=== PATIENT | female | born 1975 | race Caucasian/White ===

== ENCOUNTER 2019-02-27 15:12 | Inpatient (IN) ==
[2019-02-27 18:04] LABS: BASO# 0.06 X1000 (0.0-0.2); BASO% 0.9 % (0.0-0.8); EOS# 0.15 X1000 (0.0-0.7); EOS% 2.3 % (0.0-10.0); HEMATOCRIT 33.8 % (37.0-47.0); HEMOGLOBIN 11.1 g/dL (12.0-16.0); LYMPH% 16.7 % (20.5-51.1); MCH 30.3 PG (27-31); MCHC 32.8 g/dL (33-37); MCV 92.3 FL (81-99); MONO# 0.57 X1000 (0.11-0.59); MONO% 8.6 % (1.7-9.3); MPV 10.8 FL (7.4-10.4); NEUT# 4.71 X1000 (1.4-6.5); NEUT% 71.5 % (42.2-75.2); PLT 242 X1000 (130-400); RBC 3.66 XMIL (4.2-5.4); RDW 12.9 % (11.5-14.5); WBC 6.59 X1000 (4.8-10.8)
[2019-02-27 18:17] LABS: AGAP 11; ALB/GLOB RATIO 1.2; ALBUMIN 3.8 g/dL (3.5-5.0); ALKALINE PHOSPHATASE 85 U/L (32-104); BUN 13 mg/dL (8-22); CHLORIDE 100 mmol/L (98-107); COSMO 276; CREATININE 0.7 mg/dL (0.5-0.9); ESTIMATED GFR > 60; GLUCOSE 98 mg/dL (70-104); GOT 15 U/L (10-30); GPT 8 U/L (10-36); POTASSIUM 3.6 mmol/L (3.5-5.1); SODIUM 138 mmol/L (136-145); TCO2 27 mmol/L (25-35); TOTAL BILIRUBIN 0.39 mg/dL (0.20-1.00); TOTAL PROTEIN 6.9 g/dL (6.3-8.3)
[2019-02-27 19:24] LABS: RETIC% 0.72 % (0.8-2.1)
--- NOTE | 2019-02-27 20:16 | HISTORY AND PHYSICAL ---
REASON FOR ADMISSION: Five-month history of progressively worsening chest pain, dyspnea and left- sided neck swelling. HISTORY OF PRESENT ILLNESS: Ms. Elana Grissom is a 43-year-old woman with no significant past medical history. About a year ago she saw her primary care physician for pleuritic chest pain and shortness of breath, and for small neck swellings on the left side of the neck. At that time it was felt that the neck swellings were reactive, probably to sore throat and bronchitis. The patient was given antibiotics and steroids, and her symptoms, i.e., sore throat, chest pain and shortness of breath, improved significantly and resolved. She states, however, that the neck swelling did not recede, and over the last 5 months have continued to increase in size. At the same time, the aforementioned chest pain has occurred, this time on the right side sharply into the shoulder, worse with exertion, and it is pleuritic. No fever, no chills, no night sweats. She has lost about 30 pounds over the last 4 months. She has a protracted dry cough. No hemoptysis. No pruritus. No dysphonia or dysphagia. Went to see her doctor today, who ordered a CT scan, and it showed multiple hilar lymphadenopathy abutting most of the large vessels in the mediastinum. The patient was then instructed to come to the ER to be evaluated. Dr. Lanier, oncologist, was consulted, and he wanted her to be admitted for further workup. REVIEW OF SYSTEMS: The patient denies any GI, or neurological complaints. No polyuria or polydipsia. No blurry vision or neck stiffness. No arthralgia or rash. Twelve systems were done, positive findings per HPI. ALLERGIES: None. MEDICATIONS: None. PAST SURGICAL HISTORY: , and I believe a hysterectomy. The patient has also had stents placed in her ureter on the right side. SOCIAL HISTORY: She smokes one-half to 1 pack a day. No alcohol or recreational drug use. Currently lives with her mother. FAMILY HISTORY: Mother had cancer, but she does not know what type. No other family member or first-degree relative with cancer, diabetes, or heart disease. PAST MEDICAL HISTORY: Other than kidney stones, nothing else. LAB WORK: White count 6000, hemoglobin and hematocrit 11 and 33, platelets 242. There is no significant differential. Potassium 3.6, BUN 13, creatinine 0.9. Troponin negative. ProBNP normal. EKG is pending. Chest film was not done. CT scan was given a verbal report from the ER physician, and the patient had multiple large hilar and mediastinal lymph nodes. PHYSICAL EXAMINATION: GENERAL: Middle-aged woman who is in no acute distress. She is alert and oriented to person, place and time with normal mood and affect. VITAL SIGNS: Blood pressure is 156/107, respiratory rate 87, respirations 24, heart rate 87, temperature 98.1, saturation 99% on room air. HEENT: Head is normocephalic, atraumatic. Eyes PERRL, EOMI. She is anicteric, not pale. ENT: Oropharynx exam is grossly normal. No central cyanosis.. NECK: Supple. There are multiple matted, hard swellings on the lateral left upper aspect of the patient's neck. They are not attached to underlying or overlying structures. They are mobile. They are nontender. No other lymphadenopathy appreciated in the axilla or supraclavicular area or the submental/submandibular areas. CHEST: Clear to auscultation. Good air entry in both lung reyes. CARDIOVASCULAR: First and second heart sounds heard. No gallops, murmurs or rubs. Rhythm is regular. ABDOMEN: Full and soft without tenderness or megaly. Bowel sounds are normal. No masses. RECTAL EXAM: Deferred at this time. EXTREMITIES: No edema, clubbing or cyanosis. Distal pulses are symmetrical and regular with good volume. NEUROLOGIC: No gross focal deficits appreciated. SKIN: Intact with no breakdown, lesions or erythema. MUSCULOSKELETAL: Grossly normal. ASSESSMENT: 1. Generalized lymphadenopathy, probably secondary to lymphoma or metastatic disease of solid tumor. 2. Tobacco use. 3. History of kidney stones. PLAN: The patient will be treated symptomatically, pending evaluation by Dr. Lanier. The patient would benefit from excisional biopsy. I will consult General Surgery to do this if agreeable to Dr. Lanier. Will avoid giving this patient any steroids, as if we are suspecting lymphoma, this could destroy the architecture of the lymph nodes and make diagnosis of the lymphoma subtype hard to discern. Will add an abdominal sonogram to evaluate for further staging if this patient has a Hodgkin-type lymphoma. The patient also has an anemia. Will do anemia workup amongst other things. cc: Gayatri Geller MD
--- NOTE | 2019-02-28 02:00 | PROVIDER DOCUMENTATION ---
This chart was entered by Mary Haywood Scribe, acting as scribe for Taylor Posada MD. HPI-General Adult - General Chief Complaint: General Adult Stated Complaint: DR COSBY REF-LYMPH NODES Time Seen by Provider: 02/27/19 15:27 Source: patient Allergies/Adverse Reactions: Patient Allergies Allergy/AdvReac Type Severity Reaction Status Date / Time No Known Allergies Allergy Verified 02/27/19 19:37 Home Medications: Home Medication List Medication Instructions Recorded Confirmed Last Taken Type NK [No Home Medications] 02/27/19 02/27/19 Unknown History - History of Present Illness -Gen Adult Nature of Presenting Problems: Patient is a 43 year old female who presents to the ED with lymph nodes swelling that have been present for 1 year. Patient had a CT scan of thorax today. report rt side chest pain almost daily for months. Patient reports being sent to ED by PCP due to concern Lymph node pressing on Pulmonary artery. Location of Pain/Injury: reports: none Pain Radiation: reports: no radiation Quality of Pain: reports: none Severity: reports: mild Onset/Duration: reports: other (1 year) Timing: reports: still present Context/Activities at Onset: reports: light activity Modifying Factors: improves with: nothing Associated Symptoms: reports: denies symptoms Similar Symptoms Previously?: Yes Recently seen or treated by another doctor?: Yes Review of Systems - Adult - REVIEW OF SYSTEMS - ADULT Constitutional: reports: no symptoms reported Eyes: reports: no symptoms reported Ears, Nose, Mouth & Throat: reports: no symptoms reported Cardiovascular: reports: chest pain Respiratory: reports: shortness of breath Gastrointestinal: reports: no symptoms reported Genitourinary: reports: no symptoms reported Musculoskeletal: reports: no symptoms reported Integumentary: reports: no symptoms reported Neurological: reports: no symptoms reported Past History - Adult - PAST MEDICAL HISTORY-ADULT Review of Records: reports: Nursing Assessment Review, Medications Reviewed, Social history reviewed & non-contributory. Major Childhood Illnesses: reports: denies history Cardiovascular: reports: denies history Respiratory: reports: denies history Gastrointestinal: reports: denies history Obstetrical/Gynecological: reports: denies history Genitourinary: reports: kidney disease Musculoskeletal: reports: denies history Neurological: reports: denies history Psychiatric: reports: denies history Endocrine/Immune: reports: denies history Other Conditions: reports: denies history - PRIOR SURGERIES/PROCEDURES Surgical/Procedure History: reports: reviewed, not pertinent, hysterectomy - IMMUNIZATION STATUS Childhood Immunizations: See Nurse Assessment Flu Vaccine: See Nurse Assessment - FAMILY HISTORY Family History: reviewed, not pertinent - SOCIAL HISTORY Smoking: cigarettes, less than 1 pack/day Provider spent 3-5 mins advising pt. on dangers of tobacco.: Discussed manners to quit use, and f/u contacts for add'l counseling. Substance Use: denies Physical Exam-General - PHYSICAL EXAM-ADULT Initial Vital Signs Reviewed: Yes - CONSTITUTIONAL General Appearance: alert, no apparent distress. negative: lethargic, slow to respond - HEAD, EARS, NOSE, MOUTH & THROAT HENMT: moist mucous membranes. negative: angioedema, hearing deficit - NECK Neck: lymphadenopathy (swelling to multiple lymph node. non tender (left side)) - RESPIRATORY Respiratory: chest non-tender, lungs clear, normal breath sounds. negative: crackles, rhonchi - CARDIOVASCULAR Cardiovascular: normal peripheral pulses, regular rate, rhythm. negative: tachycardia, systolic murmur - GASTROINTESTINAL (ABDOMEN) Abdominal Exam: normal bowel sounds, non tender, soft. negative: guarding, rebound - SKIN Integumentary: normal color, normal turgor, warm/dry. negative: cyanosis, eryt dinora, jaundice - NEUROLOGIC Neurologic: grossly normal - PSYCHIATRIC Psych/Mental Status: oriented x 3. negative: paranoid, tearful Progress - PLAN OF CARE/RESULTS Progress/Plan/Lab Results: Vital Signs - 8 hr 02/27/19 15:15 Temperature 98.1 F Pulse Rate 97 H Respiratory Rate 16 Blood Pressure 145/91 O2 Sat by Pulse Oximetry 99 CT chest report from PCP reviewed states severe mediastinal lymphadenopathy. mediastinal mass completely surrounds and encases the rt main pulmonary arterywhich only measure [address] Ocampo and discussed the patient case and the CT result. He is not worry urgently about the mass compressing the pulmonary artery. Plan is to admit to hospital and he will f/u [facility]. Result Diagrams: 02/27/19 15:48 02/27/19 15:48 - EKG 1 Time of EKG reading by physician:: 17:42 EKG Read and Signed by:: Taylor Mahajan EKG Interpretation (*Must complete 3 of following elements*): Abnormal Rate: 83 Rhythm: normal sinus rhythm QRS: RBB (incomplete) [place] Interval: normal Comments: borderline ECG - CONSULTS/PCP/HOSPITALIST Notification #1 *Consult/PCP/Hospitalist*: Dr. Geller Time Discussed: 18:48 Consult Disposition: Admit (Hx, PE and patient c) Departure - Departure Date of Disposition Decision: 02/27/19 Time of Disposition Decision: 18:47 DIAGNOSIS: Lymphadenopathy, Mediastinal mass Disposition: ADMITTED INPATIENT 09 Certified Medical Emergency: Emergent Condition: Stable - Critical Care Note This patient required my direct & personal management of CC.: No Attestation - Physician/ NIMISHA Attestation Patient care was provided by Advanced Practice Provider:: No The physician spent face to face time with patient:: Yes Advanced Practice Provider documentation review:: Supervising physician onsite and consulted in the evaluation and care of this patient. The physician did have a face to face encounter with the patient. This chart was documented by the indicated scribe, (Mary Haywood Scribe) and accurately reflects the services I performed and decisions made by me, Taylor Posada MD, as attested by the provider's signature.
[2019-02-28 07:27] LABS: BASO# 0.04 X1000 (0.0-0.2); BASO% 0.6 % (0.0-0.8); EOS# 0.17 X1000 (0.0-0.7); EOS% 2.5 % (0.0-10.0); HEMATOCRIT 37.5 % (37.0-47.0); HEMOGLOBIN 12.3 g/dL (12.0-16.0); LYMPH# 1.01 X1000 (1.2-3.4); MCH 30.2 PG (27-31); MCHC 32.8 g/dL (33-37); MCV 92.1 FL (81-99); MONO# 0.52 X1000 (0.11-0.59); MONO% 7.7 % (1.7-9.3); MPV 10.5 FL (7.4-10.4); NEUT# 5.01 X1000 (1.4-6.5); NEUT% 74.2 % (42.2-75.2); PLT 264 X1000 (130-400); RBC 4.07 XMIL (4.2-5.4); RDW 12.9 % (11.5-14.5); WBC 6.75 X1000 (4.8-10.8)
[2019-02-28 07:44] LABS: AGAP 10; ALBUMIN 3.7 g/dL (3.5-5.0); ALKALINE PHOSPHATASE 84 U/L (32-104); BUN 12 mg/dL (8-22); CALCIUM 9.1 mg/dL (8.8-10.2); CHLORIDE 103 mmol/L (98-107); COSMO 276; CREATININE 0.6 mg/dL (0.5-0.9); ESTIMATED GFR > 60; GLUCOSE 101 mg/dL (70-104); GOT 14 U/L (10-30); GPT 8 U/L (10-36); MAGNESIUM 2.1 mg/dL (1.5-2.7); POTASSIUM 3.3 mmol/L (3.5-5.1); SODIUM 138 mmol/L (136-145); TCO2 25 mmol/L (25-35); TOTAL BILIRUBIN 0.47 mg/dL (0.20-1.00); TOTAL PROTEIN 7.3 g/dL (6.3-8.3)
--- NOTE | 2019-02-28 09:31 | EKG Report ---
Test Performed on : 02/27/2019 5:42:30 PM Test Reason : CP Blood Pressure : / mmHG Vent. Rate : 083 BPM Atrial Rate : 083 BPM P-R Int : 140 ms QRS Dur : 092 ms QT Int : 380 ms P-R-T Axes : 052 065 057 degrees QTc Int : 446 ms Normal sinus rhythm. Incomplete right bundle branch block Borderline ECG No previous ECGs available Unconfirmed Result
[2019-02-28] MEDS: POTASSIUM CHLORIDE 20 MEQ/SWI 20 MEQ/100 ML IVPB IV SCH ×2 (09:55→16:53)
--- NOTE | 2019-02-28 11:22 | Diag Imaging Result Doc PS360 ---
EXAM: CHEST-2 VIEWS HISTORY: hilar adenopathy TECHNIQUE: Chest two views COMPARISON: 01/03/2014 FINDINGS: The lungs are hyperexpanded with increased AP diameter to the chest. There are multifocal infiltrates most pronounced in the right lung. Interval development of right apical pleural thickening. The upper mediastinum is prominent on the current study. Likely trace pleural fluid. IMPRESSION: Infiltrates with superior mediastinal adenopathy. Electronically signed by Jaswinder Bryant 02/28/2019 11:20 AM
[2019-02-28] MEDS ORDERED: NS 250 ML ONE (13:32)
--- NOTE | 2019-02-28 15:14 | PROGRESS NOTE ---
DATE: 02/28/2019 INTERVAL HISTORY: The patient remains largely asymptomatic aside from occasional minimal pleuritic pain. Pain well controlled. No new complaints. No acute events overnight. Patient with continued minimal dry cough. REVIEW OF SYSTEMS: Twelve point review of systems review of systems negative except as per Interval History. LABS: WBC 6.5, hemoglobin 12.3, hematocrit 37.5, platelets 264,000. Sodium 138, potassium 3.3, BUN 12, creatinine 0.6, total bilirubin 0.47. IMAGING: Chest x-ray with multifocal infiltrates in the right lung and superior mediastinal adenopathy. VITAL SIGNS: T-max 99.1, pulse 87, respirations 16, blood pressure 135/89. O2 sat 100% on room air. PHYSICAL EXAMINATION: General: No acute distress. Vitals: As above. HEENT: Normocephalic, atraumatic. Moist mucous membranes. Neck: No JVD. Cardiac: Regular rate and rhythm. No murmurs, rubs or gallops. Pulmonary: Clear to auscultation bilaterally. No wheezing, rales or rhonchi. Abdomen: Soft, nontender, nondistended. Bowel sounds positive. Extremities: Peripheral pulses intact. No clubbing, cyanosis or edema. Neurologic: Cranial nerves grossly intact. No focal deficits identified. Psychiatric: Normal mood and affect. Awake, alert, oriented x 3. Skin: No new rashes or lesions identified. ASSESSMENT AND PLAN: 1. Generalized lymphadenopathy, suspected lymphoma versus likely metastatic disease. Oncology consulted and further recommendations pending. Suspect patient will need biopsy, followed by outpatient followup. 2. Infiltrate on chest x-ray. Patient with little to no cough. No dyspnea. Saturating well on room air without fever, tachycardia or leukocytosis. Suspicion for pneumonia is low. Will obtain CT chest to clarify. Suspect infiltrates noted on chest x-ray are due to malignancy as above. 3. Tobacco use. Patient counseled on cessation. Offered a nicotine patch. 4. Hypokalemia. Will replete and monitor. 5. Anemia mild and improved on recheck. No need for further workup at this time.
--- NOTE | 2019-02-28 22:15 | PULMONOLOGY CONSULTATION ---
DATE: 02/28/2019 REQUESTING PHYSICIAN: Marco A Fulton MD REASON FOR CONSULTATION: Possible metastatic lung cancer. HISTORY OF PRESENT ILLNESS: Ms. Amaya is a 43-year-old white female who reports the onset of nodules in her left neck several months ago. She was told they might be reactive, but she would need followup. The patient did not return for followup per her on admission. The patient was evaluated by the [facility] physician at [facility] ([place]) due to ongoing weight loss. He referred the patient for a CT scan of the thorax and to Dr. Timoteo Veloz. CT scan of the thorax was performed at the imaging center and has been pulled to our system. The patient has bulky adenopathy in the anterior mediastinum surrounding the trachea, subcarinal region. Tumor appears to obstruct the entrance to the right upper lobe and markedly narrows the bronchus intermedius. There is a patchy nonspecific infiltrate in the right middle lobe. Images are slightly difficult to interpret due to the format. The patient's lymph node was biopsied with a fine-needle aspirate. The left-sided lymph nodes in her neck were aspirated by Dr. Fulton' phone conversation, and these cells were so poorly differentiated it was difficult to identify the source. Pulmonary consultation was requested. PAST MEDICAL HISTORY/PROBLEM LIST: 1. History of cervical cancer in 2007 with subsequent hysterectomy. 2. Nephrolithiasis with stent placement. 3. Status post section. SOCIAL HISTORY: Ongoing tobacco use. No alcohol use listed. REVIEW OF SYSTEMS: Notable for nodules in the left side of her neck, which have increased in size, cough which is dry and nonproductive, and 15-pound weight loss over the last year. OBJECTIVE: General: The patient is a thin white female who is slightly anxious but in no distress. Vital signs: BP 135/89, heart rate 87, respiratory rate 16, oxygen saturation 100% on room air. HEENT: Pupils are equal and reactive. Oropharynx appears clear. Neck: Reveals multiple firm nodules in the posterior cervical chain, which are not freely mobile. Chest: Reveals decreased breath sounds right apex. Cardiac Exam: S1, S2. Abdomen: Soft without hepatosplenomegaly. Extremities: Without edema. LABORATORIES: CT scan as per HPI. White blood count 6.8, hemoglobin 12.3, platelet count 264,000 sodium 138, potassium 3.3, chloride 103 bicarbonate 25, BUN 12, creatinine 0.6. IMPRESSION: A 43-year-old with tobacco history, remote history of cervical cancer presents with extensive mediastinal disease worrisome for advanced bronchogenic carcinoma. The airway to the right upper lobe appears to be obstructed. RECOMMENDATIONS: 1. Check a CEA level. 2. N.p.o. after midnight with bronchoscopy scheduled for tomorrow morning. cc: Keo Baird MD
[2019-03-01] MEDS ORDERED: FENTANYL ONE (06:26)
[2019-03-01] MEDS ORDERED: DIPRIVAN 1% ONE (06:26)
[2019-03-01] MEDS ORDERED: VERSED ONE (06:29)
[2019-03-01] MEDS ORDERED: XYLOCAINE 2% ONE (07:04)
[2019-03-01] MEDS ORDERED: XYLOCAINE 2% VISCOUS ONE (07:04)
[2019-03-01] MEDS ORDERED: SODIUM CHLORIDE 0.9% 20 ML ONE (07:04)
[2019-03-01] MEDS ORDERED: EPINEPHRINE ONE (07:04)
--- NOTE | 2019-03-01 08:55 | OPERATIVE NOTE ---
PROCEDURE DATE: 03/01/2019 PROCEDURE PERFORMED: Bronchoscopy with endobronchial biopsies. CLINICAL INDICATIONS: A 43-year-old with cervical adenopathy with diffuse mediastinal adenopathy/mass. PROCEDURE: After informed consent was obtained and the risks were discussed, the patient was brought to the endoscopy suite this morning. Topical anesthesia was achieved with inhaled lidocaine along with viscous lidocaine to the right nostril with 2% lidocaine instilled above and below the vocal cords during the procedure. Monitored anesthesia care was provided by the anesthesia group. Prior to the procedure, a time-out was performed. All agreed with the patient identifiers and indications for the procedure. After a time-out was performed, topical anesthesia and sedation were achieved. Bronchoscope was advanced through the right nostril to the level of the vocal cords. The vocal cords were smooth and without lesions. Both vocal cords had normal movement. The bronchoscope was advanced through the vocal cords into the trachea. Trachea was smooth and without lesions. At the distal trachea, the sonia was significantly splayed consistent with the radiographic findings of tumor. The bronchoscope was directed to the right side. There was apparent tumor seen narrowing the airways to the right upper lobe and the bronchus intermedius. There was significant tumor identified in the airflow divider between the right upper lobe and the bronchus intermedius. Video image was obtained. Airways were narrowed to the middle lobe but did reopen in the lower lobe. The bronchoscope was directed to the left side. Tumor could be seen on the medial wall of the left mainstem bronchus in 2 ridge-like fashions, just passed the sonia. Video image was obtained. Airways to the left upper lobe, lingula, and left lower lobe were patent without lesions. A washing was performed from the proximal tracheobronchial tree and sent for cultures and cytology. The bronchoscope was directed back to the airflow divider between the right upper lobe and the bronchus intermedius. Multiple endobronchial biopsies were taken from this lesion. Epinephrine was instilled before and following the biopsies to maintain hemostasis. The bronchoscope was then directed to the left mainstem. Multiple biopsies were taken from the tumor identified in the left mainstem. At the completion of the procedure, there was no significant active bleeding identified. Hemostasis appeared adequate. The bronchoscope was retracted. The patient was awake and conversant after the completion of the procedure. cc: Keo MD Gutierrez Johnson MD Sammy Becdach, MD Hugh C. Nabers, MD
--- NOTE | 2019-03-01 16:30 | HEMO/ONC CONSULTATION ---
DATE: 03/01/2019 ADMITTING PHYSICIAN: Gayatri Geller MD REQUESTING PHYSICIAN: Gayatri Geller MD. We appreciate this consult. CHIEF COMPLAINT: Generalized lymphadenopathy. HISTORY OF PRESENT ILLNESS: Ms. Amaya is a pleasant 43-year-old female with no significant mass medical history. The patient reports that she began to have swelling in her left neck approximately 1 year ago. She states that she was seen by her primary care physician and placed on antibiotics and steroids at that time. The patient states that the neck swelling did not recede; however, she was not seen in follow-up for continued swelling of lymph nodes. The patient reports that she began to experience chest pain and right shoulder pain that was worse with exertion. She denied any fever, chills, or night sweats. The patient does report that she has had a 30-pound weight loss over the last 4 months with an ongoing dry cough. The patient presented to her primary care physician ultimately and underwent CT of the chest, which revealed multiple hilar lymphadenopathy abutting most of the large vessels in the mediastinum. She was instructed to come to the emergency department for consult with Oncology and complete workup. We are consulted for generalized lymphadenopathy. PAST MEDICAL HISTORY: None. PAST SURGICAL HISTORY: 1. section. 2. Placement of stent in ureter on right side. FAMILY HISTORY: Significant for cancer in the patient's mother of unknown type. MEDICATIONS ON ADMISSION: None. ALLERGIES: None known. REVIEW OF SYSTEMS: A 14 point review of systems was obtained and is negative except as mentioned in HPI. PHYSICAL EXAMINATION: General: Ms. Amaya is a pleasant 43-year-old female, lying supine in bed in no immediate distress. Vital Signs: Temperature 97.8 degrees, blood pressure 135/89, heart rate 87, respirations are 16, O2 saturation is 100% on room air. HEENT: Normocephalic, atraumatic. Mucous membranes are pale and moist. Sclerae anicteric. Extraocular movements intact. Neck: Supple. Lungs: Clear to auscultation bilaterally. Chest expansion equal bilaterally. Cardiovascular: S1, S2 is heard without murmur, rub, or gallop. Abdomen: Nondistended. Extremities: No clubbing. She does have trace bilateral lower extremity edema. Dermatologic: No rashes, bruises, or lesions. Neurologic: The patient is awake, alert, and oriented x3. She has no focal deficit. Lymphadenopathy: The patient does have multiple enlarged lymph nodes in the left precervical region. DIAGNOSTIC STUDIES: Hemoglobin 12.3, hematocrit 37.5, white blood cell count 6.75, platelets 264,000. Sodium 138, potassium 3.3, chloride 103, CO2 is 25, BUN 12, creatinine 0.6, and glucose is 101, calcium 9.1, magnesium 2.1. LDH is 362. LFTs are within normal limits. CT of the chest reveals multi-hilar lymphadenopathy abutting most large vessels in the mediastinum. ASSESSMENT AND PLAN: 1. Generalized lymphadenopathy with a 30-pound weight loss in last 4 months, probably related to lymphoma versus metastasis from solid tumor. We will obtain bone marrow biopsy and aspiration. Additionally, the patient will be scheduled for lymph node resection and evaluation. Additionally we will obtain a CT of the abdomen and pelvis to rule out primary. We will continue to follow along and make treatment plan pending results. 2. Tobacco abuse. Cessation was encouraged. We will follow along with you and make further recommendations pending outcomes. The above reflects the history, exam, assessment, and plan of Dr. Lanier. Dictated by TYRONE Hill for Sridhar Lanier MD cc: TYRONE Hill MD
--- NOTE | 2019-03-01 16:49 | PROGRESS NOTE ---
DATE: 03/01/2019 INTERVAL HISTORY: The patient is status post bronchoscopy with biopsy of likely malignancy. Some discomfort postprocedure, but doing okay. Denies dyspnea, fever, or chills. No other new complaints. No acute events overnight. ROS: 12 point review of systems negative except as per interval history. VITALS: T-max 99.7, pulse 94, respirations 18, and blood pressure 122/71. PHYSICAL EXAMINATION: General: No acute distress. Vital signs above. HEENT: Normocephalic and atraumatic. Moist mucous membranes. Cardiovascular: Regular rate and rhythm. No murmur, gallop or rub. Pulmonary: Largely clear to auscultation bilaterally. Abdomen: Soft, nontender, nondistended. Bowel sounds positive. Extremities: Peripheral pulses intact. No clubbing, cyanosis or edema. Neurologic: Cranial nerves grossly intact. No focal deficits identified. Psychiatric: Normal mood and affect. Awake, alert and oriented times 3. Skin: No new rashes or lesions identified. ASSESSMENT AND PLAN: 1. Generalized lymphadenopathy, likely lymphoma versus metastatic disease. Status post bronchoscopy earlier with biopsy earlier this morning. Endobronchial lesion was identified during bronchoscopy making malignancy extremely likely. Oncology consulted. Further recommendations pending. 2. Infiltrate on chest x-ray. Patient with little to no cough. No dyspnea. Saturating well on room air without fever, tachycardia, or leukocytosis. Suspicion for pneumonia is quite low. Outpatient CT just prior to admission reviewed and appeared to have some obstructive atelectasis, but no definite pneumonia. If further findings suggestive of infection develops, then we will consider. 3. Tobacco use. Patient counseled on cessation and offered nicotine patch. 4. Hypokalemia, repleted. Recheck labs pending. 5. Anemia, mild and improved on recheck. No need for further workup at this time. 6. Disposition: Oncology recommendations pending. [facility]
[2019-03-02] MEDS: TYLENOL PO PRN (03:09)
--- NOTE | 2019-03-02 12:06 | Diag Imaging Result Doc PS360 ---
EXAM: CT ABD/PELVIS W/PO AND IV CON 03/02/2019 HISTORY: R/o primary lesion TECHNIQUE: This exam was performed using automated exposure control, adjustment of mA or kV according to patient size, and/or use of iterative reconstruction technique. COMMENT: There are interstitial opacities present in the right middle lobe and to a lesser extent in the lower lobe. There is a fairly large right pleural effusion with compressive atelectasis in the right lower lobe. None of these findings were present on 08/16/2015. There are two renal arteries bilaterally. The mesenteric arteries are patent. There is some atherosclerotic calcification and noncalcified plaque in the infrarenal abdominal aorta. There is no evidence of aneurysm. There are no apparent gallstones. There is hydronephrosis on the right with a staghorn calculus in the renal pelvis and calyces measuring at least 3.2 cm in dimension. This is much larger than on the previous examination. Several smaller stones are present on both sides with the largest present on the left side in the upper pole measuring less than 5 mm. There is diminished contrast opacification in portions of the right kidney most notably seen on image 49 of the portal venous phase. The possibility of xanthogranulomatous pyelonephritis should be considered. There are multiple small lucencies present in the liver including one adjacent to the gallbladder. These are cystic in appearance and were also present at the time the previous study. There is no evidence of bowel obstruction or significant adenopathy. Pelvis: There is a moderate amount of stool present in the rectum. There is no evidence of free fluid or significant adenopathy. There has been hysterectomy. The urinary bladder is unremarkable. There is no evidence of appendicitis. There is a bone island in the left femoral neck which was also present at the time the previous examination. Otherwise the regional skeleton is stable in appearance. IMPRESSION: 1. Right middle lobe pneumonia, right lower lobe atelectasis and right pleural effusion not present on 08/16/2015. 2. 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 Electronically signed by Ignacio Archibald 03/02/2019 12:03 PM
--- NOTE | 2019-03-02 15:38 | PROGRESS NOTE ---
DATE: 03/02/2019 INTERVAL HISTORY: Patient remains largely asymptomatic aside from some slight nonproductive cough and some slight pleuritic discomfort on the right since her bronchoscopy and biopsy yesterday. Denies dyspnea, fever, chills. No new complaints. No acute events overnight. REVIEW OF SYSTEMS: Twelve point review of systems negative, except as per interval history. VITALS: T-max 99.7 degrees, pulse 92, respirations 16, blood pressure 126/109, O2 saturation 100% on room air. PHYSICAL EXAMINATION: General: No acute distress. Vitals: As above. HEENT: Normocephalic, atraumatic. Moist mucous membranes. Cardiovascular: Regular rate and rhythm. No murmurs, rubs, or gallops. Pulmonary: Markedly clear to auscultation bilaterally. No wheezes, rales noted. Abdomen: Soft, nontender, nondistended. Bowel sounds positive. Extremities: Peripheral pulses intact. No clubbing, cyanosis, or edema. Neurologic: Cranial nerves grossly intact. No focal deficits identified. Psychiatric: Normal mood and affect. Awake, alert, oriented x3. Skin: No new rashes or lesions identified. ASSESSMENT AND PLAN: 1. Likely lymphoma versus metastatic disease. Generalized lymphadenopathy. Status post bronchoscopy 03/01 with biopsy of endobronchial lesion. Hematology/Oncology on board. Possible lymph node excision and bone marrow biopsy tomorrow noted. 2. Infiltrate on chest x-ray. Patient with no cough, no dyspnea, saturating well on room air without fever, tachycardia or leukocytosis. Does have a slight dry cough since her bronchoscopy, but relatively low suspicion for pneumonia. Outpatient CT showed obstructive atelectasis, but no definite pneumonia. Repeat CT here pending. If the CT here or clinical picture begins to become more suggestive of pneumonia, then will consider starting Levaquin. 3. Tobacco use. Patient counseled on cessation. Offered a nicotine patch. 4. Hypokalemia, repleted and repeat labs pending. 5. Anemia, mild, improved on recheck. No need for further workup at this time.
[2019-03-02] MEDS: LEVAQUIN PO SCH (16:55)
[2019-03-02] MEDS ORDERED: TESSALON PO PRN (18:49)
[2019-03-03 07:35] LABS: BASO# 0.04 X1000 (0.0-0.2); BASO% 0.6 % (0.0-0.8); EOS# 0.12 X1000 (0.0-0.7); EOS% 1.7 % (0.0-10.0); HEMATOCRIT 37.6 % (37.0-47.0); HEMOGLOBIN 12.5 g/dL (12.0-16.0); LYMPH% 17.3 % (20.5-51.1); MCH 30.5 PG (27-31); MCHC 33.2 g/dL (33-37); MCV 91.7 FL (81-99); MONO% 8.6 % (1.7-9.3); MPV 10.5 FL (7.4-10.4); NEUT# 4.99 X1000 (1.4-6.5); NEUT% 71.8 % (42.2-75.2); PLT 307 X1000 (130-400); RDW 12.3 % (11.5-14.5); WBC 6.95 X1000 (4.8-10.8)
--- NOTE | 2019-03-03 07:36 | Diag Imaging Result Doc PS360 ---
EXAM: CHEST-1 VIEW 03/03/2019 HISTORY: SOB TECHNIQUE: AP portable at 0637 COMMENT: There is apical pleural thickening bilaterally particularly on the right. There is extensive interstitial opacity throughout the right lung particularly in the perihilar regions. There is what appears to be a nodule in the right apex measuring 15 mm in diameter. This was not present on 01/03/2014. The left lung is essentially clear and unchanged since 02/28/2019. The ill-defined opacity in the right lower lobe is somewhat less conspicuous. There is enlargement of the right hilum which was also present previously. There is widening of the superior mediastinum. Compared to 01/03/2014 and none of these findings were present previously. IMPRESSION: Mediastinal and right hilar mass/adenopathy with lymphangitic spread of carcinoma particularly in the right upper lobe. The possibility of postobstructive pneumonia in the right upper and right lower lobes cannot be excluded. Electronically signed by Ignacio Archibald 03/03/2019 7:33 AM
[2019-03-03 07:49] LABS: AGAP 14; BUN 11 mg/dL (8-22); CALCIUM 8.6 mg/dL (8.8-10.2); CHLORIDE 99 mmol/L (98-107); COSMO 276; CREATININE 0.6 mg/dL (0.5-0.9); ESTIMATED GFR > 60; GLUCOSE 118 mg/dL (70-104); POTASSIUM 3.4 mmol/L (3.5-5.1); SODIUM 138 mmol/L (136-145); TCO2 25 mmol/L (25-35)
[2019-03-03] MEDS: LEVAQUIN PO SCH (09:01)
[2019-03-03] MEDS ORDERED: KLOR-CON POWDER PACKET PO ONE (13:04)
--- NOTE | 2019-03-03 14:17 | PROGRESS NOTE ---
DATE: 03/03/2019 INTERVAL HISTORY: The patient remains largely asymptomatic aside from persistent mild nonproductive cough and some slight pleuritic discomfort on the right since her bronchoscopy. Denies fever, chills. No new complaints. No acute events overnight. REVIEW OF SYSTEMS: Twelve point review of systems negative, except as per interval history. LABS: WBC 6.9, hemoglobin 12.5, hematocrit 37.6, platelets 307. Sodium 138, potassium 3.4, glucose 108, creatinine 0.6. VITALS: T-max 98.5 degrees, pulse 96, blood pressure 120/70, respirations 17, O2 saturation 100% on room air PHYSICAL EXAMINATION: General: No acute distress. Vitals: As above. HEENT: Normocephalic, atraumatic. Moist mucous membranes. Cardiovascular: Regular rate and rhythm. No murmur noted. Pulmonary: Clear to auscultation bilaterally with no wheezing, rales or rhonchi noted. Abdomen: Soft, nontender, nondistended. Bowel sounds positive. Extremities: Peripheral pulses intact. No clubbing, cyanosis or edema. Neurologic: Cranial nerves grossly intact. No focal deficits identified. Psychiatric: Normal mood and affect. Awake, alert and oriented x3. Skin: No new rashes or lesions identified. ASSESSMENT AND PLAN: 1. Likely lymphoma versus metastatic disease. Generalized lymphadenopathy. Status post bronchoscopy 03/01 with biopsy of endobronchial lesion. Hematology/Oncology on board. Possible lymph node excision and bone marrow biopsy in the near future. 2. Possible pneumonia. The patient with minimal cough. No dyspnea and saturating well on room air without fever, tachycardia or leukocytosis. However, does have infiltrate on CT showing possible postobstructive pneumonia. Started on Levaquin. Continue to monitor. 3. Staghorn calculus of right kidney. 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 Antibiotics started as above. Urology consulted for further recommendations. 4. Tobacco abuse. Patient counseled on cessation. Offered a nicotine patch. 5. Hypokalemia, somewhat improved, but will continue to replete and monitor. 6. Anemia, mild. Blood counts essentially stable.
[2019-03-04 07:33] LABS: BASO# 0.03 X1000 (0.0-0.2); BASO% 0.4 % (0.0-0.8); EOS# 0.14 X1000 (0.0-0.7); EOS% 1.8 % (0.0-10.0); HEMATOCRIT 37.5 % (37.0-47.0); HEMOGLOBIN 12.4 g/dL (12.0-16.0); LYMPH% 14.2 % (20.5-51.1); MCH 30.2 PG (27-31); MCHC 33.1 g/dL (33-37); MCV 91.5 FL (81-99); MONO# 0.81 X1000 (0.11-0.59); MONO% 10.5 % (1.7-9.3); MPV 10.6 FL (7.4-10.4); NEUT# 5.67 X1000 (1.4-6.5); NEUT% 73.1 % (42.2-75.2); PLT 315 X1000 (130-400); RDW 12.4 % (11.5-14.5); WBC 7.75 X1000 (4.8-10.8)
[2019-03-04 08:03] LABS: AGAP 12; BUN 12 mg/dL (8-22); CALCIUM 9.4 mg/dL (8.8-10.2); CHLORIDE 104 mmol/L (98-107); COSMO 278; CREATININE 0.5 mg/dL (0.5-0.9); ESTIMATED GFR > 60; GLUCOSE 103 mg/dL (70-104); SODIUM 139 mmol/L (136-145); TCO2 23 mmol/L (25-35)
--- NOTE | 2019-03-04 09:02 | PROGRESS NOTE ---
DATE: 03/04/2019 SUBJECTIVE: Patient has no new complaints. PHYSICAL EXAMINATION: Vital Signs: Reviewed. Temperature 97 degrees, pulse 95, respiratory rate 18, BP 124/72, saturating 99% on room air. General: Patient is awake, very pleasant to talk with. She is in no current distress. HEENT: Normocephalic. Neck: Supple. Cardiovascular: Regular rate. Chest: Clear. Abdomen: Soft and nondistended. Extremities: Moves all extremities. ASSESSMENT: 1. Lymphoma versus metastatic disease. Recent chest x-ray demonstrated mediastinal and right hilar mass with lymphatic spread and probable postobstructive pneumonia. 2. Postobstructive pneumonia. 3. Chronic tobacco abuse. 4. Hypokalemia, resolved. PLAN: We will continue patient in the hospital. Continue supportive care. Hematology/oncology is on board. cc: Stephan Boyce MD
[2019-03-04] MEDS: LEVAQUIN PO SCH (10:14)
--- NOTE | 2019-03-04 12:05 | CONSULTATION ---
DATE OF CONSULTATION: 03/04/2019 ATTENDING PHYSICIAN: Sofia. REFERRING PHYSICIAN: Dr. Fulton. HISTORY OF PRESENT ILLNESS: This 43-year-old female was admitted with chest pains, shortness of breath, and significant weight loss. Evaluation revealed cervical lymphadenopathy and mediastinal lymphadenopathy and mass. She underwent bronchoscopy and biopsies of intraluminal masses. The patient has a history of renal lithiasis. Her evaluation for the lymphadenopathy and mediastinal mass included a CT of the abdomen and pelvis. This revealed a large partial staghorn calculus. Also noted were changes of lobar nephronia (focal pyelonephritis). The patient is currently on Levaquin 750 mg a day. Urine cultures are pending. The patient has a history of stones and states she usually passes them. She states that several years ago, she had to have a cystoscopic exam with right ureteroscopy and placement of a double-J stent. The patient had spontaneously passed that stone but also was noted to have a large stone in the right lower pole kidney. The patient states the stent was removed but she never had anything done about the right lower pole stone. She denies problems with urinary tract infections. She states she does have some right flank area tenderness. PAST MEDICAL HISTORY: Renal lithiasis, otherwise negative. PAST SURGICAL HISTORY: section and as noted in the HPI. SOCIAL HISTORY: Cigarettes, half to one pack a day for 20+ years. She states she has quit at this time. ETOH use is negative. She lives with her mother. ALLERGIES: No known drug allergies. REVIEW OF SYSTEMS: She states she is usually in good health. She denies any problems with heart disease, diabetes, hypertension, strokes, seizures, or recent bowel problems. PHYSICAL EXAMINATION: General: A normally-built, well-nourished, age apparent, white female, oriented in all ways and cooperative. HEENT: Normal for age. Lungs: Clear. Cardiovascular: Regular rate and rhythm. Abdomen: Flat, soft, nontender. No hepatosplenomegaly or masses. Normal bowel sounds. Back: Right CVA tenderness but no guarding or rebound noted. Genitourinary: Examination deferred until surgery. Extremities: No clubbing, cyanosis, or edema. Neurologic: No focal deficits. LABORATORY EVALUATION: Has a white count of 7.75, a hemoglobin of 12.4, a hematocrit of 37.5, and platelets are 315,000. Serum electrolytes are normal. BUN 12, creatinine 0.5. A urinalysis has not been obtained. Her urine culture resulted today has no growth. Urine output, she is voiding and the amount is not being measured. CT scan is as noted in the HPI. IMPRESSION: Right staghorn calculus with lobar nephronia (focal pyelonephritis). Currently on Levaquin 750 mg a day which should be continued even though a culture has no growth. RECOMMENDATIONS: Discussed with the patient that she will need to have further evaluation of her right kidney after the chest mass and lymphadenopathy have been treated. Recommend continuing Levaquin 750 mg a day. Thank you for this consultation. cc: Joshua Mathew MD
[2019-03-05 07:32] LABS: BASO# 0.04 X1000 (0.0-0.2); BASO% 0.5 % (0.0-0.8); EOS# 0.05 X1000 (0.0-0.7); EOS% 0.6 % (0.0-10.0); HEMATOCRIT 35.9 % (37.0-47.0); HEMOGLOBIN 11.8 g/dL (12.0-16.0); LYMPH# 1.12 X1000 (1.2-3.4); LYMPH% 13.9 % (20.5-51.1); MCHC 32.9 g/dL (33-37); MCV 91.3 FL (81-99); MONO# 0.88 X1000 (0.11-0.59); MONO% 10.9 % (1.7-9.3); MPV 10.6 FL (7.4-10.4); NEUT# 5.99 X1000 (1.4-6.5); NEUT% 74.1 % (42.2-75.2); PLT 337 X1000 (130-400); RBC 3.93 XMIL (4.2-5.4); RDW 12.3 % (11.5-14.5); WBC 8.08 X1000 (4.8-10.8)
[2019-03-05 08:00] LABS: AGAP 11; BUN 10 mg/dL (8-22); CHLORIDE 99 mmol/L (98-107); COSMO 272; CREATININE 0.6 mg/dL (0.5-0.9); ESTIMATED GFR > 60; GLUCOSE 110 mg/dL (70-104); POTASSIUM 3.8 mmol/L (3.5-5.1); SODIUM 136 mmol/L (136-145); TCO2 26 mmol/L (25-35)
[2019-03-05] MEDS: LEVAQUIN PO SCH (09:07)
[2019-03-05] MEDS: ZOFRAN IV PRN (09:07)
--- NOTE | 2019-03-05 16:14 | Diag Imaging Result Doc PS360 ---
MRI BRAIN W/WO CONTRAST - 03/05/2019 INDICATION: Stage IV lung cancer COMPARISON: None FINDINGS: There is no area of restricted diffusion. The ventricles and sulci are normal in size and contour. No intracranial mass or hemorrhage. No area of abnormal contrast enhancement. Midline structures including the optic chiasm and pituitary are normal. IMPRESSION: Negative exam. Electronically signed by Chidi Lee 03/05/2019 4:11 PM
--- NOTE | 2019-03-05 17:04 | PROGRESS NOTE ---
DATE: 03/05/2019 SUBJECTIVE: Patient reports mild cough. Not complaining of any pain at this time. OBJECTIVE: Vital Signs: Temperature 99.3 degrees, heart rate 95, respiratory blood 14, blood pressure 135/71. O2 saturation 100% on room air. General: This is a 43-year-old female lying in bed, in no acute distress. HEENT: Head is normocephalic, atraumatic. Neck: No JVD noted. No carotid bruits. No lymphadenopathy. No thyromegaly. Cardiovascular: S1, S2 heard. No murmurs, gallops, or rubs. Regular rate and rhythm. Respiratory: Clear bilaterally to auscultation. No work of breathing or using accessory muscles. Abdomen: Soft, nontender to palpation. Bowel sounds present. No organomegaly. Extremities: No clubbing, cyanosis, or edema. Peripheral pulses present in both legs. Neurological: Patient alert x3. Moves 4 extremities. LABORATORY DATA: Reviewed. ASSESSMENT AND PLAN: 1. Lymphoma versus metastatic disease. Hematology/oncology is following this patient. We will follow recommendations. 2. Community-acquired pneumonia. We will continue with Levaquin. White cell count is back to normal. She is breathing better. 3. Staghorn calculus of the right kidney. Patient has been evaluated by Dr. Mathew. No procedure recommended at this time. The patient will require further evaluation after her chest mass and lymphadenopathy has been treated. 4. Tobacco abuse. Patient advised to stop smoking. 5. Anemia of chronic disease. Aware. 6. Disposition. I think at this point if no more procedures are going to be done by subspecialists the patient can be discharged safely tomorrow. cc: Miki Linares MD
--- NOTE | 2019-03-05 20:36 | PULMONOLOGY PROGRESS NOTE ---
DATE: 03/05/2019 SUBJECTIVE: The patient is awake, alert, and conversant. She is without specific complaints. OBJECTIVE: Vital Signs: The patient has been afebrile for the last 24 hours. Blood pressure 124/77, heart rate 95, respiratory rate 18, oxygen saturation 100% on room air. HEENT: Pupils are equal and reactive. Oropharynx is clear. Neck: Is supple with lymph nodes noted in the posterior cervical chain. Chest: Is clear with slight decreased breath sounds right base. Cardiac: S1-S2. Abdomen: Is soft without hepatosplenomegaly. Extremities: Without edema. LABORATORIES: MRI of the brain is negative for metastatic disease. Bronchial wash cultures revealed Haemophilus influenzae, sensitive to Levaquin, phone report from Dr. Brooks. Biopsy specimens were adequate. Shows a poorly differentiated malignancy. Special stains should be available Tuesday. IMPRESSION: 43-year-old with history of tobacco use who has 1. Cancer identified in the tracheobronchial tree, most likely lung cancer. 2. Marked elevation in her carcinoembryonic antigen at 2583. 3. Haemophilus influenzae on bronchial cultures. 4. Staghorn calculus in her right kidney. 5. Small effusion. 6. Possible pneumonia versus lung cancer in the right middle lobe. RECOMMENDATIONS: 1. Await final biopsy report from the lung. 2. Continue Levaquin. 3. Anticipate Port-A-Cath placement as per patient discussion. cc: Keo Baird MD
--- NOTE | 2019-03-06 11:24 | Diag Imaging Result Doc PS360 ---
CHEST-PORTABLE - 03/06/2019 INDICATION: CVL placement COMPARISON: 03/03/2019 FINDINGS: There is a right central line in good position with the catheter tip at the cavoatrial junction. No pneumothorax or pleural effusion. Stable apical pleural thickening on the right side. Stable right hilar enlargement with perihilar infiltrate. Heart size remains normal. IMPRESSION: Good central line placement. Electronically signed by Chidi Lee 03/06/2019 11:22 AM
[2019-03-06] MEDS ORDERED: LR 500 ML IV ONE (11:41)
[2019-03-06] MEDS ORDERED: D10W 1,000 ML IV SCH (12:00)
--- NOTE | 2019-03-06 12:06 | Diag Imaging Result Doc PS360 ---
EFFECTIVE RENAL PLASMA FLOW - 03/06/2019 INDICATION: determine amount of right renal function TECHNIQUE: 2.9 mCi of MAG3 was administered COMPARISON: CT from 03/02/2019 FINDINGS: There is approximately symmetric perfusion of the kidneys. There is prompt bilateral renal uptake. There is normal clearance of the left kidney. On the right side there is an increasing activity curve. This indicates obstruction. There is no significant The split renal functioning is 44% on the right and 56% on the left. MAG3 clearance is 275 mL/m. Expected is two 25 mL/m. Plasma clearance is 466 mL/m. Expected is 381 mL/m. IMPRESSION: 1. There is significant residual functioning of the right kidney. Split renal functioning is 44% on the right and 56% on the left. 2. There is increasing activity curve of the right kidney, consistent with obstruction. Electronically signed by Chidi Lee 03/06/2019 12:03 PM
[2019-03-06] MEDS: D5 1/2 NS + KCL 20 MEQ 1,000 ML IV SCH (12:29)
[2019-03-06] MEDS: LEVAQUIN PO SCH (12:30)
--- NOTE | 2019-03-06 14:25 | PROGRESS NOTE ---
DATE: 03/06/2019 SUBJECTIVE: Patient reports feeling fine. No complaints at this time. OBJECTIVE: Vital Signs: Temperature 97.9, heart rate 67, respiratory rate 19, blood pressure 118/73. O2 sat 97% on room air. PHYSICAL EXAMINATION: General: This is a 43-year-old female lying in bed in no acute distress. Cardiovascular: S1, S2 heard. No murmurs, gallops or rubs. Regular rate and rhythm. Respiratory: Clear bilaterally to auscultation. No work of breathing or use of accessory muscles. Abdomen: Soft, nontender. Bowel sounds present. No organomegaly. Extremities: No clubbing, cyanosis or edema. Peripheral pulses present in both legs. Neurologic: Patient alert and oriented x 3. Moves 4 extremities. LABORATORY DATA: Reviewed. ASSESSMENT AND PLAN: 1. Non small cell lung cancer. That is the diagnosis that we obtained today. In that regard, oncology has decided to start chemotherapy, but patient prefers to have staghorn calculi do first and then will start with chemotherapy most likely as an outpatient. 2. Community-acquired pneumonia. We will continue with Levaquin. 3. Staghorn calculus of the right kidney. The patient has been evaluated by Dr. Mathew and will be taken to the OR tomorrow. We will follow recommendations. 4. Tobacco abuse. Aware. 5. Anemia of chronic disease. Aware. 6. Disposition: At this point, we are following the lead from Urology. We will check on patient after procedure. cc: Miki Linares MD
[2019-03-06] MEDS: LIPOSYN 20% 500 ML IV SCH (14:43)
[2019-03-06] MEDS: 1: D50W 500 ML, AMINOSYN 10% 500 ML with TPN ELECTROLYTES 20 ML, CALCIUM GLUCONATE 5 MEQ IV SCH ×11 (14:52)
[2019-03-06] MEDS: TYLENOL PO PRN (15:23)
[2019-03-06] MEDS: MORPHINE IV PRN (17:45)
[2019-03-06 17:46] LABS: AGAP 12; BUN 12 mg/dL (8-22); CHLORIDE 101 mmol/L (98-107); CHOLESTEROL 123 mg/dL (0-200); COSMO 276; CREATININE 0.6 mg/dL (0.5-0.9); ESTIMATED GFR > 60; GLUCOSE 171 mg/dL (70-104); GOT 25 U/L (10-30); MAGNESIUM 2.1 mg/dL (1.5-2.7); PHOSPHORUS 3.4 mg/dL (2.7-4.5); POTASSIUM 3.6 mmol/L (3.5-5.1); PREALBUMIN 6.3 mg/dL (20-40); SODIUM 136 mmol/L (136-145); TCO2 23 mmol/L (25-35); TRIGLYCERIDES 80 mg/dL (35-135)
[2019-03-07] MEDS: D5 1/2 NS + KCL 20 MEQ 1,000 ML IV SCH (06:37)
[2019-03-07] MEDS ORDERED: KEFZOL 1 GM/D5W 1 GM/50 ML IVPB ONE (08:15)
[2019-03-07] MEDS ORDERED: MARCAINE 0.25% PF/EPI 1:200,000 ONE (08:15)
[2019-03-07] MEDS ORDERED: LR 1,000 ML ONE (08:15)
[2019-03-07] MEDS ORDERED: DIPRIVAN 1% ONE (08:23)
[2019-03-07] MEDS ORDERED: QUELICIN (DOSE) ONE (08:23)
[2019-03-07] MEDS ORDERED: XYLOCAINE-MPF 2% ONE (08:23)
[2019-03-07] MEDS ORDERED: ZEMURON ONE ×2 (08:37→09:16)
[2019-03-07] MEDS ORDERED: NEO-SYNEPHRINE ONE (08:45)
[2019-03-07] MEDS ORDERED: OFIRMEV 1000 MG/ISOTONIC SOLN 1,000 MG/100 ML BOTTLE ONE (09:09)
[2019-03-07] MEDS ORDERED: FENTANYL ONE (10:04)
--- NOTE | 2019-03-07 10:27 | PROGRESS NOTE ---
DATE: 03/07/2019 SUBJECTIVE: Patient reports feeling fine. No complaints at this time. OBJECTIVE: Vital Signs: Temperature 97.5 degrees, heart rate 92, respiratory rate 15, blood pressure 139/91, O2 saturation 100% on room air. General Examination: This is a chronically ill appearing, 43-year-old female, lying in bed in no acute distress. Cardiovascular exam: S1, S2 heard. No murmurs, gallops, or rubs. Regular rate and rhythm. Respiratory exam: Clear bilaterally to auscultation. No work of breathing or using accessory muscles. Abdomen: Soft, nontender to palpation. Bowel sounds present. No organomegaly. Extremities: No clubbing, cyanosis, or edema. Peripheral pulses present in both legs. Neurological exam: Patient is alert and oriented x3. Moves 4 extremities. LABORATORY DATA: Reviewed. ASSESSMENT AND PLAN: 1. Non-small cell lung cancer. The patient has been evaluated by Oncology. Plan is to start chemotherapy after Urology clears this patient from staghorn calculus. 2. Community-acquired pneumonia. We will continue with Levaquin. As an outpatient, we need to continue and complete at least 10 days of antibiotics. 3. Staghorn calculus of the right kidney Dr. Mathew from Urology will take care of this today. We will keep her in the hospital for the time that he considers necessary. 4. Tobacco abuse. Aware. 5. Anemia of chronic disease. Aware. DISPOSITION: I think after she is cleared from a Urology standpoint, patient can be discharged home. Then, Oncology will start chemotherapy for lung cancer when it is convenient. cc: Miki Linares MD
[2019-03-07] MEDS ORDERED: ROBINUL ONE (10:49)
[2019-03-07] MEDS ORDERED: NEOSTIGMINE ONE (10:51)
[2019-03-07] MEDS: LEVAQUIN PO SCH (11:07)
[2019-03-07] MEDS ORDERED: ZOFRAN ONE (11:20)
[2019-03-07] MEDS ORDERED: DECADRON ONE (11:20)
[2019-03-07] MEDS: MORPHINE ONE ×2 (12:22→12:55)
[2019-03-07] MEDS: 1: D50W 500 ML, AMINOSYN 10% 500 ML with TPN ELECTROLYTES 20 ML, CALCIUM GLUCONATE 5 MEQ IV SCH ×22 (12:33→17:22)
--- NOTE | 2019-03-07 13:06 | OPERATIVE NOTE ---
PROCEDURE DATE: 03/07/2019 PREOPERATIVE DIAGNOSIS: POSTOPERATIVE DIAGNOSIS: SURGEON FOR THE PYELOLITHOTOMY: Joshua Mathew MD SURGEON FOR THE EXPLORATORY LAPAROSCOPY AND LYSIS OF EXTENSIVE ABDOMINAL ADHESIONS: Franklin Mcbride MD PROCEDURE PERFORMED: 1. Laparoscopic robot-assisted exploration of the abdomen with extensive lysis of adhesions. 2. Right pyelolithotomy. ANESTHESIA: General endotracheal. FINDINGS: Dr. Mcbride will dictate his part of the operative note. After the renal pelvis was incised, a large staghorn calculus was removed from the renal pelvis. INDICATION FOR PROCEDURE: This 43-year-old female with metastatic squamous cell cancer of the lung was noted to have a large right staghorn calculus with focal pyelonephritis on her evaluation. Before chemotherapy can be started, the stone needs to be removed. DESCRIPTION OF PROCEDURE: After informed consent was obtained from the patient and her receiving IV antibiotics, she was taken to the main OR and placed in the supine position. General anesthesia via endotracheal tube was achieved. A Merchant catheter was placed. She was then placed with her right side bumped up about 30 degrees. She was then prepped and draped in the usual sterile fashion for abdominal and right flank surgery. Dr. Mcbride achieved the pneumoperitoneum with the Veress needle. The laparoscopic robotic trocars were placed in the standard position for a right kidney surgery. He then did an exploration and extensive adhesiolysis and takedown of the right colon to expose the right kidney and renal pelvis. The patient was then turned over to tn for the right pyelolithotomy. The renal pelvis was exposed. There were significant inflammatory changes around the renal pelvis, but it was able to be completely freed on the anterior, medial, and lateral sides. The incision was made on the anterior surface of the pelvis and the large stone was visualized. It was removed with the ProGrasp. After much manipulation, the stone appeared to come out intact. There was some debris that was removed with the grasping forceps as well. The renal pelvis was copiously irrigated. The renal pelvis was inflamed and the tissue was very friable. The renal pelvis was reapproximated with a 3-0 Vicryl. Both interrupted and running sutures were placed. Prior to complete closure, a 0.035 Sensor wire was fed down the ureter. A 6- Cypriot, 22 cm double- J stent was passed over the ZIPwire and down into the bladder. After it was placed, the wire was removed and the renal end coiled in the renal pelvis. The renal pelvis was then completely closed. Evicel was placed over the renal pelvis to try to seal the pelvis completely. The perirenal fat was placed over this and Evicel was placed over this. The #4 robot trocar was removed and a 19-Cypriot Sharif drain was passed through the trocar site and into the abdomen. The ended the drain was placed in the right paracolic gutter next to the kidney. The drain was sutured to the skin with 0 nylon. The robot trocar sites were inspected, and no bleeding was seen. The robot trocars were removed. After the robot trocars were removed, the patient was turned to the supine position. The stone was removed from the medical assistant float port with minimal extension of the incision. A portion was sent to Pathology for analysis. The robot trocar sites were reapproximated with 4-0 PDS. The wounds were sealed with [place]. [place] dressings were placed. The bladder was drained and the Merchant catheter was removed. She tolerated the procedure well. Estimated blood loss was less than 10 mL. She was taken to the recovery room, extubated in good condition. cc: Joshua Mathew MD [facility]
[2019-03-07] MEDS: LIPOSYN 20% 500 ML IV SCH (13:13)
[2019-03-07] MEDS: MORPHINE IV PRN ×2 (14:04→20:37)
[2019-03-07] MEDS: OFIRMEV 1000 MG/ISOTONIC SOLN 1,000 MG/100 ML BOTTLE IV SCH ×3 (14:27→20:40)
[2019-03-07 15:00] LABS: BASO# 0.01 X1000 (0.0-0.2); BASO% 0.1 % (0.0-0.8); EOS# 0.01 X1000 (0.0-0.7); EOS% 0.1 % (0.0-10.0); HEMATOCRIT 32.1 % (37.0-47.0); HEMOGLOBIN 10.5 g/dL (12.0-16.0); IMM GRAN# 0.02 X1000 (0.0-0.04); IMM GRAN% 0.2 % (0.0-0.5); LYMPH# 0.29 X1000 (1.2-3.4); LYMPH% 3.4 % (20.5-51.1); MCH 30.3 PG (27-31); MCHC 32.7 g/dL (33-37); MCV 92.8 FL (81-99); MONO# 0.29 X1000 (0.11-0.59); MONO% 3.4 % (1.7-9.3); MPV 10.3 FL (7.4-10.4); NEUT# 7.87 X1000 (1.4-6.5); NEUT% 92.8 % (42.2-75.2); PLT 257 X1000 (130-400); RBC 3.46 XMIL (4.2-5.4); RDW 12.3 % (11.5-14.5); WBC 8.49 X1000 (4.8-10.8)
[2019-03-07 15:20] LABS: LYMPHS 4 % (21-51); MONO 4 % (1-9); SEGS 92 % (42-75)
[2019-03-07 15:44] LABS: AGAP 11; ALKALINE PHOSPHATASE 70 U/L (32-104); BUN 12 mg/dL (8-22); CALCIUM 8.5 mg/dL (8.8-10.2); CHLORIDE 100 mmol/L (98-107); COSMO 277; CREATININE 0.7 mg/dL (0.5-0.9); ESTIMATED GFR > 60; GLUCOSE 223 mg/dL (70-104); GOT 61 U/L (10-30); GPT 41 U/L (10-36); MAGNESIUM 1.7 mg/dL (1.5-2.7); PHOSPHORUS 2.7 mg/dL (2.7-4.5); POTASSIUM 4.3 mmol/L (3.5-5.1); SODIUM 135 mmol/L (136-145); TCO2 24 mmol/L (25-35); TOTAL BILIRUBIN < 0.15 mg/dL (0.20-1.00)
[2019-03-07] MEDS: ZOFRAN IV PRN (20:40)
[2019-03-08] MEDS: OFIRMEV 1000 MG/ISOTONIC SOLN 1,000 MG/100 ML BOTTLE IV SCH ×4 (02:48→21:36)
[2019-03-08] MEDS: D5 1/2 NS + KCL 20 MEQ 1,000 ML IV SCH ×2 (02:48→22:43)
[2019-03-08] MEDS: MORPHINE IV PRN ×3 (02:56→08:13)
[2019-03-08] MEDS: 1: D50W 500 ML, AMINOSYN 10% 500 ML with TPN ELECTROLYTES 20 ML, CALCIUM GLUCONATE 5 MEQ IV SCH ×22 (05:29→12:43)
[2019-03-08 06:49] LABS: CREATININE BODY FLUID 22.7 mg/dL
[2019-03-08 07:59] LABS: BASO# 0.02 X1000 (0.0-0.2); BASO% 0.2 % (0.0-0.8); EOS# 0.06 X1000 (0.0-0.7); EOS% 0.5 % (0.0-10.0); HEMATOCRIT 37.4 % (37.0-47.0); IMM GRAN# 0.03 X1000 (0.0-0.04); IMM GRAN% 0.3 % (0.0-0.5); LYMPH# 0.71 X1000 (1.2-3.4); MCH 30.1 PG (27-31); MCHC 32.1 g/dL (33-37); MCV 93.7 FL (81-99); MONO# 0.86 X1000 (0.11-0.59); MONO% 7.3 % (1.7-9.3); MPV 10.6 FL (7.4-10.4); NEUT# 10.07 X1000 (1.4-6.5); NEUT% 85.7 % (42.2-75.2); PLT 322 X1000 (130-400); RBC 3.99 XMIL (4.2-5.4); RDW 12.5 % (11.5-14.5); WBC 11.75 X1000 (4.8-10.8)
[2019-03-08 08:08] LABS: CALCIUM 8.7 mg/dL (8.8-10.2); CREATININE 1.1 mg/dL (0.5-0.9); PHOSPHORUS 2.7 mg/dL (2.7-4.5); POTASSIUM 4.3 mmol/L (3.5-5.1)
[2019-03-08 08:15] LABS: LYMPHS 9 % (21-51); MONO 9 % (1-9); SEGS 82 % (42-75)
[2019-03-08] MEDS: LEVAQUIN PO SCH (08:26)
[2019-03-08] MEDS: DILAUDID IV PRN ×5 (11:17→23:21)
[2019-03-08] MEDS: LIPOSYN 20% 500 ML IV SCH (12:43)
--- NOTE | 2019-03-08 18:21 | PROGRESS NOTE ---
DATE: 03/08/2019 INTERVAL HISTORY: No acute events. The patient underwent laparoscopy and right-sided pyelolithotomy by Urology yesterday, which she tolerated well, for right-sided staghorn calculus. SUBJECTIVE: The patient denies any new complaints. She has not been eating. We discussed about the importance of nutrition and I answered all of her questions. OBJECTIVE: Vital signs evaluation suggest the patient is afebrile. She does have tachycardia with heart rate of 110 per minute, for which EKG has been ordered. Temperature of 97.4 degrees, pulse is 140/80, saturating 94% on room air. General: The patient does not appear in any acute distress. She has significantly dry mouth. S1, S2 normal. Tachycardic. No murmur, rub, or gallop. Air entry bilaterally equal. No wheeze, rhonchi or crackles. Abdomen is soft. There is generalized tenderness, especially right lower quadrant. She also has an intra- abdominal drain and a urine catheter. LABORATORY DATA: Labs suggestive of mild leukocytosis, white blood count of 11,000. Normal hemoglobin, hematocrit and platelet count. Normal kidney function except acute kidney injury. Blood sugar is in acceptable range. Microbiology previously bronchial washing was growing Haemophilus influenzae. ASSESSMENT AND PLAN: 1. Sepsis due to community-acquired Haemophilus influenzae pneumonia. Continue Levaquin for a total of 10 days. 2. New diagnosis of [id number] lung cancer with pathology showing poorly differentiated adenocarcinoma. Oncology on board. The patient has a right-sided central line. Plan is to start chemotherapy after her urologic issues resolve. 3. History of staghorn calculus of right kidney, status post laparoscopic right pyelolithotomy on 03/08/2019 with intra-abdominal drain. Urology on board. Continue Levaquin. The patient would likely get removal of intraabdominal drain later during the week. I will appreciate Urology recommendation. Continue hydromorphone as needed for intra-abdominal pain. 4. TWAN: Likely due to poor po intake. Continue TPN. I will follow up with [facility] tomorrow. 4. Protein-calorie malnutrition. Continue total parenteral nutrition and encourage p.o. intake. 5. Disposition: The patient remains inside the hospital as we monitor her postoperative course. If she continues to do better, my plan would be to discharge her home eventually, which I would anticipate early next week. I also have Physical Therapy evaluation of the patient. Plan of care discussed with her. All of her questions have been answered. cc: Eugenio Ackerman MD MTDD
[2019-03-08] MEDS: ZOFRAN IV PRN (20:22)
[2019-03-08] MEDS ORDERED: ATIVAN IV ONE (23:28)
[2019-03-09] MEDS: DILAUDID IV PRN ×4 (02:28→14:39)
[2019-03-09] MEDS: OFIRMEV 1000 MG/ISOTONIC SOLN 1,000 MG/100 ML BOTTLE IV SCH ×4 (02:29→21:50)
[2019-03-09] MEDS: 1: D50W 500 ML, AMINOSYN 10% 500 ML with TPN ELECTROLYTES 20 ML, CALCIUM GLUCONATE 5 MEQ IV SCH ×11 (02:46)
[2019-03-09 05:34] LABS: CREATININE BODY FLUID 0.9 mg/dL
[2019-03-09] MEDS: ZOFRAN IV PRN (05:46)
[2019-03-09] MEDS: D5 1/2 NS + KCL 20 MEQ 1,000 ML IV SCH (05:46)
--- NOTE | 2019-03-09 08:11 | EKG Report ---
Test Performed on : 03/09/2019 07:44:43 AM Test Reason : Tachycardia Blood Pressure : / mmHG Vent. Rate : 127 BPM Atrial Rate : 127 BPM P-R Int : 116 ms QRS Dur : 072 ms QT Int : 276 ms P-R-T Axes : 027 096 057 degrees QTc Int : 401 ms Sinus tachycardia. Rightward axis Borderline ECG When compared with ECG of 27-FEB-2019 17:42, (Unconfirmed) Vent. rate has increased BY 44 BPM Incomplete right bundle branch block is no longer present Confirmed by Elida PAEZ, Master ([id number]) on 03/09/2019 11:45:48 AM
[2019-03-09 08:35] LABS: AGAP 9; BUN 16 mg/dL (8-22); CALCIUM 9.1 mg/dL (8.8-10.2); CHLORIDE 94 mmol/L (98-107); COSMO 262; CREATININE 0.8 mg/dL (0.5-0.9); ESTIMATED GFR > 60; GLUCOSE 131 mg/dL (70-104); PHOSPHORUS 3.2 mg/dL (2.7-4.5); POTASSIUM 4.8 mmol/L (3.5-5.1); SODIUM 129 mmol/L (136-145); TCO2 26 mmol/L (25-35)
--- NOTE | 2019-03-09 08:45 | Diag Imaging Result Doc PS360 ---
CHEST-PORTABLE - 03/09/2019 INDICATION: dyspnea COMPARISON: 03/06/2019 FINDINGS: There is a stable right central line in good position. There has been worsening in diffuse bilateral primarily interstitial infiltrates. Stable right hilar enlargement and right apical opacification. No pneumothorax or large pleural effusion. IMPRESSION: New diffuse bilateral interstitial infiltrates concerning for pulmonary edema or atypical pneumonia. Electronically signed by Chidi Lee 03/09/2019 8:43 AM
[2019-03-09] MEDS: LOVENOX SUBQ SCH (09:25)
[2019-03-09] MEDS: LEVAQUIN PO SCH (09:25)
[2019-03-09 09:27] LABS: BASO# 0.04 X1000 (0.0-0.2); BASO% 0.3 % (0.0-0.8); EOS# 0.05 X1000 (0.0-0.7); EOS% 0.3 % (0.0-10.0); HEMOGLOBIN 12.3 g/dL (12.0-16.0); IMM GRAN# 0.05 X1000 (0.0-0.04); IMM GRAN% 0.3 % (0.0-0.5); LYMPH# 0.53 X1000 (1.2-3.4); LYMPH% 3.5 % (20.5-51.1); MCH 30.3 PG (27-31); MCHC 32.4 g/dL (33-37); MCV 93.6 FL (81-99); MONO% 6.5 % (1.7-9.3); MPV 10.5 FL (7.4-10.4); NEUT# 13.64 X1000 (1.4-6.5); NEUT% 89.1 % (42.2-75.2); PLT 310 X1000 (130-400); RBC 4.06 XMIL (4.2-5.4); RDW 12.8 % (11.5-14.5); WBC 15.31 X1000 (4.8-10.8)
[2019-03-09 09:49] LABS: BANDS 6 % (0-1); EOS 2 % (1-10); LYMPHS 2 % (21-51); MONO 2 % (1-9); SEGS 88 % (42-75)
[2019-03-09 09:54] LABS: AGAP 9; BUN 15 mg/dL (8-22); CALCIUM 9.2 mg/dL (8.8-10.2); CHLORIDE 94 mmol/L (98-107); COSMO 262; CREATININE 0.7 mg/dL (0.5-0.9); ESTIMATED GFR > 60; GLUCOSE 140 mg/dL (70-104); MAGNESIUM 1.9 mg/dL (1.5-2.7); SODIUM 129 mmol/L (136-145); TCO2 26 mmol/L (25-35)
--- NOTE | 2019-03-09 11:34 | PROGRESS NOTE ---
DATE: 03/09/2019 INTERVAL HISTORY: She has been progressively becoming tachycardic. In the morning time, I was also informed by the nursing team that the patient was hypoxic and required oxygenation through a Ventimask. I had not initiated DVT prophylaxis until yesterday since patient had underwent urological procedure and I was unclear if she had any further urological procedure planned. Looks like her drain was removed and I will resume her DVT prophylaxis. SUBJECTIVE: At the time of my evaluation, patient is complaining of shortness of breath. She is denying any chest pain, nausea, vomiting, or abdominal pain. PHYSICAL EXAMINATION: Vital signs: Her temperature is 97.9 degrees, pulse 128, respiratory 17, blood pressure 150/98, saturating 92% on her Venturi mask. General: She appears in mild distress because of shortness of breath. EKG had sinus tachycardia. HEENT: She has a dry mouth. Cardiovascular: S1, S2 normal. Tachycardic. Lungs: Air entry bilaterally equal in supramammary region. She has decreased air entry in right inframammary region. No wheeze or rhonchi. Mild crackles bilaterally. Abdomen: Soft. Generalized tenderness, especially right lower quadrant. Her drain intra-abdominal has been removed. She does have some tenderness and dressing over that. MICROBIOLOGY: Previous bronchial washings were growing Haemophilus influenzae. LABORATORY DATA: Suggestive of worsening leukocytosis. Normal hemoglobin, hematocrit, platelet count. Elevated D-dimer. Hyponatremia, hypochloremia. ASSESSMENT AND PLAN: 1. Sepsis due to community-acquired Haemophilus influenzae pneumonia. Continue on Levaquin for a total of 10 days. 2. Acute hypoxic respiratory failure. This could be in the setting of worsening pneumonia as evidenced on chest x-ray. Considering she has a D-dimer elevated, I will get CT scan to rule out pulmonary embolism. 3. New diagnosis of non-small cell lung cancer with pathology showing poorly differentiated adenocarcinoma. The patient has a right-sided central line. Plan is to start chemotherapy in the future. 4. History of staghorn calculus of right kidney, status post laparoscopic pyelolithotomy on March 08 with intra-abdominal drain. Urology on board and she is status post drain removal on March 09. Continue hydromorphone as needed for intra-abdominal pain. 5. Acute kidney injury due to poor p.o. intake. Continue TPN. Today her TWAN appears to be better. 6. Protein calorie malnutrition. Continue TPN and encourage p.o. intake. 7. Disposition. The patient currently remains inside the hospital for need for further workup of her hypoxia. I would also give her a small dose of Lasix after CT scan and we will transfer patient to [facility]. Plan of care is discussed with her. All of her questions have been answered. cc: Eugenio Ackerman MD MTDD
[2019-03-09] MEDS ORDERED: LASIX IV ONE ×2 (11:57→15:37)
--- NOTE | 2019-03-09 11:57 | Diag Imaging Result Doc PS360 ---
EXAM: CT ANGIOGRM PULMONARY ARTERIES HISTORY: Rule out pulmonary embolism TECHNIQUE: CT chest with intravenous contrast. Pulmonary arterial protocol with MIP images. COMPARISON: CT abdomen and pelvis from 03/02/2019 FINDINGS: There is a moderate sized right pleural effusion measuring 5.1 cm posteriorly and inferiorly with a smaller left pleural effusion measuring 3.6 cm. There is a small pericardial effusion measuring approximately 9 mm. The heart is not enlarged. The vasculature is distended. No thoracic aortic aneurysm or dissection. Normal opacification of the pulmonary arteries and their major branches. There are markedly enlarged mediastinal nodes with circumferential compression and narrowing of the right main pulmonary artery. Apparent complete compression with no flow in the right upper lobe pulmonary artery. There are multifocal bilateral infiltrates as well as lower lobe atelectasis. There is subcutaneous air in the lower right lateral chest and a small amount of free air about the liver. IMPRESSION: 1.No pulmonary emboli although there is significant narrowing of the right main pulmonary artery and no flow in the right upper lobe pulmonary artery 2.Moderate-sized bilateral pleural effusions with lower lobe atelectasis with pulmonary edema. Findings are more pronounced than on the prior study. 3.Multifocal bilateral infiltrates. These are more pronounced than on the prior study. 4.Free air beneath the diaphragm. This was not present on the prior study. This report was discussed with Fanta the patient's nurse on 03/09/2019 at 11:55 AM and was readback. This exam was performed using automated exposure control, adjustment of mA or kV according to patient size, and/or use of iterative reconstruction technique. Electronically signed by Jaswinder Bryant 03/09/2019 11:55 AM
[2019-03-09 12:24] LABS: ALLEN TEST YES; BE 0.8 mmoll (-3.0-3.0); BLOOD TYPE ARTERIAL; HCO3-(ACT) 25.4 mmoll (20.0-26.0); METHB 1.2 % (0.0-1.5); MODALITY NRB; O2(CT) 17.1 mL/dL (15.0-23.0); O2HB 92.4 % (95.0-99.0); PCO2(98.6) 34 mmHg (35-45); PO2(98.6) 59 mmHg (60-100); SAMPLE BLOOD; SAO2 94.8 % (95.0-100.0); THB 13.2 g/dL (11.5-17.4); pH(98.6) 7.46 (7.35-7.45)
[2019-03-09] MEDS ORDERED: VANCOMYCIN IV PER PHARMACY MISC SCH (12:42)
--- NOTE | 2019-03-09 13:14 | PROGRESS NOTE ---
DATE: 03/09/2019 ADDENDUM TO PREVIOUS PROGRESS NOTE: The patient was still significantly short of breath and her saturations were dropping on Venti mask and she was requiring non-rebreather mask. Considering her elevated D-dimer, I have ordered CT scan to rule out pulmonary embolism, which did not detect any pulmonary embolism, though she did have worsening pulmonary edema and infiltrate. She also had free air under the diaphragm. Currently, she is tachycardic with heart rate of 130. She is saturating 90% on 100% non-rebreather mask and I have ordered. On examination, she is significantly has crackles bilateral lower infra mammary region. She also has significant tenderness in generalized abdomen, especially right side with guarding. I am going to order intravenous Lasix. Get an ABG. Nursing team has been informed about letting urology team know about the free gas which could be just in the setting of the intra abdominal drain that she had. Start her on vancomycin and Zosyn and transfer her to ICU. Plan of care is discussed with the patient's family including mother who is a surrogate decision maker. All of their questions have been answered. Urology team was informed about the free air under diaphragm and it is thought to be related to her recent laparoscopic procedure and intrabdominal drain which was removed today. >30 minutes were spent in taking care of this patient. cc: MD FRED Blancas
[2019-03-09] MEDS ORDERED: OXY IR PO ONE (14:31)
[2019-03-09] MEDS ORDERED: DILAUDID IV ONE (14:33)
[2019-03-09] MEDS: ZOSYN 3.375 GM in NS 50 ML IV SCH ×3 (14:38→23:58)
[2019-03-09 15:56] LABS: URINE SOURCE CATH
[2019-03-09] MEDS ORDERED: VANCOMYCIN 1,500 MG in NS 250 ML IV ONE (16:00)
[2019-03-09 16:01] LABS: BILIRUBIN URINE NEGATIVE (NEGATIVE); BLOOD URINE LARGE (NEGATIVE); COLOR YELLOW; GLUCOSE URINE TRACE mg/dL (NEGATIVE); KETONE URINE NEGATIVE (NEGATIVE); LEUKOCYTES URINE MODERATE (NEGATIVE); NITRITE URINE NEGATIVE (NEGATIVE); PROTEIN URINE 30 mg/dL (NEGATIVE); SP GRAVITY URINE 1.015; TURBIDITY URINE CLEAR (CLEAR); UROBILINOGEN URINE NORMAL (NORMAL)
[2019-03-09 16:03] LABS: UR EPITHELIAL CELLS <10 /HPF (<10); URINE BACTERIA NEGATIVE /HPF; URINE RBC TNTC /HPF (<10)
[2019-03-09] MEDS ORDERED: VANCOMYCIN 1.5 GM in NS 250 ML IV ONE (16:30)
[2019-03-09] MEDS: LASIX IV SCH (18:24)
--- NOTE | 2019-03-09 20:56 | PULMONOLOGY PROGRESS NOTE ---
DATE: 03/09/2019 INTERIM HISTORY: Patient developed increased shortness of breath this morning. She has been transferred to the Intensive Care Unit. She has oxygen saturation of 88% on non-rebreather. OBJECTIVE: Vital Signs: BP 125/72, heart rate 82, respiratory rate 16, oxygen saturation 92% on BiPAP. She has been afebrile for the last 24 hours. HEENT: Pupils are equal and reactive. Oropharynx appears clear. Neck: Is supple. Chest: Reveals prolonged expiratory phase with decreased breath sounds in both lung bases. Surgical sites are noted on the abdomen which appear to be closed and without drainage. Extremities: Reveal 1+ peripheral edema. LABORATORIES: Sodium 129, potassium 5.0, chloride 94, bicarbonate 26, BUN 15, creatinine 0.7, magnesium 1.9. White blood count 15.3, hemoglobin 12.3, platelet count 310,000. Arterial blood gas on non-rebreather 7.46, pCO2 of 34, pO2 of 59. 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 IMPRESSION: 1. 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 Film needs to be reviewed with Radiology. 2. Bilateral pleural effusions likely related to fluid requirements associated with surgery and total parenteral nutrition. 3. Acute hypoxemic respiratory failure. 4. Overall prognosis guarded. PLAN: 1. Transfer to the ICU. 2. Initiate BiPAP for respiratory failure. 3. Diuresis as tolerated. 4. Review the scans with Radiology. She may need a stent in the superior vena cava. TIME SPENT CRITICAL CARE: 30+ minutes. cc: Keo Baird MD
[2019-03-10] MEDS: OFIRMEV 1000 MG/ISOTONIC SOLN 1,000 MG/100 ML BOTTLE IV SCH ×6 (03:32→21:45)
[2019-03-10 05:15] LABS: AGAP 13; BUN 25 mg/dL (8-22); CALCIUM 8.6 mg/dL (8.8-10.2); CHLORIDE 98 mmol/L (98-107); COSMO 277; CREATININE 0.9 mg/dL (0.5-0.9); ESTIMATED GFR > 60; GLUCOSE 142 mg/dL (70-104); MAGNESIUM 1.7 mg/dL (1.5-2.7); PHOSPHORUS 5.1 mg/dL (2.7-4.5); POTASSIUM 4.3 mmol/L (3.5-5.1); SODIUM 135 mmol/L (136-145); TCO2 24 mmol/L (25-35)
[2019-03-10 05:16] LABS: BASO# 0.02 X1000 (0.0-0.2); BASO% 0.1 % (0.0-0.8); EOS# 0.03 X1000 (0.0-0.7); EOS% 0.2 % (0.0-10.0); HEMATOCRIT 34.9 % (37.0-47.0); HEMOGLOBIN 11.2 g/dL (12.0-16.0); IMM GRAN# 0.04 X1000 (0.0-0.04); IMM GRAN% 0.3 % (0.0-0.5); LYMPH# 0.69 X1000 (1.2-3.4); MCH 29.4 PG (27-31); MCHC 32.1 g/dL (33-37); MCV 91.6 FL (81-99); MONO# 0.88 X1000 (0.11-0.59); MONO% 6.4 % (1.7-9.3); NEUT# 12.09 X1000 (1.4-6.5); PLT 318 X1000 (130-400); RBC 3.81 XMIL (4.2-5.4); WBC 13.75 X1000 (4.8-10.8)
[2019-03-10 05:32] LABS: ALLEN TEST YES; BE 0.7 mmoll (-3.0-3.0); BLOOD TYPE ARTERIAL; HCO3-(ACT) 25.5 mmoll (20.0-26.0); METHB 0.8 % (0.0-1.5); O2(CT) 21.3 mL/dL (15.0-23.0); O2HB 97.2 % (95.0-99.0); PCO2(98.6) 40 mmHg (35-45); PO2(98.6) 115 mmHg (60-100); SAMPLE BLOOD; SAO2 98.9 % (95.0-100.0); THB 15.5 g/dL (11.5-17.4); pH(98.6) 7.41 (7.35-7.45)
[2019-03-10 05:33] LABS: MODALITY BI PAP
[2019-03-10] MEDS: LASIX IV SCH ×5 (05:46→21:45)
[2019-03-10] MEDS: ZOSYN 3.375 GM in NS 50 ML IV SCH ×4 (05:46→23:41)
[2019-03-10] MEDS: LOVENOX SUBQ SCH (08:02)
--- NOTE | 2019-03-10 08:31 | Diag Imaging Result Doc PS360 ---
CHEST-PORTABLE - 03/10/2019 INDICATION: abnormal exam COMPARISON: 03/09/2019 FINDINGS: Stable right central line. Stable diffuse hazy infiltrates worse in the upper lobes and left lung base. Stable right hilar enlargement and right apical pleural thickening. Heart size remains normal. No pneumothorax or significant pleural effusion. IMPRESSION: No change from prior. Electronically signed by Chidi Lee 03/10/2019 8:29 AM
--- NOTE | 2019-03-10 08:43 | Diag Imaging Result Doc PS360 ---
ABDOMEN FLAT/UPRIGHT - 03/10/2019 INDICATION: pain COMPARISON: CT abdomen pelvis 03/02/2019 FINDINGS: There is a right nephroureteral stent in good position. There are a couple of large calcifications projecting over the right renal shadow. The bowels are somewhat hyperinflated but the appearance is nonspecific. No significant constipation. No definite free air. IMPRESSION: No definite peritoneal free air. Nonspecific hyperinflation of the bowels that may suggest ileus. Electronically signed by Chidi Lee 03/10/2019 8:40 AM
[2019-03-10] MEDS ORDERED: VANCOMYCIN 1,200 MG in NS 250 ML IV SCH (10:00)
--- NOTE | 2019-03-10 10:37 | PROGRESS NOTE ---
DATE: 03/10/2019 INTERVAL HISTORY: Yesterday patient had developed sudden onset shortness of breath and was transferred to ICU. CT scan did not detect any pulmonary embolism. However, it did detect worsening bilateral infiltrate as well as some pleural effusions with pulmonary edema. She was also detected to have some free air intra-abdominally, which was thought to be secondary to her previous robotic laparoscopic procedure for nephrolithiasis. She was started on intravenous Lasix and was transferred to ICU. No other acute overnight events. SUBJECTIVE: She is feeling significantly better than yesterday. Overnight, she was on BiPAP, in the morning time she was on nonrebreather mask. She denies any nausea, vomiting. Her abdominal pain is better. She denies any chest pain. Her shortness of breath is also better. We discussed about the findings of the CT scan, her need for nutritional support and antibiotics, and answered all of her questions. OBJECTIVE: Vital Signs: Temperature of 97.8 degrees, pulse 118, respiratory rate 30, blood pressure 131/98, saturating 96% on nonrebreather mask. General: She does not appear in a lot of distress. Skin: She does have plethora affecting the face as well as bilateral upper extremities. HEENT: No pallor. No cyanosis, clubbing, or icterus. She has a significantly dry mouth. Lungs: Decreased air entry bilateral inframammary region with inspiratory crackles. No wheeze or rhonchi. Cardiovascular: S1, S2. Tachycardic. No murmur, rub, or gallop. Abdomen: Soft. Generalized tenderness. She has scars of previous laparoscopy as well as dressing of previous intra-abdominal drain which has been removed on the right lower quadrant. Extremities: No lower extremity edema. Genitourinary: She has urine catheter in place. MICROBIOLOGY: Urine culture and blood cultures are in lab. IMAGING: Chest x-ray performed today suggests stable right-sided central line, stable diffuse hazy infiltrate on the upper lobes and left lung base. Abdominal x-ray did not suggest any free air. ASSESSMENT AND PLAN: 1. Sepsis and acute hypoxic respiratory failure due to community-acquired Haemophilus influenzae pneumonia with superimposed suspected hospital-acquired pneumonia, bilateral pulmonary edema and pleural effusion. Continue patient on intravenous vancomycin and Zosyn until further culture data becomes available. Continue oxygenation and cycle BiPAP and nonrebreather mask as tolerated. CT scan did not detect any evidence of pulmonary embolism. I will consider an additional Lasix dose to today depending on her response. 2. Recently diagnosed non-small cell lung cancer with poorly differentiated adenocarcinoma. The patient has a right-sided central line. After discussion with Hematology Oncology, I have been informed that there might be near future plans of giving her Keytruda as tolerated. I will also discuss with Radiology about the CT scan read, which was performed outside, to assess for superior vena cava compression. 3. Staghorn calculus of the right kidney, status post laparoscopic pyelolithotomy on March 08 with intra-abdominal drain for 24 hours, status post removal of the drain March 09. Continue hydromorphone as needed for intra-abdominal pain. 4. Acute kidney injury due to poor p.o. intake, currently stable. Continue Merchant catheter for close input and output monitoring. I am holding her TPN considering her pulmonary edema and I encouraged her to have p.o. intake for protein calorie malnutrition. 5. Disposition: The patient's condition remains critical due to tenuous respiratory status. I will continue to observe her in the critical care unit. TIME SPENT: More than 30 minutes of time was spent in taking care of this critically ill patient. cc: Eugenio Ackerman MD
[2019-03-10] MEDS: VANCOMYCIN 1,200 MG in NS 250 ML IV SCH (10:44)
--- NOTE | 2019-03-10 14:59 | PULMONOLOGY PROGRESS NOTE ---
DATE: 03/10/2019 SUBJECTIVE: The patient is awake, alert, and conversant. She reports that her shortness of breath has markedly diminished. OBJECTIVE: Vital Signs: BP 128/96, heart rate 115, respiratory rate 30, and oxygen saturation 98%. HEENT: Pupils are equal and reactive. Oropharynx is clear. Neck: Supple. Respiratory: Chest reveals diminished breath sounds in both lung bases. Cardiac: S1 and S2, increased rate. Gastrointestinal: The abdomen is softer with positive bowel sounds. Extremities: The extremities are without edema. LABORATORY DATA: Abdominal film reveals a nonspecific bowel gas pattern with nephroureteral stent in good position. Chest x-ray reveals bibasilar effusions with mediastinal prominence and nonspecific basilar infiltrates. White blood count is 13.8, hemoglobin 11.2, and platelet count 318,000. Sodium is 135, potassium 4.3, chloride 98, bicarbonate 24, BUN 25, and creatinine 0.9. Arterial blood gas reveals a pH of 7.41, pCO2 of 40, and pO2 of 115. IMPRESSION: A 43-year-old with: 1. Stage IV lung cancer. 2. Status post removal of staghorn calculus. 3. Narrowing of the superior vena cava. 4. Bilateral pleural effusions. 5. Acute hypoxemic respiratory failure. RECOMMENDATIONS: 1. Continue to diurese if tolerated. 2. Continue BiPAP. 3. Continue management per Urology. 4. Overall, prognosis is guarded. The patient cannot start chemotherapy due to recent surgical procedure. cc: Keo Baird MD
[2019-03-11] MEDS: OFIRMEV 1000 MG/ISOTONIC SOLN 1,000 MG/100 ML BOTTLE IV SCH ×4 (03:14→21:43)
[2019-03-11] MEDS: LASIX IV SCH ×3 (03:14→18:02)
[2019-03-11] MEDS: VANCOMYCIN 1,200 MG in NS 250 ML IV SCH ×2 (03:32→22:02)
[2019-03-11] MEDS: ZOSYN 3.375 GM in NS 50 ML IV SCH ×3 (06:09→18:02)
[2019-03-11 06:10] LABS: AGAP 13; BUN 22 mg/dL (8-22); CHLORIDE 92 mmol/L (98-107); COSMO 279; CREATININE 0.7 mg/dL (0.5-0.9); ESTIMATED GFR > 60; GLUCOSE 92 mg/dL (70-104); PHOSPHORUS 3.1 mg/dL (2.7-4.5); POTASSIUM 2.8 mmol/L (3.5-5.1); SODIUM 138 mmol/L (136-145); TCO2 33 mmol/L (25-35)
[2019-03-11] MEDS: KLOR-CON PO SCH ×2 (08:55→11:46)
[2019-03-11] MEDS: LOVENOX SUBQ SCH (08:55)
[2019-03-11] MEDS: POTASSIUM CHLORIDE 20 MEQ/SWI 20 MEQ/100 ML IVPB IV SCH ×2 (09:27→11:45)
--- NOTE | 2019-03-11 12:31 | PULMONOLOGY PROGRESS NOTE ---
DATE: 03/11/2019 SUBJECTIVE: The patient is awake, alert, and conversant. She reports she feels significantly better. OUTPUT: She has diuresed 2050 mL since yesterday. OBJECTIVE: Vitals: Her oxygen saturation is 99% on 40% FiO2. HEENT: Pupils are equal and reactive. Oropharynx is clear. Neck: Reveals chronic lymphadenopathy in the left neck. Chest: Reveals good air entry bilaterally with decreased breath sounds in the bases. Cardiac: S1-S2. ABDOMEN: Soft without hepatosplenomegaly. Extremities: Reveal trace peripheral edema. LABORATORIES: Sodium 138, potassium 2.8, chloride 92, bicarbonate 33, BUN 22, creatinine 0.7. IMPRESSION: 43-year-old with: 1. Stage IV lung cancer. 2. Status post removal of staghorn calculus. 3. Significant narrowing of the superior vena cava. 4. Pleural effusions with fluid overload. 5. Acute hypoxemic respiratory failure. DISCUSSION: This is a 43-year-old with problems as outlined above. She continues to improve with diuresis. RECOMMENDATION: 1. Continue diuresis as directed by Dr. Ackerman. 2. Continue to wean oxygen as tolerated. 3. Replace potassium. 4. The patient is a candidate for transfer to the floor from a Pulmonary standpoint. cc: Keo Baird MD
--- NOTE | 2019-03-11 12:45 | PROGRESS NOTE ---
DATE: 03/11/2019 INTERVAL HISTORY: No acute event overnight. She tolerated the Lasix dose well yesterday and had good urine output. SUBJECTIVE: She is denying any chest pain. She states that her breathing has become significantly better than it was yesterday. She has been able to eat a little bit. Denies new complaints. We discussed about the bad cancer that she has. Plan of care discussed with the patient and her family at bedside. VITALS: Currently, she has been afebrile, temperature of 97.8 degrees, pulse of 103, respiratory rate 18, blood pressure 127/96, saturating 100% on 3 L nasal cannula. PHYSICAL EXAMINATION: General: She does not appear in any acute distress. She does have facial and upper extremity plethora. No pallor, cyanosis, clubbing, or icterus. She has significantly dry mouth. Lungs: Decreased air entry with inspiratory crackles in bilateral inframammary region. No wheeze or rhonchi. S1, S2 normal. Tachycardic. No murmur, rub, or gallop. Abdomen: Soft. Generalized tenderness at the sites of previous laparoscopy incision, as well as a dressing on the right lower quadrant. No lower extremity edema. She has a urine catheter in place. Input and output suggests -2 L yesterday. LABS: No CBC today. BMP suggestive of hypokalemia which is being repleted. MICROBIOLOGY: No new microbiological data. IMAGING: No imaging today. ASSESSMENT AND PLAN: 1. Sepsis and acute hypoxic respiratory failure due to community-acquired Haemophilus influenzae and pneumonia with superimposed suspected hospital-acquired pneumonia and acute bilateral pulmonary edema with pleural effusion. Continue intravenous vancomycin and intravenous Zosyn until final culture results come back. Continue oxygenation through nasal cannula and eventually mask as tolerated. Continue intravenous Lasix. Follow up final culture data. 2. Non-small cell lung cancer affecting right lung, perihilar region, with poorly differentiated adenocarcinoma, stage IV. The patient has a right-sided central line. Hematology/oncology on board for future chemotherapy plan. On review of the CAT scan image, she does have minor compression of superior vena cava. 3. Staghorn calculus of the right kidney, status post laparoscopic pyelolithotomy on March 08 with intra-abdominal drain for 24 hours, status post removal of the drain on March 09. Continue hydromorphone as needed for intra-abdominal pain. 4. Nutrition. The patient was encouraged to take by mouth as tolerated. Her hypokalemia is being repleted. 5. Others. Her acute kidney injury has stabilized. I will continue to hold total parenteral nutrition and encourage by mouth intake. Continue Merchant catheter for close input and output monitoring. 6. Disposition. I will continue to monitor the patient in the intensive care unit for her tenuous respiratory status. Plan of care was discussed with her. All of her questions have been answered satisfactorily. cc: Eugenio Ackerman MD
[2019-03-11] MEDS: 1: D50W 500 ML, AMINOSYN 10% 500 ML with TPN ELECTROLYTES 20 ML, CALCIUM GLUCONATE 5 MEQ IV SCH ×11 (20:30)
[2019-03-12] MEDS: ZOSYN 3.375 GM in NS 50 ML IV SCH ×4 (00:28→21:47)
[2019-03-12] MEDS: LASIX IV SCH (03:00)
[2019-03-12] MEDS: OFIRMEV 1000 MG/ISOTONIC SOLN 1,000 MG/100 ML BOTTLE IV SCH ×2 (03:00→08:39)
[2019-03-12 04:45] LABS: BASO# 0.05 X1000 (0.0-0.2); BASO% 0.9 % (0.0-0.8); EOS# 0.25 X1000 (0.0-0.7); EOS% 4.7 % (0.0-10.0); HEMOGLOBIN 10.4 g/dL (12.0-16.0); IMM GRAN# 0.04 X1000 (0.0-0.04); IMM GRAN% 0.8 % (0.0-0.5); LYMPH# 0.99 X1000 (1.2-3.4); LYMPH% 18.6 % (20.5-51.1); MCHC 32.5 g/dL (33-37); MCV 92.2 FL (81-99); MONO# 0.48 X1000 (0.11-0.59); MPV 10.1 FL (7.4-10.4); NEUT# 3.51 X1000 (1.4-6.5); PLT 401 X1000 (130-400); RBC 3.47 XMIL (4.2-5.4); RDW 12.9 % (11.5-14.5); WBC 5.32 X1000 (4.8-10.8)
[2019-03-12 05:06] LABS: AGAP 12; BUN 19 mg/dL (8-22); CALCIUM 8.6 mg/dL (8.8-10.2); CHLORIDE 93 mmol/L (98-107); COSMO 275; CREATININE 0.5 mg/dL (0.5-0.9); ESTIMATED GFR > 60; GLUCOSE 88 mg/dL (70-104); MAGNESIUM 2.1 mg/dL (1.5-2.7); PHOSPHORUS 2.6 mg/dL (2.7-4.5); SODIUM 137 mmol/L (136-145); TCO2 32 mmol/L (25-35)
[2019-03-12] MEDS ORDERED: VERSED ONE (05:55)
[2019-03-12] MEDS ORDERED: DIPRIVAN 1% ONE (05:56)
[2019-03-12] MEDS ORDERED: KLOR-CON PO SCH (07:45)
--- NOTE | 2019-03-12 07:52 | Diag Imaging Result Doc PS360 ---
EXAM: CHEST-PORTABLE INDICATION: abnormal exam TECHNIQUE: One view COMPARISON: 03/10/2019 FINDINGS: Right central line is in stable position. Bilateral diffuse patchy infiltrates are essentially stable. Right apical pleural thickening and/or loculated effusion is unchanged. No new consolidation is identified. Cardiac silhouette is stable. IMPRESSION: Essentially stable chest. Electronically signed by Bo Moody 03/12/2019 7:50 AM
[2019-03-12] MEDS: POTASSIUM CHLORIDE 20% LIQUID PO SCH ×3 (08:38→16:11)
[2019-03-12] MEDS: LOVENOX SUBQ SCH (08:38)
[2019-03-12] MEDS ORDERED: OXY IR PO PRN (09:52)
[2019-03-12] MEDS ORDERED: TYLENOL PO PRN (09:52)
--- NOTE | 2019-03-12 10:03 | EKG Report ---
Test Performed on : 03/09/2019 4:20:46 PM Test Reason : TACHYCARDIA Blood Pressure : / mmHG Vent. Rate : 113 BPM Atrial Rate : 113 BPM P-R Int : 124 ms QRS Dur : 088 ms QT Int : 306 ms P-R-T Axes : 041 103 056 degrees QTc Int : 419 ms Sinus tachycardia. with premature atrial complexes. with aberrant conduction. Rightward axis Borderline ECG When compared with ECG of 09-MAR-2019 07:44, aberrant conduction. is now present ST no longer depressed in Anterior leads Confirmed by Elida PAEZ, Master ([id number]) on 03/13/2019 8:57:16 AM
--- NOTE | 2019-03-12 10:16 | PROGRESS NOTE ---
DATE: 03/12/2019 INTERVAL HISTORY: No acute event overnight. She responded well to Lasix and has been net negative. Today, she is denying any chest pain. Her shortness of breath is also significantly better. She is able to come out of bed, and walk and sit in the bedside chair without any trouble. She has been saturating well on nasal cannula. Her potassium is low and my plan is to replete that. We discussed about transferring out of ICU to floor. I answered all of her questions. VITALS: Currently, temperature 97.9 degrees, pulse 94, respiratory rate 28, blood pressure 120/84, saturating 97% on 2 L nasal cannula. PHYSICAL EXAMINATION: General: Does not appear in any acute distress. Oral cavity is moist. Lungs: Air entry bilaterally equal. No wheeze, rhonchi, or crackles. Cardiovascular: S1, S2 normal. No murmur, rub, or gallop. Abdomen: Soft, nontender. She has an incision scar of previous laparoscopy ports as well as intra-abdominal drain which has been removed. No lower extremity edema. She has a urine catheter in place. LABS: Leukocytosis has resolved. Normocytic anemia. Platelet count is coming down. Hypokalemia which is being repleted. Normal kidney function. MICROBIOLOGY: No positive data. IMAGING: Chest x-ray performed today suggests essentially stable chest. ASSESSMENT AND PLAN: 1. Sepsis and acute hypoxic respiratory failure due to Haemophilus influenzae, pneumonia with suspected superimposed hospital-acquired pneumonia, bilateral pulmonary edema with pleural effusion, right-sided small cell lung cancer. Continue oxygenation to maintain saturation more than 94%, continue intravenous vancomycin and Zosyn. I will transition patient to oral Lasix today. 2. Recently diagnosed non-small cell lung cancer with poorly differentiated adenocarcinoma. Patient has had a right-sided central line. Hematology/oncology on board and they might consider giving her Keytruda dose. She did have mild compression of superior vena cava which was minimal on my review of images. 3. Staghorn calculus of the right kidney, status post laparoscopic pyelolithotomy on March 08 with intra-abdominal drain for 24 hours, status post removal on March 09. Continue hydromorphone as needed for intra-abdominal pain. 4. Acute kidney injury due to poor oral intake, currently stable and resolved. I will continue Merchant catheter 1 day and we will plan removing it tomorrow. The patient has been able to eat by mouth so I am holding total parenteral nutrition which had contributed to acute pulmonary edema and acute hypoxic respiratory failure. 5. Disposition. I will transfer patient to routine medical floor. If she continues to do better and is able to eat and ambulate well, my plan will be to discharge her home tomorrow. Plan of care discussed with her. All of her questions have been answered. cc: Eugneio Ackerman MD
[2019-03-12] MEDS: LASIX PO SCH (10:39)
[2019-03-12] MEDS ORDERED: LOVENOX SUBQ SCH (15:52)
--- NOTE | 2019-03-12 16:38 | PULMONOLOGY PROGRESS NOTE ---
DATE: 03/12/2019 SUBJECTIVE: The patient is awake, alert, and conversant. She denies shortness of breath at this time. She has been able to get out of bed without dyspnea. OBJECTIVE: Vital Signs: The patient has been afebrile for the last 24 hours. Blood pressure 119/88, heart rate 100, respiration rate 23, oxygen saturation 99% on 2 L per nasal cannula. HEENT: Pupils are equal and reactive. Oropharynx appears clear. Neck is supple. Abdomen reveals good bowel sounds in all 4 quadrants. Extremities are without edema. DIAGNOSTIC STUDIES: Chest x-ray reveals right apical thickening with mild infiltrates present bilaterally. Sodium 137, potassium 3.0, chloride 93, bicarbonate 32, BUN 19, creatinine 0.5, calcium 8.6, phosphorus 2.6. IMPRESSION: A 43-year-old with: 1. Stage IV lung cancer. 2. Status post removal of a staghorn calculus. 3. Pleural effusions with fluid overload. 4. Acute hypoxemic respiratory failure. DISCUSSION: A 43-year-old with problems as outlined above. She continues to improve with diuresis. She is now on 2 L per nasal cannula and denies shortness of breath. RECOMMENDATION: 1. Agree with transfer to the floor. 2. Continue to follow intakes and outputs. 3. Anticipate the need for chemotherapy in the near future. cc: Keo Baird MD
[2019-03-12] MEDS: VANCOMYCIN 1,200 MG in NS 250 ML IV SCH (17:25)
[2019-03-13] MEDS: ZOSYN 3.375 GM in NS 50 ML IV SCH ×3 (02:30→13:51)
[2019-03-13] MEDS: VANCOMYCIN 1,200 MG in NS 250 ML IV SCH (05:39)
[2019-03-13] MEDS ORDERED: DIPRIVAN 1% ONE ×2 (07:23→08:21)
[2019-03-13] MEDS ORDERED: XYLOCAINE-MPF 2% ONE (07:23)
[2019-03-13] MEDS ORDERED: FENTANYL ONE (07:25)
[2019-03-13 07:40] LABS: AGAP 8; BUN 16 mg/dL (8-22); CALCIUM 8.6 mg/dL (8.8-10.2); CHLORIDE 100 mmol/L (98-107); COSMO 277; CREATININE 0.6 mg/dL (0.5-0.9); ESTIMATED GFR > 60; GLUCOSE 104 mg/dL (70-104); PHOSPHORUS 2.6 mg/dL (2.7-4.5); POTASSIUM 4.1 mmol/L (3.5-5.1); SODIUM 138 mmol/L (136-145); TCO2 30 mmol/L (25-35)
[2019-03-13] MEDS ORDERED: XYLOCAINE-MPF 1%/EPI 1:200,000 ONE (08:06)
[2019-03-13] MEDS ORDERED: NS 250 ML ONE (08:06)
[2019-03-13] MEDS ORDERED: XYLOCAINE 1%/EPI 1:100,000 ONE (08:09)
--- NOTE | 2019-03-13 09:14 | Diag Imaging Result Doc PS360 ---
EXAM: CHEST-PORTABLE 03/13/2019 HISTORY: port placement TECHNIQUE: AP portable at 0903 COMMENT: There is a Port-A-Cath on the right with its tip in the right atrium. There is bilateral apical pleural thickening worse on the right than the left and ill-defined opacity in both apices. There is some platelike opacity in both lung bases which has worsened since 03/12/2019. Hazy interstitial opacity present over the lung bases has actually improved slightly on the right. IMPRESSION: No evidence of pneumothorax or pleural fluid collection. Slightly improved pulmonary edema. Worsened bibasilar atelectasis. Electronically signed by Ignacio Archibald 03/13/2019 9:12 AM
--- NOTE | 2019-03-13 09:55 | OPERATIVE NOTE ---
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 PROCEDURE: Exchange right subclavian line for right power port. The patient is brought to the operating room after satisfactory induction of IV and MAC anesthesia. The dressing from her central line was removed. The area was prepped and draped in the appropriate manner. It was infiltrated with Xylocaine and Marcaine with epinephrine. The straight end of the catheter was cut. The guidewire was introduced down into the right atrial area of the heart. A central line was backed out. A transverse incision was made around the wire. There was a fair amount of back bleeding in the vasculature and the subcutaneous veins in the incision site were dilated and bled excessively as well, indicative of probable developing superior vena caval syndrome. The subcutaneous pocket was developed inferiorly to the incision. The dilator was used and the system was threaded down the superior vena cava right atrial junction. It was flushed with heparinized saline. The reservoir was placed in the pocket and anchored with 3-0 silk. The subcutaneous was closed with interrupted 3-0 Vicryl and the skin itself with 4-0 Vicryl subcuticular. Steri-Strips, Telfa, and OpSites were applied. She was awakened in the operating room and transferred to recovery. ESTIMATED BLOOD LOSS: About 30 mL. cc: Marco A Fulton MD
[2019-03-13] MEDS: LASIX PO SCH (10:04)
[2019-03-13] MEDS ORDERED: KEYTRUDA 200 MG in NS 100 ML IV ONE (12:00)
[2019-03-13 12:17] VITALS: BP 119/73
[2019-03-13] MEDS ORDERED: LEVAQUIN PO SCH (16:30)
--- NOTE | 2019-03-13 19:40 | DISCHARGE SUMMARY ---
ADMISSION DATE: 02/27/2019 DISCHARGE DATE: 03/13/2019 DISCHARGE DISPOSITION: Home with family. DISCHARGE DIAGNOSES: 1. Sepsis due to due to Haemophilus influenzae. 2. Acute hypoxic respiratory failure due to pneumonia affecting right middle and lower lobe and due to acute volume overload due to total parenteral nutrition. 3. Generalized lymphadenopathy and new diagnosis of [id number] lung cancer with poorly differentiated adenocarcinoma. 4. Staghorn calculus of right kidney, status post laparoscopic pyelolithotomy. 5. Acute kidney injury due to poor oral intake. 6. Tobacco abuse. 7. Past medical history of nephrolithiasis. 8. Past medical history of tobacco abuse. 9. Past medical history of section. CONSULTATION DURING HOSPITALIZATION: 1. Residency Director, Dr. Keo Baird. 2. Plant Engineer/Oncologist, Dr. Sridhar Lanier. 3. General Surgery, Dr. Marco A Fulton. 4. Urology, Dr. Joshua Mathew. PROCEDURES DURING HOSPITAL ADMISSION: 1. On March 01, the patient underwent bronchoscopy with endobronchial biopsy of mediastinal adenopathy. 2. On March 07, the patient underwent laparoscopic robot-assisted exploration of the abdomen with extensive lysis of adhesions and right pyelolithotomy. 3. On March 13, the patient underwent exchange of right subclavian line for right PowerPort. DISCHARGE MEDICATIONS: Furosemide 20 mg daily, 10 tablets. Levofloxacin 750 mg daily, 5 tablets. Nicotine patch 14 mg daily, 10 patches. Oxycodone immediate release 5 mg as needed every 6 hours for pain more than 7/10. Acetaminophen 650 mg every 6 hours as needed for pain less than 7/10, 20 tablets. Ondansetron 4 mg every 6 hours as needed for nausea and vomiting; 15 tablets have been prescribed. PHYSICAL EXAMINATION: Vital signs at time of discharge: Temperature 97.6 degrees, pulse 100, respiratory rate 20, blood pressure 120/73, saturating 100% on room air. General: The patient does not appear in any acute distress. HEENT: Oral cavity is moist. Lungs: Air entry bilaterally equal. No wheeze or rhonchi. She does have mild bilateral basilar crackles. Cardiovascular: S1, S2 normal. Regular. No murmur, rub, or gallop. Abdomen: Soft, mildly tender. She has incisions of previous laparoscopic surgery which are well healed. Active bowel sounds. Extremities: No lower extremity edema. Neurologic: She is alert and oriented x3. LABORATORIES AT TIME OF DISCHARGE: WBC 5.3, hemoglobin 10.4, platelet 401,000. Normal electrolytes. BUN of 16, creatinine of 0.6. MICROBIOLOGY DURING HOSPITAL ADMISSION: Bronchial washing was growing Haemophilus influenzae sensitive to levofloxacin. 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 Renal scan nuclear medicine on March 06 had suggested significant residual functioning of right kidney. There was increased activity of the right kidney consistent with obstruction. Brain MRI on March 05 performed for lung cancer staging did not detect any brain metastasis. Pulmonary arteriogram on March 09 had suggested no pulmonary emboli. However, there was significant narrowing of the right main pulmonary artery and no flow in the right upper lobe pulmonary artery. There were moderate-sized bilateral pleural effusions, lower lobe atelectasis with pulmonary edema. There were multifocal bilateral infiltrates. There was slight free air beneath the diaphragm after laparoscopic surgery. Chest x- ray on March 13 had suggested no evidence of pneumothorax or pleural fluid collection. There was improved pulmonary edema mildly, and there was worsened atelectasis. HOSPITAL COURSE SUMMARY: Ms. Youngblood is a 43-year-old lady who presented with a 5-month history of progressively worsening chest pain, dyspnea, and left-sided neck swelling. She had seen a primary care doctor for pleuritic chest pain and shortness of breath and neck swelling, and at that time, it was thought that her neck swelling was reactive due to sore throat or bronchitis. She was given antibiotics and steroids, and her symptoms had significantly improved and resolved. However, the neck swelling did not recede, and over the last 5 months, it kept on increasing in size. She has also lost about 30 pounds over 4 months and has had a protracted dry cough. With these symptoms, she saw a doctor outpatient who had ordered a CT scan, and it showed multiple hilar lymphadenopathy abutting most of the large vessels in the mediastinum, and so she was instructed to come to the emergency room. In the hospital, she underwent bronchoscopy and diagnostic biopsy of the mediastinal lymph nodes which detected [id number] lung cancer. She also already had metastasis to involve cervical lymphadenopathy. While inside the hospital, she also underwent laparoscopic robotic surgery of a right-sided staghorn calculus which had significant hydronephrosis, which she tolerated well. Postoperatively she had poor appetite, and she was started on total parenteral nutrition which later on she developed volume overload. She was treated with intravenous diuretics and oxygenation through a Ventimask. The bronchial washings had initially detected Haemophilus influenzae, and she received intravenous antibiotics. Later part in the hospital course, she responded appropriately with antibiotics and Lasix and was breathing well on room air. She was now hemodynamically stable. She was off the total parenteral nutrition and was eating well. She was able to ambulate without any discomfort. She was given a dose of Keytruda by oncologist, and then she was deemed appropriate for discharge. At the time of discharge, she was given prescriptions for pain medication, antibiotics, and Lasix and was advised to follow up with her lung doctor as well as Oncology as an outpatient. TIME SPENT: More than 30 minutes was spent in discharging this patient. cc: MD FRED Blancas
--- NOTE | 2019-03-14 10:55 | OPERATIVE NOTE ---
PROCEDURE DATE: 03/06/2019 PROCEDURE: Right central line subclavian type. DESCRIPTION OF PROCEDURE: The patient was brought to the recovery room from the floor, and placed in supine position in Trendelenburg. Her right chest and neck were prepped and draped in the appropriate manner. The subclavian area was infiltrated with Xylocaine with epinephrine. Subclavian vein was cannulated. A guidewire was introduced. With the Seldinger technique, the vein entry was dilated and a triple-lumen catheter was threaded down the superior vena cava right atrial junction. Chest x-ray revealed good position. Preop is stage IV lung cancer. She had a sterile dressing applied, and was returned to her room for initiation of TPN. cc: Marco A Fulton MD
== END 2019-03-13 18:11 | disposition home health service (06) | DRG 981 ==
LOC: ED 15:12 → 4N 15:13 → SUATTDRO 15:13 → 3N 20:13 → ICU 03-09 15:24 → 3N 03-12 13:21
PROVIDERS: ATTEND Internal Medicine
CPT/HCPCS: 70553; 71010; 71020; 71045; 71046; 71275; 74019; 74020; 74177; 77001; 78707; 80048; 80053; 80202; 81001; 82360; 82378; 82465; 82570; 82607; 82728; 82746; 82805; 82948; 83540; 83615; 83735; 83880; 84100; 84134; 84450; 84478; 84484; 85025; 85045; 85379; 86850; 86900; 86901; 87015; 87040; 87070; 87077; 87088; 87102; 87116; 87147; 87184; 87205; 87206; 88112; 88300; 88305; 93005; 93010; 94761; 97162; 97530; 99285; A9270; A9562; A9579; C1788; J0131; J0171; J0330; J0610; J0690; J1100; J1170; J1650; J1940; J2250; J2270; J2370; J2405; J2543; J3010; J3370; J3475; J3480; J7050; J7120; J9271; Q9967; S2900; XXXXX

== ENCOUNTER 2019-04-06 12:25 | Inpatient (IN) ==
--- NOTE | 2019-04-06 12:57 | Diag Imaging Result Doc PS360 ---
EXAM: CHEST-1 VIEW 04/06/2019 HISTORY: PET scan today: pericard effusion/pl effusion TECHNIQUE: AP portable at 1249 COMMENT: There are bilateral pleural effusions. The effusions appears somewhat larger than on the previous study of 03/26/2019 and the left effusion is worse than right. There is compressive atelectasis in the lung bases particularly on the left. There is apical pleural thickening particularly on the right. IMPRESSION: Worsened pleural effusions. Electronically signed by Ignacio Archibald 04/06/2019 12:55 PM
[2019-04-06 13:31] LABS: INR 1.15; PROTIME 15.6 Seconds (11.0-16.0)
[2019-04-06 13:32] LABS: PTT 30.3 Seconds (22.3-41.8)
[2019-04-06 13:40] LABS: BASO# 0.05 X1000 (0.0-0.2); BASO% 0.5 % (0.0-0.8); EOS# 0.02 X1000 (0.0-0.7); EOS% 0.2 % (0.0-10.0); HEMOGLOBIN 11.9 g/dL (12.0-16.0); IMM GRAN# 0.03 X1000 (0.0-0.04); IMM GRAN% 0.3 % (0.0-0.5); LYMPH# 0.54 X1000 (1.2-3.4); LYMPH% 5.5 % (20.5-51.1); MCH 29.8 PG (27-31); MCHC 32.2 g/dL (33-37); MCV 92.7 FL (81-99); MONO# 0.67 X1000 (0.11-0.59); MONO% 6.9 % (1.7-9.3); MPV 10.1 FL (7.4-10.4); NEUT# 8.46 X1000 (1.4-6.5); NEUT% 86.6 % (42.2-75.2); PLT 347 X1000 (130-400); RBC 3.99 XMIL (4.2-5.4); RDW 15.1 % (11.5-14.5); WBC 9.77 X1000 (4.8-10.8)
[2019-04-06 13:52] LABS: LYMPHS 6 % (21-51); MONO 7 % (1-9); SEGS 87 % (42-75)
[2019-04-06 13:53] LABS: LARGE PLATELETS 1+
[2019-04-06] MEDS ORDERED: NS 1,000 ML IV ONE ×3 (13:58→18:31)
[2019-04-06 14:10] LABS: AGAP 14; ALB/GLOB RATIO 0.9; ALBUMIN 3.5 g/dL (3.5-5.0); ALKALINE PHOSPHATASE 84 U/L (32-104); BUN 26 mg/dL (8-22); CALCIUM 9.2 mg/dL (8.8-10.2); CHLORIDE 87 mmol/L (98-107); COSMO 268; CREATININE 0.8 mg/dL (0.5-0.9); ESTIMATED GFR > 60; GLUCOSE 139 mg/dL (70-104); GOT 47 U/L (10-30); GPT 51 U/L (10-36); POTASSIUM 4.6 mmol/L (3.5-5.1); SODIUM 130 mmol/L (136-145); TCO2 29 mmol/L (25-35); TOTAL BILIRUBIN 0.42 mg/dL (0.20-1.00); TOTAL PROTEIN 7.2 g/dL (6.3-8.3)
--- NOTE | 2019-04-06 15:21 | PROVIDER DOCUMENTATION ---
This chart was entered by Kate Fragoso Scribe, acting as scribe for Hao Steve MD. HPI-Respiratory General - General Chief Complaint: Abnormal Lab[s] Stated Complaint: DR HAMMER Time Seen by Provider: 04/06/19 12:38 Source: patient, other (Dr. Lanier) Allergies/Adverse Reactions: Patient Allergies Allergy/AdvReac Type Severity Reaction Status Date / Time No Known Allergies Allergy Verified 02/27/19 19:37 Home Medications: Home Medication List Medication Instructions Recorded Confirmed Last Taken Type Acetaminophen [Tylenol] 650 mg PO Q6H PRN PRN #20 tab 03/13/19 Unknown Rx Furosemide [Lasix] 20 mg PO DAILY #10 tab 03/13/19 Unknown Rx Levofloxacin [Levaquin] 750 mg PO DAILY #5 tab 03/13/19 Unknown Rx Nicotine Patch [Nicoderm Patch] 14 mg TD DAILY PRN #10 patch 03/13/19 Unknown Rx Ondansetron HCl [Zofran] 4 mg PO Q6H PRN #15 tab 03/13/19 Unknown Rx Oxycodone I.r. [Oxy Ir] 5 mg PO Q6H PRN PRN #15 tab 03/13/19 Unknown Rx Alprazolam [Xanax] 0.5 mg PO TID PRN #10 tab 03/26/19 Unknown Rx - History of Present Illness-Resp Nature of Presenting Problem: 43 y/o female presents to ED with SOB, pain between shoulder blades, nausea, and hemoptysis. Pt was sent to ED from Dr. Lanier after PET scan today that showed pericardial and pleural effusion. Pt reports breathing exacerbates her symptoms. Pt is alert and oriented. Quality of Pain: reports: sharp Severity in ED: reports: moderate Onset/Duration: reports: unsure Timing: reports: still present Context: reports: other Exposure: reports: unknown cause Cough Quality/Degree: reports: blood streaked sputum Episode Frequency: no prior episodes Current Respiratory Medication Therapy: Initiated see nurses note Modifying Factors: worse with: deep breath Associated Symptoms: reports: cough, hurts to breathe, shortness of breath, short of breath, other (pain between shoulder blades; nausea; hemoptysis) Similar Symptoms Previously?: No Recently seen or treated by another doctor?: Yes (Dr. Lanier this morning) Review of Systems - Adult - REVIEW OF SYSTEMS - ADULT Constitutional: denies: chills, fever Eyes: reports: no symptoms reported Ears, Nose, Mouth & Throat: reports: no symptoms reported Cardiovascular: denies: chest pain, palpitations Respiratory: reports: cough, hemoptysis, shortness of breath Gastrointestinal: reports: nausea. denies: abdominal pain, diarrhea, vomiting Genitourinary: reports: no symptoms reported Musculoskeletal: reports: back pain (between shoulder blades). denies: joint pain Integumentary: reports: no symptoms reported Neurological: denies: dizziness/vertigo, seizure Psychiatric: reports: no symptoms reported Endocrine: reports: no symptoms reported Hematologic/Lymphatic: reports: no symptoms reported Allergic/Immunologic: reports: no symptoms reported All Other Systems: Reviewed and Negative Past History - Adult - PAST MEDICAL HISTORY-ADULT Review of Records: reports: Old Records Reviewed, Nursing Assessment Review, Medications Reviewed Major Childhood Illnesses: reports: denies history Respiratory: reports: cancer Obstetrical/Gynecological: reports: other (cervical cancer) Genitourinary: reports: kidney stones - PRIOR SURGERIES/PROCEDURES Surgical/Procedure History: reports: hysterectomy, other (lithrotripsy; renal stents) - IMMUNIZATION STATUS Childhood Immunizations: See Nurse Assessment Flu Vaccine: See Nurse Assessment - FAMILY HISTORY Family History: reviewed, not pertinent - SOCIAL HISTORY Smoking: quit less than 1 year Substance Use: none/never Alcohol Use Frequency: never Living Situation: family Physical Exam-General - PHYSICAL EXAM-ADULT Initial Vital Signs Reviewed: Yes - CONSTITUTIONAL General Appearance: appears well, alert, no apparent distress - EYES Eyes: PERRL/EOMI, pink conjunctivae - HEAD, EARS, NOSE, MOUTH & THROAT HENMT: normocephalic/atraumatic, moist mucous membranes, normal ENT inspection - NECK Neck: non-tender, full range of motion - RESPIRATORY Respiratory: chest non-tender, lungs clear, normal breath sounds, other (port to R upper anterior chest) - CARDIOVASCULAR Cardiovascular: normal peripheral pulses, regular rate, rhythm - GASTROINTESTINAL (ABDOMEN) Abdominal Exam: normal bowel sounds, non tender, soft - LYMPHATIC Lymphatic: other (chain of lymphadenopathy L lateral neck) - MUSCULOSKELETAL Back Exam: normal inspection, no CVA tenderness Extremity: normal range of motion, non-tender, normal gait - SKIN Integumentary: normal color, warm/dry, other (port to R upper anterior chest) - NEUROLOGIC Neurologic: grossly normal - PSYCHIATRIC Psych/Mental Status: normal mood/affect, normal thought content, normal thought process - HEART Score HEART Score: History: Slightly Suspicious HEART Score: Age: < or = 45 Years HEART Score: Risk Factors for Atherosclerotic Disease: No Risk Factors Known Progress - PLAN OF CARE/RESULTS Result Diagrams: 04/06/19 13:10 04/06/19 13:10 - EKG 1 Time of EKG reading by physician:: 13:33 EKG Read and Signed by:: Hao Steve EKG Interpretation (*Must complete 3 of following elements*): Abnormal Rate: 113 Rhythm: Sinus tach [place]: normal QRS: other (low voltage QRS; cannot rule out anterior infarct) [place] Interval: normal ST Wave: normal - XRAY 1 XRAY Study: Chest Impression: Abnormal (COMMENT: There are bilateral pleural effusions. The effusions appears somewhat larger than on the previous study of 03/26/2019 and the left effusion is worse than right. There is compressive atelectasis in the lung bases particularly on the left. There is apical pleural thickening particularly on the right. IMPRESSION: Worsened pleural effusions. Electronically signed by Ignacio Archibald 04/06/2019 12:55 PM) - CONSULTS/PCP/HOSPITALIST Notification #1 *Consult/PCP/Hospitalist*: Dr. Naylor Time Discussed: 13:07 Reason/Comments: pericardial window Consult Disposition: other (Dr. Lanier states Dr. Naylor will place pericardial window. Dr. Naylor unaware of this. He states if this is urgent, Dr. Melendez is food and nutrition supervisor and will do the procedure.) #2 Consult: TYRONE Byers for Dr. Bolton Time Discussed: 13:22 Reason/Comments: Pericardial effusion; pleural effusion Consult Disposition: Admit Departure - Departure Date of Disposition Decision: 04/06/19 Time of Disposition Decision: 16:00 DIAGNOSIS: Pericardial tamponade, Pleural effusion, Lung cancer, primary, with metastasis from lung to other site Disposition: ADMITTED INPATIENT 09 Certified Medical Emergency: Emergent Condition: Critical - Critical Care Note This patient required my direct & personal management of CC.: Yes Total Time (mins): 40 Critical Care Statement: This patient required my direct personal management to treat or rule out processes, the absence of which, could potentiallly result in sudden, clinically significant life or limb threatening deterioration. Attestation - Physician/ NIMISHA Attestation Patient care was provided by Advanced Practice Provider:: No The physician spent face to face time with patient:: Yes Advanced Practice Provider documentation review:: Supervising physician onsite and consulted in the evaluation and care of this patient. The physician did have a face to face encounter with the patient. This chart was documented by the indicated scribe, (Kate Fragoso, Meredith) and accurately reflects the services I performed and decisions made by me, Hao Steve MD, as attested by the provider's signature.
--- NOTE | 2019-04-06 15:25 | EKG Report ---
Test Performed on : 04/06/2019 1:33:38 PM Test Reason : ER Blood Pressure : / mmHG Vent. Rate : 113 BPM Atrial Rate : 113 BPM P-R Int : 128 ms QRS Dur : 058 ms QT Int : 300 ms P-R-T Axes : 030 042 025 degrees QTc Int : 411 ms Sinus tachycardia. Low voltage QRS Cannot rule out Anterior infarct , age undetermined Abnormal ECG When compared with ECG of 26-MAR-2019 12:42, (Unconfirmed) No significant change was found Unconfirmed Result
[2019-04-06] MEDS ORDERED: TYLENOL PO PRN (15:30)
[2019-04-06] MEDS ORDERED: XOPENEX NEB INH PRN (15:30)
[2019-04-06 16:01] LABS: URINE SOURCE CLEAN CATCH
[2019-04-06 16:05] LABS: BILIRUBIN URINE NEGATIVE (NEGATIVE); BLOOD URINE TRACE (NEGATIVE); COLOR YELLOW; GLUCOSE URINE TRACE mg/dL (NEGATIVE); KETONE URINE NEGATIVE (NEGATIVE); LEUKOCYTES URINE LARGE (NEGATIVE); NITRITE URINE NEGATIVE (NEGATIVE); PH URINE 5.5; PROTEIN URINE 50 mg/dL (NEGATIVE); TURBIDITY URINE HAZY (CLEAR); UROBILINOGEN URINE NORMAL (NORMAL)
[2019-04-06] MEDS: MAXIPIME 1 GM in NS 50 ML IV SCH (16:07)
[2019-04-06 16:09] LABS: UR EPITHELIAL CELLS <10 /HPF (<10); URINE BACTERIA NEGATIVE /HPF; URINE RBC <10 /HPF (<10); URINE WBC TNTC /HPF (<10)
[2019-04-06 16:30] LABS: UR CREAT RANDOM 179.2 mg/dL (11-20); UR SODIUM < 10 mmoll
[2019-04-06 16:32] LABS: URINE CASTS NONE SEEN; URINE CRYSTALS NONE SEEN; URINE SMALL ROUND CELLS RENAL PRESENT; URINE YEAST NONE SEEN
[2019-04-06] MEDS: XOPENEX NEB INH SCH ×3 (16:46→23:10)
[2019-04-06] MEDS ORDERED: VERSED ONE ×2 (16:50→17:16)
[2019-04-06] MEDS ORDERED: KETAMINE ONE (16:50)
--- NOTE | 2019-04-06 16:55 | HISTORY AND PHYSICAL ---
ONCOLOGIST: Dr. Sridhar Lanier. CHIEF COMPLAINT: Dyspnea. HISTORY OF PRESENT ILLNESS: Ms. Youngblood is an unfortunate 43-year-old female with a history of recently diagnosed adenocarcinoma of the lung. She also has a history of staghorn calculi, status post right pyelolithotomy and extensive laparoscopic robot- assisted exploration of the abdomen with extensive lysis of adhesions by Dr. Mathew. She was discharged from our service on 03/13/2019 and had a PET scan done yesterday and went to Dr. Lanier's office today for follow up. In the office her PET scan was reviewed, and it showed she had bilateral pleural effusions and possible large pericardial effusion. Coupled with her subjective symptoms of progressive dyspnea, they felt she should come to the hospital for evaluation. In the hospital ER here she had a chest x-ray done which did show worsening bilateral pleural effusions with compressive atelectasis particularly on the left. With concern for the pericardial effusion on PET scan, a stat limited echo has been ordered as well as a CT scan of the chest. She is hemodynamically stable. Her laboratory data do not show much in the way of anything acute. She does have some mild hyponatremia. Other than the shortness of breath, she is not complaining of chest pain, lower extremity edema, abdominal pain, nausea or vomiting. She is hemodynamically stable and will be admitted for further treatment and evaluation. PAST MEDICAL HISTORY: 1. Recent diagnosis of adenocarcinoma of the lung followed by Dr. Lanier. 2. History of staghorn calculi, status post pyelolithotomy by Dr. Mathew. 3. History of cervical cancer. 4. H. flu sepsis confirmed with bronchiole washing/bronchoscopy on 03/01/2019. SURGICAL HISTORY: She has had the recent pyelolithotomy. She has had section, lung biopsy, right subclavian central line. SOCIAL HISTORY: She quit smoking after her last admission. She denies alcohol or drug use. FAMILY HISTORY: Significant for malignancy. REVIEW OF SYSTEMS: A 14-point review of systems was obtained and found to be negative with the exception of that in the HPI. HOME MEDICATIONS: Have not yet been compiled by the nursing staff. Once those are placed in the chart, we will reconcile appropriately. PHYSICAL EXAMINATION: VITAL SIGNS: Blood pressure 130/88; heart rate 114; respiratory rate 22; 02 sat 98% on 3 liters; temperature 97.8. GENERAL: This is a frail 43-year-old female lying in the hospital bed in mild respiratory distress. NEUROLOGICAL: She is awake, alert, and oriented. Follows commands without focal deficits. HEENT: Head is atraumatic and normocephalic. Her pupils are equal, round and reactive to light. Oral mucosa is slightly dry. NECK: Trachea is midline. There is no JVD. CHEST: Diminished at both bases but otherwise clear to auscultation. CARDIOVASCULAR: Slightly tachycardic without any murmurs, gallops, clicks or rubs. GASTROINTESTINAL: Soft, nontender and nondistended. Bowel sounds positive. EXTREMITIES: No clubbing, cyanosis or edema. Pulses positive bilaterally. DIAGNOSTIC DATA: Chest x-ray shows bilateral pleural effusions, worse than prior. WBC 9.7, hemoglobin 11.9, hematocrit 37, platelet count 347,000, INR 1.15, sodium 130, potassium 4.6, chloride 87, C02 29, anion gap 14, BUN 26, creatinine 0.8, glucose 139, AST 47, ALT 51, alkaline phosphate 84, albumin 3.5. ASSESSMENT AND PLAN: 1. Respiratory distress: Likely secondary to bilateral pleural effusions but would not rule out etiology as pericardial effusion or more likely a combination of both. CT scan of the chest has been ordered as well as an echocardiogram. We have consulted pulmonary and oncology. If her echocardiogram shows tamponade physiology, we will consult surgery and cardiology. Will continue breathing treatments, pulmonary toilet, daily chest x-rays. We will go ahead and add a gram of Cefepime as well. 2. Stage 4 lung cancer: Dr. Lanier has been consulted. We appreciate any recommendations. 3. Hyponatremia: Likely SIADH due to adenocarcinoma of the lung but would not rule out chf due to possible cardiac tamponade. We will check urine studies to corroborate, however, she has been on lasix recently, so her urine studies will likely be skewed. Will monitor closely. 4. History of staghorn calculi of right kidney: Aware. No CVA tenderness or back pain. 5. DVT prophylaxis: SCDs/TEDs. Further recommendations to follow. Dictated by TYRONE Toth for Apollo Bolton MD cc: TYRONE Toth. [place], MD [facility]
[2019-04-06 17:00] LABS: ALLEN TEST YES; BE 4.7 mmoll (-3.0-3.0); BLOOD TYPE ARTERIAL; HCO3-(ACT) 28.5 mmoll (20.0-26.0); METHB 0.9 % (0.0-1.5); O2(CT) 15.4 mL/dL (15.0-23.0); O2HB 91.6 % (95.0-99.0); PCO2(98.6) 49 mmHg (35-45); PO2(98.6) 64 mmHg (60-100); SAMPLE BLOOD; SAO2 94.2 % (95.0-100.0); THB 11.9 g/dL (11.5-17.4)
[2019-04-06 17:01] LABS: MODALITY CANNULA
[2019-04-06] MEDS ORDERED: SENSORCAINE 0.5%-EPI 1:200,000 ONE (17:01)
[2019-04-06] MEDS ORDERED: XYLOCAINE-MPF 1% ONE (17:44)
[2019-04-06] MEDS ORDERED: ZOFRAN ONE (17:44)
[2019-04-06] MEDS ORDERED: DECADRON ONE ×2 (17:44→17:47)
[2019-04-06] MEDS ORDERED: SODIUM CHLORIDE 0.9% 10 ML ONE (17:47)
[2019-04-06] MEDS ORDERED: ZANTAC IV SCH (18:45)
[2019-04-06] MEDS ORDERED: DIPRIVAN 1% 1,000 MG/100 ML BOTTLE IV SCH (18:45)
--- NOTE | 2019-04-06 18:50 | Diag Imaging Result Doc PS360 ---
EXAM: CHEST-PORTABLE 04/06/2019 HISTORY: et placement, pericardial effusion TECHNIQUE: AP portable at 1839 COMMENT: There is a chest tube on the left. There is an endotracheal tube with its tip at the thoracic inlet. There is a Port-A-Cath on the right with its tip in the right atrium. There are bilateral pleural fluid collections more so on the right than the left. There is atelectasis versus pneumonia bilaterally but particularly in the left lower lobe. IMPRESSION: Bilateral pleural effusions. Bilateral atelectasis and/or pneumonia. Electronically signed by Ignacio Archibald 04/06/2019 6:48 PM
[2019-04-06] MEDS: D5 NS 1,000 ML IV SCH ×2 (18:51→20:05)
[2019-04-06] MEDS: ZANTAC IV SCH (20:02)
[2019-04-06] MEDS: NS IV SCH (20:02)
[2019-04-06 20:26] LABS: URINE SOURCE CATH
[2019-04-06 20:31] LABS: BILIRUBIN URINE NEGATIVE (NEGATIVE); BLOOD URINE SMALL (NEGATIVE); COLOR YELLOW; GLUCOSE URINE NEGATIVE (NEGATIVE); KETONE URINE NEGATIVE (NEGATIVE); LEUKOCYTES URINE LARGE (NEGATIVE); NITRITE URINE NEGATIVE (NEGATIVE); PH URINE 5.5; PROTEIN URINE 70 mg/dL (NEGATIVE); SP GRAVITY URINE 1.023; TURBIDITY URINE HAZY (CLEAR); UROBILINOGEN URINE NORMAL (NORMAL)
[2019-04-06 20:32] LABS: UR EPITHELIAL CELLS >10 /HPF (<10); URINE BACTERIA NEGATIVE /HPF; URINE RBC <10 /HPF (<10); URINE WBC TNTC /HPF (<10)
[2019-04-06] MEDS: MORPHINE IV PRN (20:47)
[2019-04-06 20:49] LABS: URINE CRYSTALS NONE SEEN; URINE YEAST NONE SEEN
[2019-04-06 20:51] LABS: URINE CASTS WHITE CELL PRESENT; URINE SMALL ROUND CELLS RENAL PRESENT
--- NOTE | 2019-04-06 20:52 | CONSULTATION ---
DATE OF CONSULTATION: 04/06/2019 IMPRESSION: 1. Large pericardial effusion with emerging evidence of impending tamponade physiology. Suspect malignant pericardial effusion. 2. Non-small cell lung cancer with poorly differentiated adenocarcinoma. 3. Previous chronic tobacco abuse. 4. Staghorn calculus the right kidney. Patient is status post laparoscopic pyelolithotomy last month. RECOMMENDATIONS: Surgery consultation for pericardial window. HISTORY: This 43-year-old white female with past history of fairly recently diagnosed non-small cell lung cancer was referred to the emergency room from Oncology Clinic after PET study suggested large pericardial effusion. She was initially diagnosed with non-small cell lung cancer about 6 weeks ago. She presented with left neck adenopathy which had been present for several months and failed to improve. She also had about a 30-pound weight loss. Chest CT scan showed multiple hilar lymphadenopathy abutting most of the large vessels in the mediastinum. Bronchoscopy with diagnostic biopsy confirmed non-small cell lung cancer with poorly differentiated adenocarcinoma. Though she was felt to have metastatic non-small cell lung cancer. She had laparoscopic robotic surgery of right-sided staghorn calculus which had significant hydronephrosis. Postoperatively she had difficulty with Haemophilus influenzae pneumonia. She was treated with parental antibiotics. She was discharged on 03/13/2019. She has been treated in Oncology Clinic and had followup PET study yesterday. She returned today for iron infusion and given that PET study suggested pericardial effusion she was referred to the emergency room. She relates that she has had some tendency for lower extremity swelling over the past 3 weeks. She was given some Lasix to take on as-needed basis. For the past week she has had some tendency for shortness of breath when she would lie back recumbent. She has also developed exertional shortness of breath with some exertional lightheadedness. PAST MEDICAL HISTORY: 1. Metastatic non-small cell lung cancer with poorly differentiated adenocarcinoma. 2. Staghorn calculus right kidney, status post laparoscopic pyelolithotomy. 3. Recent pneumonia and sepsis related Haemophilus influenzae. 4. Status post previous section. ALLERGIES: She has no known drug allergies. MEDICATIONS PRIOR TO ADMISSION: As listed. SOCIAL HISTORY: She has history of previous cigarette use at a rate of 1/2 to 1 pack of cigarettes per day. She lives with her mother. FAMILY HISTORY: Negative for premature coronary disease. REVIEW OF SYSTEMS: Pulmonary: Noteworthy for exertional dyspnea as well as shortness of breath when lying recumbent. Gastrointestinal: Noteworthy for anorexia. Constitutional: Noteworthy for weight loss. Remainder of review of systems negative/noncontributory with 14 total systems reviewed. PHYSICAL EXAMINATION: This is a thin, adult female in no distress.Vital signs: Blood pressure 130/88, heart rate 114, oxygen saturation 98% on nasal cannula oxygen. HEENT: Extraocular movements appear intact. Mucous membranes are moist. Neck: Supple. Jugular distention is evident consistent with elevated central venous pressure. Chest: Auscultation of the chest reveals diminished breath sounds in the left base posteriorly. Cardiac Exam: Reveals mildly diminished heart sounds. A regular tachycardia is demonstrated without appreciable murmur, rub or gallop. Abdomen: Soft. Bowel sounds are normal. Extremities: Demonstrate trace edema bilaterally. Neurologic: Reveals her to be alert and fully oriented. Speech is fluent. She moves all 4 extremities equally well. LABORATORY DATA: Includes a white blood cell count 9.77, hematocrit 37.0, hemoglobin 11.9, platelet count 347,000. Sodium 130, potassium 4.6, chloride 87, carbon dioxide 29, BUN 26, creatinine 0.8, glucose 139. AST 47, ALT 51. Pro time 15.6, INR 1.15, PTT 30.6. ECG shows sinus tachycardia and low voltage QRS. Echocardiography preliminary demonstrates large circumferential pericardial effusion. There appears to be some late diastolic right ventricular free wall buckling. Inferior vena cava is markedly dilated consistent with elevated central venous pressure. Left pleural effusion is also noted. Left ventricular systolic function appears to be normal. cc: Joshua Perez MD
--- NOTE | 2019-04-06 22:13 | HISTORY AND PHYSICAL ---
HISTORY OF PRESENT ILLNESS: Ms. Youngblood was seen in the ER today. The mother was at the bedside at the time of the encounter. Ms. Youngblood is a 43-year-old, female who was diagnosed with stage IV adenocarcinoma of the lungs since February this year. Has not been able to do any adjuvant therapy due to other complications. Has only been on Keytruda after her report. Ms. Youngblood went to her oncologist yesterday for a PET scan and she was called in this morning to come to the emergency department because of concerning findings on the PET scan. Ms. Youngblood also refers that for the past 2 weeks, she has been having difficulty sleeping because of shortness of breath. She is positive for orthopnea. She has been sleeping almost in a sitting position. As soon as she came to the emergency department, a limited echocardiogram has been done and I have discussed the report with Dr. Perez, who has informed me that the echocardiogram shows a large pericardial effusion with manifestation of possible tamponade. Surgery has been consulted. Dr. Alonso has told me personally that he has discussed the case with Dr. Melendez. PHYSICAL EXAMINATION: RESPIRATORY: Patient's physical exam has also been reviewed. More specifically, she looked malnourished and chronically sick. She was sitting up in a tripod position. Her chest exam air entry was bilaterally reduced, more so to the right posterior lung field. There is decreased vocal fremitus into the posterior lung reyes bilaterally and there is dullness to percussion in both lower lung bases posteriorly, more so to the right posterior lung field. There are crackles in both lungs. CARDIOVASCULAR: There is regular rate and rhythm. However, the heart rate sounds quite distant. I did not appreciate any JVD. ABDOMEN: Soft. EXTREMITIES: Did not show any edema. CHEST: There was a port on the right anterior chest wall. LAB WORK: Has also been reviewed. CBC is unremarkable. Chemistry: Shows sodium of 130 and chloride of 87. AST and ALT are also minimally elevated. Coagulation panel is normal. Chest x-ray shows worsening pleural effusions. ASSESSMENT: 1. Acute hypoxemic respiratory failure secondary to pulmonary edema. 2. Large pericardial effusion with features concerning for tamponade as per Cardiology report. Surgery has been notified for pericardial window. 3. Bilateral pleural effusions. I think the right is more than the left at least on physical exams. We will do a CT scan when possible and probably drain this if needed. 4. Metastatic adenocarcinoma of the lungs. The patient is currently on Keytruda and follows up with Dr. Lanier. We will notify them accordingly. PLAN: So, in general, I think Ms. Youngblood is critically sick. She is going to be admitted to the ICU. I have already notified the storage facility housekeeper. Surgery has also been notified for pericardial window evaluation. I have discontinued the IV fluids since patient is already fluid overloaded. We will get a CT scan of the chest whenever possible and make further recommendations. I have discussed my plan with the patient and the mother who was at the bedside at the time of the encounter. CRITICAL TIME SPENT: Was 45 minutes. Please refer to the details of the H and P in the chart which has been dictated by the nurse practitioner. cc: Apollo Bolton MD
--- NOTE | 2019-04-06 23:14 | ECHO REPORT ---
ORDER DATE: 04/06/2019 SUMMARY: 1. Fair quality study. 2. The aortic valve is without evidence of structural abnormality and opens normally on 2- dimensional images. Peak gradient across the aortic valve is less than 10 mmHg. Mitral and tricuspid valves are without evidence of structural abnormality while pulmonic valve is not demonstrated. There is trace tricuspid regurgitation. The aortic root is normal size. 3. Normal left ventricular dimensions demonstrated. Estimated left ejection fraction appears to be at least 70%. No regional wall motion abnormalities are evident. The left atrium, right atrium, and right ventricle are normal in size with grossly preserved right ventricular systolic function. 4. A large circumferential pericardial effusion is demonstrated. There appears to be some late diastolic RV free wall buckling/collapse. The inferior vena cava is markedly dilated. The findings suggest impending tamponade physiology. 5. Large left pleural effusion. 6. Inferior vena cava is markedly dilated, suggesting markedly elevated central venous pressure. cc: MD Hao Sarah MD
--- NOTE | 2019-04-07 02:30 | GENERAL SURGERY CONSULTATION ---
DATE: 04/06/2019 HISTORY OF PRESENT ILLNESS: This is a 43-year-old female with metastatic small cell carcinoma of the lung has been diagnosed. 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 She has bulky left neck adenopathy, compression of her pulmonary vasculature. She presents now with worsening shortness of breath, orthopnea for the last 2 weeks, now to the point she can only sit straight up. She is very tachypneic, hypoxic. Echocardiogram obtained in the emergency department showed changes consistent with cardiac tamponade related to large pericardial effusions. On x-ray she has bilateral pleural effusions, left greater than right. Discussed with Dr. Perez, Cardiology, as well as her nurse. Dr. Lanier apparently had a PET scan that confirmed these findings as well, although she is unable to lay flat for a CT scan now. REVIEW OF SYSTEMS: Ten point negative. MEDICAL HISTORY: Metastatic lung cancer. SURGICAL HISTORY: She has had a recent cholecystectomy it appears, as well as right-sided port placement 2 to 3 weeks ago. She has had bronchoscopy with biopsy, she had robotic lysis of adhesions with a right pyelolithotomy 02/27/2019, right-sided central line and right-sided port. SOCIAL HISTORY: History of smoking. Denies current tobacco, alcohol or drugs. FAMILY HISTORY: Reviewed, noncontributory. PHYSICAL EXAMINATION: Vital signs: On exam, she was tachycardic, she is hypoxic with saturations in the 80s, heart rates in the one-teens to 120s, occasionally as high as 150. She is afebrile. She is on 10 L nasal cannula. She is 106 pounds, 5 foot 4 inches. General: She is in obvious respiratory distress. There is a large bulky left cervical node with a right-sided port. Cardiovascular: Tachycardia. Pulmonary: Profound dyspnea with increased work of breathing. Abdomen: Soft. There is well healed trocar incisions. Integument: Warm, dry without jaundice. Psychiatric: She is anxious, understandably. Neurologic: No focal deficits. Peripheral vascular: Extremities are somewhat mottled. LABORATORY DATA: White count is 9, hematocrit 37, platelets 347,000. INR is 1.15 Creatinine is 0.8. Glucose 139, bilirubin is normal, albumin is 3.7. Urinalysis is positive for leukocytes. I reviewed her chest x-ray. I have also reviewed her echocardiogram findings with technologist as well as Dr. Perez. ASSESSMENT/PLAN: A 43-year-old female with cardiac tamponade and likely symptomatic left effusion if not bilateral effusion. I have had a long discussion regarding risks of bleeding, infection, cardiac injury, , prolonged intubation, and other perioperative complications. She understands and consents to open pericardial window, drainage of pericardial effusion to relieve her tamponade, and we will place a left-sided chest tube, as this is the larger of the 2 effusions and possibly some degree of symptoms related to this. Overall, grim prognosis for this young female. We will go to the operating room emergently. cc: Sunil Melendez MD
[2019-04-07] MEDS: XOPENEX NEB INH SCH ×6 (03:10→23:50)
[2019-04-07] MEDS: MORPHINE IV PRN ×5 (03:44→20:05)
[2019-04-07] MEDS: MAXIPIME 1 GM in NS 50 ML IV SCH ×2 (03:53→17:07)
[2019-04-07] MEDS: ZANTAC IV SCH ×3 (03:54→19:46)
[2019-04-07] MEDS: NS IV SCH ×3 (03:54→19:46)
[2019-04-07 05:10] LABS: BASO% 0.1 % (0.0-0.8); HEMOGLOBIN 11.8 g/dL (12.0-16.0); IMM GRAN% 0.2 % (0.0-0.5); LYMPH# 0.44 X1000 (1.2-3.4); LYMPH% 5.2 % (20.5-51.1); MCH 31.9 PG (27-31); MCHC 34.7 g/dL (33-37); MCV 91.9 FL (81-99); MONO# 0.48 X1000 (0.11-0.59); MONO% 5.7 % (1.7-9.3); MPV 10.9 FL (7.4-10.4); NEUT# 7.49 X1000 (1.4-6.5); NEUT% 88.8 % (42.2-75.2); PLT 265 X1000 (130-400); RDW 15.7 % (11.5-14.5); WBC 8.44 X1000 (4.8-10.8)
[2019-04-07 05:11] LABS: BASO# 0.01 X1000 (0.0-0.2); IMM GRAN# 0.02 X1000 (0.0-0.04)
[2019-04-07 05:25] LABS: ALLEN TEST YES; BE 4.2 mmoll (-3.0-3.0); BLOOD TYPE ARTERIAL; HCO3-(ACT) 28.2 mmoll (20.0-26.0); O2(CT) 15.7 mL/dL (15.0-23.0); O2HB 97.4 % (95.0-99.0); PCO2(98.6) 32 mmHg (35-45); PO2(98.6) 181 mmHg (60-100); SAMPLE BLOOD; SAO2 99.7 % (95.0-100.0); SRATE 16 BPM; THB 11.2 g/dL (11.5-17.4); TVOL 500 mL; pH(98.6) 7.53 (7.35-7.45)
[2019-04-07 05:26] LABS: MODALITY VENTILATOR
[2019-04-07 06:31] LABS: AGAP 9; ALB/GLOB RATIO 0.9; ALBUMIN 2.6 g/dL (3.5-5.0); ALKALINE PHOSPHATASE 68 U/L (32-104); BUN 21 mg/dL (8-22); CALCIUM 8.4 mg/dL (8.8-10.2); CHLORIDE 96 mmol/L (98-107); COSMO 271; CREATININE 0.6 mg/dL (0.5-0.9); ESTIMATED GFR > 60; GLUCOSE 130 mg/dL (70-104); GOT 45 U/L (10-30); GPT 53 U/L (10-36); MAGNESIUM 2.1 mg/dL (1.5-2.7); PHOSPHORUS 2.3 mg/dL (2.7-4.5); POTASSIUM 4.4 mmol/L (3.5-5.1); SODIUM 133 mmol/L (136-145); TCO2 28 mmol/L (25-35); TOTAL BILIRUBIN 0.36 mg/dL (0.20-1.00); TOTAL PROTEIN 5.5 g/dL (6.3-8.3)
--- NOTE | 2019-04-07 07:09 | Diag Imaging Result Doc PS360 ---
EXAM: CHEST-PORTABLE 04/07/2019 HISTORY: Dyspnea TECHNIQUE: AP portable at 0536 COMMENT: There is an endotracheal tube with its tip slightly below the thoracic inlet. There is a chest tube on the left. There is no evidence of pneumothorax. There are bilateral pleural effusions more so on the right than the left. The right lung is better expanded than on the previous study of 04/06/2019 and the pleural fluid collection has diminished in volume. There is also some improvement in the atelectasis versus pneumonia in the left lower lobe which was present previously. IMPRESSION: Improved right pleural effusion and left basilar opacity. Electronically signed by Ignacio Archibald 04/07/2019 7:07 AM
--- NOTE | 2019-04-07 08:39 | PULMONOLOGY CONSULTATION ---
DATE: 04/06/2019 REASON FOR CONSULTATION: Lung cancer with pericardial effusion with respiratory failure following a surgical pericardial window placement. HISTORY OF PRESENT ILLNESS: Ms. Youngblood is a 43-year-old white female, who was evaluated by this practitioner 02/28/[address] scan revealed bulky adenopathy throughout the mediastinum with tumor surrounding the trachea and extending into the mediastinum. Bronchoscopy was performed which revealed tumor involving the sonia and the right upper lobe and bronchus intermedius. Biopsies were performed which revealed poorly differentiated adenocarcinoma. PDL-1 was expressed at 10% with a 2+ intensity. The patient underwent a PET scan by Dr. Lanier, which revealed a pericardial and pleural effusion. The patient was having some hemoptysis and pain between her shoulder blades. She underwent an echocardiogram which revealed a pericardial effusion with tamponade features. The patient was taken to the operating room by Dr. Melendez, and a pericardial window was placed. She had improvement in hemodynamics and has been transferred back to the Intensive Care Unit. PAST MEDICAL HISTORY: 1. Stage IV lung cancer. 2. History of staghorn calculus status post surgical removal by Dr. Mathew. 3. History of cervical cancer. SOCIAL HISTORY: Prior tobacco use, but stopped the last admission. No alcohol use. FAMILY HISTORY: Noncontributory to current presentation. REVIEW OF SYSTEMS: Cannot be obtained. PHYSICAL EXAMINATION: General: Reveals a chronically ill-appearing female, who appears older than her stated age. Vital Signs: Heart rate 114, respiratory rate 22, blood pressure 130/88, oxygen saturation 98%. HEENT: Pupils are equal. Oropharynx appears clear. Neck: Supple with firm lymph nodes noted in the left posterior cervical chain. Chest: Reveals coarse rhonchi bilaterally. There is a drain present. Abdomen: Soft. Extremities: Without edema. LABORATORIES: White blood count 9.77, hemoglobin 11.9, platelet count 347,000. Arterial blood gas preoperative pH 7.40, pCO2 of 49, pO2 of 64 on 2 L per nasal cannula. X-RAYS: Chest x-ray is pending. IMPRESSION: A 43-year-old with: 1. Metastatic lung cancer originating in the right upper lobe. 2. Hemoptysis. 3. Acute hypoxemic respiratory failure. 4. Pleural effusion. 5. Pericardial effusion status post window placement. 6. Acute hypoxemic respiratory failure. PLAN: 1. Continue ventilatory support through the evening until her hemodynamics have stabilized, and she can be evaluated for extubation. 2. Routine gastric acid suppression. 3. Propofol for sedation. 4. Check sputum for C and S. 5. Overall prognosis is guarded to poor. Critical Care Time: 60 minutes cc: Keo Baird MD MTDD
--- NOTE | 2019-04-07 08:52 | OPERATIVE NOTE ---
PROCEDURE DATE: 04/07/2019 POSTOPERATIVE DIAGNOSES: 1. Metastatic lung cancer. 2. Cardiac tamponade related to a pericardial effusion. 3. Left pleural effusion. POSTOPERATIVE DIAGNOSES: PROCEDURE PERFORMED: 1. Open pericardial window with biopsy of the pericardium. 2. Left chest tube placement. ANESTHESIA: General. ESTIMATED BLOOD LOSS: 20 mL, but 400 mL of pericardial fluid and 1300 mL of left pleural fluid. SPECIMEN: 1. Pericardial biopsy. 2. Left pleural fluid for culture. INDICATION: This is a 43-year-old female who has metastatic lung cancer who came in with hemodynamic and respiratory distress. Echocardiogram showed findings consistent with tamponade, and she had bilateral effusions, left greater than right, noted on a chest x-ray. OPERATIVE FINDINGS: 1. There was a large pressurized pericardial effusion that was sanguinous in nature, approximately 400 mL. 2. There was 1300 mL of cloudy yellowish fluid in the left chest OPERATIVE NOTE: Risks, benefits, and alternatives were discussed with the patient, and she consented to the procedure. She was taken to the operating room emergently, and her chest, neck, and abdomen were prepped with Betadine widely while awake. At this point, anesthesia was induced. She tolerated this reasonably well. She was tachycardic and hypotensive during this. We draped her widely. We made a subxiphoid incision and carried this up posterior to the xiphoid in the sternum, identifying the pericardium. We cleared this off with a cotton pusher. We had good exposure here. Using #15 blade, we made a cynthia in the pericardium. There was sanguinous fluid noted. We opened the window using our my finger and evacuated using a pull tip suction of the pericardial effusion. She had dramatic improvement in her hemodynamic status after this. We ensured there were no loculations and no clots within the pericardium. A Sharif drain was placed through a stab incision into the pericardium and the fascia was reapproximated with a #1 PDS suture in an interrupted fashion. Skin was closed with surgical clips. At this point, her hemodynamic status was much improved. Given the large effusion on the left, we elected to drain this as well, as we felt this was contributing. We made an incision at the level of the inframammary fold and carried this down to the rib. Dissecting above the rib, we entered the chest in a controlled fashion. Purulent cloudy fluid was noted. We suctioned this until clear. Approximately 1300 mL were expressed and a 32-Chilean chest tube was placed posterior and apically and secured with a 0 silk suture. We placed a Pleur-Evac. Dressing was applied. She tolerated all of this well and was transferred intubated back to the ICU. I spoke with the family. cc: Sunil Melendez MD
[2019-04-07] MEDS: D5 NS 1,000 ML IV SCH ×2 (09:10→23:13)
--- NOTE | 2019-04-07 16:04 | PROGRESS NOTE ---
DATE: 04/07/2019 SUBJECTIVE: This morning Ms. Ernandez is seen in the ICU. She is currently intubated. Last night she underwent a pericardial window and left chest tube placement by Surgery. OBJECTIVE: Current Vital signs: Blood pressure is 112/88, pulse of 68, respirations 16, temperature is 96.9 degrees. General: Ms. Youngblood is a 43-year-old female. She is in bed, currently intubated. HEENT: Mucosa is pink and moist. Anicteric. Acyanotic. Neck: Supple. Chest: Air entry is bilaterally reduced, more so to the right posterior lung reyes. There is a chest tube in the left hemithorax. Cardiovascular: Regular rate and rhythm. No murmurs. There is a pericardial window with a drain in place. Abdomen: Soft. Extremities: No pedal edema. Central nervous system: Patient is currently sedated and intubated but will nod to certain questions and will move all extremities. LABORATORY DATA: WBC is 8.44, hemoglobin is 11.8, platelet count of 265,000. ABGs reviewed. PO2 is 181 on the ventilator. Chemistry is reviewed. Sodium is 133, potassium is 4.4, chloride 96. Renal function is normal. IMAGING: A chest x-ray this morning was still pending official report. There are supportive lines in place including the EG tube, the left chest tube, and there is also a port on the right side. The right lung is a lot more aerated than the right. There is some loss of volume on the left side consistent of possible atelectasis. There is pleural effusion on the right. Still pending the official report on this. ASSESSMENT: 1. Acute hypoxemic respiratory failure secondary to pleural effusion and pulmonary edema. The patient is currently intubated after the surgery. Pulmonary Medicine has been consulted. 2. Large pericardial effusion with tamponade. The patient is status post pericardial window yesterday. 3. Bilateral pleural effusions suspicious all to be malignant. Patient is status post left chest tube placement by Surgery. 4. Metastatic adenocarcinoma of the lungs. The patient was on Keytruda, followed up by Dr. Lanier. PLAN: So this morning, Ms. Youngblood seems to be fairly stable, is currently intubated. We are pending Pulmonary Medicine evaluation today. The patient is on IV antibiotics and will continue with the current management pending further recommendations from the other subspecialties involved with her care. cc: Apollo Bolton MD
--- NOTE | 2019-04-07 23:20 | PULMONOLOGY PROGRESS NOTE ---
DATE: 04/07/2019 SUBJECTIVE: The patient is arousable, alert despite sedation. She appears to be comfortable on mechanical ventilation. OBJECTIVE: The patient has been afebrile for the last 24 hours. BP 132/88, heart rate 97, respiratory rate 16, oxygen saturation 100%. HEENT: Pupils are equal. Oropharynx appears clear. Neck is supple. Chest reveals chest tube in the left hemithorax. No air leak identified. Decreased breath sounds, right base. Cardiac: S1, S2. Abdomen is soft. Extremities are without significant edema. DIAGNOSTIC DATA: Chest x-ray reveals endotracheal tube in good position; left-sided chest tube placement; bilateral pleural effusions with near-complete evacuation on the left. LABORATORY DATA: White blood count 8.44, hemoglobin 11.8, platelet count 265,000. Chemistry: Sodium 133, potassium 4.4, chloride 96, bicarbonate 28, BUN 21, creatinine 0.6. Arterial blood gas pH 7.53, pCO2 of 32, pO2 of 181. IMPRESSION: A 43-year-old with: 1. Metastatic lung cancer. 2. Pericardial effusion, status post window placement. 3. Bilateral pleural effusions, status post left chest tube placement. 4. Acute hypoxemic respiratory failure. PLAN: 1. Send sputum for culture and sensitivity. This was ordered but not yet collected. 2. Discontinue sedation, initiate a spontaneous breathing trial. 3. Anticipate extubation this morning. Time spent in critical care management 30-plus minutes. cc: Keo Baird MD
[2019-04-08] MEDS: MORPHINE IV PRN ×4 (02:11→14:57)
[2019-04-08] MEDS: XOPENEX NEB INH SCH ×6 (03:30→23:45)
[2019-04-08] MEDS: NS IV SCH ×2 (04:22→11:02)
[2019-04-08] MEDS: ZANTAC IV SCH ×2 (04:22→11:02)
[2019-04-08] MEDS: MAXIPIME 1 GM in NS 50 ML IV SCH ×2 (04:22→17:36)
[2019-04-08 05:46] LABS: BASO# 0.01 X1000 (0.0-0.2); BASO% 0.1 % (0.0-0.8); EOS# 0.02 X1000 (0.0-0.7); EOS% 0.2 % (0.0-10.0); HEMATOCRIT 37.5 % (37.0-47.0); HEMOGLOBIN 11.9 g/dL (12.0-16.0); IMM GRAN# 0.02 X1000 (0.0-0.04); IMM GRAN% 0.2 % (0.0-0.5); LYMPH# 0.42 X1000 (1.2-3.4); LYMPH% 3.9 % (20.5-51.1); MCH 30.1 PG (27-31); MCHC 31.7 g/dL (33-37); MCV 94.9 FL (81-99); MONO# 1.01 X1000 (0.11-0.59); MONO% 9.3 % (1.7-9.3); MPV 10.3 FL (7.4-10.4); NEUT# 9.42 X1000 (1.4-6.5); NEUT% 86.3 % (42.2-75.2); PLT 267 X1000 (130-400); RBC 3.95 XMIL (4.2-5.4); RDW 16.7 % (11.5-14.5)
[2019-04-08 06:07] LABS: AGAP 10; BUN 15 mg/dL (8-22); CALCIUM 8.4 mg/dL (8.8-10.2); CHLORIDE 100 mmol/L (98-107); COSMO 274; CREATININE 0.6 mg/dL (0.5-0.9); ESTIMATED GFR > 60; GLUCOSE 119 mg/dL (70-104); POTASSIUM 4.2 mmol/L (3.5-5.1); SODIUM 136 mmol/L (136-145); TCO2 26 mmol/L (25-35)
--- NOTE | 2019-04-08 06:10 | GENERAL SURGERY PROGRESS NOTE ---
DATE: 04/07/2019 SUBJECTIVE: Hemodynamically stable overnight. Weaning ventilator settings. OBJECTIVE: Intermittent tachycardia, but for the most part has been rate-controlled. Blood pressure is in the 110s. No fevers. Her drain has decreased output, serosanguineous. Left chest tube has become more serous, with no air leak. It is to suction. LABORATORY DATA: White count is 8, hematocrit is 34. ABG is reviewed. It shows adequate gas exchange. Creatinine 0.6. DIAGNOSTIC DATA: I reviewed her x-rays, both postoperative and this morning. ASSESSMENT AND PLAN: This is a 43-year-old female with metastatic carcinoma. She had a cardiac tamponade related to a pericardial effusion and a left effusion. We will plan for possible extubation today per the Pulmonology service. Otherwise, we will keep her drains as they are. cc: Sunil Melendez MD
--- NOTE | 2019-04-08 07:07 | Diag Imaging Result Doc PS360 ---
EXAM: CHEST-PORTABLE 04/08/2019 HISTORY: Dyspnea TECHNIQUE: AP portable at 0549 COMMENT: There are two chest tubes in There is still some ill-defined opacity in the left lower lobe but this has improved slightly since 04/07/2019. There has been a marked increase in the amount of pleural fluid on the right. There is increasing compressive atelectasis in the right lung. The endotracheal tube has been removed. On the left. IMPRESSION: Improving atelectasis or pneumonia left lower lobe, worsening right pleural effusion. Electronically signed by Ignacio Archibald 04/08/2019 7:05 AM
[2019-04-08] MEDS: D5 NS 1,000 ML IV SCH (11:03)
[2019-04-08] MEDS ORDERED: BLISTEX MEDICATED BERRY LIP BALM TOP ONE (11:10)
[2019-04-08] MEDS ORDERED: SALINE LOCK IV FLUID XX ONE (12:03)
[2019-04-08] MEDS ORDERED: LASIX IV ONE (12:04)
--- NOTE | 2019-04-08 12:42 | PROGRESS NOTE ---
DATE: 04/08/2019 SUBJECTIVE: This morning, Ms. Youngblood is in the ICU. An aunt was at the bedside at the time of the encounter. She refers to be doing a lot better. She was successfully extubated yesterday. OBJECTIVELY: Vitals: Her current vitals, blood pressure is 118/69, pulse of 93, respirations 21, temperature 97.1 degrees, the patient is saturating 98% on 3 L. General: Ms. Youngblood, a 43-year- old female. She is in bed. She is not in distress. HEENT: Mucosa is pink and slightly dry. Anicteric and acyanotic. Neck: Supple. Chest: Air entry is reduced to the right lung field. There is some dullness to percussion and crackles. Cardiovascular: Regular rate and rhythm. There is a pericardial window with a drain in place. Abdomen: Soft. Extremities: No pedal edema. 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 Musculoskeletal: There is a chest tube on the left hemithorax. LABORATORY DATA: WBC is 10.90, hemoglobin is 11.9, platelet count of 267,000. Chemistry is also reviewed and is completely unremarkable. RADIOGRAPH: Review of operative report did showed that 400 mL of pericardial fluid was removed and 130 of pleural fluid was removed. The pleural fluid was cloudy, yellowish fluid, whereas the pericardial fluid was described as sanguinous in nature. A chest x-ray this morning shows improving atelectasis or pneumonia in the left lower lobe. However, there is worsening of the right pleural effusion. CURRENT MEDICATIONS: Have also been reviewed. She is on cefepime as antimicrobial. So far, the pleural fluid is negative. ASSESSMENT: 1. Acute hypoxemic respiratory failure on presentation, improved. 2. Large pericardial effusion with tamponade. The patient is status post pericardial window. 400 mL of sanguinous pericardial fluid was removed during surgery. Patient currently has a tube in place. 3. Bilateral pleural effusion. The patient is status post left chest tube placement. 130 mL of cloudy yellowish fluid was drained in surgery. 4. Another 570 has been drained since the tube has been placed. Patient x-ray this morning shows worsening of the right pleural effusion. I think at some point that will also need to be drained with chest tube. We will wait for surgery further recommendations on that. 5. Metastatic adenocarcinoma of the lungs. Patient follows up with Dr. Lanier. She was recently on Keytruda. PLAN: So in general, I think Ms. Youngblood seems to be doing a lot better. She is on antimicrobials. Her chest x-ray this morning shows remarkable improvement on the left side. She is still draining a lot. The patient is being seen by Surgery and Pulmonary Medicine. We will follow with further recommendations from them. We will start Ms. Youngblood this morning with a regular diet. cc: Apollo Bolton MD
--- NOTE | 2019-04-08 15:57 | PULMONOLOGY PROGRESS NOTE ---
DATE: 04/08/2019 SUBJECTIVE: The patient is awake and alert. She has a slightly wet sounding cough. She is without specific complaints. OBJECTIVE: Vital Signs: The patient has been afebrile for the last 24 hours. Blood pressure 118/69, heart rate 95, respiratory rate 21, oxygen saturation 98% on 3 L per nasal cannula. HEENT: Pupils are equal and reactive. Oropharynx is clear. Neck: Supple. Chest: Reveals good air entry on the left. No air leak noted in chest tube. Decreased breath sounds in the right lung laterally. Abdomen: Soft. Extremities: Without edema. LABORATORIES: White blood count 10.9, hemoglobin 11.9, platelet count 267,000. Sodium 136, potassium 4.2, chloride 100, bicarbonate 26, BUN 15, creatinine 0.6. Chest x-ray reveals decreasing atelectasis and pneumonia on the left, but increasing pleural effusion on the right. IMPRESSION: 43-year-old with 1. Acute hypoxemic respiratory failure. 2. Metastatic lung cancer. 3. Pericardial effusion, status post window placement for impending tamponade. 4. Bilateral pleural effusions with increased effusion on the right and decreased on the left following chest tube placement. RECOMMENDATIONS: 1. Continue current antibiotic regimen. Sputum cultures are negative to date. 2. Advance diet as tolerated. 3. Consider right-sided thoracentesis if she develops progressive respiratory distress. cc: Keo Baird MD
[2019-04-08] MEDS: OXY IR PO PRN (20:06)
--- NOTE | 2019-04-08 21:36 | GENERAL SURGERY PROGRESS NOTE ---
DATE: 04/08/2019 SUBJECTIVE: She is doing very well. Hemodynamically stable. OBJECTIVE: She is down on her O2 requirements. No fevers. Pulse has been in the low 100s. Pericardial drain is serosanguineous. Left chest tube drainage has become more serous. No air leak. It is to suction and will water seal today. White count is up to 10, hematocrit 37. Creatinine 0.6. ASSESSMENT AND PLAN: This is a 43-year-old female status post drainage of pericardial effusion through a pericardial window and a left chest tube. Chest x-ray shows persistent effusion on the right but resolution of the effusion on the left. We will continue pulmonary toileting, out of bed, and observation in the ICU today. cc: Sunil Melendez MD
[2019-04-09] MEDS: XOPENEX NEB INH SCH ×7 (03:30→23:27)
[2019-04-09] MEDS: MAXIPIME 1 GM in NS 50 ML IV SCH ×2 (03:51→17:15)
[2019-04-09] MEDS: OXY IR PO PRN ×2 (03:52→10:04)
[2019-04-09] MEDS: PROTONIX PO SCH (06:06)
[2019-04-09 06:20] LABS: BASO# 0.02 X1000 (0.0-0.2); BASO% 0.2 % (0.0-0.8); EOS# 0.09 X1000 (0.0-0.7); EOS% 0.7 % (0.0-10.0); HEMATOCRIT 38.8 % (37.0-47.0); IMM GRAN# 0.02 X1000 (0.0-0.04); IMM GRAN% 0.2 % (0.0-0.5); LYMPH# 0.33 X1000 (1.2-3.4); LYMPH% 2.5 % (20.5-51.1); MCH 29.6 PG (27-31); MCHC 30.9 g/dL (33-37); MCV 95.8 FL (81-99); MONO# 0.89 X1000 (0.11-0.59); MONO% 6.8 % (1.7-9.3); MPV 10.5 FL (7.4-10.4); NEUT# 11.73 X1000 (1.4-6.5); NEUT% 89.6 % (42.2-75.2); PLT 253 X1000 (130-400); RBC 4.05 XMIL (4.2-5.4); RDW 16.7 % (11.5-14.5); WBC 13.08 X1000 (4.8-10.8)
[2019-04-09 06:37] LABS: AGAP 7; BUN 14 mg/dL (8-22); CALCIUM 8.2 mg/dL (8.8-10.2); CHLORIDE 97 mmol/L (98-107); COSMO 271; CREATININE 0.5 mg/dL (0.5-0.9); ESTIMATED GFR > 60; GLUCOSE 137 mg/dL (70-104); MAGNESIUM 1.9 mg/dL (1.5-2.7); POTASSIUM 3.9 mmol/L (3.5-5.1); SODIUM 134 mmol/L (136-145); TCO2 30 mmol/L (25-35)
--- NOTE | 2019-04-09 07:03 | Diag Imaging Result Doc PS360 ---
EXAM: CHEST-PORTABLE HISTORY: Dyspnea TECHNIQUE: Portable chest single view COMPARISON: 04/08/2019 FINDINGS: No change in the left-sided chest tube on the right portacatheter. No definite pneumothorax. The infiltrates and atelectasis are less pronounced than they were in the right lung. Infiltrates in the lower left lung are similar to the prior exam. No cardiomegaly. IMPRESSION: Mild interval improvement. Electronically signed by Jaswinder Bryant 04/09/2019 7:01 AM
[2019-04-09 07:11] LABS: MONO 4 % (1-9); SEGS 96 % (42-75)
--- NOTE | 2019-04-09 09:52 | PROGRESS NOTE ---
DATE: 04/09/2019 SUBJECTIVE: This morning Ms. Youngblood refers to be doing a whole lot better. She is breathing better. She denies any chest pain, and she has been tolerating well her diet. OBJECTIVE: Vital signs: Blood pressure is 107/67, pulse of 103, respiration is about 20, temperature 97.3 degrees. Patient was saturating 96% on non-rebreather. General: Ms. Youngblood is a 43-year-old female. She is in bed. She does not seems to be in any distress state. HEENT: Mucosa is pink and moist. Anicteric. Acyanotic. Neck: Supple. Chest: Air entry is bilaterally reduced, more so to the right posterior lung field. There is some dullness to percussion and crackles. Cardiovascular: Regular rate and rhythm. There is a pericardial window with a YARI drain in place Abdomen: Soft, nontender. 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 Musculoskeletal: There is a chest tube on the left hemithorax. DATA: I's and O's: Urine output 1840. Chest tube drainage was 550 in 24 hours. The per pericardial drain has been documented to be only 20. LABORATORY DATA: Has been reviewed. WBC is 13.08, hemoglobin is 12.0 platelet count of 253,000. Chemistry is also reviewed, is unremarkable. CURRENT MEDICATIONS: Have also been reviewed. She is on cefepime at 1 gram every 12 as an antimicrobial. Today is dates 3 on antibiotics. ASSESSMENT: 1. Acute hypoxemic respiratory failure on presentation secondary to pleural effusions, improved. 2. Large pericardial effusion with tamponade on presentation. Patient is status post pericardial window. 400 mL of sanguineous pericardial fluid was initially removed during surgery. She is currently has a Chay-Madison drain in place. Only 20 mL were documented from last night. We will follow up with further recommendations from surgery as to when this could be removed. 3. Bilateral pleural effusion. Patient is status post left chest tube placement. 1300 was removed during surgery and subsequently over 500 is being drained on daily basis. Chest x-ray this morning seems to suggest some improvement including even the right side. 4. History of metastatic adenocarcinoma of the lungs. Patient follows up with Dr. Lanier. She is Keytruda. In general Ms. Youngblood is fairly stable. Today is day 3 of hospitalization, presented to the hospital on 04/10/2019 mainly because of shortness of breath. During the investigation an echocardiogram revealed a large pericardial effusion with tamponade features. A chest x-ray also suggested bilateral pleural effusions. Ms. Youngblood was sent to OR on the same day. A pericardial window was done and a left chest tube was placed in by Dr. Melendez. Ms Youngblood seems to be progressively getting better. She is going to be transferred from the ICU to the regular floor. We will continue with the current antimicrobial coverage as well as management of her other comorbidities and will follow up with further recommendations from surgery and Pulmonary Medicine. DISPOSITION: Ms. Youngblood's disposition is going to depend on the rest of the hospital course and other further recommendations from the other subspecialties. cc: Apollo Bolton MD
--- NOTE | 2019-04-09 16:12 | GENERAL SURGERY PROGRESS NOTE ---
DATE: 04/09/2019 SUBJECTIVE: She feels very well. Low-grade tachycardia. No fevers. OBJECTIVE: Blood pressure been 111/68. General: She is alert. Pericardial drain serosanguineous. Chest tube has been placed back to suction with 550 drainage. We will keep that for now but water seal today. IMAGING: Her x-ray is shows good expansion of the lung with stable right effusion. ASSESSMENT AND PLAN: A 40-year-old female with cardiac tamponade status post pericardial window and a left effusion has been draining with a chest tube. We will water seal her tube. Encourage her to be out of bed ambulating. Appreciate the hospitalist and pulmonary services help. She does have metastatic cancer. cc: Sunil Melendez MD
--- NOTE | 2019-04-09 21:04 | PULMONOLOGY PROGRESS NOTE ---
DATE: 04/09/2019 SUBJECTIVE: The patient is awake and alert. She has a slightly productive cough. She denies shortness of breath at rest. OBJECTIVE: Vital Signs: The patient has been afebrile for the last 24 hours. Blood pressure 98/77, heart rate 105, respiratory rate 31, oxygen saturation 92% on non-rebreather. HEENT: Pupils are equal and reactive. Oropharynx appears clear. Neck: Supple. Chest: Chest tube in the left hemithorax with pericardial drain in position. Decreased breath sounds on the right. Cardiac: S1, S2. Abdomen: Soft. Extremities: Without edema. LABORATORIES: Good drainage of pleural fluid on the left with slight decrease in left mid lung infiltrates. Continued effusion on the right. IMPRESSION: A 43-year-old with: 1. Metastatic lung cancer. 2. Acute hypoxemic respiratory failure. 3. Bilateral pleural effusions, status post chest tube placement on the left. 4. Pericardial effusion with tamponade features, status post pericardial window. PLAN: 1. Anticipate transfer to the floor today. 2. Advance diet as tolerated. 3. Consider right-sided thoracentesis if she develops increasing respiratory difficulty. cc: Keo Baird MD
[2019-04-09] MEDS: MORPHINE IV PRN (23:39)
[2019-04-10 01:21] LABS: ALLEN TEST YES; BLOOD TYPE ARTERIAL; HCO3-(ACT) 26.8 mmoll (20.0-26.0); METHB 0.8 % (0.0-1.5); O2(CT) 14.4 mL/dL (15.0-23.0); PCO2(98.6) 46 mmHg (35-45); SAMPLE BLOOD; SAO2 80.4 % (95.0-100.0); THB 13.2 g/dL (11.5-17.4)
[2019-04-10 01:22] LABS: MODALITY NRB
[2019-04-10 01:23] LABS: PO2(98.6) 40 mmHg (60-100)
[2019-04-10] MEDS: OXY IR PO PRN (02:22)
[2019-04-10] MEDS: XOPENEX NEB INH SCH ×6 (03:25→23:25)
[2019-04-10] MEDS ORDERED: NS 0 ML ONE (03:43)
[2019-04-10] MEDS: MAXIPIME 1 GM in NS 50 ML IV SCH ×2 (04:07→16:17)
[2019-04-10 04:11] LABS: BASO# 0.01 X1000 (0.0-0.2); BASO% 0.1 % (0.0-0.8); EOS# 0.01 X1000 (0.0-0.7); EOS% 0.1 % (0.0-10.0); HEMATOCRIT 39.4 % (37.0-47.0); HEMOGLOBIN 12.5 g/dL (12.0-16.0); IMM GRAN# 0.05 X1000 (0.0-0.04); IMM GRAN% 0.3 % (0.0-0.5); LYMPH# 0.39 X1000 (1.2-3.4); LYMPH% 2.1 % (20.5-51.1); MCHC 31.7 g/dL (33-37); MCV 94.5 FL (81-99); MONO% 3.8 % (1.7-9.3); MPV 10.5 FL (7.4-10.4); NEUT# 17.44 X1000 (1.4-6.5); NEUT% 93.6 % (42.2-75.2); PLT 259 X1000 (130-400); RBC 4.17 XMIL (4.2-5.4); RDW 16.5 % (11.5-14.5)
[2019-04-10 04:25] LABS: AGAP 10; BUN 16 mg/dL (8-22); CALCIUM 8.2 mg/dL (8.8-10.2); CHLORIDE 94 mmol/L (98-107); COSMO 270; CREATININE 0.5 mg/dL (0.5-0.9); ESTIMATED GFR > 60; GLUCOSE 134 mg/dL (70-104); POTASSIUM 4.2 mmol/L (3.5-5.1); SODIUM 133 mmol/L (136-145); TCO2 29 mmol/L (25-35)
[2019-04-10 04:43] LABS: MONO 5 % (1-9); SEGS 95 % (42-75)
[2019-04-10 05:40] LABS: ALLEN TEST YES; BE 3.6 mmoll (-3.0-3.0); BLOOD TYPE ARTERIAL; HCO3-(ACT) 27.8 mmoll (20.0-26.0); PO2(98.6) 118 mmHg (60-100); SAMPLE BLOOD
[2019-04-10 05:42] LABS: MODALITY PRB; PCO2(98.6) 19 mmHg (35-45); pH(98.6) 7.67 (7.35-7.45)
[2019-04-10] MEDS: PROTONIX PO SCH (06:16)
--- NOTE | 2019-04-10 06:35 | Diag Imaging Result Doc PS360 ---
CHEST-PORTABLE - 04/10/2019 INDICATION: RESP DISTRESS COMPARISON: 04/09/2019 FINDINGS: Stable double left chest tubes. There is a moderate pneumothorax on the left about 33%. Stable moderate right pleural effusion. Stable right chest port. There is worsening diffuse bilateral interstitial infiltrate. Heart size remains top normal. IMPRESSION: 1. Moderate left pneumothorax, about 33%. 2. Worsening bilateral diffuse infiltrates. Electronically signed by Chidi Lee 04/10/2019 6:33 AM
--- NOTE | 2019-04-10 06:53 | Diag Imaging Result Doc PS360 ---
CHEST-PORTABLE - 04/10/2019 INDICATION: Dyspnea COMPARISON: 1:25 AM FINDINGS: Stable double left chest tubes. There has been significant improvement in the left pneumothorax. This is now trace, about 10%. There has been improvement in the diffuse bilateral infiltrates as well. Stable moderate right pleural effusion. IMPRESSION: Significant improvement in the left pneumothorax. Improvement in the diffuse bilateral infiltrates. Electronically signed by Chidi Lee 04/10/2019 6:51 AM
[2019-04-10] MEDS: MORPHINE IV PRN ×2 (07:17→16:30)
--- NOTE | 2019-04-10 09:08 | PROGRESS NOTE ---
DATE: 04/10/2019 SUBJECTIVE: Ms. Youngblood says she feels a little bit better. Seems to be moving air a little better. She was sleeping when I walked in. Easy to arouse. PHYSICAL EXAMINATION: She is awake, alert, and oriented x3. Temperature 97.5 degrees, pulse 107, respirations 27, blood pressure 119/73. Pupils are equal and round. Lungs are clear anterolateral. Cardiovascular Examination: Regular rhythm and rate without murmur or S3. Abdomen is soft. No pedal edema. Urine output 1800 mL. Chest tube in place on the left. ASSESSMENT AND PLAN: 1. Metastatic lung cancer. 2. Acute hypoxemic respiratory failure. 3. Bilateral pleural effusions, status post chest tube placement on the left. 4. Pericardial effusion with tamponade features, status post pericardial window. She may get to transfer to the floor. Considering right-sided thoracentesis if further difficulty with breathing. 5. She has a history of metastatic adenocarcinoma of the lungs, followed by Dr. Lanier, large pericardial effusion with tamponade on presentation, status post pericardial window. There were 400 mL of sanguinous pericardial fluid initially removed. Currently has a Chay-Madison drain in place. She presented with acute hypoxemic respiratory failure which is improved. cc: Oneil Griffith MD
[2019-04-10 10:05] LABS: O2HB 77.9 % (95.0-99.0)
[2019-04-10] MEDS: HEPARIN 25,000 UNITS/D5W 25,000 UNIT/250 ML IV.SOLN IV SCH (16:17)
[2019-04-10 16:41] LABS: INR 1.2; PROTIME 16.1 Seconds (11.0-16.0)
[2019-04-10 16:43] LABS: PTT 32.9 Seconds (22.3-41.8)
--- NOTE | 2019-04-10 18:33 | GENERAL SURGERY PROGRESS NOTE ---
DATE: 04/10/2019 SUBJECTIVE: She was transferred back to the ICU yesterday for worsening pulmonary status. LABORATORY DATA: White count is up to 18, hematocrit is 29. ABG shows pH is 7.67, O2 of 118. Creatinine 0.5. DIAGNOSTIC DATA: I reviewed her x-ray. It showed last night increased pneumothorax on the left; however, when the tube was placed back to suction this morning there is improvement and near- complete resolution. There is persistent right-sided effusion. ASSESSMENT AND PLAN: A 43-year-old female with metastatic lung cancer. She had pericardial tamponade related to effusion, as well as a left effusion that was drained with chest tube. She does have an air leak noted while on suction. I suspect that this is low, as it is not evident when the tube was off of suction, but it reaccumulated overnight. We will keep her tube to suction today, plan on removing her pericardial drain tomorrow. I worry that she may be developing a pneumonia that is contributing. She is on cefepime. We may need to broaden this out. We will see how she does. cc: Sunil Melendez MD
[2019-04-10] MEDS: HEPARIN IV PRN (23:36)
[2019-04-11] MEDS: MORPHINE IV PRN ×5 (00:20→20:10)
--- NOTE | 2019-04-11 02:00 | PULMONOLOGY PROGRESS NOTE ---
DATE: 04/10/2019 SUBJECTIVE/INTERIM HISTORY: Patient was transferred to the floor but then transferred back to the ICU with respiratory distress. The patient's chest x-ray reveals small to moderate pneumothorax, which resolved when a chest tube was placed back to suction. Clinically, she has significantly improved. OBJECTIVE: Vital Signs: Blood pressure 102/61, heart rate 102, respiratory rate 31, oxygen saturation 99% on non-rebreather. HEENT: Pupils are equal and reactive. Oropharynx is clear. Neck: Supple. Chest: Reveals decreased breath sounds on the right with pleural rub on the left. Cardiac: Regular rate. Normal S1, normal S2 with possible friction rub noted. Abdomen: Soft and without hepatosplenomegaly. Extremities: Without edema. LABORATORIES: Arterial blood gas this morning revealed a pH 7.67, pCO2 of 19, PO2 of 118, with a lactate of 4.3. IMPRESSION: A 43-year-old with 1. Metastatic lung cancer. 2. Pericardial effusion status post pericardial window. 3. Bilateral pleural effusion, status post chest tube on the left. She now has a small air leak. 4. Acute hypoxemic respiratory failure. RECOMMENDATIONS: 1. Continue chest tube to low intermittent suction until air leak completely resolves. 2. Diet as tolerated. 3. Consider thoracentesis in the right hemithorax if her dyspnea worsens. cc: Keo Baird MD
[2019-04-11] MEDS: XOPENEX NEB INH SCH ×6 (03:15→23:15)
[2019-04-11] MEDS: MAXIPIME 1 GM in NS 50 ML IV SCH ×2 (03:48→15:33)
[2019-04-11] MEDS: PROTONIX PO SCH (06:06)
[2019-04-11 06:11] LABS: BASO# 0.02 X1000 (0.0-0.2); BASO% 0.2 % (0.0-0.8); EOS# 0.14 X1000 (0.0-0.7); EOS% 1.2 % (0.0-10.0); HEMATOCRIT 36.6 % (37.0-47.0); HEMOGLOBIN 11.6 g/dL (12.0-16.0); IMM GRAN# 0.02 X1000 (0.0-0.04); IMM GRAN% 0.2 % (0.0-0.5); LYMPH# 0.39 X1000 (1.2-3.4); LYMPH% 3.3 % (20.5-51.1); MCH 30.4 PG (27-31); MCHC 31.7 g/dL (33-37); MCV 96.1 FL (81-99); MONO# 0.85 X1000 (0.11-0.59); MONO% 7.3 % (1.7-9.3); MPV 10.7 FL (7.4-10.4); NEUT# 10.27 X1000 (1.4-6.5); NEUT% 87.8 % (42.2-75.2); PLT 251 X1000 (130-400); RBC 3.81 XMIL (4.2-5.4); RDW 16.9 % (11.5-14.5); WBC 11.69 X1000 (4.8-10.8)
[2019-04-11 06:45] LABS: SEGS 94 % (42-75)
--- NOTE | 2019-04-11 07:46 | Diag Imaging Result Doc PS360 ---
EXAM: CHEST-PORTABLE INDICATION: Dyspnea TECHNIQUE: One view COMPARISON: 04/10/2019 FINDINGS: The right chest port and the dual left chest tubes are in stable positions. The small pneumothorax at the left lung base and left lung apex is approximately stable. The right pleural effusion is stable. Bilateral diffuse infiltrates are essentially stable. No new consolidation is identified. Cardiac silhouette is stable. IMPRESSION: Grossly stable chest. Electronically signed by Bo Moody 04/11/2019 7:44 AM
[2019-04-11 09:00] LABS: AGAP 8; BUN 15 mg/dL (8-22); CHLORIDE 93 mmol/L (98-107); COSMO 268; CREATININE 0.4 mg/dL (0.5-0.9); ESTIMATED GFR > 60; GLUCOSE 108 mg/dL (70-104); POTASSIUM 4.1 mmol/L (3.5-5.1); SODIUM 133 mmol/L (136-145); TCO2 32 mmol/L (25-35)
--- NOTE | 2019-04-11 09:14 | PROGRESS NOTE ---
DATE: 04/11/2019 SUBJECTIVE: Ms. Youngblood feels much better today. Chest tube is still in place. She is able to eat a little bit, not much breakfast this morning, but she did eat a little better yesterday. OBJECTIVE: Vital Signs: She remains afebrile, temp 98.0, pulse 102, respirations 30, blood pressure 87/60. Urine output is 1700 mL. HEENT: Pupils are equal and round. Lungs: Clear in all lung reyes. Cardiovascular: Regular rhythm and rate without murmur or S3. Abdomen: Soft. Skin: Warm and dry. IMAGING: Chest x-ray: Stable right chest port and dual left chest tubes are in stable positions. Small pneumothorax in the left lung base and left lung apex proximally, stable. Right pleural effusion, stable. Bilateral diffuse infiltrates, essentially stable. No new consolidation. ASSESSMENT AND PLAN: 1. Metastatic lung cancer. 2. Pericardial effusion, status post pericardial window. 3. Bilateral pleural effusions, status post chest tube on the left. Apparently has a small air leak. 4. Acute hypoxemic respiratory failure, which is improved. Will probably keep her in the unit today. She may be able to go to the floor, depending on what Surgery wants to do tomorrow. May have to consider thoracentesis for the right. I think, from a surgery standpoint, she had pericardial tamponade related to effusion, as well as a left effusion, which is drained with chest. She does have an air leak noted while on suction. Continue cefepime, treating her for possible postobstructive pneumonia. REVIEW OF ORDERS: I do not see any change. She is on Xanax 0.5 mg t.i.d., cefepime 1 gram IV every 12 hours, oxycodone IR she gets 5 mg every 6 hours p.r.n. pain, Protonix 40 mg daily. cc: Oneil Griffith MD
[2019-04-11] MEDS: HEPARIN IV PRN (09:18)
[2019-04-11] MEDS: HEPARIN 25,000 UNITS/D5W 25,000 UNIT/250 ML IV.SOLN IV SCH (15:33)
--- NOTE | 2019-04-11 15:52 | Extremity Venous Study ---
PROCEDURE NAME: Venous U/S Bilateral Arms - 04/10/2019 PROCEDURE: Bilateral upper extremity venous ultrasound. DATE OF STUDY: 04/10/2019. FUDGE CANDY MAKER: Prashant. INDICATION: Swelling. FINDINGS: The deep and superficial veins of bilateral upper extremities and neck were visualized in the right, and there is acute deep venous thrombus noted in subclavian, right axillary and right basilic vein. There is also deep venous thrombosis noted in the left internal jugular vein and the left subclavian vein. SUMMARY: Both deep and superficial venous thrombus seen in the bilateral upper extremities and neck. There was diminished flow. cc: MD Stefania Cai CRNP
[2019-04-11] MEDS: NS 1,000 ML IV SCH (17:33)
[2019-04-11] MEDS: ALBUMIN 25% IV SCH (17:33)
[2019-04-11 18:03] LABS: URINE SOURCE CATH
[2019-04-11 18:12] LABS: BILIRUBIN URINE NEGATIVE (NEGATIVE); BLOOD URINE MODERATE (NEGATIVE); COLOR YELLOW; GLUCOSE URINE TRACE mg/dL (NEGATIVE); KETONE URINE NEGATIVE (NEGATIVE); LEUKOCYTES URINE LARGE (NEGATIVE); NITRITE URINE NEGATIVE (NEGATIVE); PROTEIN URINE 50 mg/dL (NEGATIVE); SP GRAVITY URINE 1.021; TURBIDITY URINE CLEAR (CLEAR); UROBILINOGEN URINE NORMAL (NORMAL)
[2019-04-11 18:14] LABS: UR EPITHELIAL CELLS <10 /HPF (<10); URINE BACTERIA NEGATIVE /HPF; URINE RBC TNTC /HPF (<10); URINE WBC 20-40 /HPF (<10)
[2019-04-11 18:37] LABS: UR CREAT RANDOM 121.2 mg/dL (11-20); UR SODIUM < 10 mmoll
--- NOTE | 2019-04-11 21:50 | GENERAL SURGERY PROGRESS NOTE ---
DATE: 04/11/2019 SUBJECTIVE: Still on Ventimask. Not feeling as well today as she was yesterday. No fevers. OBJECTIVE: Pulse has been in the low 100s, blood pressure systolics 130s. Pericardial drain with minimal output, serosanguineous. Her left chest tube has no noted air leak today, but did have an air leak yesterday. Her midline incision is intact. She has had a venous ultrasound that showed extensive DVT of her upper extremity. She has been started on heparin drip for this, and her x- ray is overall stable. ASSESSMENT AND PLAN: A 43-year-old female with cardiac tamponade and left effusion that was drained concurrently with her pericardial window. Plan is for ultrasound-guided paracenteses of her right chest as well. She is on heparin drip for deep venous thrombosis. All related to superior vena compression from a lung cancer. We will continue to follow. I removed the pericardial drain. Will keep her left chest tube to suction. Dr. Naylor is going to follow my patient while I am out of town for the next couple of days. cc: Sunil Melendez MD
--- NOTE | 2019-04-11 22:03 | NEPHROLOGY CONSULTATION ---
DATE: 04/11/2019 REASON FOR CONSULTATION: Oliguria. HISTORY OF PRESENT ILLNESS: Ms. Youngblood is a 43-year-old white female with an unfortunate history. She has a history of lung cancer and has metastases. She is receiving chemotherapy and radiation. She was admitted to the hospital because of pericardial and pleural effusions and underwent pericardial window, and she has a left chest tube. She is not hypotensive. She is eating but today her urine volume has been very low. In this context a blood gas was collected, which had a pH of 7.67, so we were consulted regarding her alkalosis and her low urine volume. Currently she is sitting up in the bed, eating her dinner. She denies any new complaints today. She denies shortness of breath or pain. PAST MEDICAL HISTORY: As above. MEDICATIONS: Current medications include acetaminophen, alprazolam, heparin, levalbuterol, ceftazidime, morphine, ondansetron, oxycodone, pantoprazole, heparin. ALLERGIES: None. SOCIAL HISTORY: Noncontributory. FAMILY HISTORY: Noncontributory. REVIEW OF SYSTEMS: Noncontributory. PHYSICAL EXAMINATION: Blood pressure 136/84, heart rate 100, respirations 26. Afebrile. Generally no acute distress. Chronically ill, thin. Marked muscle wasting. Skin is somewhat hyperpigmented but dry. Conjunctivae are pink. Pupils are equal. Oropharynx is clear. Neck veins are not distended. She has rock-hard fixed nodes in the left neck. Trachea is midline. Heart is regular. No gallops. Lungs are equal. Decreased breath sounds on the right lower one- half. No crackles. Abdomen is soft, nontender. Bowel sounds present. Extremities: Edema only in dependent areas such as the elbows and hips. IMPRESSION AND PLAN: 1. Oliguria. Likely prerenal azotemia. I will add albumin and normal saline, and re-evaluate in the morning. 2. Alkalosis. She has a contraction alkalosis with serum bicarbonate of 28, and overlying respiratory alkalosis this morning on her blood gas. No treatment required. cc: Carson Crowley MD
--- NOTE | 2019-04-12 02:30 | PULMONOLOGY PROGRESS NOTE ---
DATE: 04/11/2019 SUBJECTIVE: The patient is awake, alert, and conversant. She is without specific complaint. OBJECTIVE: Vital Signs: The patient has been afebrile for the last 24 hours. Blood pressure 126/59, heart rate 103, respiratory rate 34, oxygen saturation 95%. HEENT: Pupils are equal and reactive. Oropharynx is clear. Neck: Supple. Chest: Reveals diminished breath sounds on the right. She has a small air leak noted with cough effort. Abdomen: Soft. Extremities: Without edema. LABORATORIES: Sodium 133, potassium 4.1, chloride 93, bicarbonate 32, BUN 15, creatinine 0.4. White blood count 11.6, hemoglobin 11.6, platelet count 251,000. Chest x-ray reveals a small pneumothorax at the left base and apex, and small to moderate right- sided pleural effusion. IMPRESSION: A 43-year-old with 1. Acute hypoxemic respiratory failure. 2. Metastatic lung cancer. 3. Pericardial effusion status post pericardial window. 4. Bilateral pleural effusions, status post left chest tube placement. She continues to have a small air leak. RECOMMENDATION: 1. Continue chest tube until air leak resolves. 2. Continue diet as tolerated. 3. Right-sided thoracentesis if she develops significant dyspnea. cc: Keo Baird MD
[2019-04-12] MEDS: MORPHINE IV PRN ×3 (02:53→21:33)
[2019-04-12] MEDS: XOPENEX NEB INH SCH ×6 (03:10→23:10)
[2019-04-12] MEDS: NS 1,000 ML IV SCH (04:37)
[2019-04-12] MEDS: MAXIPIME 1 GM in NS 50 ML IV SCH ×2 (04:57→15:07)
[2019-04-12 05:04] LABS: BASO# 0.02 X1000 (0.0-0.2); BASO% 0.3 % (0.0-0.8); EOS# 0.11 X1000 (0.0-0.7); EOS% 1.6 % (0.0-10.0); HEMATOCRIT 32.3 % (37.0-47.0); HEMOGLOBIN 9.9 g/dL (12.0-16.0); LYMPH% 4.4 % (20.5-51.1); MCH 29.5 PG (27-31); MCHC 30.7 g/dL (33-37); MCV 96.1 FL (81-99); MONO# 0.63 X1000 (0.11-0.59); MONO% 9.3 % (1.7-9.3); MPV 9.9 FL (7.4-10.4); NEUT# 5.75 X1000 (1.4-6.5); NEUT% 84.4 % (42.2-75.2); PLT 262 X1000 (130-400); RBC 3.36 XMIL (4.2-5.4); RDW 16.6 % (11.5-14.5); WBC 6.81 X1000 (4.8-10.8)
[2019-04-12 05:12] LABS: INR 1.09
[2019-04-12 05:13] LABS: PTT 59.9 Seconds (22.3-41.8)
[2019-04-12] MEDS: OXY IR PO PRN (05:25)
[2019-04-12 05:33] LABS: PTT HEPARIN PROTOCOL 59.6 Seconds
[2019-04-12] MEDS ORDERED: HEPARIN 25,000 UNITS/D5W 25,000 UNIT/250 ML IV.SOLN IV SCH (05:51)
[2019-04-12] MEDS: PROTONIX PO SCH (06:28)
--- NOTE | 2019-04-12 06:45 | Diag Imaging Result Doc PS360 ---
CHEST-PORTABLE - 04/12/2019 INDICATION: Dyspnea COMPARISON: 04/11/2019 FINDINGS: Stable left chest tube in good position. There is a worsening moderate right pleural effusion. Worsening infiltrate or atelectasis at the right lung base. Stable moderate infiltrate at the left lung base as well. No pneumothorax. Stable right chest port. IMPRESSION: Slightly increasing size of the moderate right pleural effusion. Otherwise no change. Electronically signed by Chidi Lee 04/12/2019 6:43 AM
[2019-04-12] MEDS: ALBUMIN 25% IV SCH (08:13)
--- NOTE | 2019-04-12 09:51 | PROGRESS NOTE ---
DATE: 04/12/2019 SUBJECTIVE: Ms. Youngblood feels much better. She had a good night. She is breathing comfortably. Chest tube in place on the left. OBJECTIVE: Vital signs: Remains afebrile. Temperature 97.2 degrees, pulse 99, respirations 27, blood pressure 138/79. HEENT: Pupils are equal and round. Lungs: Clear in all lung reyes. Cardiovascular: Regular rhythm and rate without murmur or S3. Abdomen: Soft. Skin is warm and dry. Genitourinary: Urine output 2700 mL. IMAGING: Chest x-ray from this morning, slight increased size in moderate right pleural effusion. Otherwise no change. ASSESSMENT: Acute hypoxemic respiratory failure. She has underlying metastatic lung cancer, pericardial effusion status post pericardial window, bilateral pleural effusion status post chest tube. Continues to have a small air leak but overall, clinically seems to be making progress. She has some oliguria, likely prerenal azotemia, and she has some volume contraction alkalosis with serum bicarbonate 28 and overlying respiratory alkalosis. PLAN: Continue present treatment. REVIEW OF ORDERS: I do not see any change in orders. She is on cefepime 1 g q.12, gets Xanax 0.5 mg t.i.d. p.r.n., gets albumin 25% 50 g IV daily. She has bilateral deep venous thrombosis in both arms and she is on heparin drip. cc: Oneil Griffith MD
--- NOTE | 2019-04-12 12:53 | Diag Imaging Result Doc PS360 ---
CHEST-2 VIEWS - 04/12/2019 INDICATION: POST THORACENTESIS INSPIR/EXPIR COMPARISON: 5:18 AM FINDINGS: There has been good drainage of the right pleural effusion. No pneumothorax. Stable left chest tube in good position with no significant pleural effusion here. There is significant decrease in the infiltrate/atelectasis throughout the right lung and left upper lobe. There is some persistent infiltrate/pneumonia in the left lung base. IMPRESSION: Good drainage of the right pleural effusion with no constipation. Improved aeration of the lungs bilaterally. Electronically signed by Chidi Lee 04/12/2019 12:51 PM
[2019-04-12] MEDS: HEPARIN 25,000 UNITS/D5W 25,000 UNIT/250 ML IV.SOLN IV SCH (12:55)
--- NOTE | 2019-04-12 13:13 | Diag Imaging Result Doc PS360 ---
US THORACENTESIS W/IMAGE GUIDE - 04/12/2019 INDICATION: right pleural effusion TECHNIQUE: The risks and benefits of the procedure were discussed with the patient. All questions were answered. Written and verbal informed consent was obtained. Overlying skin was prepped and draped in sterile fashion. Anesthesia was achieved with injection of 10 cc of 1% lidocaine. COMPARISON: None FINDINGS: Ultrasound scanning demonstrated a relatively large right pleural effusion. 1.3 L was drained without difficulty. The patient reported no symptoms from the procedure. Post procedural chest x-rays demonstrated no complication. IMPRESSION: Successful and uncomplicated ultrasound-guided right thoracentesis. Electronically signed by Chidi Lee 04/12/2019 1:11 PM
[2019-04-12] MEDS ORDERED: HEPARIN IV ONE (16:55)
[2019-04-12] MEDS: HEPARIN IV PRN (17:00)
--- NOTE | 2019-04-12 20:57 | NEPHROLOGY PROGRESS NOTE ---
DATE: 04/12/2019 SUBJECTIVE: She is wearing a closed face mask today. She is still having intermittent shortness of breath, but states this is unchanged. OBJECTIVE: Vital Signs: Blood pressure 138/69, heart rate 99, respirations 24, afebrile. Intake 2.4 L. Output 1 L. General: No acute distress. Skin: Warm and dry. Neck: Neck veins are not appreciated. Heart: Regular. Lungs: Decreased breath sounds on the right. Abdomen: Benign. Extremities: 2+ edema. No clubbing or cyanosis. IMPRESSION: Oliguria, resolved. Normal renal function. She is in positive fluid balance and certainly has more edema today. I will stop her intravenous fluids, but continue her series of albumin infusions for a total of 150 g, to be completed on tomorrow. I will sign off, but if I can be of further assistance, please do not hesitate to call. cc: Carson Crowley MD
--- NOTE | 2019-04-12 21:45 | PROGRESS NOTE ---
DATE: 04/12/2019 SUBJECTIVE: Patient continues to feel clinically improved. She denies shortness of breath on supplemental oxygen. She has chest tube in place on the left. She had right thoracentesis performed. Pericardial drain has been removed. 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 OBJECTIVE: Vital Signs: Blood pressure 114/66, heart rate 103 and regular. Oxygen saturation 98- 99% on supplemental oxygen. Neck: There is no significant jugular venous distention. Chest: Clear to auscultation. Cardiac Exam: Reveals a regular rate and rhythm without appreciable murmur or gallop. There is no evidence of edema. LABORATORY DATA: Includes a white blood cell count 6.81, hematocrit 32.3, hemoglobin 9.9. Preliminary report of pericardial biopsy indicates reactive process, but no malignant cells. Review of telemetry overnight shows an episode of heart block. It is noteworthy that this occurred while patient was asleep early this morning and there was VA prolongation prior to episode. Patient demonstrated several non-conducted P waves in a row and then continued on in sinus rhythm. IMPRESSION: 1. Acute hypoxemic respiratory failure with pericardial effusions and pleural effusions. 2. Large pericardial effusion with impending tamponade. Patient is status post pericardial window. Preliminary report of pathology indicates no malignancy evident in pericardial specimen. 3. Metastatic non-small cell lung cancer. 4. Transient heart block overnight. This appears to be vagally mediated. RECOMMENDATIONS: 1. Repeat limited echocardiography. 2. Continue to monitor cardiac rhythm. No intervention appears to be needed given suspected vagal etiology. cc: Joshua Perez MD
[2019-04-13] MEDS: XOPENEX NEB INH SCH ×6 (00:15→19:39)
[2019-04-13] MEDS: MORPHINE IV PRN ×4 (04:42→22:52)
[2019-04-13] MEDS: MAXIPIME 1 GM in NS 50 ML IV SCH ×2 (04:42→16:00)
[2019-04-13 05:25] LABS: HEMATOCRIT 34.5 % (37.0-47.0); HEMOGLOBIN 10.7 g/dL (12.0-16.0); MCH 29.9 PG (27-31); MCV 96.4 FL (81-99); PLT 275 X1000 (130-400); RBC 3.58 XMIL (4.2-5.4); RDW 16.7 % (11.5-14.5); WBC 6.65 X1000 (4.8-10.8)
[2019-04-13 05:26] LABS: BASO# 0.01 X1000 (0.0-0.2); BASO% 0.2 % (0.0-0.8); EOS# 0.18 X1000 (0.0-0.7); EOS% 2.7 % (0.0-10.0); LYMPH# 0.29 X1000 (1.2-3.4); LYMPH% 4.4 % (20.5-51.1); MONO# 0.58 X1000 (0.11-0.59); MONO% 8.7 % (1.7-9.3); MPV 10.6 FL (7.4-10.4); NEUT# 5.59 X1000 (1.4-6.5)
[2019-04-13] MEDS: PROTONIX PO SCH (06:03)
--- NOTE | 2019-04-13 08:00 | PULMONOLOGY PROGRESS NOTE ---
DATE: 04/12/2019 SUBJECTIVE: The patient is awake, alert, and conversant. She underwent a right-sided thoracentesis earlier today. She reports her breathing has significantly improved. OBJECTIVE: Vital Signs: Blood pressure 157/92, heart rate 104, respiratory rate 29, oxygen saturation 97% HEENT: Pupils are equal and reactive. Oropharynx is clear. Neck: Supple. Chest: Reveals good air entry bilaterally. Cardiac exam: S1, S2. Abdomen: Soft. Extremities: Without edema. X-RAYS: Chest x-ray reveals chest tube in the left hemithorax without significant effusion. Pleural effusion on the right has markedly diminished with blunting noted at the right base. No pneumothorax. IMPRESSION: A 43-year-old with: 1. Metastatic lung cancer. 2. Pericardial effusion with tamponade. 3. Bilateral pleural effusions, status post drainage. 4. Acute hypoxemic respiratory failure. RECOMMENDATIONS: 1. Continue to wean oxygen as tolerated. 2. Continue diet as tolerated. 3. Remove left-sided chest tube when air leak resolves. cc: Keo Baird MD
[2019-04-13] MEDS: ALBUMIN 25% IV SCH (09:11)
--- NOTE | 2019-04-13 09:39 | PROGRESS NOTE ---
DATE: 04/13/2019 SUBJECTIVE: Ms. Youngblood is feeling good, had a pretty good night. She has a left-sided pain, but breathing comfortably. OBJECTIVE: Vital Signs: Remains afebrile, temperature 97.0, pulse 100, respirations 22, blood pressure 142/81. HEENT: Pupils are equal and round. Lungs: Clear in all lung reyes. Cardiovascular: Regular rhythm and rate without murmur or S3. Abdomen: Soft. Skin: Warm and dry. ASSESSMENT AND PLAN: Metastatic lung cancer, pericardial effusion with tamponade. She has bilateral pleural effusions, status post drainage and acute hypoxemic respiratory failure. Continue to try and wean down oxygen. Remove left-sided chest tube when the air leak resolves. She is eating. I think we could move her to a floor, private room. REVIEW OF ORDERS: I do not see any change. She is on cefepime 1 g IV q.12 h. and getting OxyContin IR p.r.n. pain. Cardiology is following. Pulmonary is following. Nephrology following as well. Oliguria has resolved. cc: Oneil Griffith MD
--- NOTE | 2019-04-13 14:52 | GENERAL SURGERY PROGRESS NOTE ---
DATE: 04/13/2019 SUBJECTIVE: Ms. Youngblood is resting comfortably. She had 1.3 L draw from the right pleural space yesterday by Radiology. She still has some serous drainage from her left chest tube. She has a small air leak still. We will continue with the suction on her left chest tube and removed it whenever the air leak stops. cc: Glen Naylor MD
--- NOTE | 2019-04-13 15:38 | ECHO REPORT ---
ORDER DATE: 04/13/2019 This is a limited echocardiogram to follow pericardial effusion. FINDINGS: 1. There does appear to be on some views a very small posterior pericardial effusion predominantly around the left atrium. This is difficult to visualize in all views. They are in addition does appear to be some evidence of pleural effusions. 2. Normal LV size with a dimension of 3.7 cm. The posterior and interventricular septal wall thickness of 0.8 and 0.7 cm respectively. Normal LV systolic function. Estimated EF is 65 to 70 percent. 3. The right ventricle appears somewhat dilated with mild reduction in RV systolic function. 4. There is no mitral valve prolapse. Limited Doppler evaluation of the valve structures. cc: MD Joshua Aguilera MD
[2019-04-13] MEDS: LOVENOX SUBQ SCH (17:00)
[2019-04-13] MEDS: HEPARIN 25,000 UNITS/D5W 25,000 UNIT/250 ML IV.SOLN IV SCH (18:11)
[2019-04-13] MEDS: VANCOCIN PO SCH (19:53)
[2019-04-14] MEDS: MORPHINE IV PRN ×5 (02:39→22:28)
[2019-04-14] MEDS: VANCOCIN PO SCH ×4 (02:39→20:35)
[2019-04-14] MEDS: XOPENEX NEB INH SCH ×6 (03:54→23:26)
[2019-04-14] MEDS: PROTONIX PO SCH (06:45)
[2019-04-14 07:47] LABS: BASO# 0.05 X1000 (0.0-0.2); BASO% 0.7 % (0.0-0.8); EOS% 2.7 % (0.0-10.0); HEMATOCRIT 34.2 % (37.0-47.0); HEMOGLOBIN 10.6 g/dL (12.0-16.0); LYMPH# 0.43 X1000 (1.2-3.4); LYMPH% 5.9 % (20.5-51.1); MCH 29.9 PG (27-31); MCV 96.6 FL (81-99); MONO# 0.69 X1000 (0.11-0.59); MONO% 9.4 % (1.7-9.3); MPV 10.2 FL (7.4-10.4); NEUT# 5.95 X1000 (1.4-6.5); NEUT% 81.3 % (42.2-75.2); PLT 282 X1000 (130-400); RBC 3.54 XMIL (4.2-5.4); RDW 16.8 % (11.5-14.5); WBC 7.32 X1000 (4.8-10.8)
[2019-04-14 07:59] LABS: AGAP 9; ALB/GLOB RATIO 1.9; ALBUMIN 3.7 g/dL (3.5-5.0); ALKALINE PHOSPHATASE 57 U/L (32-104); BUN 8 mg/dL (8-22); CALCIUM 8.4 mg/dL (8.8-10.2); CHLORIDE 97 mmol/L (98-107); COSMO 272; CREATININE 0.3 mg/dL (0.5-0.9); ESTIMATED GFR > 60; GLUCOSE 96 mg/dL (70-104); GOT 18 U/L (10-30); GPT 15 U/L (10-36); POTASSIUM 3.2 mmol/L (3.5-5.1); SODIUM 137 mmol/L (136-145); TCO2 31 mmol/L (25-35); TOTAL BILIRUBIN 0.55 mg/dL (0.20-1.00); TOTAL PROTEIN 5.6 g/dL (6.3-8.3)
[2019-04-14] MEDS: LOVENOX SUBQ SCH ×2 (08:25→20:34)
[2019-04-14] MEDS: MAXIPIME 1 GM in NS 50 ML IV SCH ×2 (08:26→20:34)
--- NOTE | 2019-04-14 09:34 | Diag Imaging Result Doc PS360 ---
EXAM: CHEST-1 VIEW HISTORY: SOB TECHNIQUE: Portable chest single view COMPARISON: 04/12/2015 FINDINGS: No change in the left-sided chest tube are in the right portacatheter. No pneumothorax identified. There is apical pleural thickening. Right hemidiaphragm is elevated. There are small basilar infiltrates. These are more prominent in the right lung base than they were on the prior study. Tiny pleural effusions. IMPRESSION: Worsening infiltrates in the right base Electronically signed by Jaswinder Bryant 04/14/2019 9:32 AM
--- NOTE | 2019-04-14 10:19 | PROGRESS NOTE ---
DATE: 04/14/2019 SUBJECTIVE: Ms. Youngblood had a pretty good night, breathing comfortably. Her pain is about the same. OBJECTIVE: Vital Signs: Temperature 97.7 degrees, pulse 99, respirations 19, blood pressure 139/71. Eyes: Pupils are equal and round. Lungs: Lungs are clear in all lung reyes. Cardiovascular exam: Regular rhythm and rate without murmur or S3. Abdomen: Soft. Skin: Warm and dry. X-RAYS: Chest x-ray: Worsening infiltrates in the right base. Echocardiogram: Done yesterday. There was some posterior pericardial effusion predominant around the left atrium, difficult to visualize in all views. Normal left ventricular size and dimension. Ejection fraction 65%. Right ventricle seems somewhat dilated. Mild reduction in RV systolic function. There is no mitral valve prolapse. ASSESSMENT AND PLAN: Metastatic lung cancer, pericardial effusion with tamponade, bilateral pleural effusions, status post drainage, acute hypoxemic respiratory failure. Continue to wean as we can oxygen, and then plan on staying here deciding on treatment plan. cc: Oneil Griffith MD
[2019-04-14] MEDS: HEPARIN 25,000 UNITS/D5W 25,000 UNIT/250 ML IV.SOLN IV SCH (11:58)
[2019-04-14] MEDS ORDERED: DECADRON IV ONE (15:00)
[2019-04-14] MEDS ORDERED: ALOXI IV ONE (15:00)
[2019-04-14] MEDS ORDERED: [UNRECOGNIZED DRUG - OTHER] IV ONE (15:00)
[2019-04-14] MEDS ORDERED: CYANOCOBALAMIN IM ONE (15:02)
[2019-04-14] MEDS ORDERED: KEYTRUDA 200 MG in NS 100 ML IV ONE (15:15)
[2019-04-14] MEDS: FOLIC ACID PO SCH (15:17)
[2019-04-14] MEDS ORDERED: ALIMTA IV ONE (15:45)
[2019-04-14] MEDS ORDERED: NS IV ONE ×2 (15:45→16:00)
[2019-04-14] MEDS ORDERED: PARAPLATIN IV ONE (16:00)
[2019-04-15] MEDS: VANCOCIN PO SCH ×4 (02:19→22:03)
[2019-04-15] MEDS: MORPHINE IV PRN ×5 (02:19→22:02)
[2019-04-15] MEDS: XOPENEX NEB INH SCH ×5 (03:33→19:54)
--- NOTE | 2019-04-15 04:38 | GENERAL SURGERY PROGRESS NOTE ---
DATE: 04/14/2019 SUBJECTIVE: The patient is doing okay today. No new complaints or events overnight. OBJECTIVE: Vital signs: She is afebrile. Vital signs are stable. General: She is awake, alert, oriented x4. No acute distress. Chest: Her left chest tube has yellow drainage. No air leak is appreciated. However, the amount yesterday was 550 mL. IMAGING: Chest x-ray today shows no pneumothorax, but she has worsening infiltrates of the right base. ASSESSMENT AND PLAN: A 43-year-old female with metastatic lung cancer, pericardial effusion, and bilateral pleural effusions. She is status post pericardial window and left chest tube placement. The air leak appears to have resolved. However, the output is still too high to warrant removal of the chest tube, so we will keep it to suction for now. cc: Joel Boyle MD
[2019-04-15] MEDS: PROTONIX PO SCH (06:32)
[2019-04-15 07:09] LABS: EOS# 0.01 X1000 (0.0-0.7); EOS% 0.2 % (0.0-10.0); HEMOGLOBIN 10.4 g/dL (12.0-16.0); LYMPH# 0.19 X1000 (1.2-3.4); LYMPH% 3.5 % (20.5-51.1); MCH 29.6 PG (27-31); MCHC 30.6 g/dL (33-37); MCV 96.9 FL (81-99); MONO# 0.08 X1000 (0.11-0.59); MONO% 1.5 % (1.7-9.3); MPV 10.5 FL (7.4-10.4); NEUT# 5.08 X1000 (1.4-6.5); NEUT% 94.8 % (42.2-75.2); PLT 311 X1000 (130-400); RBC 3.51 XMIL (4.2-5.4); RDW 16.9 % (11.5-14.5); WBC 5.36 X1000 (4.8-10.8)
[2019-04-15 07:31] LABS: AGAP 8; BUN 13 mg/dL (8-22); CHLORIDE 99 mmol/L (98-107); COSMO 276; CREATININE 0.3 mg/dL (0.5-0.9); ESTIMATED GFR > 60; GLUCOSE 141 mg/dL (70-104); POTASSIUM 4.3 mmol/L (3.5-5.1); SODIUM 137 mmol/L (136-145); TCO2 30 mmol/L (25-35)
[2019-04-15 07:32] LABS: ALB/GLOB RATIO 1.6; ALBUMIN 3.5 g/dL (3.5-5.0); ALKALINE PHOSPHATASE 55 U/L (32-104); CALCIUM 8.5 mg/dL (8.8-10.2); GOT 25 U/L (10-30); GPT 26 U/L (10-36); TOTAL BILIRUBIN 0.26 mg/dL (0.20-1.00); TOTAL PROTEIN 5.7 g/dL (6.3-8.3)
[2019-04-15] MEDS: MAXIPIME 1 GM in NS 50 ML IV SCH ×2 (07:59→22:02)
[2019-04-15] MEDS: LOVENOX SUBQ SCH ×2 (08:00→22:02)
[2019-04-15] MEDS: FOLIC ACID PO SCH (08:00)
--- NOTE | 2019-04-15 09:20 | PROGRESS NOTE ---
DATE: 04/15/2019 SUBJECTIVE: The patient is seen this morning following initial chemotherapy with Alimta, carboplatin and Keytruda, which she received yesterday. She has a chest tube which is in place. She is awake and alert, afebrile. She denies any significant pain. She had no nausea or vomiting following her treatment. The patient received antiemetics with Zofran and Decadron as premedication. She also received B12 and folic acid prior to her initial treatment. OBJECTIVE: She is awake, alert, afebrile. Vital signs are stable. HEENT: Unremarkable. Chest: Bilateral breath sounds which are clear. There is a chest tube draining serous fluid. Heart: Regular rate and rhythm. No murmur or gallop appreciated. The abdomen is flat and scaphoid. Extremities: No cyanosis, clubbing or edema. Neurologic: Nonfocal. DIAGNOSTIC DATA: Her chemistry profile was satisfactory. Serum creatinine was normal. CBC showed a white count of 5.3, hemoglobin 10, hematocrit 34, platelets 311,000. IMPRESSION: Stage IV non-small cell lung cancer with pleural and pericardial effusions. The patient has had prior pericardial window and has a chest tube draining at present. She received her first cycle of Alimta and carboplatin yesterday, and I discussed plan for q.3 weeks dosing. She had previously received immunotherapy with Keytruda and will continue q.3 week dosing with that agent. She will begin GCSF 300 mcg daily while in the hospital to minimize her risk for neutropenic fever. Folic acid daily and B12 monthly are also recommended to minimize risk for febrile neutropenia with patients receiving Alimta therapy. cc: Perry Del Valle MD
[2019-04-15 11:07] LABS: BANDS 6 % (0-1); LYMPHS 2 % (21-51); SEGS 92 % (42-75)
[2019-04-15 11:08] LABS: HYPOCHROM 1+
[2019-04-15] MEDS: HEPARIN 25,000 UNITS/D5W 25,000 UNIT/250 ML IV.SOLN IV SCH (14:23)
--- NOTE | 2019-04-15 14:24 | GENERAL SURGERY PROGRESS NOTE ---
DATE: 04/15/2019 SUBJECTIVE: She has had no acute problems overnight. OBJECTIVE: Vital signs: She is afebrile. Vital signs are stable. General: She is awake, alert, oriented x3. No acute distress. Chest Exam: The left chest tube has no evidence of air leak. The output recorded yesterday is only 20 mL which is a significant change from the previous few days. ASSESSMENT AND PLAN: This is a 43-year-old female with malignant pleural effusion. She is status post left chest tube placement. The output has been high. We will keep it in another 24 hours and monitor before pulling it. There was no evidence of air leak at this time. cc: Joel Boyle MD
[2019-04-15] MEDS: GRANIX SUBQ SCH (14:27)
--- NOTE | 2019-04-15 14:28 | PROGRESS NOTE ---
DATE: 04/15/2019 Ms. Youngblood is feeling pretty good today afebrile. Started her chemo yesterday. Temperature 96.8 degrees, pulse 97, respirations 16, blood pressure 112/66. Pupils are equal and round. Lungs are clear in all lung reyes. Cardiovascular. Regular rhythm, rate without murmur or S3. Abdomen soft. Skin is warm and dry. Urine output is 2200 mL. ASSESSMENT AND PLAN: 1. Stage IV non-small cell lung cancer with pleural and pericardial effusions. The patient has had a prior pericardial window, has chest tube which is draining. Received 1st cycle Alimta and carboplatin yesterday. Discuss plan for every 3 week dosing. She had previously received immunotherapy with Keytruda and will continue every 3 week dosing. She will begin G- CSF 300 mcg daily in the hospital to minimize risk for neutropenia, neutropenic fever. Continue folic acid and B12 monthly. 2. Chest tube in place. Bilateral pleural effusions. Output is still too high to warrant removal of chest tube. 3. Nutrition. Her p.o. intake is improved. Review of orders I do not see any change. cc: Oneil Griffith MD
[2019-04-16] MEDS: XOPENEX NEB INH SCH ×7 (00:08→23:10)
[2019-04-16] MEDS: VANCOCIN PO SCH ×4 (02:01→22:21)
[2019-04-16] MEDS: MORPHINE IV PRN ×5 (02:01→19:37)
[2019-04-16] MEDS: PROTONIX PO SCH (06:09)
[2019-04-16 07:00] LABS: AGAP 8; ALB/GLOB RATIO 1.5; ALBUMIN 3.2 g/dL (3.5-5.0); ALKALINE PHOSPHATASE 59 U/L (32-104); BUN 18 mg/dL (8-22); CALCIUM 8.5 mg/dL (8.8-10.2); CHLORIDE 103 mmol/L (98-107); COSMO 279; CREATININE 0.3 mg/dL (0.5-0.9); ESTIMATED GFR > 60; GLUCOSE 94 mg/dL (70-104); GOT 61 U/L (10-30); GPT 48 U/L (10-36); SODIUM 139 mmol/L (136-145); TCO2 28 mmol/L (25-35); TOTAL BILIRUBIN 0.28 mg/dL (0.20-1.00); TOTAL PROTEIN 5.3 g/dL (6.3-8.3)
[2019-04-16 07:10] LABS: BASO# 0.02 X1000 (0.0-0.2); BASO% 0.1 % (0.0-0.8); EOS# 0.01 X1000 (0.0-0.7); HEMATOCRIT 32.9 % (37.0-47.0); IMM GRAN# 0.29 X1000 (0.0-0.04); IMM GRAN% 0.8 % (0.0-0.5); LYMPH# 0.48 X1000 (1.2-3.4); LYMPH% 1.3 % (20.5-51.1); MCH 29.9 PG (27-31); MCHC 30.4 g/dL (33-37); MCV 98.5 FL (81-99); MONO# 0.88 X1000 (0.11-0.59); MONO% 2.5 % (1.7-9.3); MPV 10.4 FL (7.4-10.4); NEUT% 95.3 % (42.2-75.2); PLT 368 X1000 (130-400); RBC 3.34 XMIL (4.2-5.4); RDW 17.6 % (11.5-14.5); WBC 35.58 X1000 (4.8-10.8)
[2019-04-16 07:14] LABS: BANDS 8 % (0-1); LYMPHS 2 % (21-51); MONO 2 % (1-9); SEGS 88 % (42-75)
[2019-04-16 07:15] LABS: HYPOCHROM 1+
--- NOTE | 2019-04-16 07:26 | Diag Imaging Result Doc PS360 ---
EXAM: CHEST-1 VIEW HISTORY: SOB TECHNIQUE: Portable chest single view COMPARISON: 04/14/2019 FINDINGS: No change in the left-sided chest tube. No pneumothorax. No change in the right portacatheter. There are infiltrates in the lungs in the right hemidiaphragm is elevated. There are small pleural effusions. IMPRESSION: No interval improvement. Electronically signed by Jaswinder Bryant 04/16/2019 7:24 AM
[2019-04-16] MEDS: FOLIC ACID PO SCH (08:07)
[2019-04-16] MEDS: MAXIPIME 1 GM in NS 50 ML IV SCH ×2 (08:07→20:00)
[2019-04-16] MEDS: LOVENOX SUBQ SCH ×2 (08:08→20:20)
[2019-04-16] MEDS: GRANIX SUBQ SCH (10:51)
--- NOTE | 2019-04-16 11:35 | GENERAL SURGERY PROGRESS NOTE ---
DATE: 04/16/2019 From a pulmonary standpoint, she is doing much better. No fevers. No tachycardia. Blood pressure 134/75. Left chest tube, may be a small forced expiratory air leak. Continues to have milky yellow drainage, several hundred mL per 24 hour period. C. difficile was positive. Her abdomen is soft. I reviewed her medications. She is on p.o. vancomycin. ASSESSMENT AND PLAN: This is a 43-year-old female with persistent drainage from her left chest tube, metastatic carcinoma. I worry if this is chyle leaking in her tube. It is possible she may need a total PleurX catheter. In the meantime, we are treating her for Clostridium difficile. We will continue to follow along. cc: Sunli Melendez MD
[2019-04-16] MEDS: HEPARIN 25,000 UNITS/D5W 25,000 UNIT/250 ML IV.SOLN IV SCH (12:18)
--- NOTE | 2019-04-16 14:09 | PROGRESS NOTE ---
DATE: 04/16/2019 SUBJECTIVE: Ms. Youngblood feels good, had a good night. No complaints. She had family at the bedside and remains afebrile. OBJECTIVE: Temperature 98.6 degrees, pulse 100, respirations 16, blood pressure 130/70. Pupils are equal and round. Lungs are clear in all lung reyes. Cardiovascular: Regular rhythm and rate without murmur or S3. Abdomen is soft. Skin is warm and dry. ASSESSMENT AND PLAN: 1. Stage IV non-small cell lung cancer with pleural and pericardial effusion. The patient has had prior pericardial window, doing well. Received her first cycle of Alimta carboplatin and she will get [id number] dosing, previously received immunotherapy with Keytruda, and she is on the G-CSF 300 mcg daily. White count is elevated secondary to that and continue to supplement folic acid and B12 monthly. 2. Chest tube in place, pleural effusions. Output still high to warrant removal chest tube. 3. Nutrition is good. REVIEW OF HER ORDERS: She is on vancomycin 250 mg p.o. q.6 h. for Clostridium difficile-positive stool, and on cefepime 1 g q.12 h., getting heparin IV drip, she had bilateral upper extremity deep venous thrombosis. She is on Xanax 0.5 mg t.i.d. p.r.n. cc: Oneil Griffith MD
[2019-04-17] MEDS: VANCOCIN PO SCH ×4 (01:40→20:40)
[2019-04-17] MEDS: XOPENEX NEB INH SCH ×6 (03:55→23:29)
[2019-04-17] MEDS: MORPHINE IV PRN ×5 (04:37→22:13)
[2019-04-17] MEDS: PROTONIX PO SCH (06:41)
[2019-04-17 07:47] LABS: BASO# 0.04 X1000 (0.0-0.2); BASO% 0.1 % (0.0-0.8); EOS# 0.09 X1000 (0.0-0.7); EOS% 0.3 % (0.0-10.0); HEMOGLOBIN 10.1 g/dL (12.0-16.0); IMM GRAN# 0.18 X1000 (0.0-0.04); IMM GRAN% 0.6 % (0.0-0.5); LYMPH# 0.45 X1000 (1.2-3.4); LYMPH% 1.5 % (20.5-51.1); MCH 30.2 PG (27-31); MCHC 30.6 g/dL (33-37); MCV 98.8 FL (81-99); MONO# 0.12 X1000 (0.11-0.59); MONO% 0.4 % (1.7-9.3); MPV 10.2 FL (7.4-10.4); NEUT# 30.01 X1000 (1.4-6.5); NEUT% 97.1 % (42.2-75.2); PLT 355 X1000 (130-400); RBC 3.34 XMIL (4.2-5.4); RDW 17.5 % (11.5-14.5); WBC 30.89 X1000 (4.8-10.8)
[2019-04-17 08:15] LABS: BANDS 3 % (0-1); LYMPHS 2 % (21-51); MONO 1 % (1-9); SEGS 94 % (42-75)
[2019-04-17 08:16] LABS: ANISOCYTOSIS 1+
[2019-04-17 08:17] LABS: CHLORIDE 100 mmol/L (98-107); SODIUM 136 mmol/L (136-145)
[2019-04-17 08:18] LABS: AGAP 7; ALB/GLOB RATIO 1.5; ALBUMIN 3.1 g/dL (3.5-5.0); ALKALINE PHOSPHATASE 85 U/L (32-104); BUN 17 mg/dL (8-22); CALCIUM 7.6 mg/dL (8.8-10.2); COSMO 273; CREATININE 0.3 mg/dL (0.5-0.9); ESTIMATED GFR > 60; GLUCOSE 87 mg/dL (70-104); GOT 76 U/L (10-30); GPT 83 U/L (10-36); TCO2 29 mmol/L (25-35); TOTAL BILIRUBIN 0.31 mg/dL (0.20-1.00); TOTAL PROTEIN 5.1 g/dL (6.3-8.3)
[2019-04-17] MEDS: LOVENOX SUBQ SCH ×2 (09:12→20:40)
[2019-04-17] MEDS: MAXIPIME 1 GM in NS 50 ML IV SCH (09:12)
[2019-04-17] MEDS: FOLIC ACID PO SCH (09:13)
[2019-04-17] MEDS: GRANIX SUBQ SCH (13:13)
--- NOTE | 2019-04-17 14:33 | GENERAL SURGERY PROGRESS NOTE ---
DATE: 04/17/2019 SUBJECTIVE: She feels okay. No respiratory symptoms. No fevers. No tachycardia. OBJECTIVE: Abdomen: Soft. Diarrhea is improving. Chest: Her left chest tube is in place. No air leak. It is to water seal. There is milky drainage from the tube, several 100 mL. LABORATORY: White count is down to 30, hematocrit 33. Creatinine 0.3. I reviewed her x-ray from yesterday. She does not have 1 from today. ASSESSMENT AND PLAN: This is a 43-year-old female with cardiac tamponade. She has a persistent left effusion. I worry that this is chylous in nature. We will check it for triglycerides. Otherwise, we will keep her tube for now. She may ultimately need a PleurX catheter, but she is being treated for Clostridium difficile. We will continue this, aggressive pulmonary toileting, and antibiotics. cc: Sunil Melendez MD
--- NOTE | 2019-04-17 17:41 | PROGRESS NOTE ---
DATE: 04/17/2019 SUBJECTIVE: Ms. Youngblood is feeling good. Breathing comfortably. No complaints. Appetite is good. Bowels are moving. OBJECTIVE: Temperature 97.8 degrees, pulse 101, respirations 20, blood pressure 128/63. Pupils are equal and round. Lungs are clear in all lung reyes. Cardiovascular: Regular rhythm and rate without murmur or S3. Abdomen is soft. Skin is warm and dry. URINE OUTPUT: 1400 mL. ASSESSMENT AND PLAN: 1. The patient with cardiac tamponade and persistent left effusion. Going to check for triglycerides. Ultimately needs PleurX catheter to go home with. 2. Treating for Clostridium difficile. I think that has been treated and improving. 3. She has stage IV non-small cell lung cancer with pleural and pericardial effusions. 4. Nutrition. Her p.o. intake is improved. I think the plan is to try and get a smaller chest tube in and see if we can set her up to go home. She is still on cefepime 1 g IV q.12 h. Her cultures, no growth of the pleural fluid, and I think we can probably stop the cefepime. cc: Oneil Griffith MD
--- NOTE | 2019-04-17 22:43 | PULMONOLOGY PROGRESS NOTE ---
DATE: 04/17/2019 SUBJECTIVE: The patient is awake and alert. She is without new complaints. Over the weekend, a Clostridium difficile toxin and antigen antibody have come back positive. The patient's chest tube drainage has also become milky white. OBJECTIVE: Vital signs: The patient has been afebrile for the last 24 hours. Blood pressure 117/72, heart rate 98, respiratory rate 16 and unlabored, oxygen saturation 100% on nasal cannula. HEENT: Pupils are equal and reactive. Oropharynx appears clear. Neck: Supple. Chest: Reveals decreased breath sounds right base. Chest tube is in the left chest draining milky fluid. Abdomen: Soft. Extremities: Without edema. LABORATORIES: Chest x-ray yesterday reveals chest tube in good position with small to moderate right-sided pleural effusion. White blood count 30,000, hemoglobin 10.1, platelet count 355,000. IMPRESSION: A 43-year-old with: 1. Stage IV lung cancer. 2. Pericardial effusion with tamponade. 3. Bilateral pleural effusions, status post drainage of both hemithorax with reaccumulation in the right hemithorax. 4. Acute hypoxemic respiratory failure. 5. Clostridium difficile colitis. 6. Markedly leukocytosis. 7. Change in chest tube drainage from serosanguineous to milky white. DISCUSSION: A 43-year-old with problems outlined above. She continues to have additional complications associated with her malignancy. 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 She has marked leukocytosis, making an empyema a concern, but this is likely related to her Clostridium difficile colitis. RECOMMENDATIONS: 1. Agree with obtaining pleural fluid for triglycerides as outlined by Dr. Melendez. 2. Continue treatment for Clostridium difficile colitis. 3. Overall prognosis is poor. cc: Keo Baird MD
[2019-04-18] MEDS: VANCOCIN PO SCH ×4 (01:47→19:49)
[2019-04-18] MEDS: MORPHINE IV PRN ×5 (01:47→19:48)
[2019-04-18] MEDS: XOPENEX NEB INH SCH ×6 (03:39→23:06)
[2019-04-18] MEDS: PROTONIX PO SCH (06:37)
[2019-04-18] MEDS: FOLIC ACID PO SCH (08:04)
[2019-04-18] MEDS: LOVENOX SUBQ SCH ×2 (08:04→19:49)
[2019-04-18 08:08] LABS: BASO# 0.03 X1000 (0.0-0.2); BASO% 0.2 % (0.0-0.8); EOS# 0.29 X1000 (0.0-0.7); EOS% 1.8 % (0.0-10.0); HEMATOCRIT 34.7 % (37.0-47.0); HEMOGLOBIN 10.6 g/dL (12.0-16.0); IMM GRAN# 0.87 X1000 (0.0-0.04); IMM GRAN% 5.5 % (0.0-0.5); LYMPH# 0.43 X1000 (1.2-3.4); LYMPH% 2.7 % (20.5-51.1); MCH 30.3 PG (27-31); MCHC 30.5 g/dL (33-37); MCV 99.1 FL (81-99); MONO# 0.09 X1000 (0.11-0.59); MONO% 0.6 % (1.7-9.3); MPV 10.2 FL (7.4-10.4); NEUT# 13.99 X1000 (1.4-6.5); NEUT% 89.2 % (42.2-75.2); PLT 343 X1000 (130-400); RDW 17.3 % (11.5-14.5)
[2019-04-18 08:23] LABS: AGAP 7; ALB/GLOB RATIO 1.3; ALBUMIN 3.2 g/dL (3.5-5.0); ALKALINE PHOSPHATASE 154 U/L (32-104); BUN 14 mg/dL (8-22); CALCIUM 8.1 mg/dL (8.8-10.2); CHLORIDE 98 mmol/L (98-107); COSMO 272; CREATININE 0.3 mg/dL (0.5-0.9); ESTIMATED GFR > 60; GLUCOSE 87 mg/dL (70-104); GOT 45 U/L (10-30); GPT 75 U/L (10-36); SODIUM 136 mmol/L (136-145); TCO2 31 mmol/L (25-35); TOTAL BILIRUBIN 0.32 mg/dL (0.20-1.00); TOTAL PROTEIN 5.6 g/dL (6.3-8.3)
[2019-04-18 10:14] LABS: ANISOCYTOSIS 1+; EOS 2 % (1-10); LARGE PLATELETS 1+; LYMPHS 5 % (21-51); MONO 1 % (1-9); SEGS 92 % (42-75)
--- NOTE | 2019-04-18 13:55 | PROGRESS NOTE ---
DATE: 04/18/2019 SUBJECTIVE: Ms. Youngblood feels good and breathing comfortably, and eating well. Bowels are moving. Remains afebrile, temperature 98, pulse 100, respirations 16, blood pressure 122/78. Pupils are equal and round. Lungs are clear in all lung reyes. Anterolateral. Cardiovascular regular rhythm and rate without murmur or S3. Abdomen is soft. Skin is warm and dry. Urine output 3000 mL. ASSESSMENT AND PLAN: 1. The patient with cardiac tamponade and persistent left effusion. Plan is to put a PleurX catheter in, and set her up to go home. 2. Treated for Clostridium difficile. 3. Stage IV non-small cell lung cancer with pleural and pericardial effusions. 4. Nutrition. Good p.o. intake. Review of her orders, I do not see any change. She is on Lovenox. 5. She has had bilateral upper extremity DVT's so she is on Lovenox and is getting 50 mg subcu q.12. We may need to change this to p.o. depending on what Oncology wants to do. cc: Oneil Griffith MD
[2019-04-18] MEDS: OXY IR PO PRN (17:35)
[2019-04-19] MEDS: MORPHINE IV PRN ×5 (02:05→22:08)
[2019-04-19] MEDS: VANCOCIN PO SCH ×4 (02:05→20:07)
[2019-04-19] MEDS: XOPENEX NEB INH SCH ×6 (03:15→23:40)
[2019-04-19] MEDS: PROTONIX PO SCH (06:09)
[2019-04-19] MEDS: ZOFRAN IV PRN ×4 (06:11→22:11)
[2019-04-19 07:51] LABS: BASO# 0.02 X1000 (0.0-0.2); BASO% 0.5 % (0.0-0.8); EOS# 0.12 X1000 (0.0-0.7); EOS% 2.8 % (0.0-10.0); HEMATOCRIT 35.9 % (37.0-47.0); HEMOGLOBIN 10.9 g/dL (12.0-16.0); IMM GRAN# 0.04 X1000 (0.0-0.04); IMM GRAN% 0.9 % (0.0-0.5); MCH 29.8 PG (27-31); MCHC 30.4 g/dL (33-37); MCV 98.1 FL (81-99); MONO% 2.3 % (1.7-9.3); MPV 10.2 FL (7.4-10.4); NEUT# 3.68 X1000 (1.4-6.5); NEUT% 86.5 % (42.2-75.2); PLT 332 X1000 (130-400); RBC 3.66 XMIL (4.2-5.4); RDW 17.1 % (11.5-14.5); WBC 4.26 X1000 (4.8-10.8)
[2019-04-19 07:58] LABS: AGAP 8; ALB/GLOB RATIO 1.2; ALBUMIN 3.1 g/dL (3.5-5.0); ALKALINE PHOSPHATASE 92 U/L (32-104); BUN 12 mg/dL (8-22); CALCIUM 8.5 mg/dL (8.8-10.2); CHLORIDE 98 mmol/L (98-107); COSMO 273; CREATININE 0.2 mg/dL (0.5-0.9); ESTIMATED GFR > 60; GLUCOSE 91 mg/dL (70-104); GOT 38 U/L (10-30); GPT 68 U/L (10-36); POTASSIUM 3.8 mmol/L (3.5-5.1); SODIUM 137 mmol/L (136-145); TCO2 31 mmol/L (25-35); TOTAL PROTEIN 5.7 g/dL (6.3-8.3)
[2019-04-19] MEDS: FOLIC ACID PO SCH (08:26)
[2019-04-19] MEDS: LOVENOX SUBQ SCH (08:26)
--- NOTE | 2019-04-19 13:02 | PROGRESS NOTE ---
DATE: 04/19/2019 SUBJECTIVE: The patient is feeling better, requesting to be sent home. OBJECTIVE: Vital Signs: Temperature is 98.2 degrees, heart rate 106, respirations 16, blood pressure 120/70, O2 is 100% on room air. General: Ms. Youngblood is a pleasant 43-year-old female who is sitting up on the bed then, in no acute distress. HEENT: Atraumatic, normocephalic. PERRL. Neck: Supple. Trachea midline. Cardiovascular: S1, S2 appreciated. No murmurs, gallops or rubs noted. Respiratory: Lung sounds clear. Decreased on the right. There is a chest tube in place draining a milky substance. Abdomen: Soft, nontender, nondistended. Diarrhea has subsided. Extremities: No clubbing, no cyanosis. Bilateral pedal pulses are bounding. DIAGNOSTIC DATA: None. LABORATORY DATA: White count 4, hemoglobin and hematocrit 10 and 35, platelet count 332,000. Chemistry: Sodium 137, potassium 3.8, BUN 12, creatinine 0.2, blood glucose 91. Pending triglyceride from chest tube fluid. ASSESSMENT AND PLAN: 1. 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 There is concern for a Chyle leak. Again, triglycerides have been sent off. Spoke with Dr. Loc Melendez if it is a confirmed Chyle leak then the patient may require TPN. Plan for now is to keep the patient through the weekend and reassess and ultimately have a PleurX catheter placed. 2. Treatment for Clostridium difficile colitis, on p.o. Vancocin. Her diarrhea has stopped. 3. Bilateral upper extremity deep venous thromboses. The patient initially was on a heparin drip and she is now on b.i.d. Lovenox. 4. Further recommendations to follow physician evaluation, laboratory and diagnostic data. Dictated by TYRONE Douglas for Amado Dunbar MD cc: Amado Dunbar MD [facility]
[2019-04-19] MEDS ORDERED: MBX SOLUTION MT PRN (14:21)
[2019-04-19] MEDS: XARELTO PO SCH (14:41)
[2019-04-20] MEDS: VANCOCIN PO SCH ×4 (02:04→20:40)
[2019-04-20] MEDS: ZOFRAN IV PRN ×3 (02:30→20:45)
[2019-04-20] MEDS: MORPHINE IV PRN ×5 (02:30→20:39)
--- NOTE | 2019-04-20 04:43 | PULMONOLOGY PROGRESS NOTE ---
DATE: 04/19/2019 SUBJECTIVE: The patient is awake, alert, and conversant. She denies pain or shortness of breath. OBJECTIVE: Vital Signs: The patient has been afebrile for the last 24 hours. Blood pressure 105/55, heart rate 103, respiratory rate 16, oxygen saturation 96% on room air. HEENT: Pupils are equal and reactive. Oropharynx appears clear. Neck: Supple. Chest: Reveals decreased breath sounds right base. Cardiac: Regular rate. Normal S1, normal S2. Abdomen: Soft. Extremities: Without edema. LABORATORIES: White blood count 4.26, hemoglobin 10.9, platelet count 332,000. Sodium 137, potassium 3.8, chloride 98, bicarbonate 31, BUN 12, creatinine 0.2. No recent chest x-ray. IMPRESSION: A 43-year-old with 1. Stage IV lung cancer, status post recent chemotherapy. 2. Pericardial effusion with tamponade status post pericardial window. 3. Bilateral pleural effusions, status post chest tube drainage of the left hemithorax and thoracentesis from the right hemithorax. 4. Hypoxemic respiratory failure. 5. 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 6. Clostridium difficile colitis. RECOMMENDATIONS: 1. Continue chest tube drainage. PleurX catheter being considered. 2. Continue treatment for Clostridium difficile colitis. 3. Follow up chest x-ray tomorrow. 4. Overall prognosis is poor. cc: Keo Baird MD
[2019-04-20] MEDS: XOPENEX NEB INH SCH ×6 (05:02→23:40)
[2019-04-20] MEDS: PROTONIX PO SCH (06:08)
[2019-04-20 07:01] LABS: BASO% 0.8 % (0.0-0.8); EOS# 0.27 X1000 (0.0-0.7); EOS% 11.1 % (0.0-10.0); HEMATOCRIT 35.3 % (37.0-47.0); IMM GRAN% 0.8 % (0.0-0.5); LYMPH# 0.23 X1000 (1.2-3.4); LYMPH% 9.4 % (20.5-51.1); MCH 30.1 PG (27-31); MCHC 31.2 g/dL (33-37); MCV 96.7 FL (81-99); MONO# 0.13 X1000 (0.11-0.59); MONO% 5.3 % (1.7-9.3); MPV 9.5 FL (7.4-10.4); NEUT# 1.77 X1000 (1.4-6.5); NEUT% 72.6 % (42.2-75.2); PLT 296 X1000 (130-400); RBC 3.65 XMIL (4.2-5.4); RDW 16.7 % (11.5-14.5); WBC 2.44 X1000 (4.8-10.8)
[2019-04-20 07:02] LABS: BASO# 0.02 X1000 (0.0-0.2); IMM GRAN# 0.02 X1000 (0.0-0.04)
--- NOTE | 2019-04-20 07:17 | Diag Imaging Result Doc PS360 ---
EXAM: CHEST-PORTABLE 04/20/2019 HISTORY: abnormal exam TECHNIQUE: AP portable at 0540 COMMENT: There are bilateral pleural fluid collections with possible loculated fluid or pleural thickening in the apices particularly on the right. There is a chest tube on the left. There is increased interstitial markings particularly in the right lung and left lower lobe. There is some platelike opacity in the right upper lobe. Compared to 04/16/2019 there has been no appreciable change. IMPRESSION: Bilateral pleural effusions and/or pleural thickening. Pulmonary edema plus minus pneumonia. Subsegmental atelectasis particularly in the right upper lobe. Electronically signed by Ignacio Archibald 04/20/2019 7:15 AM
[2019-04-20 07:41] LABS: AGAP 8; ALB/GLOB RATIO 1.1; ALKALINE PHOSPHATASE 99 U/L (32-104); BUN 11 mg/dL (8-22); CALCIUM 8.2 mg/dL (8.8-10.2); CHLORIDE 98 mmol/L (98-107); COSMO 273; CREATININE 0.3 mg/dL (0.5-0.9); ESTIMATED GFR > 60; GLUCOSE 90 mg/dL (70-104); GOT 54 U/L (10-30); GPT 80 U/L (10-36); POTASSIUM 4.1 mmol/L (3.5-5.1); SODIUM 137 mmol/L (136-145); TCO2 31 mmol/L (25-35); TOTAL BILIRUBIN 0.27 mg/dL (0.20-1.00); TOTAL PROTEIN 5.8 g/dL (6.3-8.3)
[2019-04-20] MEDS: XANAX PO PRN ×2 (09:04→16:11)
[2019-04-20] MEDS: FOLIC ACID PO SCH (09:04)
[2019-04-20] MEDS: OXY IR PO PRN ×2 (09:04→16:11)
[2019-04-20] MEDS: XARELTO PO SCH ×2 (09:04→20:40)
--- NOTE | 2019-04-20 11:52 | PROGRESS NOTE ---
DATE: 04/20/2019 SUBJECTIVE: The patient is feeling better. She is still having some drainage through the chest tube, concerning for Chyle leak, Surgery Department on board. We will continue to monitor. X-ray showed a bilateral pleural effusion and/or pleural thickening, pulmonary edema plus minus pneumonia, subsegmental atelectasis particularly in the right upper lobe. OBJECTIVE: Vital Signs: Temperature 98 degrees, pulse 97, respiratory rate 15, blood pressure 134/66, and oxygen saturation 98 on room air. HEENT: Head normocephalic. No trauma. PERRLA. Neck: Supple. No JVD. No masses. Central trachea. Chest: Decreased breath sounds mostly at the level of the right base with some crepitus. Chest tube in place and draining a milky substance. Abdomen: Soft, nontender, nondistended. No hepatosplenomegaly. Extremities: No clubbing. No cyanosis. Bilateral pedal edema. Neurological: This patient is sleepy, but arousable. Oriented x3. She is following commands. She is feeling better. LABORATORY: WBC 2.4, hemoglobin 11, hematocrit 35.3, and platelets 296,000. Sodium 137, potassium 4.1, chloride 98, bicarbonate 31, BUN 11, creatinine 0.3, glucose 90, and calcium 8.2. AST 54, ALT 80, alkaline phosphatase 99, and albumin 3. ASSESSMENT AND PLAN: 1. 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 There is a concern of Chyle leak, likely this patient will spend the weekend here. Surgery Department on board as well as Pulmonary Department. We will monitor. 2. C. Difficile colitis, no more diarrhea. Continue with vancomycin p.o. 3. Bilateral upper extremity DVT. Continue with anticoagulation. cc: Amado Dunbar MD
--- NOTE | 2019-04-20 15:03 | HEMO/ONC PROGRESS NOTE ---
DATE: 04/19/2019 SUBJECTIVE: No new complaints. OBJECTIVE: Vital signs: Temperature 98.2 degrees, blood pressure 120/70, heart rate 106, respirations 16, O2 saturation 100% on room air. HEENT: Normocephalic, atraumatic. Mucous membranes are slightly pale and moist. Sclerae is anicteric. Extraocular movements intact. Neck: Supple. Lungs: With decreased breath sounds in the right lower lobe. Cardiovascular: S1-S2 is heard. The patient is tachycardic. Abdomen: Soft, nondistended, nontender. Bowel sounds positive all quadrants. No rebound or guarding noted. Extremities: No clubbing, cyanosis, or edema. Dermatologic: No rashes, bruises or lesions. Neurologic: The patient is awake, alert, and oriented x3 and has no focal deficit. LABORATORY DATA: Hemoglobin 10.9, hematocrit 35.9, white blood cell count is 4.26, platelets 332,000. Sodium 137, potassium 3.8, chloride 98, CO2 is 31, BUN 12, creatinine 0.2 and glucose is 91. ASSESSMENT AND PLAN: 1. Stage IV non-small cell lung cancer, status post 1 dose of carboplatin, Alimta and Keytruda on 04/15/2019. 2. Pleural effusions bilaterally. 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 Pulmonology is currently following. 3. Pericardial effusion with tamponade, status post pericardial window placement. 4. Clostridium difficile colitis. The patient currently is on vancomycin by mouth. 5. Bilateral upper extremity deep venous thrombosis, currently on therapeutic Lovenox. We will discontinue Lovenox at this time and place the patient on Xarelto 15 mg p.o. b.i.d. x2 weeks, after which time we will decrease dosage to 20 mg daily. 6. Leukocytosis secondary to Neulasta effect. White blood cell count is now within normal limits at 4.26. 7. We will continue to follow and make further recommendations pending outcomes. [place], Nurse Practitioner, dictating a progress note on Elana Youngblood for Dr. Eden Jones. The above reflects the history, exam, assessment and plan of Dr. Eden Jones. Dictated by TYRONE Hill for Eden Jones MD cc: TYRONE Hill MD
--- NOTE | 2019-04-20 18:36 | Diag Imaging Result Doc PS360 ---
CHEST-1 VIEW - 04/20/2019 6:04 PM INDICATION: sepsis protocol COMPARISON: 5:40 AM FINDINGS: Stable left chest tube in good position. Stable right chest port. There is been decrease in the right basilar pleural effusion. There is a stable trace left pleural effusion. No pneumothorax. There is been significant decrease in the right-sided ill-defined infiltrates/pulmonary edema. IMPRESSION: Improvement from prior. Electronically signed by Chidi Lee 04/20/2019 6:34 PM
[2019-04-20 21:01] LABS: INR 1.14; PROTIME 15.5 Seconds (11.0-16.0)
[2019-04-20 21:02] LABS: PTT 31.9 Seconds (22.3-41.8)
[2019-04-20 21:03] LABS: BASO# 0.01 X1000 (0.0-0.2); BASO% 0.5 % (0.0-0.8); EOS# 0.26 X1000 (0.0-0.7); EOS% 13.9 % (0.0-10.0); HEMATOCRIT 33.9 % (37.0-47.0); HEMOGLOBIN 10.5 g/dL (12.0-16.0); LYMPH# 0.29 X1000 (1.2-3.4); LYMPH% 15.5 % (20.5-51.1); MCV 96.9 FL (81-99); MONO# 0.14 X1000 (0.11-0.59); MONO% 7.5 % (1.7-9.3); MPV 9.8 FL (7.4-10.4); NEUT# 1.17 X1000 (1.4-6.5); NEUT% 62.6 % (42.2-75.2); PLT 253 X1000 (130-400); RDW 16.7 % (11.5-14.5); WBC 1.87 X1000 (4.8-10.8)
[2019-04-20 21:38] LABS: AGAP 9; ALB/GLOB RATIO 1.4; ALKALINE PHOSPHATASE 88 U/L (32-104); BUN 13 mg/dL (8-22); CALCIUM 8.2 mg/dL (8.8-10.2); CHLORIDE 99 mmol/L (98-107); CK PROFILE 28 U/L (24-173); COSMO 276; CREATININE 0.3 mg/dL (0.5-0.9); ESTIMATED GFR > 60; GLUCOSE 108 mg/dL (70-104); GOT 63 U/L (10-30); GPT 90 U/L (10-36); POTASSIUM 3.9 mmol/L (3.5-5.1); SODIUM 138 mmol/L (136-145); TCO2 30 mmol/L (25-35); TOTAL BILIRUBIN < 0.15 mg/dL (0.20-1.00); TOTAL PROTEIN 5.2 g/dL (6.3-8.3)
[2019-04-21] MEDS: ZOFRAN IV PRN ×6 (01:11→22:33)
[2019-04-21] MEDS: MORPHINE IV PRN ×6 (01:11→22:33)
[2019-04-21] MEDS: VANCOCIN PO SCH ×4 (01:11→20:28)
[2019-04-21] MEDS: XOPENEX NEB INH SCH ×6 (03:35→23:40)
[2019-04-21] MEDS: PROTONIX PO SCH (06:06)
[2019-04-21 06:41] LABS: URINE SOURCE CATH
[2019-04-21 06:43] LABS: BILIRUBIN URINE NEGATIVE (NEGATIVE); BLOOD URINE MODERATE (NEGATIVE); COLOR ORANGE; GLUCOSE URINE NEGATIVE (NEGATIVE); KETONE URINE NEGATIVE (NEGATIVE); LEUKOCYTES URINE LARGE (NEGATIVE); NITRITE URINE NEGATIVE (NEGATIVE); PROTEIN URINE 100 mg/dL (NEGATIVE); SP GRAVITY URINE 1.014; TURBIDITY URINE TURBID (CLEAR); UROBILINOGEN URINE NORMAL (NORMAL)
[2019-04-21 06:46] LABS: UR EPITHELIAL CELLS <10 /HPF (<10); URINE BACTERIA NEGATIVE /HPF; URINE RBC TNTC /HPF (<10); URINE WBC TNTC /HPF (<10)
[2019-04-21 07:23] LABS: URINE CASTS NONE SEEN; URINE CRYSTALS NONE SEEN; URINE SMALL ROUND CELLS NONE SEEN; URINE YEAST PRESENT
[2019-04-21] MEDS: XARELTO PO SCH ×2 (08:30→20:28)
[2019-04-21] MEDS: FOLIC ACID PO SCH (08:30)
--- NOTE | 2019-04-21 15:53 | PROGRESS NOTE ---
DATE: 04/21/2019 SUBJECTIVE: Patient is feeling better. X-ray looks better compared with yesterday. I will remove the Merchant catheter. Continue with same management. OBJECTIVE: Vital Signs: Temperature 97.8 degrees, pulse 104, respiratory rate 16, blood pressure 146/79 and oxygen saturation 100% on 3 L of nasal cannula. HEENT: Head normocephalic. No trauma. PERRLA. Neck: Supple. No JVD. No masses. Central trachea. Chest: Decreased breath sounds mostly at the level of the left base. Chest tube in place and draining a milky substance. Abdomen: Soft, nontender, and nondistended. No hepatosplenomegaly. Extremities: No clubbing, edema, or cyanosis. Neurological: The patient is alert and oriented x3. No focal deficits. LABORATORY: No lab work done today. Lactate level 2.1. ASSESSMENT AND PLAN: 1. 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 There is a concern of Chyle leak. Likely, this patient will spend the whole weekend here. Surgery Department on board as well as Pulmonary Department. She still has a chest tube. 2. C difficile colitis. No more diarrhea. Continue with vancomycin p.o. 3. Bilateral upper extremity DVT. Continue with anticoagulation. cc: Amado Dunbar MD
[2019-04-21] MEDS ORDERED: CARAFATE PO SCH (16:00)
[2019-04-21] MEDS: OXY IR PO PRN (20:32)
[2019-04-21] MEDS ORDERED: PROTONIX PO SCH (21:00)
[2019-04-22] MEDS: VANCOCIN PO SCH ×4 (02:34→20:20)
[2019-04-22] MEDS: MORPHINE IV PRN ×6 (02:35→22:58)
[2019-04-22] MEDS: ZOFRAN IV PRN ×4 (02:35→18:45)
[2019-04-22] MEDS: XOPENEX NEB INH SCH ×6 (03:13→23:25)
[2019-04-22 07:24] LABS: BASO# 0.02 X1000 (0.0-0.2); EOS# 0.14 X1000 (0.0-0.7); EOS% 6.7 % (0.0-10.0); HEMATOCRIT 31.8 % (37.0-47.0); HEMOGLOBIN 9.9 g/dL (12.0-16.0); IMM GRAN# 0.02 X1000 (0.0-0.04); LYMPH# 0.26 X1000 (1.2-3.4); LYMPH% 12.4 % (20.5-51.1); MCH 29.6 PG (27-31); MCHC 31.1 g/dL (33-37); MCV 95.2 FL (81-99); MONO# 0.19 X1000 (0.11-0.59); MONO% 9.1 % (1.7-9.3); MPV 9.8 FL (7.4-10.4); NEUT# 1.46 X1000 (1.4-6.5); NEUT% 69.8 % (42.2-75.2); PLT 217 X1000 (130-400); RBC 3.34 XMIL (4.2-5.4); RDW 16.3 % (11.5-14.5); WBC 2.09 X1000 (4.8-10.8)
[2019-04-22 07:35] LABS: AGAP 7; ALB/GLOB RATIO 1.2; ALBUMIN 3.1 g/dL (3.5-5.0); ALKALINE PHOSPHATASE 87 U/L (32-104); BUN 10 mg/dL (8-22); CALCIUM 8.6 mg/dL (8.8-10.2); CHLORIDE 97 mmol/L (98-107); COSMO 271; CREATININE 0.4 mg/dL (0.5-0.9); ESTIMATED GFR > 60; GLUCOSE 100 mg/dL (70-104); GOT 50 U/L (10-30); GPT 86 U/L (10-36); POTASSIUM 4.4 mmol/L (3.5-5.1); SODIUM 136 mmol/L (136-145); TCO2 32 mmol/L (25-35); TOTAL PROTEIN 5.6 g/dL (6.3-8.3)
[2019-04-22] MEDS: XARELTO PO SCH ×2 (09:08→20:20)
[2019-04-22] MEDS: FOLIC ACID PO SCH (09:08)
[2019-04-22] MEDS: PROTONIX PO SCH (09:08)
--- NOTE | 2019-04-22 09:47 | PROGRESS NOTE ---
DATE: 04/22/2019 SUBJECTIVE: The patient is feeling better. She is still having a milky drainage coming out from the tube. We do have a triglyceride level from that area and it is elevated at 496, so these may represent a chyle leak. Surgery department on board. We will continue to monitor. OBJECTIVE: Vital Signs: Temperature 97.3 degrees, pulse 98 respiratory rate 18, blood pressure 138/85, oxygen saturation 92 on room air. HEENT: Head normocephalic, no trauma. PERRLA. Neck: Supple. No JVD. No masses. Central trachea. Chest: Decreased breath sounds mostly at the level of the left base with some crepitus. Chest tube in place and draining a milky substance. Abdomen: Soft, nontender, nondistended. No hepatosplenomegaly. Extremities: No edema, no clubbing, no cyanosis. Neurological: The patient is alert and oriented x3. No focal deficits. LABORATORY: WBC 2, hemoglobin 9.9, hematocrit 31.8, platelets 217,000 sodium 136, potassium 4.4, chloride 97, bicarbonate 32, BUN 10, creatinine 0.4, glucose 100, calcium 8.6, AST 50, ALT 86, alkaline phosphatase 87, albumin 3.1. ASSESSMENT AND PLAN: 1. 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 She has likely a chyle leak. We sent out a triglyceride level from that substance and is elevated. Surgery department on board as well as Pulmonary Department, she still has the chest tube. 2. Clostridium difficile colitis, no more diarrhea. Continue with vancomycin p.o. She is tolerating p.o. as well. 3. Bilateral upper extremity deep venous thrombosis. Continue with anticoagulation. Hematology oncology on board. cc: Amado Dunbar MD
--- NOTE | 2019-04-22 17:27 | PULMONOLOGY PROGRESS NOTE ---
DATE: 04/22/2019 SUBJECTIVE: The patient is awake, alert, and conversant. She is without specific complaints. OBJECTIVE: Vital Signs: The patient is afebrile. Blood pressure is 137/69, heart rate 98, respiratory rate 16, oxygen saturation 97%. HEENT: Pupils are equal and reactive. Oropharynx appears clear. Neck: Supple. Chest: Reveals decreased breath sounds right base. Chest tube is in the left hemithorax draining milky fluid. Abdomen: Soft. Extremities: Without edema. LABORATORIES: Triglyceride level from pleural fluid is elevated at 496. White blood count 2.09, hemoglobin 9.9, platelet count 217,000. IMPRESSION: A 43-year-old with: 1. Stage IV lung cancer, status post chemotherapy. 2. Pericardial effusion with tamponade requiring pericardial window placement. 3. Bilateral pleural effusions status post bilateral drainage. 4. Chylothorax with ongoing drainage. 5. Hypoxemic respiratory failure. 6. C difficile colitis. PLAN: 1. Continue chest tube drainage. Anticipate need for PleurX catheter. 2. Continue antibiotic regimen. 3. Followup chest x-ray tomorrow. 4. Overall prognosis is poor. cc: Keo Baird MD
[2019-04-23] MEDS: XOPENEX NEB INH SCH ×6 (03:30→23:13)
[2019-04-23] MEDS: VANCOCIN PO SCH ×4 (03:47→21:36)
--- NOTE | 2019-04-23 06:59 | Diag Imaging Result Doc PS360 ---
CHEST-PORTABLE - 04/23/2019 INDICATION: abnormal exam COMPARISON: 04/20/2019 FINDINGS: Stable left chest tube. Stable right chest port. There is decrease in the trace left pleural effusion. No pneumothorax. Stable small right pleural effusion. Stable pulmonary vascular congestion. IMPRESSION: Decrease in the trace left pleural effusion. No new abnormality. Electronically signed by Chidi Lee 04/23/2019 6:57 AM
[2019-04-23] MEDS: PROTONIX PO SCH (08:27)
[2019-04-23] MEDS: XARELTO PO SCH ×2 (08:27→21:36)
[2019-04-23] MEDS: FOLIC ACID PO SCH (08:27)
[2019-04-23] MEDS: MORPHINE IV PRN ×4 (08:28→23:56)
[2019-04-23] MEDS: ZOFRAN IV PRN ×3 (13:06→23:56)
--- NOTE | 2019-04-23 13:39 | PROGRESS NOTE ---
DATE: 04/23/2019 SUBJECTIVE: The patient is feeling better. She is still having drainage coming out from her chest tube. Likely, this is a chyle leak since the triglyceride level is high. Surgery Department on board. X-ray looks a little bit better. OBJECTIVE: Vital Signs: Temperature 97.5 degrees, pulse 94, respiratory rate 18, blood pressure 128/76 and oxygen saturation 98 percent on room air. HEENT: Head normocephalic. No trauma. PERRLA. Neck: Supple. No JVD. No masses. Central trachea. Chest: Decreased breath sounds mostly at the level of the left base with some crepitus. Chest tube in place. Abdomen: Soft, nontender, and nondistended. No hepatosplenomegaly. Extremities: No edema. No clubbing. No cyanosis. Neurological: The patient is alert and oriented x3. No focal deficits. LABORATORY: WBC 2, hemoglobin 9.9, hematocrit 31.8, and platelets 217,000. Sodium 136, potassium 4.4, chloride 97, bicarbonate 32, BUN 10, creatinine 0.4, glucose 100, calcium 8.6, AST 50, ALT 86, alkaline phosphatase 87, and albumin 3.1. ASSESSMENT AND PLAN: 1. 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 She has likely a Chyle leak, triglyceride level on that fluid is high. Surgery Department and pulmonary department on board. She looks stable, pending recommendations. 2. C. Difficile colitis, no more diarrhea. Continue with vancomycin p.o. She is tolerating p.o. as well. 3. Bilateral upper extremity DVT. Continue with anticoagulation. Hematology/Oncology on board. cc: Amado Dunbar MD
[2019-04-23] MEDS: GRANIX SUBQ SCH (14:30)
--- NOTE | 2019-04-23 15:32 | GENERAL SURGERY PROGRESS NOTE ---
DATE: 04/23/2019 SUBJECTIVE: She continues to have high chest tube output, greater than a L yesterday. From a respiratory standpoint she is doing well. No fevers. Occasional low-grade tachycardia in the 100s but otherwise, blood pressure has been okay. Oxygen saturation is mid to high 90s on room air. OBJECTIVE: General: She is alert. Chest: Left chest tube has milky white fluid with approximately 500 mL in the new Pleur-evac box, 1050 recorded yesterday, 220 already over the course of the day today. LABS: I reviewed her labs. She is neutropenic, white count is 2, hematocrit is 31. Creatinine 0.4. ASSESSMENT AND PLAN: This is a 43-year-old female who presented with a cardiac tamponade related to a malignant pericardial effusion and a left effusion that is consistent with a chylothorax. We will continue chest tube drainage for now. I have ordered a low fat diet as we confirmed high triglyceride levels and monitor this output. I do worry that a PleurX catheter will not effectively drain this thick fluid from her chest, but it is a possibility. We will continue to follow along. Grim prognosis. cc: Sunil Melendez MD
[2019-04-24] MEDS: VANCOCIN PO SCH ×4 (02:36→19:56)
[2019-04-24] MEDS: XOPENEX NEB INH SCH ×6 (03:19→22:57)
[2019-04-24] MEDS: ZOFRAN IV PRN ×5 (04:21→23:17)
[2019-04-24] MEDS: MORPHINE IV PRN ×5 (04:21→23:16)
[2019-04-24] MEDS: GRANIX SUBQ SCH (08:54)
[2019-04-24] MEDS: XARELTO PO SCH ×2 (08:55→20:00)
[2019-04-24] MEDS: PROTONIX PO SCH (08:55)
[2019-04-24] MEDS: FOLIC ACID PO SCH (08:55)
--- NOTE | 2019-04-24 14:16 | PROGRESS NOTE ---
DATE: 04/24/2019 INTERVAL HISTORY: Patient in good spirits. Reports minimal discomfort around chest tube but otherwise comfortable. Chest tube still with decreased but significant output. Fluid remains milky white. No new complaints. No other acute events. REVIEW OF SYSTEMS: Twelve point review of systems negative except as per interval history. LABS: WBC 2.0, hemoglobin 9.9, hematocrit 31.8, platelets 217,000. Sodium 136, potassium 4.4, BUN 10, creatinine 0.4, AST 50, ALT 86, albumin 3.1. VITALS: T-max 98.5 degrees, pulse 101, respirations 18, blood pressure 121/75, O2 saturation 100% on room air. PHYSICAL EXAM: General: No acute distress. Vitals above. HEENT: Normocephalic, atraumatic. Moist mucous membranes. No cervical adenopathy. Cardiovascular: Regular rate and rhythm. No murmurs noted. Pulmonary: Slightly decreased breath sounds at the left base otherwise clear to auscultation. Left chest tube in place with milky white drainage. Abdomen: Soft, nontender, nondistended. Bowel sounds positive. Extremities: Peripheral pulses intact. No clubbing or cyanosis. Neurologic: Cranial nerves grossly intact. No focal deficits identified. Psychiatric: Normal mood, affect, awake, alert, oriented x3. Skin: No new rashes or lesions identified. ASSESSMENT AND PLAN: 1. 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 Chest tube still in place and still with fairly significant drainage. Discussions ongoing as to whether PleurX catheter is an option for her. Recently started chemo. Prognosis somewhat guarded. 2. Pericardial effusion and tamponade. Pleural effusion remains, pericardial effusion markedly improved, no further tamponade. 3. Likely Clostridium difficile colitis. Patient really only had 1 to 2 episodes of diarrhea but given comorbidities will finish course of treatment with p.o. vancomycin. 4. Bilateral upper extremity deep vein thrombosis. Continue anticoagulation. Heme-onc on board.
[2019-04-25] MEDS: VANCOCIN PO SCH ×4 (01:27→19:57)
[2019-04-25] MEDS: XOPENEX NEB INH SCH ×6 (03:30→23:24)
[2019-04-25] MEDS: MORPHINE IV PRN ×4 (04:17→19:56)
[2019-04-25] MEDS: ZOFRAN IV PRN ×4 (04:17→19:57)
--- NOTE | 2019-04-25 07:40 | Diag Imaging Result Doc PS360 ---
EXAM: CHEST-PORTABLE INDICATION: dyspnea TECHNIQUE: One view COMPARISON: 04/23/2019 FINDINGS: The right chest port and left chest tube are in stable positions. There has been interval increase in the pleural effusion on the right. It is moderate in size. The trace left effusion is approximately stable. Pulmonary venous congestion and interstitial edema, mainly on the right, is essentially stable. Cardiac silhouette is stable. IMPRESSION: Interval increase in right pleural effusion. Stable chest, otherwise. Electronically signed by Bo Moody 04/25/2019 7:37 AM
[2019-04-25] MEDS: XARELTO PO SCH ×2 (08:12→20:02)
[2019-04-25] MEDS: PROTONIX PO SCH (08:13)
[2019-04-25] MEDS: FOLIC ACID PO SCH (08:14)
[2019-04-25] MEDS: GRANIX SUBQ SCH (08:17)
[2019-04-25] MEDS ORDERED: GRANIX SUBQ SCH (12:15)
--- NOTE | 2019-04-25 13:51 | PROGRESS NOTE ---
DATE: 04/25/2019 INTERVAL HISTORY: The patient is with continued drainage from the left chest tube. No new complaints. No acute events overnight. Denies increased cough or dyspnea. REVIEW OF SYSTEMS: Twelve point review of systems negative except as per interval history. LABS: WBC 2.0, hemoglobin 9.9, hematocrit 31.8, platelets 217,000. Basic metabolic panel essentially unremarkable aside from AST 50, ALT 86. Urinalysis with leukocytes, white cells, and red cells. No epithelial cells. No bacteria. Urine culture growing yeast. IMAGING: Chest x-ray with an increase in the right-sided pleural effusion. Chest tube remains in place in the left. VITALS: T-max 98.5 degrees, pulse 107, respirations 20, blood pressure 136/81, O2 saturation 99% on room air. PHYSICAL EXAMINATION: General: No acute distress. Vitals: As above. HEENT: Normocephalic, atraumatic. Moist mucous membranes. No cervical adenopathy. Cardiovascular: Minimally tachycardic but regular. No murmurs noted. Pulmonary: Slightly decreased breath sounds at both bases, otherwise clear to auscultation. Left chest tube in place with continued milky white drainage. Abdomen: Soft, nontender, nondistended. Bowel sounds positive. Surgical dottie noted on upper abdomen/lower chest. Surgical incision clean, dry, intact. Extremities: Peripheral pulses intact. No clubbing or cyanosis. Neurologic: Cranial nerves grossly intact. No focal deficits identified. Psychiatric: Normal mood and affect. Awake, alert, oriented x3. Skin: No new rashes or lesions identified. ASSESSMENT AND PLAN: 1. Stage IV lung cancer with chylothorax. Chest tube still in place and still with fairly significant drainage, although some decrease from previous. Increasing effusion on the right side on x-ray this morning. The patient is relatively asymptomatic and with good oxygenation but if this continues to increase, she may end up needing a thoracentesis and/or chest tube on the right as well. Recently started chemotherapy. Prognosis guarded. 2. Pericardial effusion and tamponade. Her left pleural effusions remain. Pericardial effusion essentially resolved. No further tamponade. 3. Likely, Clostridium difficile. The patient is nearing the end of her course of oral vancomycin. No further diarrhea. 4. Bilateral upper extremity deep venous thromboses. Continue anticoagulation. Hematology/oncology on board. 5. Possible yeast infection. Patient with numerous white cells in urine. Urine culture growing only yeast. We will give a couple doses of fluconazole to treat. 6. Hyponatremia, resolved.
[2019-04-25] MEDS: DIFLUCAN PO SCH (16:03)
--- NOTE | 2019-04-25 19:54 | GENERAL SURGERY PROGRESS NOTE ---
DATE: 04/25/2019 SUBJECTIVE: She is getting a bath currently, but per the nurse and per the patient no issues. No fevers, low-grade tachycardia at 100, stable for blood pressure at 136/81. Chest tube output was documented yesterday at 285, this has been downtrending. I reviewed her labs. She remains neutropenic. Hematocrit is 31, creatinine 0.4. ASSESSMENT AND PLAN: This is a 43-year-old female with left chylothorax, recent history of pericardial effusion. With low fat diet the output does seem to be decreasing, but it remains too high to remove this tube. We will continue it for now, following her closely going forward. Hopefully we can get this out in the near future. cc: Sunil Melendez MD
[2019-04-26] MEDS: MORPHINE IV PRN ×6 (01:22→23:51)
[2019-04-26] MEDS: ZOFRAN IV PRN ×5 (01:22→23:51)
[2019-04-26] MEDS: VANCOCIN PO SCH ×4 (01:25→19:30)
[2019-04-26] MEDS: XOPENEX NEB INH SCH ×6 (03:36→22:48)
[2019-04-26] MEDS: GRANIX SUBQ SCH (08:11)
[2019-04-26] MEDS: XARELTO PO SCH ×2 (08:11→22:02)
[2019-04-26] MEDS: PROTONIX PO SCH (08:11)
[2019-04-26] MEDS: FOLIC ACID PO SCH (08:11)
--- NOTE | 2019-04-26 12:32 | PROGRESS NOTE ---
DATE: 04/26/2019 INTERVAL HISTORY: Output from the left chest tube continues to decrease but very slowly. Not enough yet to consider pulling the chest tube. No new complaints. No acute events overnight. REVIEW OF SYSTEMS: Twelve point review of systems negative except as per interval history. LABS: WBC 2.0, hemoglobin 9.9, hematocrit 31.8, platelets 217,000. Sodium 136, potassium 4.4, chloride 97, bicarb 32, BUN 10, creatinine 0.4. Total bilirubin 0.2, AST 50, ALT 56, albumin 3.1. VITALS: T-max 98.8 degrees, pulse 96, respiratory rate 14, blood pressure 126/63, O2 saturation 93% on room air. PHYSICAL EXAMINATION: General: No acute distress. Vitals: As above. HEENT: Normocephalic, atraumatic. Moist mucous membranes. Neck: No cervical adenopathy. Cardiovascular: Regular rate and rhythm. No murmurs noted. Pulmonary: Slightly decreased breath sounds at both bases, right greater than left. Otherwise, clear to auscultation. Chest: Left chest tube in place, with continued chylus drainage. Abdomen: Soft, nontender, nondistended. Bowel sounds positive. Surgical dottie noted on upper abdomen/lower chest, stable. Incision clean, dry, and intact. Extremities: Peripheral pulses intact. No clubbing or cyanosis. Neurologic: Cranial nerves grossly intact. No focal deficits identified. Psychiatric: Normal mood and affect. Awake, alert, and oriented x3. Skin: No new rashes or lesions identified. ASSESSMENT AND PLAN: 1. Stage IV lung cancer, with left chylothorax. Chest tube still in place. Drainage slowing down, but not enough to pull the tube yet. Still some effusion on the right, but does not seem to be increased. Patient remains relatively asymptomatic, with good oxygenation. 2. Pericardial effusion, tamponade. Her pleural effusions remain. Pericardial effusion essentially resolved. No further tamponade. May be able to get her dottie out at this point. 3. Likely C difficile. Patient's end of her course of oral vancomycin tomorrow. No further diarrhea. 4. Bilateral upper extremity DVTs. Continue anticoagulation. 5. Possible yeast infection. Patient with numerous white cells in the urine. Urine culture growing only yeast. Has received 1 of 2 doses of fluconazole to treat. 6. Hyponatremia, resolved.
--- NOTE | 2019-04-26 20:32 | GENERAL SURGERY PROGRESS NOTE ---
DATE: 04/26/2019 SUBJECTIVE: Feels okay. No complaints. No fevers. Stable heart rate in the low 100s. OBJECTIVE: General: She is alert. Lungs: Chest tube is to water seal. Persistent milky drainage, it appears it has been 150 mL this more morning after just a few hours, although the output has been downtrending. LABS: I reviewed her labs. White count low at 2. 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 We will continue chest tube drainage now. It does seem to be downtrending with her a low fat diet. If the output fails to decrease to the point where we can remove the tube, we will plan on PleurX catheter early next week. Discussed plan with the patient. cc: Sunil Melendez MD
--- NOTE | 2019-04-27 01:38 | PULMONOLOGY PROGRESS NOTE ---
DATE: 04/26/2019 SUBJECTIVE: The patient is awake and alert. She is without complaints today. She reports her mobility is limited due to her chest tube being on suction. OBJECTIVE: Vital Signs: The patient has been afebrile for the last 24 hours. Blood pressure 104/64, heart rate 105, respiratory rate 18, oxygen saturation 97% on 2 L per nasal cannula. HEENT: Pupils are equal and reactive. Oropharynx is clear. Neck: Supple. Chest: Reveals diminished breath sounds right base. She had a chest tube in the left hemithorax draining milky white fluid. Cardiac: Regular rate and rhythm. Abdomen: Scaphoid and soft. Extremities: Without edema. LABORATORIES: No chemistries or CBC for the last 4 days. Chest x-ray yesterday morning revealed increasing effusion on the right, with stable changes on the left. IMPRESSION: A 43-year-old with 1. Stage IV lung cancer with ongoing treatment. 2. Pericardial effusion with tamponade requiring pericardial window placement. 3. Chylothorax with ongoing chylous drainage. 4. Bilateral pleural effusions with increasing effusion on the right. 5. Hypoxemic respiratory failure. 6. Clostridium difficile colitis. PLAN: 1. Continue chest tube drainage on the left. 2. Consider repeat thoracentesis on the right if she becomes symptomatic. 3. Follow up chest x-ray, chemistries, and CBC tomorrow. 4. Overall prognosis is poor. cc: Keo Baird MD
[2019-04-27] MEDS: VANCOCIN PO SCH ×2 (02:20→09:06)
[2019-04-27] MEDS: ZOFRAN IV PRN ×5 (04:28→21:53)
[2019-04-27] MEDS: MORPHINE IV PRN ×5 (04:28→21:53)
[2019-04-27] MEDS: XOPENEX NEB INH SCH ×6 (05:53→23:35)
--- NOTE | 2019-04-27 07:06 | Diag Imaging Result Doc PS360 ---
EXAM: CHEST-PORTABLE 04/27/2019 HISTORY: abnormal exam TECHNIQUE: AP portable at 0616 COMMENT: There is a left chest tube. There is pleural thickening and/or fluid on the right similar to the previous study of 04/25/2019. The inspiration is slightly less optimal. Otherwise are has been no appreciable change. IMPRESSION: Loculated right pleural fluid collection with atelectasis versus pneumonia in the right lung particularly in the lower lobe and middle lobe. Electronically signed by Ignacio Archibald 04/27/2019 7:04 AM
[2019-04-27 08:23] LABS: AGAP 8; ALB/GLOB RATIO 1.1; ALKALINE PHOSPHATASE 123 U/L (32-104); BUN 8 mg/dL (8-22); CALCIUM 8.9 mg/dL (8.8-10.2); CHLORIDE 97 mmol/L (98-107); COSMO 268; CREATININE 0.5 mg/dL (0.5-0.9); ESTIMATED GFR > 60; GLUCOSE 93 mg/dL (70-104); GOT 27 U/L (10-30); GPT 44 U/L (10-36); MAGNESIUM 1.9 mg/dL (1.5-2.7); PHOSPHORUS 3.3 mg/dL (2.7-4.5); SODIUM 135 mmol/L (136-145); TCO2 30 mmol/L (25-35); TOTAL BILIRUBIN 0.19 mg/dL (0.20-1.00); TOTAL PROTEIN 5.8 g/dL (6.3-8.3)
[2019-04-27 08:26] LABS: HEMATOCRIT 34.4 % (37.0-47.0); HEMOGLOBIN 10.8 g/dL (12.0-16.0); MCH 30.4 PG (27-31); MCHC 31.4 g/dL (33-37); MCV 96.9 FL (81-99); MPV 10.1 FL (7.4-10.4); PLT 179 X1000 (130-400); RBC 3.55 XMIL (4.2-5.4); RDW 17.6 % (11.5-14.5); WBC 14.83 X1000 (4.8-10.8)
[2019-04-27 08:37] LABS: BANDS 30 % (0-1); EOS 2 % (1-10); LYMPHS 4 % (21-51); MONO 8 % (1-9); SEGS 42 % (42-75)
[2019-04-27] MEDS: GRANIX SUBQ SCH (09:05)
[2019-04-27] MEDS: XARELTO PO SCH ×2 (09:06→20:57)
[2019-04-27] MEDS: FOLIC ACID PO SCH (09:06)
[2019-04-27] MEDS: PROTONIX PO SCH (09:07)
--- NOTE | 2019-04-27 13:59 | PROGRESS NOTE ---
DATE: 04/27/2019 INTERVAL HISTORY: The patient remains largely asymptomatic. Drainage from left chest tube continues. No acute events overnight. No new complaints. REVIEW OF SYSTEMS: Twelve point review of systems negative except as per interval history. LABS: WBC 14.8, hemoglobin 10.8, hematocrit 34.4, platelets 179,000. Sodium 135, potassium 4, creatinine 0.5. ALT is 44, AST 27, alkaline phosphatase 123. VITALS: T-max 98.8 degrees, pulse 107, respirations 16, blood pressure 113/69, O2 saturation 100% on 2 L by nasal cannula. IMAGING: Chest x-ray with loculated right pleural fluid collection, with atelectasis versus pneumonia, right lung, particularly lower and middle lobe. Similar to previous x-rays. PHYSICAL EXAMINATION: General: No acute distress. Vitals: As above. HEENT: Normocephalic, atraumatic. Moist mucous membranes. Neck: No cervical adenopathy. Cardiovascular: Regular rate and rhythm. No murmurs noted. Pulmonary: Still with stably decreased breath sounds at both bases, right greater than the left. Left chest tube in place with continued thick white drainage. Abdomen: Soft, nontender, nondistended. Bowel sounds positive. Extremities: Peripheral pulses intact. No clubbing or cyanosis. Neurologic: Cranial nerves grossly intact. No focal deficits identified. Psychiatric: Normal mood and affect. Awake, alert, and oriented x3. No new rashes or lesions identified. ASSESSMENT AND PLAN: 1. Stage IV lung cancer, with left chylothorax. Chest tube still in place with ongoing drainage. Effusion on right largely stable. Slight increase in white count, but afebrile. Oxygenation stable and patient remains pretty asymptomatic. If the patient develops increased cough, dyspnea, fever or hypoxia we will consider repeating CT scan to assess for pneumonia on right but looks like effusion and atelectasis to me. 2. Pericardial effusion and tamponade, now resolved. Monitor. 3. Likely C difficile. The patient is getting her last dose of oral vancomycin today. No diarrhea for quite some time. 4. Bilateral upper extremity DVTs. Continue anticoagulation. 5. Possible yeast infection. The patient is getting second dose of fluconazole today to treat that. 6. Hyponatremia, resolved.
[2019-04-28] MEDS: MORPHINE IV PRN ×6 (02:19→23:19)
[2019-04-28] MEDS: ZOFRAN IV PRN ×4 (02:19→18:50)
[2019-04-28] MEDS: XOPENEX NEB INH SCH ×5 (05:22→19:34)
[2019-04-28] MEDS: DIFLUCAN PO SCH (06:06)
[2019-04-28] MEDS: FOLIC ACID PO SCH (10:26)
[2019-04-28] MEDS: XARELTO PO SCH ×2 (10:26→21:45)
[2019-04-28] MEDS: GRANIX SUBQ SCH (10:26)
[2019-04-28] MEDS: PROTONIX PO SCH (10:27)
--- NOTE | 2019-04-28 10:54 | PROGRESS NOTE ---
DATE: 04/28/2019 Elana Youngblood is a 43-year-old female who has a chylothorax and a left-sided chest tube, which continues to drain a chylous fluid. She seems comfortable, without shortness of breath, and we will continue her left chest tube for drainage. cc: Elvia Harris MD
--- NOTE | 2019-04-28 14:39 | PROGRESS NOTE ---
DATE: 04/28/2019 INTERVAL HISTORY: The patient with some nausea and vomiting this morning not adequately relieved by Zofran. Some slightly increased shortness of breath. Denies increased cough, fever, chills, chest pain. REVIEW OF SYSTEMS: Twelve point review of systems negative except as per interval history. VITALS: T-max 98.6 degrees, pulse 100, respiration 17, O2 saturation 98% on 2 L by nasal cannula. PHYSICAL EXAM: General: No acute distress. Vitals as above. HEENT: Normocephalic, atraumatic. Moist mucous membranes. No cervical adenopathy. Cardiovascular: Regular rate and rhythm. No murmurs noted. Pulmonary: Essentially stable, decreased breath sounds at the bases primarily on the right. Left chest tube in place continued chylous drainage. Abdomen: Soft, nontender, nondistended, bowel sounds positive. Extremities: Peripheral pulses intact. No clubbing or cyanosis. Neurologic: Cranial nerves grossly intact, no focal deficits. Psychiatric: Normal mood and affect, awake, alert, oriented x3. Skin: No new rashes or lesions identified. ASSESSMENT AND PLAN: 1. 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 Chest tube still in place on left with ongoing drainage. Effusion on right appears largely stable on last x-ray. Last set of labs with a slight increase in white count but likely secondary to G-CSF given by Oncology. Oxygenation stable, the patient does have some nausea and increased dyspnea this morning. Will obtain CT scan to assess for possible pneumonia on that right side. 2. Pericardial effusion, tamponade now resolved, monitor. 3. Likely Clostridium difficile, patient is finished with therapy. No further diarrhea. 4. Bilateral upper extremity deep vein thrombosis. Continue anticoagulation. 5. Yeast infection, patient status post course of fluconazole. 6. Hyponatremia resolved. 7. Nausea, vomiting, will add some Phenergan and monitor.
[2019-04-28] MEDS: PHENERGAN PO PRN ×2 (14:57→23:19)
--- NOTE | 2019-04-28 21:57 | Diag Imaging Result Doc PS360 ---
EXAM: CT THORAX W/O CONTRAST INDICATION: R effusion. ? pneumonia. known cancer. TECHNIQUE: This exam was performed using automated exposure control, adjustment of mA or kV according to patient size, and/or use of iterative reconstruction technique. COMPARISON: CT from an outside facility dated 02/27/2019 FINDINGS: Note that the quality of the downloaded outside comparison images are very limited making the comparison suboptimal. There are emphysematous changes with an apical predominance. There is a large right pleural effusion and there was only a trace effusion on the previous study. There has been interval placement of a left-sided chest tube. There is a smaller pleural fluid collection on the left and minimal pleural gas. There is bilateral atelectasis that is most prominent at the right lung base. There are mild patchy infiltrates on the right that probably represents edema. There are a couple of small nodular densities in the right upper lobe that can also be seen on the previous study. 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 It encases the right mainstem bronchus and right pulmonary artery similar to the previous study. Given the format of the provided CT from the outside facility, it cannot be directly measured. However, it appears to be approximately stable in size. On the current study, it measures up to 9.2 x 5.7 cm axially. Limited views of the upper abdomen chronic prominence of the partially imaged right renal collecting system that is also seen on the previous study. IMPRESSION: 1.Interval development of large right pleural effusion with right basilar atelectasis. Interval 2.Interval placement of a left-sided chest tube and development of a smaller left effusion with a small amount of patchy pleural gas. 3.Patchy infiltrate in the right lung that is probably related to edema. 4.Essentially stable irregular right upper lung nodules and approximately stable mediastinal and right hilar abhi mass. Please see above discussion. Electronically signed by Bo Moody 04/28/2019 9:55 PM
[2019-04-29] MEDS: XOPENEX NEB INH SCH ×7 (00:09→23:18)
[2019-04-29] MEDS: ZOFRAN IV PRN ×3 (04:39→21:02)
[2019-04-29] MEDS: MORPHINE IV PRN ×5 (04:39→21:02)
[2019-04-29 07:30] LABS: AGAP 10; BUN 7 mg/dL (8-22); CALCIUM 8.7 mg/dL (8.8-10.2); CHLORIDE 96 mmol/L (98-107); COSMO 273; CREATININE 0.5 mg/dL (0.5-0.9); ESTIMATED GFR > 60; GLUCOSE 94 mg/dL (70-104); POTASSIUM 3.7 mmol/L (3.5-5.1); SODIUM 138 mmol/L (136-145); TCO2 32 mmol/L (25-35)
[2019-04-29 08:53] LABS: HEMATOCRIT 34.9 % (37.0-47.0); HEMOGLOBIN 10.9 g/dL (12.0-16.0); MCH 30.2 PG (27-31); MCHC 31.2 g/dL (33-37); MCV 96.7 FL (81-99); MPV 9.5 FL (7.4-10.4); PLT 220 X1000 (130-400); RBC 3.61 XMIL (4.2-5.4); RDW 18.1 % (11.5-14.5); WBC 78.74 X1000 (4.8-10.8)
[2019-04-29] MEDS: FOLIC ACID PO SCH (09:00)
[2019-04-29] MEDS: XARELTO PO SCH ×3 (09:01→20:55)
[2019-04-29] MEDS: PROTONIX PO SCH (09:01)
[2019-04-29] MEDS: PHENERGAN PO PRN ×2 (09:01→17:11)
[2019-04-29 09:04] LABS: BANDS 28 % (0-1); LYMPHS 2 % (21-51); MONO 2 % (1-9); SEGS 56 % (42-75)
--- NOTE | 2019-04-29 10:22 | PROGRESS NOTE ---
DATE: 04/29/2019 SUBJECTIVE: Ms. Youngblood has a left sided chest tube. It is still draining a significant amount of chylous fluid and we will leave the chest tube in place. cc: Elvia Harris MD
[2019-04-29] MEDS: GRANIX SUBQ SCH (11:16)
--- NOTE | 2019-04-29 13:34 | PROGRESS NOTE ---
DATE: 04/29/2019 INTERVAL HISTORY: Nausea and vomiting improved, but still with some increased dyspnea on exertion. No new complaints. No other acute events overnight. REVIEW OF SYSTEMS: A 12-point review of systems was negative, except as per interval history. LABORATORY DATA: WBC 78.7, hemoglobin 10.9, hematocrit 34.9, platelets 220,000. Sodium 138, potassium 3.7, BUN 7, creatinine 0.5, calcium 8.7. IMAGING: CT chest with interval development of large right pleural effusion with right basilar atelectasis, stable malignancy. PHYSICAL EXAMINATION: Vital Signs: T-max 97.9 degrees, pulse 99, respirations 18, blood pressure 114/74, O2 saturation 100% on 2 L by nasal cannula. General: No acute distress. HEENT: Normocephalic, atraumatic. Moist mucous membranes. Neck: No cervical adenopathy. Cardiovascular: Regular rate and rhythm. No murmurs noted. Pulmonary: Decreased breath sounds at the bases, primarily on the right, essentially unchanged from previous. Left chest tube in place with chylous drainage. Abdomen: Soft, nontender, nondistended. Bowel sounds positive. Extremities: Peripheral pulses intact. No clubbing or cyanosis. Neurologic: Cranial nerves grossly intact. No focal deficits. Psychiatric: Normal mood and affect. Awake, alert, oriented x3. Skin: No new rashes or lesions identified. ASSESSMENT AND PLAN: 1. 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 Chest tube is still in place on the left with ongoing drainage. Effusion on the right appears significantly enlarged on CT. There was some concern for pneumonia, but CT did not show any clear evidence of infection. Likely, her new respiratory symptoms are from her enlarging right effusion rather than infection given the lack of fever and CT findings. Will try and arrange for an ultrasound-guided thoracentesis in the morning to see if we can alleviate her symptoms. 2. Pericardial effusion, tamponade. Now resolved. Monitor. 3. Clostridium difficile colitis. Patient now finished with course of therapy. No further diarrhea. 4. Bilateral upper extremity deep venous thromboses. Continue anticoagulation. 5. Yeast infection. Patient status post course of fluconazole. 6. Hyponatremia, resolved. 7. Nausea and vomiting, somewhat improved. Not entirely certain of the etiology, but may be related to respiratory difficulties from increasing confusion or underlying malignancy. Will monitor.
[2019-04-30] MEDS: MORPHINE IV PRN ×6 (02:25→22:26)
[2019-04-30] MEDS: PHENERGAN PO PRN ×4 (02:25→20:07)
[2019-04-30] MEDS: XOPENEX NEB INH SCH ×6 (03:13→22:00)
[2019-04-30] MEDS: ZOFRAN IV PRN ×5 (06:39→22:27)
[2019-04-30 07:11] LABS: INR 1.99
[2019-04-30 07:28] LABS: BASO% 0.5 % (0.0-0.8); EOS# 0.41 X1000 (0.0-0.7); HEMATOCRIT 31.3 % (37.0-47.0); HEMOGLOBIN 9.8 g/dL (12.0-16.0); IMM GRAN# 3.99 X1000 (0.0-0.04); IMM GRAN% 9.9 % (0.0-0.5); LYMPH# 1.23 X1000 (1.2-3.4); LYMPH% 3.1 % (20.5-51.1); MCH 30.3 PG (27-31); MCHC 31.3 g/dL (33-37); MCV 96.9 FL (81-99); MONO# 2.01 X1000 (0.11-0.59); MPV 9.6 FL (7.4-10.4); NEUT# 32.36 X1000 (1.4-6.5); NEUT% 80.5 % (42.2-75.2); PLT 205 X1000 (130-400); RBC 3.23 XMIL (4.2-5.4)
[2019-04-30 07:45] LABS: AGAP 7; BUN 8 mg/dL (8-22); CALCIUM 8.6 mg/dL (8.8-10.2); CHLORIDE 99 mmol/L (98-107); COSMO 277; CREATININE 0.6 mg/dL (0.5-0.9); ESTIMATED GFR > 60; GLUCOSE 90 mg/dL (70-104); POTASSIUM 3.7 mmol/L (3.5-5.1); SODIUM 140 mmol/L (136-145); TCO2 34 mmol/L (25-35)
[2019-04-30] MEDS: FOLIC ACID PO SCH (08:25)
[2019-04-30] MEDS: XARELTO PO SCH (08:25)
[2019-04-30] MEDS: PROTONIX PO SCH (08:25)
[2019-04-30 08:30] LABS: BANDS 16 % (0-1); HYPOCHROM 1+; METAMYELOCYTES 2 %; MONO 2 % (1-9); MYELOCYTES 2 %; SEGS 78 % (42-75)
--- NOTE | 2019-04-30 13:48 | PROGRESS NOTE ---
DATE: 04/30/2019 INTERVAL HISTORY: The patient's nausea is well controlled with Zofran and Phenergan, but continuing to take those fairly often. Dyspnea essentially stable. No new complaints. No acute events overnight. REVIEW OF SYSTEMS: Twelve-point review of systems negative except as per interval history. LABS: WBC 40, hemoglobin 9.8, hematocrit 31.3, platelets 205. Basic metabolic panel unremarkable. PHYSICAL EXAMINATION: Vitals: T-max 98.0, pulse 98, blood pressure 137/91, O2 saturation 98% on 2 L. General: No acute distress. HEENT: Normocephalic, atraumatic. Moist mucous membranes. No cervical adenopathy. Cardiovascular: Regular rate and rhythm. No murmurs noted. Pulmonary: Decreased breath sounds primarily at the right base, stable. Left chest tube in place with ongoing chylous drainage. Abdomen: Soft, nontender, nondistended. Bowel sounds positive. Extremities: Peripheral pulses intact. No clubbing or cyanosis. Neurologic: Cranial nerves grossly intact. No focal deficits. Psychiatric: Normal mood and affect. Awake, alert, oriented x3. Skin: No new rashes or lesions identified. ASSESSMENT AND PLAN: 1. Stage IV lung cancer, with left chylothorax and likely right chylothorax. Chest tube still in place on the left with ongoing drainage. Increased effusion on the right, resulting in some increase in patient's dyspnea. CT did not show pneumonia. Holding Xarelto to try and get an ultrasound-guided thoracentesis to relieve her symptoms. 2. Pericardial effusion, tamponade, now resolved. Monitor. 3. Clostridium difficile colitis. Patient is finished with course of therapy. No further diarrhea. 4. Bilateral upper extremity DVTs. Holding Xarelto currently. Will bridge with a dose of Lovenox tonight. We will need to order further Lovenox if thoracentesis cannot be performed in the morning. Plan on resuming Xarelto after thoracentesis. 5. Yeast infection. The patient is status post course of fluconazole. 6. Hyponatremia, resolved. 7. Nausea and vomiting. Controlled with medication. Still an issue. May be related to respiratory difficulties from increasing effusion or underlying malignancy. Monitor. 8. Leukocytosis due to G-CSF administered by Oncology. Likely need to discontinue G-CSF at this point.
[2019-04-30] MEDS ORDERED: LOVENOX SUBQ SCH (21:00)
[2019-05-01] MEDS: PHENERGAN PO PRN (02:20)
[2019-05-01] MEDS: MORPHINE IV PRN ×5 (02:20→20:08)
[2019-05-01] MEDS: XOPENEX NEB INH SCH ×6 (02:38→23:06)
[2019-05-01] MEDS: ZOFRAN IV PRN ×4 (06:23→20:08)
[2019-05-01 07:06] LABS: BASO# 0.36 X1000 (0.0-0.2); BASO% 1.9 % (0.0-0.8); EOS# 0.31 X1000 (0.0-0.7); EOS% 1.6 % (0.0-10.0); HEMATOCRIT 32.9 % (37.0-47.0); HEMOGLOBIN 10.4 g/dL (12.0-16.0); IMM GRAN% 8.3 % (0.0-0.5); LYMPH# 0.98 X1000 (1.2-3.4); LYMPH% 5.1 % (20.5-51.1); MCH 30.7 PG (27-31); MCHC 31.6 g/dL (33-37); MCV 97.1 FL (81-99); MONO% 6.8 % (1.7-9.3); MPV 9.9 FL (7.4-10.4); NEUT% 76.3 % (42.2-75.2); PLT 213 X1000 (130-400); RBC 3.39 XMIL (4.2-5.4); RDW 17.9 % (11.5-14.5); WBC 19.25 X1000 (4.8-10.8)
[2019-05-01 07:34] LABS: BANDS 8 % (0-1); EOS 2 % (1-10); LYMPHS 2 % (21-51); SEGS 80 % (42-75)
[2019-05-01] MEDS: FOLIC ACID PO SCH (08:34)
[2019-05-01] MEDS: PROTONIX PO SCH (08:34)
--- NOTE | 2019-05-01 09:42 | Diag Imaging Result Doc PS360 ---
CHEST-PORTABLE - 05/01/2019 INDICATION: chest tube COMPARISON: 04/27/2019 FINDINGS: Stable left chest tube in good position. No left-sided pneumothorax or significant pleural effusion. Stable moderately large right pleural effusion. Stable infiltrate throughout the lungs bilaterally. Stable right chest port. Heart size remains normal. IMPRESSION: No significant change from prior. Electronically signed by Chidi Lee 05/01/2019 9:40 AM
--- NOTE | 2019-05-01 10:50 | Diag Imaging Result Doc PS360 ---
CHEST-2 VIEWS - 05/01/2019 10:44 AM INDICATION: TO FOLLOW THORA COMPARISON: 9:32 AM FINDINGS: There has been successful drainage of the right basilar pleural effusion. No pneumothorax. Stable left chest tube. Significant improvement in the bilateral infiltrates/atelectasis. IMPRESSION: Successful drainage of the right pleural effusion with no complication. Electronically signed by Chidi Lee 05/01/2019 10:48 AM
--- NOTE | 2019-05-01 10:51 | Diag Imaging Result Doc PS360 ---
US THORACENTESIS W/IMAGE GUIDE - 05/01/2019 INDICATION: large R effusion, dyspnea TECHNIQUE: The risks and benefits of the procedure were discussed with the patient. All questions were answered. Written and verbal informed consent was obtained. Overlying skin was prepped and draped in sterile fashion. Anesthesia was achieved with injection of 10 cc of 1% lidocaine. COMPARISON: None FINDINGS: Ultrasound scanning demonstrated a rather large right pleural effusion. 1.3 L was successfully drained. The patient reported no symptoms from the procedure. The catheter was removed intact. Postprocedural chest x-rays demonstrated no pneumothorax. IMPRESSION: Successful and uncomplicated ultrasound-guided right thoracentesis. Electronically signed by Chidi Lee 05/01/2019 10:49 AM
--- NOTE | 2019-05-01 18:27 | PROGRESS NOTE ---
DATE: 05/01/2019 SUBJECTIVE: This patient is resting comfortably in bed. She is status post thoracentesis on the right side, 1.3 L has been removed. She still has a chest tube on the left side. Surgery Department on board. OBJECTIVE: Vital Signs: Temperature 97.7, pulse 117, respiratory rate 17, blood pressure 133/88. Oxygen saturation 100% on 2 L of nasal cannula. HEENT: Head normocephalic, no trauma. PERRLA. Neck: Supple. No JVD. No masses. Central trachea. Chest: Decreased breath sounds mostly at the bases with some crepitus. Chest tube on the left side in place. Abdomen: Soft, nontender, nondistended. No hepatosplenomegaly. Extremities: No edema, no clubbing. No cyanosis. Neurologic: The patient is alert and oriented x 3. No focal deficits. LABORATORY: WBC 19.2, hemoglobin 10.4, hematocrit 32.9, platelets 213,000. ASSESSMENT AND PLAN: 1. 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 She still has a left thoracic tube in place. We will continue to monitor. 2. Pericardial effusion, tamponade, resolved. 3. C difficile colitis. The patient finished her course of therapy. No further diarrhea. 4. Bilateral upper extremity DVT. I will give her a dose of Lovenox tonight and probably tomorrow the chest tube is going to be removed, so I will evaluate this with Surgery in the morning. 5. Yeast infection. This patient is status post course of fluconazole. 6. Hyponatremia, resolved. 7. Nausea and vomiting, controlled. 8. Leukocytosis due to GCSF administrated by Oncology. WBC is going down. cc: Amado Dunbar MD
[2019-05-01] MEDS ORDERED: LOVENOX SUBQ ONE (19:00)
--- NOTE | 2019-05-01 21:03 | GENERAL SURGERY PROGRESS NOTE ---
DATE: 05/01/2019 SUBJECTIVE: Feels okay. No fevers. No tachycardia. Remains on nasal cannula O2. Her left chest tube is to water seal. OBJECTIVE: Output is down trending significantly, 87 in last 24 hours and not much since it was marked on the evening shift. It remains chylous. Her midline incision is intact with no cellulitis. Abdomen is soft. Respirations are not labored but somewhat shallow. White count is 19, hematocrit is 32. I have reviewed her chest x-ray. ASSESSMENT AND PLAN: This is a 43-year-old female with metastatic lung cancer. I removed her midline dottie. She has a chyle leak from her mediastinal disease. It seems to be decreasing with a low fat diet. She is planned for a right-sided thoracentesis today. If she tolerates this well, we will plan on removing her left chest tube and monitoring for reaccumulation over the next few days. She may ultimately need tunneled catheter, but we will see how she does. I have discussed plan with the patient. I removed her dottie. cc: Sunil Melendez MD
[2019-05-02] MEDS: MORPHINE IV PRN ×5 (01:39→20:54)
[2019-05-02] MEDS: ZOFRAN IV PRN ×4 (01:39→16:18)
[2019-05-02] MEDS: XOPENEX NEB INH SCH ×6 (03:23→23:35)
[2019-05-02 07:11] LABS: BASO% 1.1 % (0.0-0.8); EOS# 0.17 X1000 (0.0-0.7); EOS% 1.9 % (0.0-10.0); HEMOGLOBIN 11.4 g/dL (12.0-16.0); IMM GRAN# 0.56 X1000 (0.0-0.04); IMM GRAN% 6.3 % (0.0-0.5); LYMPH# 0.56 X1000 (1.2-3.4); LYMPH% 6.3 % (20.5-51.1); MCH 29.9 PG (27-31); MCHC 30.8 g/dL (33-37); MCV 97.1 FL (81-99); MONO# 0.71 X1000 (0.11-0.59); MPV 9.9 FL (7.4-10.4); NEUT# 6.82 X1000 (1.4-6.5); NEUT% 76.4 % (42.2-75.2); PLT 201 X1000 (130-400); RBC 3.81 XMIL (4.2-5.4); RDW 17.4 % (11.5-14.5); WBC 8.92 X1000 (4.8-10.8)
[2019-05-02 07:13] LABS: AGAP 10; CHLORIDE 99 mmol/L (98-107); GLUCOSE 90 mg/dL (70-104); POTASSIUM 3.9 mmol/L (3.5-5.1); SODIUM 139 mmol/L (136-145); TCO2 30 mmol/L (25-35)
[2019-05-02 07:14] LABS: BUN 10 mg/dL (8-22); CALCIUM 8.6 mg/dL (8.8-10.2); COSMO 276; CREATININE 0.5 mg/dL (0.5-0.9); ESTIMATED GFR > 60
[2019-05-02] MEDS: PROTONIX PO SCH (08:35)
[2019-05-02] MEDS: FOLIC ACID PO SCH (08:35)
--- NOTE | 2019-05-02 11:33 | PROGRESS NOTE ---
DATE: 05/02/2019 SUBJECTIVE: The patient is resting comfortably in bed. She is status post thoracentesis on the right side, 1.3 L of fluid had been removed yesterday. She still had the chest tube on the left side. Surgery Department on board. OBJECTIVE: Vital Signs: Temperature 97.5 degrees, pulse 91, respiratory rate 15, blood pressure 127/79, oxygen saturation 97% on 2 L nasal cannula. HEENT: Head normocephalic, no trauma. PERRLA. Neck: Supple. No JVD. No masses. Central trachea. Chest: Decreased breath sounds mostly at the bases with some crepitus, mostly on the left side. Chest tube on the left side in place. Abdomen: Soft, nontender, nondistended. No hepatosplenomegaly. Extremities: No edema, no clubbing, no cyanosis. Neurological examination: The patient is alert. She is oriented x3. No focal deficits. LABORATORY: WBC 8.2, hemoglobin 11.4, hematocrit 37, platelets 201. Sodium 139, potassium 3.9, chloride 99, bicarbonate 30. BUN 10, creatinine 0.5, glucose 90, calcium 8.6. ASSESSMENT AND PLAN: 1. 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 She still had a left thoracic tube in place. Probably Surgery Department will remove the tube, and we will continue to monitor this patient during this hospitalization to see if she reaccumulates; at this moment, she is stable. 2. Pericardial effusion, tamponade, resolved. 3. Clostridium difficile colitis. This patient finished her course of therapy. No further diarrhea. 4. Bilateral upper extremity deep vein thrombosis. I will hold anticoagulation today because probably the chest tube will be removed. After that, hopefully I will put her back on anticoagulation. 5. Yeast infection: This patient is status post course of fluconazole. 6. Hyponatremia, resolved. 7. Nausea and vomiting, controlled. 8. Leukocytosis due to granulocyte colony-stimulating factor administrated by Oncology. White blood cell today is normal. cc: Amado Dunbar MD
[2019-05-02] MEDS: OXY IR PO PRN (12:27)
--- NOTE | 2019-05-02 13:06 | GENERAL SURGERY PROGRESS NOTE ---
DATE: 05/02/2019 SUBJECTIVE: She feels well. She had a thoracentesis and her breathing is improved. No fevers. No tachycardia. Really minimal output from her left chest tube, 20 mL noted. I reviewed her labs. White count now normal at 8, hematocrit 37 and creatinine 0.5. ASSESSMENT AND PLAN: This is a 43-year-old female with a chylothorax on the left. I have removed her chest tube, placed an occlusive dressing. We will follow up an x-ray afterwards, and monitor for reaccumulation in the next several days. cc: Sunil Melendez MD
--- NOTE | 2019-05-02 16:39 | Diag Imaging Result Doc PS360 ---
EXAM: CHEST-PORTABLE 05/02/2019 HISTORY: chest tube removal TECHNIQUE: AP portable upright at 1629 COMMENT: There is bilateral pleural fluid with some pleural thickening or loculation on the left. The fluid collection on the right is apparently larger than on 05/01/2018. The chest tube on the left has been removed. There is some patchy alveolar opacity over the lower left lung field which is more apparent on the current study but this may have been partially obscured by the chest tube on the previous study. There is some bronchial thickening particularly noticeable in the right upper lobe. IMPRESSION: No evidence of pneumothorax. Bilateral pleural fluid collections. Pulmonary edema and/or pneumonia. Electronically signed by Ignacio Archibald 05/02/2019 4:36 PM
[2019-05-02] MEDS: PHENERGAN PO PRN (20:54)
[2019-05-03] MEDS: ZOFRAN IV PRN ×5 (02:28→20:16)
[2019-05-03] MEDS: MORPHINE IV PRN ×5 (02:28→20:16)
[2019-05-03] MEDS: XOPENEX NEB INH SCH ×6 (05:53→23:00)
[2019-05-03 07:01] LABS: HEMATOCRIT 32.9 % (37.0-47.0); HEMOGLOBIN 10.3 g/dL (12.0-16.0); RBC 3.43 XMIL (4.2-5.4); WBC 5.77 X1000 (4.8-10.8)
[2019-05-03 07:02] LABS: BASO# 0.04 X1000 (0.0-0.2); BASO% 0.7 % (0.0-0.8); EOS# 0.12 X1000 (0.0-0.7); EOS% 2.1 % (0.0-10.0); IMM GRAN# 0.13 X1000 (0.0-0.04); IMM GRAN% 2.3 % (0.0-0.5); LYMPH# 0.52 X1000 (1.2-3.4); MCHC 31.3 g/dL (33-37); MCV 95.9 FL (81-99); MONO# 0.49 X1000 (0.11-0.59); MONO% 8.5 % (1.7-9.3); MPV 9.8 FL (7.4-10.4); NEUT# 4.47 X1000 (1.4-6.5); NEUT% 77.4 % (42.2-75.2); PLT 218 X1000 (130-400)
--- NOTE | 2019-05-03 07:05 | Diag Imaging Result Doc PS360 ---
EXAM: CHEST-PORTABLE 05/03/2019 HISTORY: dyspnea TECHNIQUE: AP portable at 0553 COMMENT: There is blunting of the costophrenic angles bilaterally which may be slightly improved since the previous study of 05/02/2019. The inspiration is less optimal and there is more opacification of the right lower lobe. There is apical pleural thickening bilaterally more so on the right than the left. There is generally increased interstitial markings. The opacification in the midlung zone on the previous study on the left side is slightly less evident on today's study. IMPRESSION: Worsened pneumonia right lower lobe. Pulmonary edema and pleural effusions. Improved lingular atelectasis versus pneumonia. Electronically signed by Ignacio Archibald 05/03/2019 7:02 AM
[2019-05-03 07:22] LABS: AGAP 8; BUN 8 mg/dL (8-22); CALCIUM 8.6 mg/dL (8.8-10.2); CHLORIDE 96 mmol/L (98-107); COSMO 268; CREATININE 0.5 mg/dL (0.5-0.9); ESTIMATED GFR > 60; GLUCOSE 96 mg/dL (70-104); POTASSIUM 3.9 mmol/L (3.5-5.1); SODIUM 135 mmol/L (136-145); TCO2 31 mmol/L (25-35)
[2019-05-03] MEDS: FOLIC ACID PO SCH (08:16)
[2019-05-03] MEDS: PROTONIX PO SCH (08:16)
--- NOTE | 2019-05-03 12:58 | PROGRESS NOTE ---
DATE: 05/03/2019 SUBJECTIVE: Patient is resting comfortably in bed. She had a thoracentesis done on the right side 2 days ago, and 1.3 L of fluid has been removed. Chest tube has been removed yesterday on the left side. Today the x-ray showed worsened right lower lobe pneumonia, pulmonary edema, and pleural effusions, improved lingular atelectasis versus pneumonia. Surgery department following this patient closely. She seems to be stable, but I will wait for Surgery department to recommend discharge. OBJECTIVE: Vital Signs: Temperature 98 degrees, pulse 102, respiratory rate 14, blood pressure 134/80, oxygen saturation 100% on 2 L of nasal cannula. HEENT: Head normocephalic, no trauma. PERRLA. Neck: Supple. No JVD. No masses. Central trachea. Chest: Decreased breath sounds mostly at the bases with some crepitus bilaterally, mostly on the left side. Chest tube has been removed. The wound is covered and is draining some serous discharge. No signs of bleeding at this moment. Abdomen: Soft. Nontender. Nondistended. Extremities: No edema, no clubbing, no cyanosis. Neurological: The patient is alert and oriented x3. No focal deficits. DIAGNOSTIC STUDIES: WBC 5.7, hemoglobin 10.3, hematocrit 32.9, platelets 218,000. Sodium 135, potassium 3.9, chloride 96, bicarbonate 31, BUN 8, creatinine 0.5, glucose 96, calcium 8.6. ASSESSMENT AND PLAN: 1. 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 X-ray today showed worsened pneumonia on the right lower lobe, pulmonary edema, and pleural effusion, improved lingular atelectasis versus pneumonia. We will continue to monitor. We need to make sure that this patient will do fine during this hospitalization, and we need to keep her in the hospital to see if she reaccumulates. At this moment this patient is stable. 2. Pericardial effusion/tamponade, resolved. 3. Clostridium difficile colitis. This patient already has been treated for the diarrhea. 4. Bilateral upper extremity deep vein thromboses. I will put her on blood thinners again. 5. Yeast infection. Patient is status post fluconazole. 6. Hyponatremia, resolved. 7. Nausea and vomiting, controlled. 8. Leukocytosis due to granulocyte-colony stimulating factor administrated by Oncology. White blood cell count is normal today, but trending down. cc: Amado Dunbar MD
[2019-05-03] MEDS: LOVENOX SUBQ SCH (14:47)
--- NOTE | 2019-05-03 20:48 | PULMONOLOGY PROGRESS NOTE ---
DATE: 05/03/2019 SUBJECTIVE: The patient is awake, alert, and conversant. She has had a thoracentesis in the right hemithorax and the chest tube has been removed in the left. She has been ambulating and mobile. She took a shower earlier today. She denies dyspnea. OBJECTIVE: Vital Signs: The patient has been afebrile for the last 24 hours. Blood pressure 134/80, heart rate 96, respiratory rate 18, oxygen saturation 100% on 2 L per nasal cannula. HEENT: Pupils are equal and reactive. Oropharynx appears clear. Neck: Is supple. Chest: Reveals decreased breath sounds right base. Cardiac exam: S1-S2. Abdomen: Is soft. Extremities: Are without edema. LABORATORIES: Chest x-ray reveals slight increased fluid at the right base. Left chest remains relatively clear. White blood count 5.77, hemoglobin 10 3, platelet count 218,000. Sodium 135, potassium 3.9, chloride 96, bicarbonate 31, BUN 8, creatinine 0.5. IMPRESSION: A 43-year-old with: 1. Stage IV lung cancer. 2. Pericardial tamponade status post pericardial window placement. 3. Chylothorax status post chest tube placement in the left hemithorax. Chest tube has remained removed for approximately 24 hours without significant reaccumulation. 4. Right-sided pleural effusion with slight reaccumulation. 5. Clostridium difficile colitis, status post course of treatment. 6. Hypoxemic respiratory failure. DISCUSSION: A 43-year-old with problems outlined above. She clinically is doing well. She has had a thoracentesis on the right along with prolonged drainage on the left without evidence of reaccumulation. PLAN: 1. Consider discharge home. The patient can be re-evaluated for a PleurX catheter or recurrent thoracentesis if she develops increased symptoms. 2. Overall prognosis remains poor given stage of disease. 3. I will be out of town for the next week. cc: Keo Baird MD
[2019-05-04] MEDS: MORPHINE IV PRN ×3 (00:51→09:04)
[2019-05-04] MEDS: ZOFRAN IV PRN ×3 (00:51→09:04)
[2019-05-04] MEDS: LOVENOX SUBQ SCH (00:52)
[2019-05-04] MEDS: XOPENEX NEB INH SCH ×3 (03:08→11:27)
--- NOTE | 2019-05-04 06:40 | Diag Imaging Result Doc PS360 ---
EXAM: CHEST-PORTABLE HISTORY: dyspnea TECHNIQUE: Chest single view COMPARISON: 05/03/2019 FINDINGS: Poor inspiratory effort. There are small bilateral pleural effusions with basilar atelectasis. There may be underlying infiltrates as well. No cardiomegaly. No change in the right-sided portacatheter. There is right apical pleural thickening. IMPRESSION: No significant interval change. Electronically signed by Jaswinder Bryant 05/04/2019 6:37 AM
[2019-05-04 06:56] LABS: BASO# 0.04 X1000 (0.0-0.2); EOS# 0.07 X1000 (0.0-0.7); EOS% 1.8 % (0.0-10.0); HEMATOCRIT 30.7 % (37.0-47.0); HEMOGLOBIN 9.6 g/dL (12.0-16.0); IMM GRAN# 0.03 X1000 (0.0-0.04); IMM GRAN% 0.8 % (0.0-0.5); LYMPH# 0.42 X1000 (1.2-3.4); LYMPH% 10.8 % (20.5-51.1); MCHC 31.3 g/dL (33-37); MCV 95.9 FL (81-99); MONO# 0.38 X1000 (0.11-0.59); MONO% 9.8 % (1.7-9.3); MPV 10.4 FL (7.4-10.4); NEUT# 2.95 X1000 (1.4-6.5); NEUT% 75.8 % (42.2-75.2); PLT 234 X1000 (130-400); RDW 16.8 % (11.5-14.5); WBC 3.89 X1000 (4.8-10.8)
[2019-05-04 07:24] LABS: AGAP 7; BUN 7 mg/dL (8-22); CALCIUM 8.4 mg/dL (8.8-10.2); CHLORIDE 99 mmol/L (98-107); COSMO 273; CREATININE 0.4 mg/dL (0.5-0.9); ESTIMATED GFR > 60; GLUCOSE 112 mg/dL (70-104); POTASSIUM 4.2 mmol/L (3.5-5.1); SODIUM 137 mmol/L (136-145); TCO2 31 mmol/L (25-35)
[2019-05-04] MEDS: PROTONIX PO SCH (08:59)
[2019-05-04] MEDS: FOLIC ACID PO SCH (08:59)
[2019-05-04 11:28] VITALS: BP 121/77
--- NOTE | 2019-05-05 03:27 | DISCHARGE SUMMARY ---
ADMISSION DATE: 04/06/2019 DISCHARGE DATE: 05/04/2019 DIAGNOSES: 1. Acute hypoxemic respiratory failure. 2. Large pericardial effusion. 3. Bilateral pleural effusions. 4. Metastatic adenocarcinoma to the lungs. DISCHARGE DIAGNOSES: 1. 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 Status post left-sided chest tube with removal 05/02/2019 and stable chest x-ray status post removal. 2. Pericardial effusion and tamponade, status post open pericardial window with biopsy of pericardium with left chest tube placement. 3. Clostridium difficile colitis, status post treatment. 4. Bilateral upper extremity deep venous thrombosis, on Eliquis. 5. Yeast infection, status post fluconazole. 6. Hyponatremia, resolved. 7. Leukocytosis due to granulocyte colony-stimulating factor administrated by Oncology. White count is 3.89 today. MICROBIOLOGY: 1. Urine culture revealed yeast. 2. Blood cultures from 04/20/2019 with no growth after 5 days. 3. C. difficile antigen positive. 4. C difficile toxin positive. 5. Pleural fluid revealed no anaerobes isolated with culture revealing no growth. Gram stain revealing 1+ white blood cells, no epithelial cells seen, no bacteria seen, no yeast seen. 6. Sputum culture revealed normal zenia. DIAGNOSTICS: 1. 04/06/2019, chest x-ray revealed worsened pleural effusions with atelectasis in the bases on the left. 2. 04/06/2019, echocardiogram revealed an ejection fraction of at least 70% with no regional wall motion abnormalities. A large circumferential pericardial effusion demonstrated, there appeared some late diastolic RV free wall buckling or collapse with markedly dilated inferior vena cava suggestive of impending tamponade. Large left pleural effusion. 3. 04/06/2019, chest x-ray revealed bilateral pleural effusions, bilateral atelectasis and/or pneumonia. 4. 04/07/2019, chest x-ray revealed improved right pleural effusion and left basilar opacity with a left-sided chest tube in place. 5. 04/08/2019, chest x-ray revealed improving atelectasis or pneumonia of the left lower lobe with worsening pleural effusion. 6. 04/09/2019, chest x-ray revealed mild interval improvement of infiltrates in the right lung. 7. Chest x-ray 04/10/2019 at about 1:30 a.m. revealed a moderate left pneumothorax about 33%. 8. 04/10/2019, chest x-ray 6 a.m. revealed significant improvement in the pneumothorax with double chest tubes in place. 9. 04/12/2019, chest x-ray revealed increasing right pleural effusion. 10. 04/16/2019, chest x-ray revealed no change in left-sided chest tube, no pneumothorax, infiltrates in the lungs and the right hemidiaphragm is elevated. 11. 04/20/2019, chest x-ray revealed improvement in the right basilar pleural effusion as well as decrease in right-sided ill-defined infiltrates and pulmonary edema. 12. 04/27/2019, chest x-ray revealed loculated right pleural fluid collection with atelectasis versus pneumonia in the right lung, particularly in the left in the lower and middle lobes. 13. 04/28/2019, chest CT revealed interval development of large right pleural effusion with right basilar atelectasis. Interval placement of left chest tube and developed of a smaller effusion with a small amount of patchy pleural gas. Patchy infiltrate in the right lung is probably related to edema. 14. 05/01/2019, chest x-ray reveals successful drainage of right pleural effusion with no complication. 15. 05/03/2019, chest x-ray reveals worsened pneumonia in the right lower lobe, pulmonary edema and pleural effusions, improved lingular atelectasis versus pneumonia. 16. 05/04/2019, chest x-ray reveals small bilateral pleural effusions with basilar atelectasis. There may be underlying infiltrates as well. No cardiomegaly. PROCEDURES: 1. 04/06/2019, open pericardial window with biopsy of the pericardium and left chest tube placement. 2. Extremity venous study. Bilateral upper extremities reveal both deep and superficial venous thrombus seen in the bilateral upper extremities and neck. 3. 04/12/2019, thoracentesis on the right revealed 1.3 L drained without difficulty. 4. 05/01/2019, thoracentesis. 5. 05/01/2019, thoracentesis of the right with 1.3 L successfully drained. HOSPITAL COURSE: Ms Youngblood presented to the emergency room complaining of dyspnea. She was found to have bilateral pleural effusions and tamponade. She ultimately underwent open pericardial window and placement of a chest tube on the left hand and ultrasound-guided thoracentesis on the right on 04/12/2019 as well as 05/01/2019, each removing approximately 1.3 L from the right lung. She did tolerate well. Left chest tube has been discontinued. Chest x-rays have remained stable. On the , she had small bilateral pleural effusions with basilar atelectasis. She is breathing much better. She denies any dyspnea on exertion. She has been able to get up, take showers, walk around the room and do her activities of daily living with no shortness of breath of which she is very proud. She has a history of stage 4 lung cancer to which she is being followed by Dr. Lanier. She did have Clostridium difficile colitis for which she was treated. She has had no further diarrhea stools. She was found have yeast in her urine and she is status post fluconazole for this. We did follow electrolytes throughout the hospitalization and treat as was appropriate. She was found to have bilateral upper extremity DVTs for which she is on Eliquis. She has been followed by Dr. Lanier as well as Dr. Loc Melendez in surgery. They did discuss the patient today and they agree that the patient can be discharged today and that she will follow up with Dr. Laneir next Tuesday. Dr. Lanier's office will call and schedule this appointment for her. DISCHARGE VITAL SIGNS: Blood pressure is 130/87 with a heart rate of 100, respirations are 17, temperature is 97.3 degrees with O2 saturations of 100% on 2 L nasal cannula. DISCHARGE PHYSICAL EXAMINATION: Cardiovascular: Regular rate and rhythm. S1 and S2 appreciated. She has no lower extremity edema. Peripheral pulses are palpable x4 extremities. Pulmonary: Breath sounds are decreased throughout. Chest rises and falls symmetrically with respiration. Chest wall is nontender to palpation. Gastrointestinal: Abdomen is soft, nontender, nondistended with bowel sounds in all 4 quadrants. Neurologic: She is alert and oriented x3. DISCHARGE MEDICATIONS: 1. Phenergan 25 mg p.o. q.6 hours p.r.n. 2. Protonix 40 mg p.o. daily. 3. Oxy IR 5 mg p.o. q.6 hours p.r.n. pain. She is given a prescription for #15 with no refills. 4. Levaquin 750 mg daily. 5. Folic acid 1 mg p.o. daily. 6. Eliquis 5 mg p.o. b.i.d. 7. Xanax 0.5 mg p.o. t.i.d. She is given a prescription for #20 with no refills. FOLLOW-UP: 1. Dr. Sridhar Lanier May 07 at [address] Loc Melendez. His office will call to schedule an appointment. 3. Dr. Joshua Perez. Patient will schedule an appointment in the next 2 to [address] Baird. She is to schedule an appointment to be seen in the next 2 to [address] Ángel Krishnan, her primary care provider. She is to call and update him on what happened and schedule an appointment per his recommendation. 6. She will be followed by [facility] with their 1st appointment being May 07. 7. She is being discharged home in stable condition with family members. 8. This is a greater than 30 minute discharge. 9. She has been instructed to call to be seen sooner or return to the ER for any syncope, dizziness, chest pain, palpitations, recurring shortness of breath, PND, orthopnea, any hemoptysis, any shortness of breath, temperature greater than 101, any nausea, vomiting, diarrhea, constipation, black or bloody vomitus or stools, any new bruising, bleeding gums, any hematuria, or for any questions or concerns that she may have. Dictated by TYRONE Oliveros for Amado Dunbar MD cc: TYRONE Oliveros MD Edwin K. Matthews, MD
== END 2019-05-04 14:05 | disposition home health service (06) | DRG 163 ==
LOC: ED 12:25 → EDIPHOLD 12:26 → SUATTDRO 12:26 → ICU 16:44 → 3N 04-09 15:22 → ICU 04-10 02:13 → 3N 04-13 19:38
PROVIDERS: ATTEND Internal Medicine
CPT/HCPCS: 32421; 32555; 71010; 71020; 71045; 71046; 71250; 80048; 80053; 80061; 81001; 82550; 82570; 82805; 83605; 83721; 83735; 84100; 84300; 84478; 84484; 85025; 85610; 85730; 87040; 87070; 87075; 87088; 87177; 87205; 87324; 87449; 88305; 88313; 93005; 93308; 93970; 94002; 94003; 94640; 94761; 96365; 99285; 99291; A9270; J0185; J0692; J1100; J1446; J1447; J1644; J1650; J1940; J2250; J2270; J2405; J2469; J2780; J3420; J7030; J7042; J7050; J9045; J9271; J9305; P9047

== ENCOUNTER 2019-11-15 13:44 | Inpatient (IN) ==
[2019-11-15] MEDS ORDERED: NS 1,000 ML IV ONE (14:17)
[2019-11-15] MEDS ORDERED: NS 500 ML IV ONE ×2 (14:17→15:57)
[2019-11-15] MEDS ORDERED: ZOSYN 3.375 GM in NS 50 ML IV ONE (14:17)
[2019-11-15] MEDS ORDERED: DUONEB (A & A) INH ONE (14:18)
[2019-11-15] MEDS ORDERED: VANCOMYCIN IV PER PHARMACY MISC SCH (14:30)
[2019-11-15 14:42] LABS: URINE SOURCE CLEAN CATCH
[2019-11-15 14:49] LABS: BILIRUBIN URINE NEGATIVE (NEGATIVE); BLOOD URINE TRACE (NEGATIVE); COLOR YELLOW; GLUCOSE URINE TRACE mg/dL (NEGATIVE); KETONE URINE TRACE mg/dL (NEGATIVE); LEUKOCYTES URINE LARGE (NEGATIVE); NITRITE URINE NEGATIVE (NEGATIVE); PROTEIN URINE 70 mg/dL (NEGATIVE); SP GRAVITY URINE 1.026; TURBIDITY URINE HAZY (CLEAR); UROBILINOGEN URINE NORMAL (NORMAL)
[2019-11-15 15:00] LABS: UR EPITHELIAL CELLS <10 /HPF (<10); URINE BACTERIA NEGATIVE /HPF; URINE WBC TNTC /HPF (<10)
[2019-11-15 15:13] LABS: ALLEN TEST YES; BE 8.2 mmoll (-3.0-3.0); BLOOD TYPE ARTERIAL; HCO3-(ACT) 31.1 mmoll (20.0-26.0); O2(CT) 19.4 mL/dL (15.0-23.0); O2HB 90.7 % (95.0-99.0); PCO2(98.6) 50 mmHg (35-45); PO2(98.6) 63 mmHg (60-100); SAMPLE BLOOD; SAO2 94.1 % (95.0-100.0); THB 15.2 g/dL (11.5-17.4); pH(98.6) 7.44 (7.35-7.45)
[2019-11-15 15:14] LABS: MODALITY CANNULA
--- NOTE | 2019-11-15 15:34 | Diag Imaging Result Doc PS360 ---
EXAM: CHEST-1 VIEW HISTORY: sepsis criteria/SOB TECHNIQUE: Single view COMPARISON: 05/28/2019 FINDINGS: There is a small left pleural effusion with a moderate-sized right pleural effusion. These are similar to the prior exam. Development of bilateral infiltrates/pulmonary edema since the prior exam. No cardiomegaly. No change in the right subclavian portacatheter. IMPRESSION: Pulmonary edema versus pneumonia Electronically signed by Jaswinder Bryant 11/15/2019 3:32 PM
[2019-11-15 15:46] LABS: BASO# 0.08 X1000 (0.0-0.2); BASO% 0.2 % (0.0-0.8); EOS# 0.04 X1000 (0.0-0.7); EOS% 0.1 % (0.0-10.0); IMM GRAN# 0.32 X1000 (0.0-0.04); IMM GRAN% 0.9 % (0.0-0.5); LYMPH# 0.47 X1000 (1.2-3.4); LYMPH% 1.3 % (20.5-51.1); MCH 35.1 PG (27-31); MCHC 30.9 g/dL (33-37); MCV 113.4 FL (81-99); MONO# 0.81 X1000 (0.11-0.59); MONO% 2.3 % (1.7-9.3); MPV 9.9 FL (7.4-10.4); NEUT# 33.88 X1000 (1.4-6.5); NEUT% 95.2 % (42.2-75.2); PLT 195 X1000 (130-400); RDW 22.6 % (11.5-14.5)
[2019-11-15 15:47] LABS: HEMOGLOBIN 3.4 g/dL (12.0-16.0)
[2019-11-15 15:49] LABS: INR 2.2
[2019-11-15 15:50] LABS: PTT 46.3 Seconds (22.3-41.8)
[2019-11-15 15:55] LABS: AGAP 15; ALB/GLOB RATIO 1.4; ALBUMIN 3.1 g/dL (3.5-5.0); ALKALINE PHOSPHATASE 138 U/L (32-104); BUN 10 mg/dL (8-22); CALCIUM 8.2 mg/dL (8.8-10.2); CHLORIDE 91 mmol/L (98-107); CK PROFILE 35 U/L (24-173); COSMO 275; CREATININE 0.5 mg/dL (0.5-0.9); ESTIMATED GFR > 60; GLUCOSE 135 mg/dL (70-104); GOT 11 U/L (10-30); GPT 5 U/L (10-36); POTASSIUM 3.3 mmol/L (3.5-5.1); SODIUM 137 mmol/L (136-145); TCO2 31 mmol/L (25-35); TOTAL BILIRUBIN 0.36 mg/dL (0.20-1.00); TOTAL PROTEIN 5.3 g/dL (6.3-8.3)
[2019-11-15] MEDS ORDERED: TYLENOL PO ONE (15:57)
[2019-11-15] MEDS ORDERED: BENADRYL PO ONE (15:57)
[2019-11-15] MEDS ORDERED: LASIX IV SCH ×2 (16:00→22:00)
[2019-11-15] MEDS ORDERED: VANCOMYCIN 1,300 MG in NS 250 ML IV ONE (16:00)
[2019-11-15 16:05] LABS: ANISOCYTOSIS 3+; BANDS 2 % (0-1); LYMPHS 2 % (21-51); SEGS 96 % (42-75)
[2019-11-15 16:06] LABS: BURR CELLS 2+
--- NOTE | 2019-11-15 16:10 | EKG Report ---
Test Performed on : 11/15/2019 2:13:26 PM Test Reason : ED. No order in [place] Blood Pressure : / mmHG Vent. Rate : 131 BPM Atrial Rate : 131 BPM P-R Int : 120 ms QRS Dur : 076 ms QT Int : 380 ms P-R-T Axes : 022 067 051 degrees QTc Int : 561 ms Sinus tachycardia. Nonspecific T wave abnormality Abnormal ECG When compared with ECG of 06-APR-2019 13:33, Non-specific change in ST segment in Lateral leads Nonspecific T wave abnormality, worse in Inferior leads Nonspecific T wave abnormality, worse in Anterolateral leads Unconfirmed Result
[2019-11-15 16:15] LABS: RBC < 2.00 XMIL (4.2-5.4)
--- NOTE | 2019-11-15 16:21 | PROVIDER DOCUMENTATION ---
This chart was entered by Mary Haywood Scribe, acting as scribe for Ash Frank MD. HPI-Respiratory General - General Chief Complaint: Shortness of Breath Stated Complaint: SOB,LUNG CANCER Time Seen by Provider: 11/15/19 14:10 Source: patient Allergies/Adverse Reactions: Patient Allergies Allergy/AdvReac Type Severity Reaction Status Date / Time No Known Allergies Allergy Verified 02/27/19 19:37 Home Medications: Home Medication List Medication Instructions Recorded Confirmed Last Taken Type Acetaminophen [Tylenol] 650 mg PO Q6H PRN PRN #20 tab 03/13/19 10/06/19 10/06/19 09:57 Rx Alprazolam [Xanax] 0.5 mg PO TID PRN #20 tab 05/04/19 10/06/19 10/06/19 Rx Apixaban [Eliquis] 5 mg PO BID #60 tab 05/04/19 10/06/19 10/06/19 Rx Folic Acid 1 mg PO DAILY #90 tab 05/04/19 10/06/19 10/06/19 Rx Oxycodone I.r. [Oxy Ir] 5 mg PO Q6H PRN PRN #15 tab 05/04/19 10/06/19 10/06/19 Rx Pantoprazole [Protonix] 40 mg PO DAILY #60 tab 05/04/19 10/06/19 10/06/19 Rx Promethazine [Phenergan] 25 mg PO Q6H PRN PRN #20 tab 05/04/19 10/06/19 10/06/19 Rx - History of Present Illness-Resp Nature of Presenting Problem: Patient is a 44 year old female who presents with shortness of breath. States back pain with shortness of breath. Reports history of stage 4 lung cancer which is followed by Dr. Lanier. States last chemo was November 05. Denies fever. States she is on 2 L of O2 at home. Quality of Pain: reports: aching Severity in ED: reports: moderate Onset/Duration: reports: gradual Timing: reports: still present, getting worse Associated Symptoms: reports: shortness of breath, other (back pain) Similar Symptoms Previously?: Yes Review of Systems - Adult - REVIEW OF SYSTEMS - ADULT Constitutional: reports: no symptoms reported Eyes: reports: no symptoms reported Ears, Nose, Mouth & Throat: reports: no symptoms reported Cardiovascular: reports: no symptoms reported Respiratory: reports: see HPI, shortness of breath. denies: cough, wheezing Gastrointestinal: reports: no symptoms reported Genitourinary: reports: no symptoms reported Musculoskeletal: reports: see HPI, back pain. denies: muscle weakness, neck pain Integumentary: reports: no symptoms reported Neurological: reports: no symptoms reported Psychiatric: reports: no symptoms reported Endocrine: reports: no symptoms reported Hematologic/Lymphatic: reports: no symptoms reported Allergic/Immunologic: reports: no symptoms reported All Other Systems: Reviewed and Negative Past History - Adult - PAST MEDICAL HISTORY-ADULT Review of Records: reports: Old Records Reviewed, Nursing Assessment Review, Medications Reviewed, Social history reviewed & non-contributory. Major Childhood Illnesses: reports: denies history Cardiovascular: reports: denies history Respiratory: reports: cancer (stage 4) Gastrointestinal: reports: denies history Obstetrical/Gynecological: reports: other (cervical cancer) Genitourinary: reports: kidney stones Musculoskeletal: reports: denies history Neurological: reports: denies history Psychiatric: reports: denies history Endocrine/Immune: reports: denies history Other Conditions: reports: denies history - PRIOR SURGERIES/PROCEDURES Surgical/Procedure History: reports: reviewed, not pertinent, hysterectomy, other (lithrotripsy; renal stents) - IMMUNIZATION STATUS Childhood Immunizations: See Nurse Assessment Flu Vaccine: See Nurse Assessment - FAMILY HISTORY Family History: reviewed, not pertinent - SOCIAL HISTORY Smoking: denies Substance Use: denies Living Situation: family Physical Exam-General - PHYSICAL EXAM-ADULT Initial Vital Signs Reviewed: Yes - CONSTITUTIONAL General Appearance: alert, mild distress, cachetic. negative: lethargic - HEAD, EARS, NOSE, MOUTH & THROAT HENMT: normocephalic/atraumatic, moist mucous membranes. negative: angioedema - RESPIRATORY Respiratory: chest non-tender, decreased breath sounds, increased rate, other (port to right side chest). negative: rhonchi - CARDIOVASCULAR Cardiovascular: no gallop, tachycardia. negative: systolic murmur - GASTROINTESTINAL (ABDOMEN) Abdominal Exam: normal bowel sounds, non tender, soft. negative: rigid - MUSCULOSKELETAL Extremity: non-tender, normal inspection. negative: pedal edema - SKIN Integumentary: normal color, normal turgor, warm/dry. negative: cyanosis - NEUROLOGIC Neurologic: grossly normal. negative: aphasia, facial droop - PSYCHIATRIC Psych/Mental Status: normal mood/affect, oriented x 3. negative: anxious Progress - PLAN OF CARE/RESULTS Progress/Plan/Lab Results: Vital Signs - 8 hr 11/15/19 13:54 11/15/19 14:09 11/15/19 14:54 Temperature 98.8 F Pulse Rate 134 H 133 H 84 Respiratory Rate 28 H 32 H 22 Blood Pressure 97/64 121/78 O2 Sat by Pulse Oximetry 83 L 87 L 94 L Laboratory Results - last 24 hr 11/15/19 11/15/19 11/15/19 14:38 14:45 15:09 WBC 35.60 H RBC < 2.00 L Hgb 3.4 L* Hct 11.0 L MCV 113.4 H MCH 35.1 H MCHC 30.9 L RDW Std Deviation 22.6 H Plt Count 195 MPV 9.9 Immature Gran % (Auto) 0.9 H Neut % (Auto) 95.2 H Lymph % (Auto) 1.3 L [place] % (Auto) 2.3 Eos % (Auto) 0.1 Baso % (Auto) 0.2 Immature Gran # (Auto) 0.32 H Neut # (Auto) 33.88 H Lymph # (Auto) 0.47 L [place] # (Auto) 0.81 H Eos # (Auto) 0.04 Baso # (Auto) 0.08 Segmented Neutrophils 96 H Band Neutrophils 2 H Lymphocytes 2 L Anisocytosis 3+ Macrocytosis 2+ Dixon Cells 2+ PT INR PTT (Actin FS) Specimen Type ARTERIAL Sample Site R RADIAL pH 7.44 pCO2 50 H pO2 63 HCO3 31.1 H Base Excess 8.2 H Oxyhemoglobin 90.7 L ABG O2 Sat (Calculated) 19.4 ABG O2 Saturation 94.1 L ABG Carboxyhemoglobin 2.60 H ABG Methemoglobin 1.0 Oneil Test YES A-a O2 Difference 131.0 Total Hemoglobin 15.2 Lactate 1.40 Liter Flow 4.0 Blood Gas Modality CANNULA FiO2 % 36.0 Sodium Potassium Chloride Carbon Dioxide Anion Gap BUN Creatinine Estimated GFR/1.73 m2 BUN/Creatinine Ratio Glucose Calculated Osmolality Calcium Total Bilirubin AST ALT Alkaline Phosphatase Creatine Kinase Troponin T Total Protein Albumin Globulin Albumin/Globulin Ratio Plasma Lactate Urine Source CLEAN CATCH Urine Color YELLOW Urine Turbidity HAZY Urine pH 6.0 Ur Specific [place] 1.026 Urine Protein 70 A Ur Glucose (Stick) TRACE Ur Ketones (Stick) TRACE A Urine Blood TRACE A Urine Nitrite NEGATIVE Urine Bilirubin NEGATIVE Urobilinogen Dipstick NORMAL Urine Leukocytes LARGE A Urine WBC (Auto) TNTC A Urine RBC (Auto) 10-20 A U Epithel Cells (Auto) <10 Urine Bacteria (Auto) NEGATIVE Urine Crystals Not Reportable Small Round Cells Not Reportable Urine Casts Not Reportable Urine Yeast-like Cells Not Reportable 11/15/19 11/15/19 11/15/19 15:09 15:09 15:09 WBC RBC Hgb Hct MCV MCH MCHC RDW Std Deviation Plt Count MPV Immature Gran % (Auto) Neut % (Auto) Lymph % (Auto) [place] % (Auto) Eos % (Auto) Baso % (Auto) Immature Gran # (Auto) Neut # (Auto) Lymph # (Auto) [place] # (Auto) Eos # (Auto) Baso # (Auto) Segmented Neutrophils Band Neutrophils Lymphocytes Anisocytosis Macrocytosis Dixon Cells PT 25.0 H INR 2.20 PTT (Actin FS) 46.3 H Specimen Type Sample Site pH pCO2 pO2 HCO3 Base Excess Oxyhemoglobin ABG O2 Sat (Calculated) ABG O2 Saturation ABG Carboxyhemoglobin ABG Methemoglobin Oneil Test A-a O2 Difference Total Hemoglobin Lactate Liter Flow Blood Gas Modality FiO2 % Sodium 137 Potassium 3.3 L Chloride 91 L Carbon Dioxide 31 Anion Gap 15 BUN 10 Creatinine 0.5 Estimated GFR/1.73 m2 > 60 BUN/Creatinine Ratio 20 Glucose 135 H Calculated Osmolality 275 Calcium 8.2 L Total Bilirubin 0.36 AST 11 ALT 5 L Alkaline Phosphatase 138 H Creatine Kinase 35 Troponin T Total Protein 5.3 L Albumin 3.1 L Globulin 2.2 Albumin/Globulin Ratio 1.4 Plasma Lactate 1.1 Urine Source Urine Color Urine Turbidity Urine pH Ur Specific [place] Urine Protein Ur Glucose (Stick) Ur Ketones (Stick) Urine Blood Urine Nitrite Urine Bilirubin Urobilinogen Dipstick Urine Leukocytes Urine WBC (Auto) Urine RBC (Auto) U Epithel Cells (Auto) Urine Bacteria (Auto) Urine Crystals Small Round Cells Urine Casts Urine Yeast-like Cells 11/15/19 15:09 WBC RBC Hgb Hct MCV MCH MCHC RDW Std Deviation Plt Count MPV Immature Gran % (Auto) Neut % (Auto) Lymph % (Auto) [place] % (Auto) Eos % (Auto) Baso % (Auto) Immature Gran # (Auto) Neut # (Auto) Lymph # (Auto) [place] # (Auto) Eos # (Auto) Baso # (Auto) Segmented Neutrophils Band Neutrophils Lymphocytes Anisocytosis Macrocytosis Berna Cells PT INR PTT (Actin FS) Specimen Type Sample Site pH pCO2 pO2 HCO3 Base Excess Oxyhemoglobin ABG O2 Sat (Calculated) ABG O2 Saturation ABG Carboxyhemoglobin ABG Methemoglobin Oneil Test A-a O2 Difference Total Hemoglobin Lactate Liter Flow Blood Gas Modality FiO2 % Sodium Potassium Chloride Carbon Dioxide Anion Gap BUN Creatinine Estimated GFR/1.73 m2 BUN/Creatinine Ratio Glucose Calculated Osmolality Calcium Total Bilirubin AST ALT Alkaline Phosphatase Creatine Kinase Troponin T < 0.010 Total Protein Albumin Globulin Albumin/Globulin Ratio Plasma Lactate Urine Source Urine Color Urine Turbidity Urine pH Ur Specific [place] Urine Protein Ur Glucose (Stick) Ur Ketones (Stick) Urine Blood Urine Nitrite Urine Bilirubin Urobilinogen Dipstick Urine Leukocytes Urine WBC (Auto) Urine RBC (Auto) U Epithel Cells (Auto) Urine Bacteria (Auto) Urine Crystals Small Round Cells Urine Casts Urine Yeast-like Cells Orders Category Date Time Status Cardiac Monitoring DIRECTED Care 11/15/19 14:00 Active IV Insertion ORDERED Care 11/15/19 14:00 Active Notify MD of + Sepsis Screen NOW Care 11/15/19 14:00 Active Transfuse .Give-Transfuse Care 11/15/19 15:57 Active CHEST-1 VIEW [RAD] Stat Exams 11/15/19 14:00 Completed ABG [RESP] Routine Lab 11/15/19 14:45 Completed BLOOD CULTURE [BLDCUL] Stat Lab 11/15/19 15:09 Results CBC WITH DIFF [HEME] Stat Lab 11/15/19 15:09 Completed CK PROFILE [SP CHEM] Stat Lab 11/15/19 15:09 Completed COMPREHENSIVE METABOLIC PANEL [CHEM] Stat Lab 11/15/19 15:09 Completed LACTATE, PLASMA [CHEM] Lab 11/15/19 15:09 Completed LACTATE, PLASMA [CHEM] Lab 11/15/19 17:00 Uncollected LACTATE, PLASMA [CHEM] Lab 11/15/19 20:00 Uncollected LRPC (RED CELLS) [BBK] Stat Lab 11/15/19 15:57 Uncollected PROTIME WITH INR [COAG] Stat Lab 11/15/19 15:09 Completed PTT [COAG] Stat Lab 11/15/19 15:09 Completed SPUTUM CULTURE WITH GRAM STAIN [RM] Stat Lab 11/15/19 14:17 Uncollected TROPONIN T Stat Lab 11/15/19 15:09 Completed TYPE & SCREEN [BBK] Stat Lab 11/15/19 15:09 Results URINALYSIS W/POSS RFLX CULT [URINALYSIS] Stat Lab 11/15/19 14:38 Completed URINE CULTURE [RM] Routine Lab 11/15/19 14:38 Received URINE MANUAL MICROSCOPIC [URINALYSIS] Stat Lab 11/15/19 14:38 Completed 0.9% Sodium Chloride Inj [Ns] 1,000 ml Med 11/15/19 14:17 Discontinued IV 999 mls/hr 0.9% Sodium Chloride Inj [Ns] 500 ml Med 11/15/19 14:17 Discontinued IV 999 mls/hr 0.9% Sodium Chloride Inj [Ns] 500 ml Med 11/15/19 15:57 Discontinued IV As Directed mls/hr Acetaminophen [Tylenol] Med 11/15/19 15:57 Discontinued 650 mg PO PREMED ONE Albuterol 2.5MG/Ipratrop 0.5MG [Duoneb (A & A)] Med 11/15/19 14:18 Discontinued 3 ml INH NOW ONE Diphenhydramine [Benadryl] Med 11/15/19 15:57 Discontinued 50 mg PO PREMED ONE Furosemide [Lasix] Med 11/15/19 16:00 Active 40 mg IV AFTER TRANSFUSION Pharmacy Order [Vancomycin IV Per Pharmacy] Med 11/15/19 14:30 Ordered 1 each MISC DIRECTED Piperacillin/Tazobactam [Zosyn] 3.375 gm Med 11/15/19 14:17 Discontinued 0.9% Sodium Chloride Inj [Ns] 50 ml IV NOW Vancomycin 1,300 mg Med 11/15/19 16:00 Active 0.9% Sodium Chloride Inj [Ns] 250 ml IV NOW Aerosol Treatments Routine Oth 11/15/19 14:18 Completed Aerosol Treatments Stat Oth 11/15/19 14:18 Completed Oxygen Device Stat Oth 11/15/19 14:00 Completed EKG [EKG] Stat Ther 11/15/19 14:13 Draft Result Diagrams: 11/15/19 15:09 11/15/19 15:09 - REASSESSMENT Reassessment #1 Time Reassessed: 16:18 Status: improving (GIven IVF bolus, patient is septic with PNE and UTI, but sepsis is not severe, nor is there septic shock. Patient is extremely anemic, 2u of pRBCs are ordered. Awaiting Dr Connolly and hospitalist for admission) - EKG 1 Time of EKG reading by physician:: 14:41 EKG Read and Signed by:: Ash Frank EKG Interpretation (*Must complete 3 of following elements*): Abnormal Rate: 131 Rhythm: sinus tach [place]: normal [place] Interval: normal Comments: low voltage; [id number] - XRAY 1 XRAY Study: Chest Impression: See EMR Report (EXAM: CHEST-1 VIEW HISTORY: sepsis criteria/SOB TECHNIQUE: Single view COMPARISON: 05/28/2019 FINDINGS: There is a small left pleural effusion with a moderate-sized right pleural effusion. These are similar to the prior exam. Development of bilateral infiltrates/pulmonary edema since the prior exam. No cardiomegaly. No change in the right subclavian portacatheter. IMPRESSION: Pulmonary edema versus pneumonia Electronically signed by Jaswinder Bryant 11/15/2019 3:32 PM 11/15/19 1532 Interpreting Physician: Jaswinder Bryant MD Dictated Date/Time: 11/15/19 1531 cc: Ash Frank MD; Ángel Krishnan MD) - CONSULTS/PCP/HOSPITALIST Notification #1 *Consult/PCP/Hospitalist*: Cathleen paged at [phone] #2 Consult: TYRONE Toscano paged at [phone] Time Discussed: 16:28 Reason/Comments: Dr. Frank consulted with Cee about patient. Consult Disposition: Will see in ED, Admit Departure - Departure Date of Disposition Decision: 11/15/19 Time of Disposition Decision: 16:19 DIAGNOSIS: Sepsis due to pneumonia, UTI (urinary tract infection), bacterial, Bilateral pleural effusion, Severe anemia Disposition: ADMITTED INPATIENT 09 Certified Medical Emergency: Emergent Condition: Critical Referrals and Follow-Ups: Ángel Krishnan MD [Primary Care Provider] - - Critical Care Note This patient required my direct & personal management of CC.: Yes Total Time (mins): 45 Critical Care Statement: This patient required my direct personal management to treat or rule out processes, the absence of which, could potentiallly result in sudden, clinically significant life or limb threatening deterioration. Attestation - Physician/ NIMISHA Attestation Patient care was provided by Advanced Practice Provider:: No The physician spent face to face time with patient:: Yes Advanced Practice Provider documentation review:: Supervising physician onsite and consulted in the evaluation and care of this patient. The physician did have a face to face encounter with the patient. This chart was documented by the indicated scribe, (Mary Haywood Scribe) and accurately reflects the services I performed and decisions made by me, Ash Frank MD, as attested by the provider's signature.
[2019-11-15] MEDS ORDERED: LASIX IV ONE (16:51)
[2019-11-15 17:36] LABS: ALLEN TEST NO; BE 9.5 mmoll (-3.0-3.0); BLOOD TYPE ARTERIAL; HCO3-(ACT) 32.3 mmoll (20.0-26.0); METHB 1.1 % (0.0-1.5); MODALITY BI PAP; O2(CT) 12.5 mL/dL (15.0-23.0); O2HB 94.7 % (95.0-99.0); PCO2(98.6) 47 mmHg (35-45); PO2(98.6) 81 mmHg (60-100); SAMPLE BLOOD; SAO2 98.1 % (95.0-100.0); THB 9.3 g/dL (11.5-17.4); pH(98.6) 7.47 (7.35-7.45)
--- NOTE | 2019-11-15 18:41 | HISTORY AND PHYSICAL ---
CHIEF COMPLAINT: Shortness of breath. HISTORY OF PRESENT ILLNESS: This is a 44-year-old female with a history of stage IV non-small- cell lung cancer, followed by [facility], bilateral upper extremity DVT in March of 2019. She presents to the emergency room complaining of progressive shortness of breath as well as back pain, this despite her home O2 at 2 L. She is currently receiving chemo with her last chemotherapy being November 05 and receiving Neulasta approximately a week ago. She reports increasing shortness of breath throughout the night and into the day with shortness of breath on exertion with any movement. She did state that her O2 saturation got down to 72 today prior to coming to the emergency room. On arrival, she was noted to have an O2 saturation of 83% on 2 L nasal cannula and she was tachycardic with heart rates of 134. Chest x-ray revealed a moderate-sized right pleural effusion similar to prior exam with bilateral infiltrates, as well as urine that is consistent with a urinary tract infection. She was given 2 L of IV fluids per sepsis protocol along with vancomycin and Zosyn after blood cultures were obtained. She was found to have a hemoglobin of 3.4 and a hematocrit of 11, with a white count of 35.6. PAST MEDICAL HISTORY: Stage IV [id number] lung cancer, bilateral upper extremity DVT in March of 2019. PAST SURGICAL HISTORY: Open pericardial window March of 2019. SOCIAL HISTORY: She denies any alcohol, tobacco, or illicit drug use. ALLERGIES: No known drug allergies. HOME MEDICATIONS: A list will be obtained by the nursing staff and once verified, will review and restart as appropriate. REVIEW OF SYSTEMS: Discussed with patient with pertinent positives stated in the HPI. She denied any syncope, dizziness, chest pain, palpitations, cough, wheezing, any nausea, vomiting, diarrhea, constipation, any black or bloody vomitus or stools, any hematuria, dysuria, frequency, urgency. PHYSICAL EXAMINATION: GENERAL: This is a 44-year-old female who is lying on the stretcher in the emergency room, in no distress. VITAL SIGNS: Blood pressure is 120/78, with a heart rate of 101, respirations are 20 to 22, temperature is 98.8 degrees, O2 saturations are 94% on 4 L nasal cannula. EYES: Pupils are equal, round, react to light. EOMs are intact. Sclerae anicteric. HENT: Head is normocephalic, atraumatic. Mucous membranes are moist. NECK: Supple with trachea midline. CARDIOVASCULAR: Regular rate and rhythm. She is tachycardic. S1 and S2 appreciated. She has no murmur. PULMONARY: Breath sounds are diminished throughout. Chest rises and falls symmetric with respiration. Chest wall is nontender to palpation. GASTROINTESTINAL: Abdomen is soft, nontender, nondistended. Bowel sounds in all 4 quadrants. SKIN: Warm and dry. LABS: WBC is 35.6, with hemoglobin 3.4, hematocrit 11, and platelets of 195,000. Sodium is 137, potassium 3.3, BUN 10, creatinine 0.5, with a glucose of 135. INR is 2.20. ABGs, pH is 7.4 with pCO2 of 50, PO2 of 63, and bicarb of 31.1. Urinalysis reveals large leukocytes, [id number]- count white blood cells, 10 to 20 red blood cells. Urine culture and blood cultures are pending. Chest x-ray revealed pulmonary edema versus pneumonia. ASSESSMENT AND PLAN: 1. Anemia. Most likely secondary to gastrointestinal bleed as the patient had a hemoglobin of 9.[address] Lanier's office. Will hold any anticoagulation. Draw an anemia panel. We will transfuse 2 units of packed cells and we will trend hemoglobin and hematocrit. Get Hemoccult stool. Will hold Eliquis. GI will be consulted. 2. Presumed hypercoagulable state. Her INR is 2.2 and she is on Eliquis. We will hold this and will monitor. 3. Pneumonia. Blood cultures have been obtained. She has received vancomycin and Zosyn in the emergency room which we will continue. Any further antibiotics will be culture driven. 4. Presumed urinary tract infection. Urine culture is pending. Antibiotics as stated above. 5. Sepsis. She received IV fluids per protocol. We will continue with antibiotics as stated. 6. Hypokalemia. Will replete potassium and trend labs daily. 7. For deep vein thrombosis prophylaxis, of course we will hold off on any anticoagulation. We will use SCDs. 8. History of bilateral upper extremity deep vein thrombosis. We are aware. We are holding Eliquis due to GI bleed. 9. Patient was seen and plan was discussed with Dr. Bolton. Plan was discussed with Dr. Eden Jones, who will be consulted. Further treatments pending hospital course. Dictated by TYRONE Oliveros for Apollo Bolton MD cc: TYRONE Oliveros MD
[2019-11-15] MEDS: MAXIPIME 1 GM in NS 50 ML IV SCH (19:12)
--- NOTE | 2019-11-15 19:37 | HISTORY AND PHYSICAL ---
ADDENDUM: SUBJECTIVE: I have seen and examined Ms. Youngblood today in the emergency room. Her mom was at the bedside at the time of the encounter. Ms. 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 Lanier. This has been communicated with the last admission for a large pericardial effusion which was relieve. Last admission, the patient was discharged in May 2019, was treated for a large pericardial effusion. Acute hypoxemic respiratory failure. Seems to have been doing fairly okay. Had chemotherapy about a week ago. She comes back this time because of remarkable weakness and shortness of breath. She has been found to have hemoglobin level of 3.4. PHYSICAL EXAM: GENERAL: Shows that she looks slightly dry. She looks chronically ill. She is 44-year-old female. She was on the BiPAP. NECK: Supple. There is some swelling in the right supraclavicular fossa and the right upper extremity. Of note, Ms. Youngblood has a history of bilateral DVTs in the upper extremities. CHEST: There is a port on the right anterior chest wall. Air entry is bilaterally reduced, more so to the right lower posterior lung field. There was dullness to percussion over them. CARDIOVASCULAR: Regular rate and rhythm. There is an old subxiphoid scar. ABDOMEN: Soft. There is an old infraumbilical surgical scar. EXTREMITIES: No pedal edema. IMPLANT POLISHER: The patient is awake, alert, and oriented. LABORATORY STUDIES: I have reviewed her lab work. Hemoglobin is 3.4. Rest of other lab work is unremarkable. WBC is up to 36.6. Chemistry is also reviewed. A chest x-ray shows pulmonary edema versus pneumonia. The patient presenting O2 saturation was 83%. ASSESSMENT: 1. Acute hypoxemic respiratory failure. We think this is multifactorial including lung cancer, right pleural effusion, bilateral pulmonary edema and some pneumonia. The patient is currently on BiPAP and she seems to be saturating well. We will continue this for now and monitor. 2. Moderate-sized right pleural effusion noted. I think this will probably be reasonable to tap. We will get a CT scan to better delineate this. 3. Macrocytic anemia with hemoglobin of 3.4. We will group and crossmatch and transfuse Ms. Youngblood. 4. Leukocytosis predominantly neutrophilic, concerning for underlying infection. We will start the patient on broad-spectrum antibiotics, culture her blood, urine and sputum and wait on the cultures. 5. History of metastatic adenocarcinoma of the lung. The patient follows up with Dr. Lanier. Recently treated for large pericardial effusion noted. Please refer to the details of the H P which has been dictated by the CUSTOMER SERVICE ENGINEER in the chart. cc: Apollo Bolton MD
[2019-11-15] MEDS ORDERED: LASIX ONE (21:59)
[2019-11-16] MEDS: MAXIPIME 1 GM in NS 50 ML IV SCH ×3 (02:55→17:16)
[2019-11-16] MEDS: VANCOMYCIN 1 GM/NS 1 GM/250 ML IVPB IV SCH ×2 (05:19→17:15)
[2019-11-16] MEDS: ZOFRAN IV PRN ×2 (05:31→17:19)
[2019-11-16 05:49] LABS: BASO# 0.09 X1000 (0.0-0.2); BASO% 0.5 % (0.0-0.8); EOS% 0.5 % (0.0-10.0); HEMATOCRIT 37.6 % (37.0-47.0); IMM GRAN# 0.15 X1000 (0.0-0.04); IMM GRAN% 0.8 % (0.0-0.5); LYMPH# 0.39 X1000 (1.2-3.4); LYMPH% 2.1 % (20.5-51.1); MCH 32.4 PG (27-31); MCHC 31.9 g/dL (33-37); MCV 101.6 FL (81-99); MONO# 0.99 X1000 (0.11-0.59); MONO% 5.4 % (1.7-9.3); MPV 10.2 FL (7.4-10.4); NEUT# 16.65 X1000 (1.4-6.5); NEUT% 90.7 % (42.2-75.2); PLT 174 X1000 (130-400); RDW 23.9 % (11.5-14.5); WBC 18.37 X1000 (4.8-10.8)
[2019-11-16 06:22] LABS: AGAP 12; ALBUMIN 3.3 g/dL (3.5-5.0); ALKALINE PHOSPHATASE 153 U/L (32-104); BUN 10 mg/dL (8-22); CALCIUM 8.3 mg/dL (8.8-10.2); CHLORIDE 93 mmol/L (98-107); COSMO 286; CREATININE 0.7 mg/dL (0.5-0.9); ESTIMATED GFR > 60; GLUCOSE 159 mg/dL (70-104); GOT 14 U/L (10-30); GPT 5 U/L (10-36); POTASSIUM 2.6 mmol/L (3.5-5.1); SODIUM 142 mmol/L (136-145); TCO2 37 mmol/L (25-35); TOTAL BILIRUBIN 0.85 mg/dL (0.20-1.00); TOTAL PROTEIN 6.5 g/dL (6.3-8.3)
--- NOTE | 2019-11-16 07:04 | Diag Imaging Result Doc PS360 ---
CT ANGIOGRM PULMONARY ARTERIES - 11/15/2019 INDICATION: chest pain TECHNIQUE: Axial CT images were obtained after administering intravenous contrast. Coronal MIP images were generated. COMPARISON: 09/07/2019, 03/09/2019 FINDINGS: There is a right chest port. There is severe stenosis of the SVC, with significant collateral formation of veins all around the mediastinum and right chest wall. There is significant improvement in the diffuse mediastinal lymphadenopathy centered at the right side of the mediastinum. There is no pulmonary embolism. There is diffuse pulmonary edema with smooth intralobular septal thickening. There is a moderate right pleural effusion. Trace left pleural effusion. Airways are all clear. Heart size is top normal. Upper abdominal images are unremarkable. Bones are intact. IMPRESSION: 1. Negative for pulmonary embolism. 2. Congestive heart failure. Moderate to large right pleural effusion. 3. Improvement in the mediastinal lymphadenopathy. 4. 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 This is due to the mediastinal adenopathy. Significant collateral formation at the right chest wall and about the mediastinum. This exam was performed using automated exposure control, adjustment of mA or kV according to patient size, and/or use of iterative reconstruction technique Electronically signed by Chidi Lee 11/16/2019 7:02 AM
[2019-11-16 08:50] LABS: INR 1.6; PROTIME 19.3 Seconds (11.0-16.0)
[2019-11-16] MEDS: NORCO-5 PO PRN ×2 (10:04→17:19)
[2019-11-16] MEDS: POTASSIUM CHLORIDE 20 MEQ/SWI 20 MEQ/100 ML IVPB IV SCH ×2 (13:07→15:05)
--- NOTE | 2019-11-16 13:58 | HEMO/ONC CONSULTATION ---
DATE: 11/16/2019 ADMITTING PHYSICIAN: Dr. Bolton. REQUESTING PHYSICIAN: Dr. Bolton. We appreciate this consult. CHIEF COMPLAINT: Stage IV non-small cell lung cancer. HISTORY OF PRESENT ILLNESS: Ms. Elana Youngblood is a very pleasant 44-year-old female well known to Dr. Lanier with a history of stage IV non-small cell lung cancer. She is status post cycle 3, day 8 of Gemzar and Taxotere on 11/05/2019. The patient has also had chronic superior vena cava syndrome. The patient presented to [facility] Emergency Department the day of admission with complaints of progressive shortness of breath and back pain. The patient does wear oxygen 2 L nasal cannula at home. The patient reports that her oxygen saturation had gone down to 72% prior to coming to the emergency department. On arrival, oxygen saturation was noted to be 83% on 2 L nasal cannula. The patient was tachycardic with a heart rate of 134. Chest x-ray was obtained which revealed a moderate-size right pleural effusion with bilateral infiltrates. Additionally, urinalysis reveals urinary tract infection. The patient was given 2 L normal saline per sepsis protocol along with vancomycin and Zosyn. Blood cultures were obtained which are pending. The patient was found to have a hemoglobin of 3.4 with a white blood cell count of 35.6 in the emergency department. The patient was given 3 units of packed red blood cells. Hemoglobin today is 12.0, which makes hemoglobin of 3.4 yesterday doubtful. The patient reports a recent slight nose bleed related to oxygen use, but denies any overt bleeding. She denies melena or bright red blood per rectum. We are consulted as the patient is well known to us. PAST MEDICAL HISTORY: 1. Stage IV non-small cell lung cancer. 2. Bilateral upper extremity deep venous thrombosis diagnosed in March 2019. PAST SURGICAL HISTORY: Open pericardial window in March 2019. SOCIAL HISTORY: The patient does not use tobacco, alcohol or illicit drugs. FAMILY HISTORY: Negative for any hematologic or oncologic disease. MEDICATIONS ON ADMISSION: 1. Lidocaine/prilocaine topical cream. 2. Citalopram. 3. Anusol HC suppository. 4. Phenergan gel. 5. Folic acid. 6. Xanax. 7. Eliquis. 8. Prednisone. 9. Celexa. 10. Marinol. 11. Zofran. 12. Promethazine. 13. Restoril. 14. Ritalin. 15. Pantoprazole. ALLERGIES: The patient has no known drug allergies. REVIEW OF SYSTEMS: A 14-point review of systems was obtained and is negative except for mentioned in HPI. PHYSICAL EXAMINATION: General: Ms. Youngblood is a 44-year-old female who is cachectic and appears very ill. She is currently dyspneic. She is lying supine in bed in no immediate distress. HEENT: Normocephalic, atraumatic. Mucous membranes pink and somewhat dry. Sclerae anicteric. Extraocular movements intact. Neck: Supple. Lungs: Decreased breath sounds on the right. CV: S1, S2 is heard. The patient is tachycardic. Abdomen: Nondistended, nontender. Bowel sounds positive in all quadrants. No rebound or guarding noted. Extremities: Without clubbing, cyanosis, or edema. Dermatologic: No rashes, bruises or lesions. Neurologic: The patient is awake, alert, oriented x3. She has no focal deficit. LABORATORY DATA: Hemoglobin 12.0, hematocrit 37.6, white blood cell count 18.37, platelets 174,000. Sodium 142, potassium 2.6, chloride 93, CO2 is 37, BUN 10, creatinine 0.7 and glucose is 159. B12 is greater than 2000. IMAGING STUDIES: Pulmonary arteriogram reveals no pulmonary embolism. Congestive heart failure is demonstrated. The patient has a moderate to large right pleural effusion with improved mediastinal lymphadenopathy. The patient has chronic near complete occlusion of superior vena cava with significant collateral circulation. ASSESSMENT/PLAN: 1. Stage IV non-small cell lung cancer status post cycle 3, day 8 of Gemzar and Taxotere on 11/05/2019. The patient received Neulasta on 11/07/2019. 2. Superior vena cava syndrome secondary to #1, stable at this time. Imaging reveals significant collateral circulation. 3. Anemia, which was profound on admission with a hemoglobin of 3.4. The patient received 3 units of packed red blood cells. Gastroenterology was consulted. Hemoglobin is significantly improved today to 12.0, making original hemoglobin doubtful. We will continue to monitor closely. The patient has had no overt bleeding. 4. Pneumonia and urinary tract infection with sepsis. Currently on antibiotics. 5. Bilateral upper extremity deep venous thrombosis. She is currently off of anticoagulation secondary to #3. Would recommend returning the patient to anticoagulation at this time. 6. Hypokalemia. Currently potassium is being repleted. Continue to monitor. 7. We will follow along with you and make further recommendations pending outcome. The above reflects the history, exam, assessment, and plan of Dr. Jones. Dictated by TYRONE Hill for Eden Jones MD cc: TYRONE Hill MD I have seen and examined the patient and the above note reflects my history, physical exam, assessment and plan. Eden Jones MD [facility]
--- NOTE | 2019-11-16 14:09 | PROGRESS NOTE ---
DATE: 11/16/2019 SUBJECTIVE: This morning, Ms. Youngblood refers to be feeling a whole lot better, not as tired as yesterday. Had 2 PRBC transfused yesterday. OBJECTIVELY: Vital Signs: Her current vitals are blood pressure 110/74, pulse of 111, respiration is 18, temperature 99 degrees. The patient is saturating 94% on Venturi mask. General: Ms. Youngblood is a 44-year-old female. She was in bed, no distress. HEENT: Mucosa is pink and moist. Anicteric. Acyanotic. Neck: Supple. There are distended vessels on the upper chest wall as well as around the neck. There is a port on the right anterior chest wall. Respiratory: Good air entry bilaterally. A few crackles in the posterior lung field. Air entry is slightly reduced to the right posterior lung field. Cardiovascular: Regular rate and rhythm. No murmurs, no rubs, no gallops. There is an old subxiphoid scar. Abdomen: Soft, nontender. Bowel sounds present. There is an old infraumbilical surgical scar. Extremities: No pedal edema. INTERMODAL CUSTOMER SERVICE: Patient is awake, alert, oriented. There is no focal deficit. LABORATORY DATA: WBC is down to 18.37, hemoglobin is 12.0, platelet count of 174,000. Chemistry is also reviewed. Potassium is 2.6. Rest of chemistry is unremarkable. IMAGING STUDIES: A CTA of the lungs was done early this morning which was negative for PE. However, there is congestive heart failure with moderate to large right pleural effusion. There is also improvement in the mediastinal lymphadenopathy. 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 This is due to the mediastinal adenopathy. There is significant collateral formation at the right chest wall. ASSESSMENT: 1. Acute on chronic hypoxemic respiratory failure. The patient uses about 2 L of supplemental oxygen at home. She is currently on a Venturi mask at 15 L. 2. Moderate to large size right pleural effusion. The patient is pending a thoracentesis today. 3. Macrocytic anemia. The patient is status post 2 packed red blood cell transfusions. Hemoglobin and hematocrit this morning are 12 0.0 from 3.4. Unsure if the initial hemoglobin level was right or the current one. In any case, we will repeat this tomorrow morning and follow it up accordingly. 4. Leukocytosis concerning for underlying infectious process. The patient is on antimicrobial coverage. We are pending on the culture. 5. History of metastatic adenocarcinoma of the lung. The patient follows up with Dr. Lanier. 6. Recently treated for a large pericardial effusion. 7. 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 8. History of bilateral upper extremity deep venous thromboses in the past. The patient was on Eliquis at home. We will restart this after the thoracentesis. 9. Hypopotassemia will be replaced. cc: MD FRED Salazar
[2019-11-16] MEDS: LASIX IV SCH (17:55)
[2019-11-17] MEDS: MAXIPIME 1 GM in NS 50 ML IV SCH ×3 (01:59→17:19)
[2019-11-17] MEDS: NORCO-5 PO PRN ×4 (03:30→21:06)
[2019-11-17] MEDS: ZOFRAN IV PRN ×4 (03:31→21:07)
[2019-11-17] MEDS: VANCOMYCIN 1 GM/NS 1 GM/250 ML IVPB IV SCH ×2 (04:26→18:00)
[2019-11-17 04:49] LABS: HEMATOCRIT 35.6 % (37.0-47.0); HEMOGLOBIN 11.4 g/dL (12.0-16.0); MCV 103.2 FL (81-99); MPV 9.8 FL (7.4-10.4); RBC 3.45 XMIL (4.2-5.4); RDW 23.4 % (11.5-14.5); WBC 18.47 X1000 (4.8-10.8)
[2019-11-17 05:19] LABS: INR 1.33; PROTIME 16.7 Seconds (11.0-16.0)
[2019-11-17 05:33] LABS: AGAP 12; BUN 12 mg/dL (8-22); CALCIUM 8.3 mg/dL (8.8-10.2); CHLORIDE 90 mmol/L (98-107); COSMO 276; CREATININE 0.6 mg/dL (0.5-0.9); ESTIMATED GFR > 60; GLUCOSE 102 mg/dL (70-104); PHOSPHORUS 3.3 mg/dL (2.7-4.5); SODIUM 138 mmol/L (136-145); TCO2 36 mmol/L (25-35)
--- NOTE | 2019-11-17 07:20 | Diag Imaging Result Doc PS360 ---
CHEST-PORTABLE - 11/17/2019 INDICATION: dyspnea COMPARISON: 11/15/2019 FINDINGS: Stable right chest port. Stable extensive bilateral primarily interstitial infiltrates. Stable moderate right and trace left pleural effusion. IMPRESSION: No change from prior. Electronically signed by Chidi Lee 11/17/2019 7:17 AM
[2019-11-17] MEDS: DUONEB (A & A) INH PRN ×3 (08:17→15:35)
[2019-11-17] MEDS: LASIX IV SCH (08:18)
--- NOTE | 2019-11-17 08:50 | PROGRESS NOTE ---
DATE: 11/17/2019 SUBJECTIVE: This morning Ms. Youngblood is seen in the ICU. Thoracentesis was not able to be done yesterday because of elevated PTT. This morning she refers to be feeling okay. Still has some shortness of breath. She is still on Venturi mask at 15 L and she is saturating 94%. OBJECTIVE: General: Ms. Youngblood is a 44-year-old female. She is in bed. She is on a Venturi mask. HEENT: Mucosa is pink and moist. Anicteric. Acyanotic. Neck: Supple. Chest: Air entry is bilaterally reduced, more so to the right posterior lung reyes. There is distended vessel around the neck and the upper chest. There is a port in the right anterior chest wall. Cardiovascular: Regular rate and rhythm. No murmurs, no rubs, no gallops. There is an old subxiphoid scar. Gastrointestinal: Abdomen is soft. Bowel sounds present. There is an old infraumbilical surgical scar. Extremities: No pedal edema. Distal pulses present. Central nervous system: Patient is awake, alert, oriented. There is no focal deficit. LABORATORY DATA: Has been reviewed. WBC is 18.47, hemoglobin is 11.4, platelet count of 190,000. Chemistry is also reviewed, potassium is 3.0. So far, blood cultures have been 48 hours negative. MEDICATIONS: Have been reviewed. No changes at this point. ASSESSMENT AND PLAN: 1. Acute on chronic hypoxemic respiratory failure. Patient continues to be on Venturi mask at 15 L, saturating on the borderline. PT has improved this morning so we will do a bedside thoracentesis. 2. Moderate to large right-sided pleural effusion. We will pursue the thoracentesis today. 3. Macrocytic anemia. The patient is status post 2 PRBC transfusion. Hemoglobin and hematocrit has improved and remains stable. 4. Leukocytosis concerning for underlying infectious process, questionable pneumonia. The patient is on cefepime with vancomycin. 5. Metastatic adenocarcinoma of the lung. Patient follows up with Dr. Lanier. 6. Recently treated for large pericardial effusion. Noted. 7. 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 Noted. 8. History of bilateral upper extremity deep vein thrombosis. The patient is on Eliquis. We will restart this after the thoracentesis. 9. Electrolyte abnormality including hypokalemia, will be replaced. cc: Apollo Bolton MD
--- NOTE | 2019-11-17 12:24 | Extremity Venous Study ---
PROCEDURE NAME: Venous U/S Right Arm - 11/15/2019 PROCEDURE: Right upper extremity venous imaging study. DATE OF STUDY: 11/15/2019. REFERRING PHYSICIAN: Dr. Bolton. INTERPRETING PHYSICIAN: Dr. Naylor. LICENSED OCCUPATIONAL THERAPY ASSISTANT: Magdiel. SUMMARY: The patient has a history of a stage IV lung cancer, is short of breath. Has a history of a previous DVT involving the right subclavian, right axillary and right basilic vein, as well as the left internal jugular and left subclavian vein. The right upper extremity is imaged. Today, all veins identified are compressible; that includes a right internal jugular, subclavian, axillary, brachial, cephalic and basilic veins. The left subclavian vein is also imaged and compressible. INTERPRETATION: The right internal jugular, subclavian, axillary, brachial, basilic and cephalic veins are all imaged and compressible, indicating resolution of the previously noted clot. cc: MD Apollo Blackwell MD
[2019-11-17] MEDS ORDERED: XYLOCAINE 1% INJ ONE (14:27)
[2019-11-17] MEDS ORDERED: XYLOCAINE 1% ONE (14:32)
[2019-11-17] MEDS ORDERED: PHENERGAN IV ONE (15:36)
[2019-11-17] MEDS ORDERED: SODIUM CHLORIDE 0.9% INJ ONE (15:36)
[2019-11-17] MEDS ORDERED: DILAUDID IV ONE (15:36)
--- NOTE | 2019-11-17 15:37 | OPERATIVE NOTE ---
PROCEDURE DATE: 11/17/2019 PROCEDURE: Right thoracentesis for both diagnostic and therapeutic purposes. HISTORY: Ms. Youngblood is a 44-year-old female who is known to have metastatic adenocarcinoma of the lung, came to the emergency room because of shortness of breath. She continues to be remarkably hypoxemic on a Venturi mask. Imaging studies reveal bilateral pleural effusions, moderate to large on the right and we thought that removing the fluid will help with her breathing. INDICATION FOR PROCEDURE: Indication for the procedure was discussed with Ms. Youngblood as well as possible complications including but not limited to bleeding, pneumothorax, infections were discussed with Ms. Youngblood and she consented to proceed to the intervention. PROCEDURE: Ultrasound was initially used to localize the deepest pocket by the carton waxing machine operator and a reina was made at that site on the right side on the posterior lungs. Subsequently, lidocaine was used as a little local anesthetic agent. A little niche was made on the skin and the thoracentesis trocar was advanced under negative pressure until pleural fluid was obtained. Subsequently the needle was removed and the trocar was advanced. This was secured and hooked to the draining system. A total of 900mL of lukasz yellowish fluid was removed. Ms. Youngblood tolerated the procedure without any complications. After the fluid was completely removed, the trocar was some was removed from the chest wall. A local plaster was used to cover the entry area and a post intervention x-ray has been ordered. It was not ready at the time of the dictation. We will send the fluid to the lab for analysis and exchange specialist accordingly. Procedure was done in the total presence of the attending nurse Ms. Tejada. cc: MD FRED Salazar
--- NOTE | 2019-11-17 15:50 | Diag Imaging Result Doc PS360 ---
CHEST-2 VIEWS - 11/17/2019 INDICATION: after right thoracentesis COMPARISON: 11/17/2019 FINDINGS: There has been drainage of the right pleural effusion. There is decrease in infiltrate throughout the right lung. There is persistent infiltrate throughout the left midlung and lung base. The right lung is not yet completely reexpanded, there is a small pneumothorax measuring about 1 cm. IMPRESSION: Small right pneumothorax, probably in the lung just not yet reexpanded. Improvement in the infiltrate in the right lung. Electronically signed by Chidi Lee 11/17/2019 3:47 PM
[2019-11-17 16:04] LABS: AMYLASE BODY FLUID 163 U/L; GLUCOSE BODY FLUID 112 mg/dL; LDH BODY FLUID 230 U/L
[2019-11-17 16:31] LABS: BODY FLUID SOURCE PLEURAL FLUID; SPECIMEN PLEURAL FLUID
[2019-11-17 16:32] LABS: WBC BF 477 /cumm
[2019-11-17 16:33] LABS: MONOS 77 %; PH BODY FLUID 7.5; POLYS 23 %
--- NOTE | 2019-11-17 20:30 | Diag Imaging Result Doc PS360 ---
CHEST-1 VIEW - 11/17/2019 8:00 PM INDICATION: follow up on right upper pneumothorax COMPARISON: 3:32 PM FINDINGS: There has been resolution of the trace right pneumothorax. There is a small right pleural effusion. IMPRESSION: Resolution of the trace right pneumothorax. Electronically signed by Chidi Lee 11/17/2019 8:28 PM
[2019-11-18] MEDS: MAXIPIME 1 GM in NS 50 ML IV SCH ×3 (02:34→17:45)
[2019-11-18] MEDS: ZOFRAN IV PRN ×4 (02:55→21:29)
[2019-11-18] MEDS: NORCO-5 PO PRN ×3 (02:55→14:29)
[2019-11-18 05:53] LABS: BASO# 0.06 X1000 (0.0-0.2); BASO% 0.3 % (0.0-0.8); EOS% 0.5 % (0.0-10.0); HEMATOCRIT 37.8 % (37.0-47.0); HEMOGLOBIN 11.8 g/dL (12.0-16.0); IMM GRAN# 0.08 X1000 (0.0-0.04); IMM GRAN% 0.4 % (0.0-0.5); LYMPH# 0.42 X1000 (1.2-3.4); LYMPH% 2.2 % (20.5-51.1); MCH 32.4 PG (27-31); MCHC 31.2 g/dL (33-37); MCV 103.8 FL (81-99); MONO# 1.08 X1000 (0.11-0.59); MONO% 5.6 % (1.7-9.3); MPV 9.9 FL (7.4-10.4); NEUT# 17.69 X1000 (1.4-6.5); PLT 273 X1000 (130-400); RBC 3.64 XMIL (4.2-5.4); RDW 22.3 % (11.5-14.5); WBC 19.43 X1000 (4.8-10.8)
[2019-11-18 06:11] LABS: ESTIMATED GFR > 60
[2019-11-18 06:17] LABS: AGAP 17; ALBUMIN 2.9 g/dL (3.5-5.0); BUN 14 mg/dL (8-22); CALCIUM 8.5 mg/dL (8.8-10.2); CHLORIDE 87 mmol/L (98-107); COSMO 273; CREATININE 0.7 mg/dL (0.5-0.9); GLUCOSE 104 mg/dL (70-104); PHOSPHORUS 3.2 mg/dL (2.7-4.5); SODIUM 136 mmol/L (136-145); TCO2 32 mmol/L (25-35)
[2019-11-18 06:24] LABS: LYMPHS 4 % (21-51); MONO 4 % (1-9); SEGS 92 % (42-75)
[2019-11-18] MEDS: VANCOMYCIN 1 GM/NS 1 GM/250 ML IVPB IV SCH ×2 (07:44→21:18)
--- NOTE | 2019-11-18 07:48 | Diag Imaging Result Doc PS360 ---
CHEST-PORTABLE - 11/18/2019 INDICATION: dyspnea COMPARISON: 11/17/2019 FINDINGS: Stable small right pleural effusion. There is probably trace pneumothorax at the apex, less than 5%. There is worsening infiltrate/edema throughout the right lung. Stable infiltrates throughout the left lung. Stable small left pleural effusion. IMPRESSION: Worsening infiltrate/edema throughout the right lung. Trace residual pneumothorax on the right, less than 5%. Electronically signed by Chidi Lee 11/18/2019 7:46 AM
[2019-11-18] MEDS: DUONEB (A & A) INH PRN ×3 (08:14→17:20)
[2019-11-18] MEDS: LASIX IV SCH (08:56)
[2019-11-18] MEDS ORDERED: RITALIN PO SCH (12:00)
--- NOTE | 2019-11-18 12:44 | PROGRESS NOTE ---
DATE: 11/18/2019 SUBJECTIVE: This morning, Ms. Youngblood refers to be doing a whole lot better. She has been transitioned to nasal cannula at 5 L, and she is saturating 98%. OBJECTIVE: Vital Signs: Blood pressure is 113/96, pulse of 116, respirations 27, temperature is 98.5 degrees. General: Ms. Youngblood is a 44-year-old female. She is in bed. No distress. HEENT: Mucosa is pink and moist. Anicteric. Acyanotic. Neck: Supple. There are some distended vessels on the upper chest wall. There is a port on the right anterior chest wall as well. There is an old subxiphoid scar. Cardiovascular: Regular rate and rhythm. GI: Abdomen is soft. Bowel sounds present. There is an old infraumbilical surgical scar. No hepatosplenomegaly. Extremities: No pedal edema. Distal pulses present. [employer] WORKER: The patient is awake, alert, and oriented. No focal deficit. LABORATORY DATA: WBC is 19.43, hemoglobin is 11.8, platelet count of 273,000. Chemistry is also reviewed. Potassium is 3.0. So far, pleural fluid culture was negative. However, the analysis did show WBC was 477. It is predominantly lymphocytic. ASSESSMENT: 1. Acute on chronic hypoxemic respiratory failure. The patient has been transitioned down to nasal cannula. We are going to continue to titrate. 2. Skkusbfu-ol-loiey right-sided pleural effusion. The patient is status post thoracentesis yesterday at the bedside, and 900 mL of clear lukasz fluid was removed. The patient clinically is looking a lot better. Oxygen demand has significantly improved. The fluid analysis seems to suggest an exudative pleural fluid, lymphocytic predominant. I think it is highly suggestive of underlying malignancy. We are pending the cytology. 3. Microcytic anemia on admission. The patient is status post 2 packed red blood cells transfusion. Hemoglobin and hematocrit are stable. 4. Leukocytosis, concerning for underlying infectious process. Will continue with the current antimicrobial coverage. 5. 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 Noted. 6. History of bilateral upper extremity deep vein thrombosis. The patient is on Eliquis. She has been started back. 7. Electrolyte abnormalities. Will continue to monitor and replace accordingly. 8. History of metastatic adenocarcinoma of the lung. The patient follows up with Dr. Lanier. 9. Iatrogenic pneumothorax. The patient did suffer a mild pneumothorax after the thoracentesis. This seems to be stable. The patient is currently asymptomatic. In general, I think Ms. Youngblood is doing a lot better. She underwent a thoracentesis yesterday, and 900 mL of clear lukasz fluid was removed. Fluid analysis is suggestive of exudative pleural fluid, lymphocytic predominant. Cultures negative. This is concerning to be malignant fluid. We are pending the cytology. Ms. Youngblood's breathing has significantly improved. She has been transitioned to nasal cannula. We are going to continue titrating her down as needed. Today, we are going to discontinue the Merchant catheter. We will continue with the current antimicrobial diuretic management. Hopefully, transfer Ms. Youngblood from the intensive care unit to regular floor later on today, if she continues to remain stable on supplemental nasal cannula oxygenation. cc: Apollo Bolton MD
[2019-11-18] MEDS: NEUTRA-PHOS PO SCH ×2 (16:44→21:19)
[2019-11-18] MEDS ORDERED: SODIUM CHLORIDE 0.9% INJ ONE (17:22)
[2019-11-18] MEDS ORDERED: PHENERGAN IV ONE (17:22)
[2019-11-18] MEDS: MORPHINE IV PRN ×2 (17:44→21:29)
[2019-11-18] MEDS ORDERED: RESTORIL PO SCH (21:00)
[2019-11-18] MEDS: MARINOL PO SCH (21:19)
[2019-11-18] MEDS: ELIQUIS PO SCH (21:19)
[2019-11-19] MEDS: MORPHINE IV PRN ×3 (02:02→14:20)
[2019-11-19] MEDS: ZOFRAN IV PRN ×3 (02:02→10:17)
[2019-11-19] MEDS: MAXIPIME 1 GM in NS 50 ML IV SCH ×2 (02:02→10:17)
[2019-11-19 07:13] LABS: HEMOGLOBIN 12.1 g/dL (12.0-16.0)
[2019-11-19 07:21] LABS: HEMATOCRIT 38.5 % (37.0-47.0); MCH 33.4 PG (27-31); MCHC 31.4 g/dL (33-37); MCV 106.4 FL (81-99); RBC 3.62 XMIL (4.2-5.4); RDW 21.9 % (11.5-14.5); WBC 16.28 X1000 (4.8-10.8)
[2019-11-19 07:32] LABS: ESTIMATED GFR > 60
[2019-11-19 07:35] LABS: AGAP 12; BUN 14 mg/dL (8-22); CALCIUM 8.8 mg/dL (8.8-10.2); CHLORIDE 88 mmol/L (98-107); COSMO 275; CREATININE 0.7 mg/dL (0.5-0.9); GLUCOSE 112 mg/dL (70-104); POTASSIUM 3.4 mmol/L (3.5-5.1); SODIUM 137 mmol/L (136-145); TCO2 37 mmol/L (25-35)
--- NOTE | 2019-11-19 08:22 | Diag Imaging Result Doc PS360 ---
EXAM: CHEST-2 VIEWS 11/19/2019 HISTORY: hypoxia TECHNIQUE: PA and lateral chest COMMENT: There is ill-defined opacity throughout much of the lingula and left lower lobe as well as in the ill-defined distribution around the right hilum. There is pleural thickening in both apices. Compared to 11/18/2019, the pleural fluid which was previously present on the right has diminished. There is some atelectasis or fibrosis in the costophrenic angle laterally on the right. IMPRESSION: Patchy bronchopneumonia. Improved right pleural effusion. Electronically signed by Ignacio Archibald 11/19/2019 8:20 AM
[2019-11-19] MEDS ORDERED: FOLIC ACID PO SCH (09:00)
[2019-11-19] MEDS ORDERED: CELEXA PO SCH (09:00)
[2019-11-19] MEDS ORDERED: PROTONIX PO SCH (09:00)
[2019-11-19] MEDS: VANCOMYCIN 1 GM/NS 1 GM/250 ML IVPB IV SCH (09:07)
[2019-11-19] MEDS: NEUTRA-PHOS PO SCH ×2 (09:18→13:15)
[2019-11-19] MEDS: ELIQUIS PO SCH (09:18)
[2019-11-19] MEDS: MARINOL PO SCH (09:19)
[2019-11-19] MEDS: LASIX IV SCH (09:19)
[2019-11-19] MEDS ORDERED: SODIUM CHLORIDE 0.9% INJ PRN (11:41)
[2019-11-19] MEDS ORDERED: PHENERGAN IV PRN (11:41)
[2019-11-19 12:22] VITALS: BP 106/67
--- NOTE | 2019-11-19 14:37 | HEMO/ONC PROGRESS NOTE ---
DATE: 11/19/2019 ADMITTING PHYSICIAN: Dr. Bolton. CHIEF COMPLAINT: " I am breathing better today". SUBJECTIVE: The patient reports that she is feeling better today. She states that after thoracentesis, her dyspnea has improved significantly. 900 mL was drained yesterday on thoracentesis. OBJECTIVE: Constitutional: The patient is sitting up in bed, quite thin and slightly dyspneic in no apparent distress. Vital signs: Temperature 98.2 degrees, blood pressure 116/63, heart rate 114, respirations 18, O2 saturation 97% on 3 L nasal cannula O2. HEENT: Normocephalic, atraumatic. Mucous membranes pink and slightly dry. Sclerae anicteric. Extraocular movements intact. Neck is supple. Lungs: With rubs in the left upper lobe. The right lobe is with good air entry. Clear to auscultation otherwise. CV: S1, S2 is heard. No murmurs, rubs or gallops. Abdomen is nondistended, nontender. Bowel sounds positive all quadrants. No rebound or guarding noted. Extremities without clubbing, cyanosis, or edema. Dermatologic no rashes bruises or lesions. Neuro the patient is awake, alert, oriented x3 and has no focal deficit. LABORATORY DATA: Hemoglobin 12.1, hematocrit 38.5, white blood cell count 16.28, platelets 318,000. Sodium 137, potassium 3.4, chloride 88, CO2 is 37, BUN 14, creatinine 0.7 and glucose is 112, calcium 8.8, phos 3.0. IMAGING STUDIES: Chest x-ray reveals patchy bronchopneumonia with improved right pleural effusion. ASSESSMENT AND PLAN: 1. Stage IV non-small cell lung cancer, status post cycle 3, day 8 of Gemzar and Taxotere on 11/05/2019 with Neulasta given on 11/07/2019. Holding further treatment until the patient's acute illness improves. 2. Acute on chronic hypoxemic respiratory failure, much improved at this time, status post thoracentesis. The patient is currently wearing nasal cannula O2 with minimal dyspnea. 3. Right pleural effusion status post thoracentesis for 900 mL. Cultures and evaluation pending. 4. Anemia status post 2 units packed red blood cells. Hemoglobin is 12.1. We will continue to monitor and transfuse as necessary. 5. Superior vena cava syndrome, stable at this time. 6. Bilateral upper extremity DVT, on Eliquis. The patient has had no bleeding or bruising. We will continue to monitor. 7. We will follow along with you and make further recommendations pending outcomes. The above reflects the history, exam, assessment, and plan of Dr. Jones. Dictated by TYRONE Hill for Eden Jones MD cc: TYRONE Hill MD
--- NOTE | 2019-11-20 08:24 | DISCHARGE SUMMARY ---
ADMISSION DATE: 11/15/2019 DISCHARGE DATE: 11/19/2019 DISPOSITION: Home. FOLLOWUP: 1. Dr. Krishnan. 2. Dr. Lanire. CONSULTATION DURING THIS ADMISSION: Oncology was consulted. Patient was seen by Dr. Jones, followed up by Dr. Lanier. INVASIVE PROCEDURES DONE DURING THIS ADMISSION: A thoracentesis was done, 900 mL of lukasz yellowish fluid was removed. IMAGING STUDIES OF SIGNIFICANCE: 1. A chest x-ray showed pulmonary edema versus pneumonia. 2. A CTA of the lungs showed no pulmonary embolism. There is a congestive heart failure, moderate to large right pleural effusion. There is improvement in the mediastinal lymph node. There is a chronic near complete occlusion of the superior vena cava. 3. X-ray this morning shows patchy bronchopneumonia, improved right pleural effusion. ADMISSION DIAGNOSES: 1. Anemia. 2. Pneumonia. 3. Presumed urinary tract infection. 4. Sepsis. DIAGNOSIS AT THE TIME OF DISCHARGE: 1. Acute on chronic hypoxemic respiratory failure. 2. Moderate to large right pleural effusion. Patient is status post thoracentesis, 900 mL of clear lukasz fluid removed. Analysis suggestive of exudative pleural fluid, lymphocytic predominant which is concerning for malignancy. 3. Macrocytic anemia with a presenting hemoglobin of 3.4. The patient is status post 2 PRBC transfusion. Hemoglobin and hematocrit has gone up to 12.1 this morning. 4. Suspected superimposed pneumonia. The patient is on antimicrobial coverage. 5. 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 6. History of bilateral upper extremity deep venous thromboses. 7. Electrolyte abnormalities, replaced. 8. History of metastatic adenocarcinoma of the lung. 9. Iatrogenic pneumothorax, improved during the hospital course. DISCHARGE MEDICATIONS: 1. Eliquis 5 mg b.i.d. 2. Folic acid 1 mg daily. 3. Pantoprazole 40 mg p.o. daily. 4. Citalopram 20 mg p.o. daily. 5. Restoril 15 mg p.o. at bedtime. 6. Dronabinol 5 mg b.i.d. 7. Omnicef 300 b.i.d. 8. Doxycycline 100 mg b.i.d. 9. Neutra-Phos. PRESENTING COMPLAIN: Shortness of breath. HISTORY OF PRESENTING COMPLAINT: Ms. Youngblood is a 44-year-old female who is known to have metastatic stage IV adenocarcinoma of the lungs, follows up with Dr. Lanier. Also known to have bilateral upper extremity DVT and superior vena cava syndrome from extrinsic compression. Ms. Youngblood was recently seen and treated here, discharged on 05/04/2019 because of a large pericardial effusion causing tamponade symptoms. She underwent a pericardial window and everything went well. Anyway, she was doing well at home until she started having difficulty breathing, presented to the emergency room where she was evaluated, was found to be remarkably hypoxemic with O2 saturation of 83. Imaging studies did reveal pulmonary edema versus pneumonia. She did have an elevated white cell count. She was subsequently admitted for sepsis, possible pneumonia. HOSPITAL COURSE: Ms Youngblood was initially admitted to the ICU. She was started on IV broad- spectrum antibiotics and diuretic therapy. During the hospital course, she did improve slightly. However, she remained hypoxemic. She was found to have hemoglobin of 3.4 initially and she was transfused 2 PRBC. The hemoglobin improved to 12 so we are not 100% convinced if the initial hemoglobin reading was correct. At any point, her hemoglobin remained stable throughout the hospital course. Her white cell count was up to 35,000, has significantly improved down to 16.28. Because Ms. Youngblood remained hypoxemic even on non-rebreather at 15 L, a decision was made to do a bedside thoracentesis, which was successfully done, 900 mL of fluid was removed, after which Ms. Youngblood showed significant improvement, was transitioned from non-rebreather to normal Venturi mask and eventually down to nasal cannula. X-ray that was done after the thoracentesis did show a small pneumothorax which got resolved during the hospital course. This morning, Ms. Youngblood refers to be doing a whole lot better. She is down to just about 3 L on nasal cannula. She is saturating well. Vitals are stable. We think she is okay for discharge. She will need to follow up with her oncologist. Her fluid analysis was reviewed and her culture came back negative. Her cytology, however, is still pending and she has been advised to follow up on that with her oncologist. All the discharge instructions have been discussed with her and she voiced understanding. I think her mom or an elderly family member was at the bedside at the time of the encounter. Both of them voiced understanding. TIME SPENT: For discharge is 38 minutes. cc: MD Dr. Eulogio Salazar MD
== END 2019-11-19 14:56 | disposition home or self-care (01) | DRG 871 ==
LOC: ED 13:44 → ICU 13:45 → 3N 11-18 17:05
PROVIDERS: ATTEND Internal Medicine

== ENCOUNTER 2019-12-13 09:42 | Inpatient (IN) ==
--- NOTE | 2019-12-13 11:01 | Diag Imaging Result Doc PS360 ---
EXAM: CHEST-PORTABLE 12/13/2019 HISTORY: lung CA, acute confusion TECHNIQUE: AP upright chest at 1054 COMMENT: The alveolar opacity previously present in the lingula and left lower lobe on 11/19/2019 has improved. There is also still some perihilar opacity in the right lung. The atelectasis previously present in the costophrenic sulcus on the right has resolved. There is bilateral apical pleural thickening. The heart size is within normal limits. IMPRESSION: Improved pneumonia and atelectasis. Electronically signed by Ignacio Archibald 12/13/2019 10:59 AM
[2019-12-13 11:08] LABS: BASO# 0.01 X1000 (0.0-0.2); BASO% 0.1 % (0.0-0.8); EOS# 0.05 X1000 (0.0-0.7); EOS% 0.3 % (0.0-10.0); HEMOGLOBIN 11.7 g/dL (12.0-16.0); IMM GRAN# 0.07 X1000 (0.0-0.04); IMM GRAN% 0.4 % (0.0-0.5); LYMPH# 0.13 X1000 (1.2-3.4); LYMPH% 0.7 % (20.5-51.1); MCH 32.1 PG (27-31); MCHC 30.8 g/dL (33-37); MCV 104.1 FL (81-99); MONO# 0.49 X1000 (0.11-0.59); MONO% 2.5 % (1.7-9.3); MPV 11.2 FL (7.4-10.4); NEUT# 18.79 X1000 (1.4-6.5); PLT 64 X1000 (130-400); RBC 3.65 XMIL (4.2-5.4); RDW 17.6 % (11.5-14.5); WBC 19.54 X1000 (4.8-10.8)
--- NOTE | 2019-12-13 11:08 | Diag Imaging Result Doc PS360 ---
EXAM: CT HEAD W/O CONTRAST HISTORY: Head injury TECHNIQUE: CT head without contrast COMPARISON: None. FINDINGS: No parenchymal hemorrhage. No epidural or subdural hematoma. No subarachnoid hemorrhage there is a 12 mm isodense area in the right basal ganglia with surrounding edema. No midline shift.. No hydrocephalus. No sinus opacification. IMPRESSION: Findings suspicious for a mass or recent infarct. An MRI with and without contrast is recommended.. This exam was performed using automated exposure control, adjustment of mA or kV according to patient size, and/or use of iterative reconstruction technique. Electronically signed by Jaswinder Bryant 12/13/2019 11:06 AM
[2019-12-13 11:23] LABS: AGAP 4; ALB/GLOB RATIO 1.6; ALBUMIN 3.4 g/dL (3.5-5.0); ALKALINE PHOSPHATASE 228 U/L (32-104); BUN 20 mg/dL (8-22); CALCIUM 8.7 mg/dL (8.8-10.2); CHLORIDE 91 mmol/L (98-107); CK PROFILE 60 U/L (24-173); COSMO 272; CREATININE 0.4 mg/dL (0.5-0.9); ESTIMATED GFR > 60; GLUCOSE 125 mg/dL (70-104); GOT 58 U/L (10-30); GPT 610 U/L (10-36); POTASSIUM 4.2 mmol/L (3.5-5.1); SODIUM 134 mmol/L (136-145); TCO2 39 mmol/L (25-35); TOTAL BILIRUBIN 0.68 mg/dL (0.20-1.00); TOTAL PROTEIN 5.5 g/dL (6.3-8.3)
--- NOTE | 2019-12-13 11:45 | EKG Report ---
Test Performed on : 12/13/2019 11:01:35 AM Test Reason : AMS Blood Pressure : / mmHG Vent. Rate : 105 BPM Atrial Rate : 105 BPM P-R Int : 128 ms QRS Dur : 082 ms QT Int : 318 ms P-R-T Axes : 073 -05 123 degrees QTc Int : 420 ms Sinus tachycardia. Possible Left atrial enlargement ST & T wave abnormality, consider lateral ischemia Abnormal ECG When compared with ECG of 15-NOV-2019 14:13, (Unconfirmed) Questionable change in QRS axis T wave inversion less evident in Anterior leads Inverted T waves have replaced nonspecific T wave abnormality in Lateral leads Unconfirmed Result
--- NOTE | 2019-12-13 13:34 | Diag Imaging Result Doc PS360 ---
EXAM: MRI BRAIN W/WO CONTRAST HISTORY: new mass TECHNIQUE: MRI brain with and without intravenous contrast. Axial, sagittal, and coronal images obtained in multiple sequences. These are followed by post contrasted axial and coronal images. COMPARISON: Recent CT FINDINGS: There is a peripherally enhancing 12 mm mass in the right basal ganglia corresponding to the abnormality seen on the recent CT. There is surrounding edema. There is an additional 8 mm peripherally enhancing nodule in the left occipital lobe. There is a small amount of surrounding edema. There is another 8 mm peripherally enhancing nodule in the right occipital lobe with a small amount of surrounding edema. No midline shift. There are small scattered diffusion abnormalities in the parietal and occipital lobes. No hydrocephalus. Normal orbits. No epidural or subdural fluid collection. No sinus opacification or air-fluid levels. IMPRESSION: 1.Scattered brain metastases 2.Small scattered diffusion abnormalities which may represent tiny recent ischemic events. Electronically signed by Jaswinder Bryant 12/13/2019 1:32 PM
[2019-12-13 14:34] LABS: URINE SOURCE CLEAN CATCH
[2019-12-13 14:46] LABS: BILIRUBIN URINE NEGATIVE (NEGATIVE); BLOOD URINE SMALL (NEGATIVE); COLOR STRAW; GLUCOSE URINE NEGATIVE (NEGATIVE); KETONE URINE NEGATIVE (NEGATIVE); LEUKOCYTES URINE SMALL (NEGATIVE); NITRITE URINE NEGATIVE (NEGATIVE); PH URINE 7.5; PROTEIN URINE TRACE mg/dL (NEGATIVE); SP GRAVITY URINE 1.016; TURBIDITY URINE CLEAR (CLEAR); UROBILINOGEN URINE NORMAL (NORMAL)
[2019-12-13 14:47] LABS: UR EPITHELIAL CELLS <10 /HPF (<10); URINE BACTERIA 1+ /HPF
[2019-12-13] MEDS ORDERED: DECADRON IV ONE (14:50)
[2019-12-13 15:01] LABS: UR AMPHETAMINES QUAL NONE DETECTED (NONE DETECT); UR BARBITUATES QUAL NONE DETECTED (NONE DETECT); UR BENZODIAZEPIN QUAL NONE DETECTED (NONE DETECT); UR CANNABINOIDS QUAL PRESUMPTIVE POSITIVE (NONE DETECT); UR COCAINE QUAL NONE DETECTED (NONE DETECT); UR METHADONE QUAL NONE DETECTED (NONE DETECT); UR OPIATES QUAL NONE DETECTED (NONE DETECT); UR OXYCODONE QUAL PRESUMPTIVE POSITIVE (NONE DETECT); UR PCP QUAL NONE DETECTED (NONE DETECT)
[2019-12-13] MEDS ORDERED: DILAUDID IV PRN (15:18)
[2019-12-13] MEDS ORDERED: MBX SOLUTION MT PRN (15:25)
[2019-12-13] MEDS ORDERED: CHLORASEPTIC SPRAY MT PRN (15:26)
[2019-12-13] MEDS ORDERED: D5 NS 1,000 ML IV SCH (15:30)
[2019-12-13] MEDS ORDERED: LOVENOX SUBQ SCH (15:30)
[2019-12-13] MEDS: ZOFRAN IV PRN ×3 (15:54→22:40)
[2019-12-13] MEDS ORDERED: M.V.I.-12 10 ML, FOLIC ACID 1 MG, MAGNESIUM SULFATE 1 GM, THIAMINE 100 MG in NS 1,000 ML IV SCH (16:00)
[2019-12-13] MEDS ORDERED: PROTONIX IV SCH (16:15)
[2019-12-13] MEDS: DILAUDID IV PRN ×2 (19:13→22:39)
[2019-12-13] MEDS: ELIQUIS PO SCH (21:52)
[2019-12-13] MEDS: D5 NS 1,000 ML IV SCH (21:53)
[2019-12-13] MEDS: DECADRON IV SCH (21:53)
--- NOTE | 2019-12-13 22:56 | HISTORY AND PHYSICAL ---
ADDENDUM: The patient was seen and examined by me face to face. The laboratory, vital signs, and images were reviewed. The patient presented to the emergency department due to confusion and generalized weakness. At this moment, she is answering all my questions and she is following commands. Her dad is at the bedside. As per the patient and the father, she received chemotherapy 2 days ago and that was really strong for her. After the chemotherapy, she was having confusion and generalized weakness to the point that she was not able to walk. Since she was confused, we did a CT scan of the head that showed findings suspicious for a mass or recent infarct. An MRI with and without contrast is recommended. So, we also did a brain MRI that showed scattered brain metastasis, small scattered diffusion abnormalities which may represent tiny recent ischemic events. I notified the family and the patient that I saw some lesions in the brain, but I want to discuss this with the oncologist first. Since she has a surrounding edema, we will go ahead and give her some steroids IV. I will continue with her home medications as well, including pain medication and general treatment. She will receive also PPI IV and pain medication IV as needed. At this moment, she is not complaining of pain. She is able to swallow and I will place this patient on a liquid diet. She will be transferred to the medical floor. I will consult Hematology/Oncology Department, Dr. Lanier, evaluate this patient. I agree with the rest of the nurse practitioner's assessment and plan. We will hydrate this patient since she is clinically dehydrated. cc: Amado Dunbar MD
[2019-12-14] MEDS: DECADRON IV SCH ×4 (02:54→20:13)
--- NOTE | 2019-12-14 03:46 | HISTORY AND PHYSICAL ---
CHIEF COMPLAINT: Altered mental status. HISTORY OF PRESENT ILLNESS: This is a 44-year-old female with a history of stage IV nonsmall cell lung cancer and bilateral upper extremity DVT in March of 2019. She presents to the emergency room with family members who state that she has had periods of altered mental status and falls since receiving chemotherapy on Tuesday. They stated that this was a new type of chemotherapy. She has also developed sores in her mouth and on her lips. The patient has had decreased p.o. intake with less nutrition due to the sores in her mouth and nausea. PAST MEDICAL HISTORY: 1. Nonsmall cell lung cancer, stage IV. 2. Acute on chronic hypoxemic respiratory failure. 3. Superior vena cava syndrome. 4. Bilateral upper extremity deep venous thrombosis, on . PAST SURGICAL HISTORY: Open pericardial window in March. SOCIAL HISTORY: She lives with her parents. She does not use alcohol, tobacco, or illicit drug use. ALLERGIES: No known drug allergies. FAMILY HISTORY: Positive for hypertension. They deny any hematologic or oncologic diseases. HOME MEDICATIONS: A list will be obtained by the nursing staff and once verified review and restart as appropriate. Review of systems is discussed with the patient and mother. Review of systems is unable to obtain right now as the patient is altered slightly and she is lethargic. PHYSICAL EXAMINATION: GENERAL: This is a 44-year-old female who is sitting up on the stretcher in the emergency room in no distress. VITAL SIGNS: Blood pressure is 137/98, with a heart rate of 108, respirations are 18, temperature is 97.5 degrees with O2 saturations that are 98% on 2 L nasal cannula. HEENT: Head is normocephalic, atraumatic. Mucous membranes are dry. She does have mouth ulcers noted to her gums, on her tongue, and on route on her lips. NECK: Supple with trachea midline. CARDIOVASCULAR: Regular rate and rhythm. S1 and S2 appreciated. She is tachycardic. She has no lower extremity edema. PULMONARY: Breath sounds are clear. No increased work of breathing noted. GASTROINTESTINAL: Abdomen is soft, nontender, nondistended. Bowel sounds in all 4 quadrants. NEUROLOGIC: She is lethargic. She will answer questions, although she does not always complete sentences and the answers are not always appropriate, according to the parents. LABORATORY DATA: 1. WBC is 19 with hemoglobin 11.7, hematocrit 38, platelets of 64,000. Sodium is 134, potassium 4.2, BUN 20, creatinine 0.4 with a glucose of 125. AST is 58, ALT is 610, alkaline phosphatase is 228 with a troponin of 165. Urinalysis reveals 10 to 20 microscopic red and white blood cells, 1+ bacteria. It is nitrite negative. Urine drug screen is presumptive positive for oxycodone and cannabinoids. 2. Chest x-ray revealed improved pneumonia and atelectasis. 3. CT of the head revealed suspicious for mass or recent infarct. 4. Brain MRI revealed scattered brain metastasis, scattered diffusion abnormalities, which may represent tiny recent ischemic events. ASSESSMENT AND PLAN: 1. Metastatic brain cancer. 2. Stage IV nonsmall cell lung cancer. 3. Possible recent ischemic events. 4. Chronic hypoxemic respiratory failure. 5. History of superior vena cava syndrome. 6. Bilateral upper extremity deep venous thrombosis on Eliquis. 7. Thrombocytopenia. PLAN: The patient will be admitted to the hospital. Will place on telemetry. full liquids as tolerated supplemental oxygen as needed. CBC and CMP in the morning. identify her home medications and continue as appropriate. banana bag bolus now, then continue IV D5 normal saline at 50 mL/h. Protonix. Miracle mouthwash as well as Chloraseptic spray for her mouth ulcers. Consult Dr Shabazz I did discuss with Dr. Lanier, he recommended that we give Decadron 4 mg IV q.6 hours. . We will order neuro checks every shift and p.r.n. consult Dr. Verónica To in the morning as per Dr. Lanier. Further treatments pending hospital course. The patient was examined and plan was discussed with Dr. Aceves. Dictated by TYRONE Oliveros for Amado Dunbar MD cc: TYRONE Oliveros MD [facility]
[2019-12-14] MEDS: DILAUDID IV PRN ×6 (04:15→20:55)
[2019-12-14] MEDS: ZOFRAN IV PRN ×5 (04:16→20:17)
[2019-12-14 08:15] LABS: HEMATOCRIT 37.4 % (37.0-47.0); HEMOGLOBIN 11.5 g/dL (12.0-16.0); IMM GRAN# 0.03 X1000 (0.0-0.04); IMM GRAN% 0.2 % (0.0-0.5); LYMPH% 0.7 % (20.5-51.1); MCH 32.3 PG (27-31); MCHC 30.7 g/dL (33-37); MCV 105.1 FL (81-99); MONO# 0.21 X1000 (0.11-0.59); MONO% 1.5 % (1.7-9.3); MPV 11.3 FL (7.4-10.4); NEUT% 97.6 % (42.2-75.2); PLT 53 X1000 (130-400); RBC 3.56 XMIL (4.2-5.4); RDW 16.9 % (11.5-14.5); WBC 13.64 X1000 (4.8-10.8)
[2019-12-14 08:30] LABS: AGAP 9; ALB/GLOB RATIO 1.3; ALBUMIN 3.2 g/dL (3.5-5.0); ALKALINE PHOSPHATASE 175 U/L (32-104); BUN 21 mg/dL (8-22); CALCIUM 8.4 mg/dL (8.8-10.2); CHLORIDE 94 mmol/L (98-107); COSMO 278; CREATININE 0.4 mg/dL (0.5-0.9); ESTIMATED GFR > 60; GLUCOSE 155 mg/dL (70-104); GOT 25 U/L (10-30); GPT 403 U/L (10-36); POTASSIUM 3.8 mmol/L (3.5-5.1); SODIUM 136 mmol/L (136-145); TCO2 33 mmol/L (25-35); TOTAL BILIRUBIN 0.66 mg/dL (0.20-1.00); TOTAL PROTEIN 5.6 g/dL (6.3-8.3)
[2019-12-14 08:56] LABS: BANDS 2 % (0-1); HYPOCHROM 1+; LYMPHS 2 % (21-51); SEGS 96 % (42-75)
[2019-12-14] MEDS: PERCOCET-10 PO PRN (09:22)
[2019-12-14] MEDS: M.V.I.-12 10 ML, FOLIC ACID 1 MG, MAGNESIUM SULFATE 1 GM, THIAMINE 100 MG in NS 1,000 ML IV SCH (09:22)
[2019-12-14] MEDS: MARINOL PO SCH ×2 (11:03→16:31)
[2019-12-14] MEDS: ELIQUIS PO SCH ×2 (11:03→20:13)
[2019-12-14] MEDS: CELEXA PO SCH (11:10)
[2019-12-14] MEDS: FOLIC ACID PO SCH (11:10)
[2019-12-14] MEDS: SODIUM CHLORIDE 0.9% INJ PRN ×2 (11:49→17:38)
[2019-12-14] MEDS: PHENERGAN IV PRN ×2 (11:49→17:38)
[2019-12-14 12:27] LABS: URINE SOURCE CATH
[2019-12-14 12:31] LABS: BILIRUBIN URINE NEGATIVE (NEGATIVE); BLOOD URINE SMALL (NEGATIVE); COLOR YELLOW; GLUCOSE URINE 200 mg/dL (NEGATIVE); KETONE URINE TRACE mg/dL (NEGATIVE); LEUKOCYTES URINE MODERATE (NEGATIVE); NITRITE URINE POSITIVE (NEGATIVE); PH URINE 6.5; PROTEIN URINE TRACE mg/dL (NEGATIVE); SP GRAVITY URINE 1.017; TURBIDITY URINE HAZY (CLEAR); UROBILINOGEN URINE NORMAL (NORMAL)
[2019-12-14 12:43] LABS: UR EPITHELIAL CELLS <10 /HPF (<10); URINE BACTERIA 4+ /HPF; URINE WBC 20-40 /HPF (<10)
[2019-12-14 12:44] LABS: URINE YEAST PRESENT
[2019-12-14] MEDS ORDERED: SODIUM CHLORIDE 0.9% INJ SCH (12:45)
[2019-12-14] MEDS: ROCEPHIN 1 GM in NS 50 ML IV SCH (13:44)
[2019-12-14] MEDS: PROTONIX IV SCH (13:44)
--- NOTE | 2019-12-14 16:59 | PROGRESS NOTE ---
DATE: 12/14/2019 SUBJECTIVE: This patient is having nausea today, she is really weak and she has requested a Merchant catheter to be placed. She has a history of metastatic lung cancer. Brain MRI showed metastasis to the brain, she has been evaluated by a Radiation Oncology already, case has been discussed with Dr. Lanier already. OBJECTIVE: Vital Signs: Temperature 97.4 degrees, pulse 111, respiratory rate 18, blood pressure 149/113, oxygen saturation 100% on 3 L of nasal cannula. HEENT: Head normocephalic, no trauma, PERRLA. She has some ulcers in her mouth. Neck: Supple, no JVD, central trachea. Cardiovascular: Regular rate and rhythm. She is tachycardic. Chest: Clear to auscultation, some crepitus at the bases. Abdomen: Soft, nondistended, but some tenderness to palpation at the level of the epigastric area. Neurological: This patient is awake, she is answering my questions but she does have generalized weakness. LABORATORY: WBC 13.6, hemoglobin 11.5, hematocrit 37.4, platelets 53,000. Sodium 136, potassium 3.8, chloride 94, bicarbonate 33, BUN 21, creatinine 0.4, glucose 155, calcium 8.4. AST 25, ALT 403, alkaline phosphatase 175, albumin 3.2. ASSESSMENT AND PLAN: 1. Metastatic non-small cell lung cancer, brain MRI showed metastasis to the brain. Radiation Oncology has been consulted already and they already evaluated this patient, her oncologist, Dr. Lanier, has been notified as well, pending more recommendations. She had chemotherapy apparently 3 days ago. I will monitor this patient closely. 2. Dehydration. She seems to be better continue with same management. 3. Possible recent brain ischemic events, as noted in the brain MRI. We will just monitor for now. 4. Chronic hypoxemic respiratory failure. Continue with oxygen supplementation. 5. Possible UTI. Urine culture is pending. I will put this patient on ceftriaxone. 6. History of superior vena cava syndrome. Aware. 7. Bilateral upper extremity DVT. On Eliquis. 8. Thrombocytopenia. We will monitor for now. cc: Amado Dunbar MD
[2019-12-14] MEDS: D5 NS 1,000 ML IV SCH (20:21)
--- NOTE | 2019-12-14 21:14 | HEMO/ONC CONSULTATION ---
DATE: 12/14/2019 ADMITTING PHYSICIAN: Dr. Aceves. REQUESTING PHYSICIAN: Dr. Aceves. We appreciate this consult. CHIEF COMPLAINT: Non-small cell lung cancer, now with new brain metastases. HISTORY OF PRESENT ILLNESS: Ms. Youngblood is a 44-year-old, female, well known to Dr. Lanier with a history of stage IV non-small cell lung cancer as well as bilateral upper extremity DVT. The patient recently progressed through Gemzar, and has been placed on Abraxane and cisplatin. She is status post cycle 1, day 1, on 12/11/2019. The patient was brought to [facility] Emergency Department secondary to incontinence and an acute presentation of altered mental status, which was new. Upon presentation to [facility], the patient underwent CT of the head which revealed findings suspicious for mass or recent infarct. MRI was suggested. MRI of the brain revealed scattered brain metastases with the largest being 12 mm in the right basal ganglia. The patient also had bilateral 8 mm masses in the occipital lobes. Additionally, multiple small scattered diffusion abnormalities were seen in the parietal and occipital lobes. The patient is currently lying supine in bed. She is extremely somnolent, but is oriented x3. She reports that she is experiencing significant heartburn at this time. PAST MEDICAL HISTORY: 1. Non-small cell lung cancer stage IV. 2. Acute on chronic hypoxemic respiratory failure secondary to #1. 3. Superior vena cava syndrome. 4. Bilateral upper extremity deep venous thromboses, currently on Eliquis. PAST SURGICAL HISTORY: Open pericardial window in March. SOCIAL HISTORY: The patient does not use alcohol, tobacco, or illicit drugs. FAMILY HISTORY: Negative for any hematologic or oncologic disease. MEDICATIONS ON ADMISSION: Medication reconciliation is currently pending. ALLERGIES: No known drug allergies. REVIEW OF SYSTEMS: A 14-point review of systems was obtained and was negative, except for mentioned in the HPI. PHYSICAL EXAMINATION: Ms. Youngblood is a cachectic, very ill appearing, 44-year-old, female, lying supine in bed in no immediate distress.Vital Signs: Temperature 97.4 degrees, blood pressure 150/112, heart rate 101, respirations 17, O2 saturation 100% on 2 L nasal cannula O2. HEENT: Normocephalic, atraumatic. Mucous membranes are pink and somewhat dry. Sclerae anicteric. Extraocular movements intact. Neck: Supple. Lungs: Coarse breath sounds and decreased breath sounds throughout. Cardiovascular: S1, S2 is heard without murmur, rub, or gallop. The patient is tachycardic. Abdomen: Soft, nondistended, nontender. Bowel sounds positive in all quadrants. No rebound or guarding noted. Extremities: Without clubbing, cyanosis, or edema. Of note, the patient does have significant facial edema. Dermatologic: No rashes, bruises, or lesions. Neurologic: Somnolent. She is oriented x3. She has no focal motor deficit. LABORATORY DATA: Hemoglobin 11.5, hematocrit 37.4, white blood cell count 13.64, platelets 53,000. Sodium 136, potassium 3.8, chloride 94, CO2 is 33, BUN 21, creatinine 0.4, and glucose is 155. Bilirubin 0.66, alkaline phosphatase 175, AST 25, ALT 403. ASSESSMENT AND PLAN: 1. Stage IV non-small cell lung cancer, now with new brain metastases, one measuring 12 mm in the right basal ganglia, and bilateral occipital lobe masses measuring 8 mm. The patient is currently on dexamethasone 4 mg IV q.6 hours. Additionally, Dr. To of Radiation Oncology has been consulted for palliative radiation. We will hold Abraxane and cisplatin at this time until the patient's acute illness improves. 2. Questionable recent strokes with MRI brain revealing small scattered diffusion restrictions in the parietal and occipital lobes noted. 3. Chronic hypoxemic respiratory failure. Stable on nasal cannula O2. 4. Bilateral upper extremity deep vein thromboses. On Eliquis, stable. 5. History of superior vena cava syndrome. Stable at this time. 6. Leukocytosis, likely secondary to Solu-Medrol given in clinic and Decadron taken p.o. daily. 7. We will follow along with you and make further recommendations pending outcomes. The above reflects the history, exam, assessment, and plan of Dr. Lanier. Dictated by TYRONE Hill for Sridhar Lanier MD cc: TYRONE Hill MD
[2019-12-15] MEDS: DILAUDID IV PRN ×6 (00:17→19:27)
[2019-12-15] MEDS: PROTONIX IV SCH ×2 (00:17→14:58)
[2019-12-15] MEDS: PHENERGAN IV PRN ×3 (00:17→12:47)
[2019-12-15] MEDS: SODIUM CHLORIDE 0.9% INJ PRN ×2 (00:17→06:49)
[2019-12-15] MEDS: SODIUM CHLORIDE 0.9% INJ SCH (01:46)
[2019-12-15] MEDS: ZOFRAN IV PRN ×3 (03:41→14:57)
[2019-12-15] MEDS: DECADRON IV SCH ×4 (03:41→21:24)
[2019-12-15 08:48] LABS: BASO# 0.02 X1000 (0.0-0.2); BASO% 0.1 % (0.0-0.8); HEMOGLOBIN 10.9 g/dL (12.0-16.0); IMM GRAN# 0.05 X1000 (0.0-0.04); IMM GRAN% 0.2 % (0.0-0.5); LYMPH# 0.04 X1000 (1.2-3.4); LYMPH% 0.2 % (20.5-51.1); MCH 33.3 PG (27-31); MCHC 31.1 g/dL (33-37); MONO# 0.35 X1000 (0.11-0.59); MONO% 1.7 % (1.7-9.3); MPV 11.7 FL (7.4-10.4); NEUT# 20.05 X1000 (1.4-6.5); NEUT% 97.8 % (42.2-75.2); PLT 39 X1000 (130-400); RBC 3.27 XMIL (4.2-5.4); RDW 17.3 % (11.5-14.5); WBC 20.51 X1000 (4.8-10.8)
[2019-12-15 09:17] LABS: AGAP 13; ALB/GLOB RATIO 1.3; ALKALINE PHOSPHATASE 141 U/L (32-104); BUN 22 mg/dL (8-22); CALCIUM 8.3 mg/dL (8.8-10.2); CHLORIDE 96 mmol/L (98-107); COSMO 284; CREATININE 0.4 mg/dL (0.5-0.9); ESTIMATED GFR > 60; GLUCOSE 147 mg/dL (70-104); GOT 19 U/L (10-30); GPT 248 U/L (10-36); POTASSIUM 3.5 mmol/L (3.5-5.1); SODIUM 139 mmol/L (136-145); TCO2 30 mmol/L (25-35); TOTAL BILIRUBIN 0.54 mg/dL (0.20-1.00); TOTAL PROTEIN 5.3 g/dL (6.3-8.3)
[2019-12-15 09:22] LABS: ANISOCYTOSIS OCCASIONAL; HYPOCHROM OCCASIONAL; LYMPHS 2 % (21-51); SEGS 98 % (42-75)
[2019-12-15] MEDS: M.V.I.-12 10 ML, FOLIC ACID 1 MG, MAGNESIUM SULFATE 1 GM, THIAMINE 100 MG in NS 1,000 ML IV SCH (09:49)
[2019-12-15] MEDS: MARINOL PO SCH ×2 (09:50→12:49)
[2019-12-15] MEDS: FOLIC ACID PO SCH (09:50)
[2019-12-15] MEDS: CELEXA PO SCH (09:50)
[2019-12-15] MEDS: ELIQUIS PO SCH ×2 (09:51→21:24)
[2019-12-15] MEDS: D5 NS 1,000 ML IV SCH ×2 (09:51→21:23)
--- NOTE | 2019-12-15 13:40 | PROGRESS NOTE ---
DATE: 12/15/2019 SUBJECTIVE: The patient is resting comfortably in bed. She is still complaining of nausea and vomiting. Unfortunately, she has brain metastasis. We will continue with the steroids. Hematology/Oncology Department following this patient. OBJECTIVE: Vital Signs: Temperature 97.6 degrees, pulse 110, respiratory rate 12, blood pressure 144/112. Oxygen saturation 93 on 2 L of nasal cannula. HEENT: Head normocephalic, no trauma. PERRLA. She has some ulcers in her mouth. Neck: Supple. No JVD. Central trachea. Cardiovascular: RRR. She is tachycardic. Chest: Clear to auscultation. Some crepitus at the bases. Abdomen: Soft. Some tenderness to palpation at the level of the epigastric area. Neurological examination: She is awake. She is answering my questions. LABORATORY: WBC 20.5, hemoglobin 10.9, hematocrit 35, platelet 39. Sodium 139, potassium 3.5, chloride 96, bicarbonate 30. BUN 22, creatinine 0.4, glucose 147, calcium 8.3. AST 19, ALT 248, alkaline phosphatase 141, albumin 3. ASSESSMENT AND PLAN: 1. Stage IV non-small cell lung cancer, now with new brain metastasis, continue with dexamethasone. Dr. To will do hopefully radiation for palliative treatment. Hematology/Oncology Department following this patient closely. 2. Questionable recent strokes on the magnetic resonance imaging, noted. 3. Chronic hypoxemic respiratory failure. Continue with oxygen supplementation. 4. Bilateral upper extremity deep vein thrombosis. Continue with Eliquis. 5. History of superior vena cava syndrome. She seems to be stable. 6. Leukocytosis, likely due to the steroid use and/or reactive. 7. Dehydration. She seems to be more hydrated. 8. Possible urinary tract infection. We will continue with antibiotics. 9. Thrombocytopenia. We will monitor for now. cc: Amado Dunbar MD
[2019-12-15] MEDS: ROCEPHIN 1 GM in NS 50 ML IV SCH (14:57)
[2019-12-15] MEDS: PHENERGAN PO PRN ×2 (16:10→19:27)
[2019-12-15] MEDS: PERCOCET-10 PO PRN (16:10)
[2019-12-15] MEDS: RESTORIL PO SCH (21:24)
[2019-12-16] MEDS: PHENERGAN IV PRN ×3 (00:34→16:57)
[2019-12-16] MEDS: SODIUM CHLORIDE 0.9% INJ PRN (00:34)
[2019-12-16] MEDS: DILAUDID IV PRN ×6 (00:34→21:05)
[2019-12-16] MEDS: PROTONIX IV SCH ×2 (00:43→14:53)
[2019-12-16] MEDS: SODIUM CHLORIDE 0.9% INJ SCH (00:44)
[2019-12-16] MEDS: DECADRON IV SCH ×4 (02:49→21:05)
[2019-12-16] MEDS: PHENERGAN PO PRN ×2 (04:40→21:05)
[2019-12-16] MEDS: D5 NS 1,000 ML IV SCH (04:45)
[2019-12-16 08:07] LABS: HEMATOCRIT 34.2 % (37.0-47.0); HEMOGLOBIN 10.3 g/dL (12.0-16.0); IMM GRAN# 0.03 X1000 (0.0-0.04); IMM GRAN% 0.3 % (0.0-0.5); LYMPH# 0.08 X1000 (1.2-3.4); LYMPH% 0.7 % (20.5-51.1); MCH 32.4 PG (27-31); MCHC 30.1 g/dL (33-37); MCV 107.5 FL (81-99); MONO# 0.28 X1000 (0.11-0.59); MONO% 2.4 % (1.7-9.3); MPV 11.4 FL (7.4-10.4); NEUT# 11.08 X1000 (1.4-6.5); NEUT% 96.6 % (42.2-75.2); PLT 43 X1000 (130-400); RBC 3.18 XMIL (4.2-5.4); RDW 17.2 % (11.5-14.5); WBC 11.47 X1000 (4.8-10.8)
[2019-12-16 08:11] LABS: AGAP 9; ALB/GLOB RATIO 1.5; ALBUMIN 3.1 g/dL (3.5-5.0); ALKALINE PHOSPHATASE 121 U/L (32-104); BUN 23 mg/dL (8-22); CALCIUM 8.6 mg/dL (8.8-10.2); CHLORIDE 97 mmol/L (98-107); COSMO 290; CREATININE 0.3 mg/dL (0.5-0.9); ESTIMATED GFR > 60; GLUCOSE 162 mg/dL (70-104); GOT 16 U/L (10-30); GPT 168 U/L (10-36); POTASSIUM 3.5 mmol/L (3.5-5.1); SODIUM 142 mmol/L (136-145); TCO2 36 mmol/L (25-35); TOTAL BILIRUBIN 0.52 mg/dL (0.20-1.00); TOTAL PROTEIN 5.2 g/dL (6.3-8.3)
[2019-12-16] MEDS: ELIQUIS PO SCH ×2 (08:22→21:05)
[2019-12-16] MEDS: MARINOL PO SCH ×2 (08:22→14:52)
[2019-12-16] MEDS: FOLIC ACID PO SCH (08:22)
[2019-12-16] MEDS: CELEXA PO SCH (08:22)
[2019-12-16 08:52] LABS: ANISOCYTOSIS 3+; LYMPHS 1 % (21-51); MONO 2 % (1-9); SEGS 97 % (42-75)
[2019-12-16 08:53] LABS: HOWELL-JOLLY BODIES OCCASIONAL; HYPOCHROM 1+; POLYCHROM 1+
--- NOTE | 2019-12-16 09:13 | Diag Imaging Result Doc PS360 ---
CT HEAD W/O CONTRAST - 12/16/2019 INDICATION: Stroke, R/O bleed COMPARISON: Head CT and brain MRI 12/13/2019 FINDINGS: There are a few scattered brain metastases bilaterally stable from prior. Stable extensive vasogenic edema around the right basal ganglia brain metastasis. No intracranial hemorrhage. The skull is intact. The sinuses are clear. IMPRESSION: No change from prior. This exam was performed using automated exposure control, adjustment of mA or kV according to patient size, and/or use of iterative reconstruction technique Electronically signed by Chidi Lee 12/16/2019 9:10 AM
[2019-12-16] MEDS: ZOFRAN IV PRN ×2 (11:46→14:24)
[2019-12-16] MEDS: M.V.I.-12 10 ML, FOLIC ACID 1 MG, MAGNESIUM SULFATE 1 GM, THIAMINE 100 MG in NS 1,000 ML IV SCH (11:46)
--- NOTE | 2019-12-16 13:39 | PROGRESS NOTE ---
DATE: 12/16/2019 SUBJECTIVE: Today, this patient started complaining of left-sided weakness and actually her left side is weak. I repeated a CT scan immediately of the head, but there is no signs of bleeding or new changes. I will ask for a palliative care evaluation on this patient. I do believe they would like to be on comfort measures only, they are evaluating the possibility of stopping treatment. OBJECTIVE: Vital Signs: Temperature 98.5 degrees, pulse 118, respiratory rate 20, blood pressure 154/117, oxygen saturation 100% on 2 L of nasal cannula. HEENT: Head normocephalic no trauma. PERRLA. She has some ulcers in her mouth. Neck: Supple no JVD. No JVD central trachea she has a heart lesion of about 3 cm 3 cm. It is really hard and irregular on her neck, which is chronic. Chest: Clear to auscultation. No wheezing. No rales. Abdomen: Soft. Some tenderness to palpation at the level of the epigastric area and periumbilical area. Neurological: She is awake. She is answering my questions. She has a new left-sided weakness. LABORATORY: WBC 11.4, hemoglobin 10.3, hematocrit 34.2, platelets 43,000. Sodium 142, potassium 3.5, chloride 97, bicarbonate 36, BUN 23, creatinine 0.3, glucose 162, calcium 8.6, albumin 3.1. ASSESSMENT AND PLAN: 1. Stage IV non-small cell lung cancer, now with new brain metastasis and left-sided weakness. The patient has been evaluated by Hematology/Oncology Department as well as radiology/oncology, probably they will do some palliative radiation. I have requested an evaluation by the palliative care team. 2. Questionable recent strokes on the MRI, noted. 3. Chronic hypoxemic respiratory failure. Continue with oxygen supplementation. 4. Bilateral upper extremity deep vein thrombosis. Continue with Eliquis. 5. History of superior vena cava syndrome, she seems to be stable. 6. Leukocytosis likely reactive, possible infectious and steroid use. 7. Dehydration, she seems to be more hydrated. 8. Possible urinary tract infection. Continue with antibiotics. 9. Thrombocytopenia. We will monitor. DISPOSITION: Overall, her prognosis is extremely poor, Palliative Care has been consulted to discuss the goal of care. I do believe they do not want more chemotherapy, but the patient states that she wants some radiation. We will wait for their final decision. cc: Amado Dunbar MD
[2019-12-16] MEDS: ROCEPHIN 1 GM in NS 50 ML IV SCH (14:53)
[2019-12-16] MEDS: PERCOCET-10 PO PRN (17:14)
[2019-12-16] MEDS: RESTORIL PO SCH (21:05)
[2019-12-16] MEDS ORDERED: NARCAN ONE (23:38)
--- NOTE | 2019-12-17 00:28 | EKG Report ---
Test Performed on : 12/16/2019 11:29:11 PM Test Reason : tach Blood Pressure : / mmHG Vent. Rate : 120 BPM Atrial Rate : 120 BPM P-R Int : 116 ms QRS Dur : 080 ms QT Int : 300 ms P-R-T Axes : 075 021 094 degrees QTc Int : 424 ms Sinus tachycardia. Abnormal QRS-T angle, consider primary T wave abnormality Abnormal ECG When compared with ECG of 13-DEC-2019 11:01, (Unconfirmed) Nonspecific T wave abnormality has replaced inverted T waves in Lateral leads Confirmed by Chay PAEZ, Charan Zhang ([id number]) on 12/17/2019 6:01:40 PM
[2019-12-17] MEDS: DILAUDID IV PRN ×6 (01:42→17:18)
--- NOTE | 2019-12-17 01:44 | PROGRESS NOTE ---
DATE: 12/16/2019 SUBJECTIVE: The patient did receive 1 mg of Dilaudid this evening following which she developed an adverse reaction, this was reversed with 0.4 mg of Narcan. I discussed with the patient's mom who subsequently decided to make her a DNR. The patient's mother's wishes will be honored. cc: Ok Heaton MD MTDD
[2019-12-17] MEDS: PROTONIX IV SCH ×2 (03:15→04:20)
[2019-12-17] MEDS: D5 NS 1,000 ML IV SCH (04:19)
[2019-12-17] MEDS: SODIUM CHLORIDE 0.9% INJ SCH (04:20)
[2019-12-17] MEDS: DECADRON IV SCH ×2 (04:20→09:56)
[2019-12-17 07:28] LABS: BASO# 0.01 X1000 (0.0-0.2); BASO% 0.1 % (0.0-0.8); HEMATOCRIT 36.6 % (37.0-47.0); HEMOGLOBIN 10.5 g/dL (12.0-16.0); IMM GRAN# 0.09 X1000 (0.0-0.04); IMM GRAN% 0.5 % (0.0-0.5); LYMPH# 0.17 X1000 (1.2-3.4); LYMPH% 0.9 % (20.5-51.1); MCH 32.1 PG (27-31); MCHC 28.7 g/dL (33-37); MCV 111.9 FL (81-99); MONO# 0.39 X1000 (0.11-0.59); MPV 11.2 FL (7.4-10.4); NEUT# 18.98 X1000 (1.4-6.5); NEUT% 96.5 % (42.2-75.2); PLT 46 X1000 (130-400); RBC 3.27 XMIL (4.2-5.4); RDW 17.3 % (11.5-14.5); WBC 19.64 X1000 (4.8-10.8)
[2019-12-17 07:56] LABS: AGAP 7; ALB/GLOB RATIO 1.8; ALBUMIN 3.5 g/dL (3.5-5.0); ALKALINE PHOSPHATASE 130 U/L (32-104); BUN 27 mg/dL (8-22); CALCIUM 8.5 mg/dL (8.8-10.2); CHLORIDE 98 mmol/L (98-107); COSMO 299; CREATININE 0.5 mg/dL (0.5-0.9); ESTIMATED GFR > 60; GLUCOSE 193 mg/dL (70-104); GOT 29 U/L (10-30); GPT 156 U/L (10-36); POTASSIUM 3.9 mmol/L (3.5-5.1); SODIUM 145 mmol/L (136-145); TCO2 40 mmol/L (25-35); TOTAL BILIRUBIN 0.57 mg/dL (0.20-1.00); TOTAL PROTEIN 5.5 g/dL (6.3-8.3)
[2019-12-17] MEDS ORDERED: NS 50 ML ONE (08:16)
[2019-12-17] MEDS: FOLIC ACID PO SCH (09:55)
[2019-12-17] MEDS: ELIQUIS PO SCH (09:55)
[2019-12-17] MEDS: CELEXA PO SCH (09:55)
[2019-12-17] MEDS: MARINOL PO SCH (09:55)
[2019-12-17] MEDS: M.V.I.-12 10 ML, FOLIC ACID 1 MG, MAGNESIUM SULFATE 1 GM, THIAMINE 100 MG in NS 1,000 ML IV SCH (09:56)
[2019-12-17 11:51] VITALS: BP 99/66
[2019-12-17] MEDS ORDERED: PHENERGAN IV PRN (13:30)
[2019-12-17] MEDS ORDERED: TRANSDERM-SCOP TD ONE (13:31)
[2019-12-17] MEDS ORDERED: ATIVAN IV PRN (13:32)
[2019-12-17] MEDS ORDERED: ATROPINE 1 % OPHTH SOLN SL PRN (13:32)
--- NOTE | 2019-12-17 14:12 | PROGRESS NOTE ---
DATE: 12/17/2019 SUBJECTIVE: This patient is basically unresponsive and she seems to be declining. Family has requested comfort measures only, so I will stop the whole treatment and put her on medication to keep her comfortable. OBJECTIVE: Vital Signs: Temperature 97.4 degrees, pulse 105, respiratory rate 14, blood pressure 99/66, oxygen saturation 100% on a mask. HEENT: Head normocephalic, no trauma. PERRLA. Neck: Supple. Chest: Coarse breath sounds bilaterally. Abdomen: Soft, nondistended. Neurological examination: The patient is lethargic. LABORATORY: WBC 19.6, hemoglobin 10.5, hematocrit 36.6, platelets 46. Sodium 145, potassium 3.9, chloride 98, bicarbonate 40. BUN 27, creatinine 0.5, glucose 193, calcium 8.5. AST 29, ALT 156, alkaline phosphatase 130, albumin 3.5. ASSESSMENT AND PLAN: 1. Stage IV non-small cell lung cancer, now with new brain metastasis and left-sided weakness. The patient is lethargic and declining. 2. Questionable recent strokes on the magnetic resonance imaging, noted. 3. Chronic hypoxemic respiratory failure. 4. Bilateral upper extremity deep vein thrombosis. 5. History of superior vena cava syndrome. 6. Leukocytosis. 7. Dehydration. 8. Possible urinary tract infection. 9. Thrombocytopenia. DISPOSITION: The patient is remarkably sick, and she is actually declining. Family has requested to put this patient Do Not Resuscitate and also on comfort measures only. We will do that. Palliative Care on board. We have requested an evaluation by hospice care. cc: Amado Dunbar MD
--- NOTE | 2019-12-18 10:51 | DISCHARGE SUMMARY ---
ADMISSION DATE: 12/13/2019 DISCHARGE DATE: 12/17/2019 DISCHARGE DIAGNOSES: 1. Stage IV non-small cell lung cancer with new brain metastasis and left-sided weakness. 2. Questionable recent strokes on the MRI. 3. Chronic hypoxemic respiratory failure. 4. Bilateral upper extremity deep vein thrombosis. 5. History of superior vena cava syndrome. 6. Leukocytosis. 7. Dehydration. 8. Possible urinary tract infection. 9. Thrombocytopenia. 10. This patient demised at 1830 on 12/17/2019. HOSPITAL COURSE: A 44-year-old, female with a past medical history of stage IV non- small cell lung cancer and bilateral upper extremity DVT in March 2019. She presented to the emergency department with family members due to altered mental status and falls since she received the chemotherapy last Tuesday, about 5 to 6 days ago. As per the patient, that was a new type of chemotherapy and she also developed some mouth ulcers. She has not been able to eat or drink too much because of the pain and the nausea and vomiting. We did a CT scan initially in the emergency department that showed findings suspicious for a mass or recent infarct, and they have recommended an MRI. MRI was performed and showed scattered brain metastasis and small scattered diffusion abnormalities which may represent tiny recent ischemic events. The patient has been evaluated by hematology/oncology department. On 12/16/2019, she started having an episode of left-sided weakness and apparently she has been confused on and off again, even though she was getting a little bit better mentally. Today, this patient was basically lethargic. She was initially placed Full Code but then it has been changed to Do Not Resuscitate level 1 per the family members including mother, and son and other son. This patient basically was declining and at 6:30 p.m. today, 12/17/2019, this patient demised. Family has been notified. cc: Amado Dunbar MD
--- NOTE | 2019-12-27 14:37 | PROVIDER DOCUMENTATION ---
This chart was entered by Mary Haywood Scribe, acting as scribe for Hao Steve MD. HPI-Neurological Disorder - General Chief Complaint: Altered Mental Status Stated Complaint: AMS,FALL Time Seen by Provider: 12/13/19 10:10 Source: patient, family Allergies/Adverse Reactions: Patient Allergies Allergy/AdvReac Type Severity Reaction Status Date / Time No Known Allergies Allergy Verified 12/13/19 17:33 Home Medications: Home Medication List Medication Instructions Recorded Confirmed Last Taken Type Apixaban [Eliquis] 5 mg PO BID #60 tab 05/04/19 12/13/19 12/10/19 06:30 Rx 5 Folic Acid 1 mg PO DAILY #90 tab 05/04/19 12/13/19 12/10/19 06:30 Rx 1 Pantoprazole [Protonix] 40 mg PO DAILY #60 tab 05/04/19 12/13/19 12/10/19 06:30 Rx 40 Citalopram Hydrobromide 20 mg PO DAILY 11/15/19 12/13/19 12/10/19 06:30 History [Citalopram HBr] 20 Temazepam [Restoril] 15 mg PO QHS 11/15/19 12/13/19 12/09/19 23:30 History 15 Dronabinol [Marinol] 1 cap PO BID 12/10/19 12/13/19 12/10/19 06:30 History 1 Oxycodone HCl/Acetaminophen 1 tab PO Q6H PRN PRN 12/10/19 12/13/19 12/10/19 06:30 History [Oxycodone-Acetaminophen 10-325] 1 Promethazine [Phenergan] 1 tab PO Q6H PRN PRN 12/10/19 12/13/19 12/10/19 06:30 History 1 - History of Present Illness-Neuro Nature of Presenting Problem: Patient is a 44 year old female who presents with mother for altered mental status. Mother states patient started having confusion 2 days ago after receiving a new chemo treatment from Dr. Simons. History of stage 4 lung cancer with mets. Mother states patient is having urinary incontinence and bleeding from sores in mouth that started this morning. Denies new pain and vision changes. Severity: reports: mild Onset/Duration: reports: 2 days ago Timing: reports: still present Context: reports: other (AMS) Character of Altered Mental Status: reports: confused Associated Symptoms: denies: nausea, vomiting, vision changes Similar Symptoms Previously?: Yes Recently seen or treated by another doctor?: Yes Review of Systems - Adult - REVIEW OF SYSTEMS - ADULT Constitutional: reports: no symptoms reported Eyes: reports: no symptoms reported Ears, Nose, Mouth & Throat: reports: see HPI, other (bleeding from sore in mouth). denies: mouth/dental pain, throat pain Cardiovascular: reports: no symptoms reported Respiratory: reports: no symptoms reported Gastrointestinal: reports: no symptoms reported Genitourinary: reports: see HPI, incontinence Musculoskeletal: reports: no symptoms reported Integumentary: reports: no symptoms reported Neurological: reports: see HPI, other (AMS - confused). denies: headache/migr aines Psychiatric: reports: no symptoms reported Endocrine: reports: no symptoms reported Hematologic/Lymphatic: reports: no symptoms reported Allergic/Immunologic: reports: no symptoms reported All Other Systems: Reviewed and Negative Past History - Adult - PAST MEDICAL HISTORY-ADULT Review of Records: reports: Old Records Reviewed, Nursing Assessment Review, Medications Reviewed, Social history reviewed & non-contributory. Major Childhood Illnesses: reports: denies history Cardiovascular: reports: denies history Respiratory: reports: cancer (lung) Gastrointestinal: reports: denies history Obstetrical/Gynecological: reports: other (cervical cancer) Genitourinary: reports: kidney stones Musculoskeletal: reports: denies history Neurological: reports: denies history Endocrine/Immune: reports: denies history Other Conditions: reports: denies history - PRIOR SURGERIES/PROCEDURES Surgical/Procedure History: reports: hysterectomy, other (lithrotripsy; renal stents) - IMMUNIZATION STATUS Childhood Immunizations: See Nurse Assessment Flu Vaccine: See Nurse Assessment - FAMILY HISTORY Family History: reviewed, not pertinent - SOCIAL HISTORY Smoking: cigarettes (former) Substance Use: denies Living Situation: family Physical Exam- Neurological - Physical Exam-Neuro Initial Vital Signs Reviewed: Yes General Appearance: alert, no apparent distress, thin. negative: lethargic Eye Exam: bilateral eye: normal inspection, EOMI HENMT: normocephalic/atraumatic, other (dry mucous membranes. dried blood present to mouth.). negative: angioedema Head Injury: no evidence of injury Respiratory: chest non-tender, lungs clear, normal breath sounds. negative: wheezing Cardiovascular: no gallop, tachycardia. negative: systolic murmur Abdominal Exam: normal bowel sounds, non tender, soft. negative: rigid developmental behavioral physician Exam: normal hearing, normal speech Motor/Sensory: no motor deficit Neurologic: grossly normal. negative: aphasia, motor weakness Integumentary: normal color, normal turgor, warm/dry. negative: pallor Psych/Mental Status: normal mood/affect Progress - PLAN OF CARE/RESULTS Result Diagrams: 12/17/19 07:15 12/17/19 07:15 - EKG 1 Time of EKG reading by physician:: 11:01 EKG Read and Signed by:: Hao Steve EKG Interpretation (*Must complete 3 of following elements*): Abnormal (ST & T wave abnormality, consider lateral ischemia) Rate: 105 Rhythm: sinus tachycardia Seymour: normal ID Interval: normal Comments: possible left atrial enlargement; - XRAY 1 XRAY Study: Chest Impression: See EMR Report ( EXAM: CHEST-PORTABLE 12/13/2019 HISTORY: lung CA, acute confusion TECHNIQUE: AP upright chest at 1054 COMMENT: The alveolar opacity previously present in the lingula and left lower lobe on 11/19/2019 has improved. There is also still some perihilar opacity in the right lung. The atelectasis previously present in the costophrenic sulcus on the right has resolved. There is bilateral apical pleural thickening. The heart size is within normal limits. IMPRESSION: Improved pneumonia and atelectasis. Electronically signed by Ignacio Archibald 12/13/2019 10:59 AM 12/13/19 1059 Interpreting Physician: Ignacio Archibald MD Dictated Date/Time: 12/13/19 1058 cc: Hao Steve MD; Ángel Krishnan MD) - CT/MRI 1 CT Study: Head Impression: See EMR Report ( EXAM: CT HEAD W/O CONTRAST HISTORY: Head injury TECHNIQUE: CT head without contrast COMPARISON: None. FINDINGS: No parenchymal hemorrhage. No epidural or subdural hematoma. No subarachnoid hemorrhage there is a 12 mm isodense area in the right basal ganglia with surrounding edema. No midline shift.. No hydrocephalus. No sinus opacification. IMPRESSION: Findings suspicious for a mass or recent infarct. An MRI with and without contrast is recommended.. This exam was performed using automated exposure control, adjustment of mA or kV according to patient size, and/or use of iterative reconstruction technique. Electronically signed by Jaswinder Bryant 12/13/2019 11:06 AM 12/13/19 1106 Interpreting Physician: Jaswinder Bryant MD Dictated Date/Time: 12/13/19 1102 cc: Hao Steve MD; Ángel Krishnan MD) 3 MRI Study: Brain Impression: See EMR Report ( EXAM: MRI BRAIN W/WO CONTRAST HISTORY: new mass TECHNIQUE: MRI brain with and without intravenous contrast. Axial, sagittal, and coronal images obtained in multiple sequences. These are followed by post contrasted axial and coronal images. COMPARISON: Recent CT FINDINGS: There is a peripherally enhancing 12 mm mass in the right basal ganglia corresponding to the abnormality seen on the recent CT. There is surrounding edema. There is an additional 8 mm peripherally enhancing nodule in the left occipital lobe. There is a small amount of surrounding edema. There is another 8 mm peripherally enhancing nodule in the right occipital lobe with a small amount of surrounding edema. No midline shift. There are small scattered diffusion abnormalities in the parietal and occipital lobes. No hydrocephalus. Normal orbits. No epidural or subdural fluid collection. No sinus opacification or air-fluid levels. IMPRESSION: 1.Scattered brain metastases 2.Small scattered diffusion abnormal ities which may represent tiny recent ischemic events. Electronically signed by Jaswinder Bryant 12/13/2019 1:32 PM 12/13/19 1332 Interpreting Physician: Jaswinder Bryant MD Dictated Date/Time: 12/13/19 1326 cc: Hao Steve MD; Ángel Krishnan MD) - CONSULTS/PCP/HOSPITALIST Notification #1 *Consult/PCP/Hospitalist*: TYRONE Mike for Hospitalist Time Discussed: 15:01 Reason/Comments: Dr. Steve consulted with Cee about patient. Consult Disposition: Will see in ED, Admit, other (Cee states she will consult Dr. Lanier) Departure - Departure Date of Disposition Decision: 12/13/19 Time of Disposition Decision: 15:01 DIAGNOSIS: Altered mental status, Adverse effects of medication, Lung cancer, primary, with metastasis from lung to other site Disposition: ADMITTED INPATIENT 09 Certified Medical Emergency: Emergent Condition: Serious - Critical Care Note This patient required my direct & personal management of CC.: Yes Total Time (mins): 46 Critical Care Statement: This patient required my direct personal management to treat or rule out processes, the absence of which, could potentiallly result in sudden, clinically significant life or limb threatening deterioration. Attestation - Physician/ NIMISHA Attestation The physician spent face to face time with patient:: Yes Advanced Practice Provider documentation review:: Supervising physician onsite and consulted in the evaluation and care of this patient. The physician did have a face to face encounter with the patient. This chart was documented by the indicated scribe, (Mary Haywood Scribe) and accurately reflects the services I performed and decisions made by me, Hao Steve MD, as attested by the provider's signature.
== END 2019-12-17 18:30 | disposition expired | DRG 54 ==
LOC: ED 09:42 → 3N 09:43
PROVIDERS: ATTEND Internal Medicine